=== PATIENT | female | born 1985 | race Caucasian/White ===

== ENCOUNTER 2016-06-23 21:58 | Emergency (ER) | payer MEDICAID ==
[~2016-06-23] VITALS: Ht 160 cm; Wt 61.2 kg
[~2016-06-23 21:58] MED LIST: GABAPENTIN300 MG PO; LEXAPRO 10 MG T10 MG PO; MELOXICAM7.5 MG PO; MIRALAX(PO17 GM/1 PA PO; SUBOXONE 8 MG-21 TAB SL; SUMATRIPTAN SUC25 MG PO; ZOFRAN4 MG PO
[2016-06-23] MEDS ORDERED: GABAPENTIN 400400 MG PO (22:12)
[2016-06-23] MEDS ORDERED: WELLBUTRIN XL300 MG PO (22:12)
--- NOTE | 2016-06-23 23:21 | Emergency Room Report ---
History of Present Illness Time Seen by [id number] Presenting Problem in Triage Pt arrived:Walked Presenting Problem:PATIENT REQUESTS "BLOOD" TEST DUE TO BEING ON SUBOXONE AND NEEDIN TO HAVE IT VERIFIED AND SWITCHED IF SHE IS . 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 N Clinical Suspician of Infection? N Mental Status: 1 - Regular (Normal Baseline) Sepsis Risk:Low Sepsis Risk Have you (or family members/close friends) recently traveled outside the [place]? N If Yes, where/when: Have you had exposure to infectious disease within the past month? N TB? Other? Specify: Source patient, RN notes reviewed, old records Exam Limitations no limitations Comment pt with pos urine preg test Cardiac Chest Pain Chest pain indicative of cardiac No Timing/Duration this evening Severity moderate ALLERGIES Coded Allergies: naproxen (Intermediate, I-ITCHING 06/23/16) Home Medications Reported Medications BUPRENORPHINE HCL/NALOXONE HCL (Suboxone 8 MG-2 MG Tablet Sl) 1 TAB SL BID GABAPENTIN (Gabapentin) 800 MG PO TID BUPROPION HCL (Wellbutrin XL 300MG) (Unknown Dose) PO DAILY History Medical History General CAD? No Angina: No [place]: No Hypertension? Yes Hyperlipidemia? No CHF? No DVT? No PE? No COPD? No Asthma? No Anemia? No GERD? No Gastric ulcers? No GI Bleed? No Hernia? Yes Thyroid Problems? No Hypothyroidism? No CVA? No Seizures? No Diabetes? No Renal Insuffiency? No End Stage Renal Disease? No UTI? No Stones? No BPH? No GB Disease: No Nephritic Syndrome? No Asplenia? No Hepatitis? Yes Sickle Cell Disease? No Arthritis? No Migraines? No Cataracts? No Glaucoma? No MRSA? No HIV? No TB? No Anxiety? No Depression? No Cancer? No More? 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 Respiratory denies cough, denies shortness of breath, denies wheezing Cardiovascular denies chest pain, denies syncope Gastrointestinal denies abdominal pain, denies diarrhea, denies vomiting Genitourinary see HPI. denies: dysuria, frequency, hesitancy, hematuria. Musculoskeletal denies back pain, denies joint pain, denies joint swelling, denies neck pain Skin denies rash Psychiatric/Neurological denies headache, denies seizure Physical Exam Vital Signs Vital Signs Date Time Temp Pulse Resp B/P Pulse O2 O2 Flow FiO2 Ox Delivery Rate 06/23 2219 132/77 06/23 2203 99.1 94 17 132/77 98 - WBC >12,000 or <4,000 or 10% bands? 2 or more SIRS Criteria Met? B/P:132/77 MAP:95 Creatinine >2.0? UA output<0.5ml/kg/hr for 2 hrs? Platelet count >100,000? Lactate >2.0mmol/1? INR >1.2 or PTT > than 60 sec? Evidence of Organ Dysfunction? Provider documented clinical suspician of infection? N Sepsis Criteria Count: 1 Sepsis Risk: Low Sepsis Risk General Appearance no apparent distress Eye Exam - bilateral eye PERRL, bilateral eye EOMI Ear, Nose, Throat normal ENT inspection Neck supple Respiratory Status No: respiratory distress. 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 No Results/Orders Orders Procedure Date/time Status SERUM , QUAL 06/232 Complete Departure Departure Time of Disposition 6 Disposition DC Home or Self Care(routine) Clinical Impression Primary Impression: Qualifiers: Weeks of gestation: less than 8 weeks Qualified Code: Z3A.01 - Less than 8 weeks gestation of Condition STABLE Referrals Michelle MAYS,Kvng Kim (Family) Patient Instructions DI for -- Discomforts and Remedies Additional Instructions please notify your drs in am Discharge Counseling Counseled pt/family regarding diagnosis, test results, medications/RX, follow up needs ED Critical Care Critical Care No at [id number]
--- NOTE | 2016-06-23 23:21 | Emergency Room Report ---
History of Present Illness Time Seen by [id number] Presenting Problem in Triage Pt arrived:Walked Presenting Problem:PATIENT REQUESTS "BLOOD" TEST DUE TO BEING ON SUBOXONE AND NEEDIN TO HAVE IT VERIFIED AND SWITCHED IF SHE IS . 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 N Clinical Suspician of Infection? N Mental Status: 1 - Regular (Normal Baseline) Sepsis Risk:Low Sepsis Risk Have you (or family members/close friends) recently traveled outside the [place]? N If Yes, where/when: Have you had exposure to infectious disease within the past month? N TB? Other? Specify: Source patient, RN notes reviewed, old records Exam Limitations no limitations Comment pt with pos urine preg test Cardiac Chest Pain Chest pain indicative of cardiac No Timing/Duration this evening Severity moderate ALLERGIES Coded Allergies: naproxen (Intermediate, I-ITCHING 06/23/16) Home Medications Reported Medications BUPRENORPHINE HCL/NALOXONE HCL (Suboxone 8 MG-2 MG Tablet Sl) 1 TAB SL BID GABAPENTIN (Gabapentin) 800 MG PO TID BUPROPION HCL (Wellbutrin XL 300MG) (Unknown Dose) PO DAILY History Medical History General CAD? No Angina: No [place]: No Hypertension? Yes Hyperlipidemia? No CHF? No DVT? No PE? No COPD? No Asthma? No Anemia? No GERD? No Gastric ulcers? No GI Bleed? No Hernia? Yes Thyroid Problems? No Hypothyroidism? No CVA? No Seizures? No Diabetes? No Renal Insuffiency? No End Stage Renal Disease? No UTI? No Stones? No BPH? No GB Disease: No Nephritic Syndrome? No Asplenia? No Hepatitis? Yes Sickle Cell Disease? No Arthritis? No Migraines? No Cataracts? No Glaucoma? No MRSA? No HIV? No TB? No Anxiety? No Depression? No Cancer? No More? 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 Respiratory denies cough, denies shortness of breath, denies wheezing Cardiovascular denies chest pain, denies syncope Gastrointestinal denies abdominal pain, denies diarrhea, denies vomiting Genitourinary see HPI. denies: dysuria, frequency, hesitancy, hematuria. Musculoskeletal denies back pain, denies joint pain, denies joint swelling, denies neck pain Skin denies rash Psychiatric/Neurological denies headache, denies seizure Physical Exam Vital Signs Vital Signs Date Time Temp Pulse Resp B/P Pulse O2 O2 Flow FiO2 Ox Delivery Rate 06/23 2219 132/77 06/23 2203 99.1 94 17 132/77 98 - WBC >12,000 or <4,000 or 10% bands? 2 or more SIRS Criteria Met? B/P:132/77 MAP:95 Creatinine >2.0? UA output<0.5ml/kg/hr for 2 hrs? Platelet count >100,000? Lactate >2.0mmol/1? INR >1.2 or PTT > than 60 sec? Evidence of Organ Dysfunction? Provider documented clinical suspician of infection? N Sepsis Criteria Count: 1 Sepsis Risk: Low Sepsis Risk General Appearance no apparent distress Eye Exam - bilateral eye PERRL, bilateral eye EOMI Ear, Nose, Throat normal ENT inspection Neck supple Respiratory Status No: respiratory distress. 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 No Results/Orders Orders Procedure Date/time Status SERUM , QUAL 06/232 Complete Departure Departure Time of Disposition 6 Disposition DC Home or Self Care(routine) Clinical Impression Primary Impression: Qualifiers: Weeks of gestation: less than 8 weeks Qualified Code: Z3A.01 - Less than 8 weeks gestation of Condition STABLE Referrals Michelle MAYS,Kvng Kim (Family) Patient Instructions DI for -- Discomforts and Remedies Additional Instructions please notify your drs in am Discharge Counseling Counseled pt/family regarding diagnosis, test results, medications/RX, follow up needs ED Critical Care Critical Care No at [phone]
[2016-06-23 23:50] VITALS: BP 132/77
== END 2016-06-23 23:52 | disposition home or self-care (01) ==
LOC: ER 21:58
DX: Z3A.01 Less than 8 weeks gestation of pregnancy (principal); Z72.0 Tobacco use; Z79.891 Long term (current) use of opiate analgesic

== ENCOUNTER → 2017-01-22 | Outpatient (CLI) | payer BC, MEDICAID ==
[~2017-01-22] MED LIST changes: +GABAPENTIN 400400 MG PO; +PRENATAL PLUS1 TA1 PO; +WELLBUTRIN XL300 MG PO; +ZOFRAN 8MG TABLE8 MG PO
--- NOTE | 2017-01-22 15:58 | RADIOLOGY REPORT PS360 ---
US PREG FOLLOWUP SINGLE FETUS, US BIOPHYSICAL PROFILE, SD RATIO UMBILICAL ARTERY: Indication: Small for gestational age SGA ORDERING PHYSICIAN: Kiko Tucker MD PATIENT AGE: 31 years FINDINGS: There is a single live fetus present in the cephalic presentation. heart tones are present at 144 BPM's breathing and body motion noted The following parameters are obtained: Average ultrasound age is 33 weeks 4 days. Estimated due date by ultrasound is 03/08/2017. Estimated weight is 2120 g BPD: 33 weeks 5 days OFD: 35 weeks 3 days HC: 34 weeks 2 days AC: 33 weeks 0 days FL: 32 weeks 6 days heart rate: 144 bpm. HC/AC: 1.06 Cephalic index: 76% FL/BPD: 76% FL/AC: 22% Amniotic fluid index: 10.1 Qualitative AFV: 2 breathing movements: 2 Gross body movements: 2 Tone: 2 Biophysical profile score: 8/8 Doppler evaluation of the umbilical artery: SD ratio: 3.6 Resistive index: 0.72 No obvious anomalies evident. Placenta: Right lateral and grade 1-2. No previa No obvious anomalies are apparent. IMPRESSION: Live IUP at 33 weeks 4 days in the cephalic presentation. heart and body motion noted with all parameters correlate. No evidence of IUGR. Placenta is anterior and grade 1-2. Normal biophysical profile. SD ratio of the umbilical artery near the 95th percentile.
== END ==
LOC: RAD 10:30
DX: O36.5131 Maternal care for known or suspected placental insufficiency, third trimester, fetus 1 (principal)

== ENCOUNTER 2017-02-22 02:11 | Inpatient (IN) | payer BC, MEDICAID ==
[~2017-02-22] VITALS: Ht 154.9 cm; Wt 65.3 kg
[~2017-02-22 02:11] MED LIST changes: +BUPRENORPHINE HY8 MG SL; +PRILOSEC OTC20 MG PO; -SUBOXONE 8 MG-21 TAB SL
[2017-02-22 05:58] LABS: HEMOGLOBIN 11.8 g/dL (12.2-16.2); LYMPH # 2.1 K/mm3 (0.7-4.5); LYMPH % 26.7 % (10-50.0)
[2017-02-22 06:15] VITALS: BP 116/64
[2017-02-22 06:16] LABS: AMPHETAMINES/METAMPHETAMINES NEGATIVE ng/mL (<1000)
[2017-02-22 06:21] LABS: BUN 5 mg/dL (7-18)
[2017-02-22 06:22] LABS: GFR (ESTIMATED) 117 ML/MIN (59-)
[2017-02-22 06:44] LABS: ABO BLOOD TYPE A
[2017-02-22 07:10] LABS: RH BLOOD TYPE NEGATIVE
--- NOTE | 2017-02-22 08:23 | Operative Note ---
Procedure/Operative Record Procedure Date of procedure: 02/22/17 Pre-Op Dx: Term , previous section Post-Op Dx: Term , previous section Procedure performed: Repeat lower segment transverse section Surgeon: Dr. Kiko Tucker Housesmith(s): Jacklyn Dominguez Anesthesia: Ham Phelan EBL (ml): 600 Clinical note: She is a 31-year-old 7 para 5 aborta 1 who has had 3 previous sections. As result of this she was offered repeat lower segment transverse section at term. Risk and benefits of surgery discussed the patient prior to surgery. Operative findings: She delivered a live-born male child at 7:50 AM on the morning of February 22, 2017. The baby had Apgars of 9 at 1 minute and 9 at 5 minutes. Ovaries and tubes appeared normal. The pH was 7.52. Operative note: She was taken to the operating room where spinal anesthesia was found be adequate. She was prepped and draped in normal sterile fashion in the supine position with a leftward tilt. A Barrios catheter was in the bladder. A Pfannenstiel skin incision was made with knife then carried through to the underlying layer of fascia with cautery. The fascia was opened in the midline with cautery and extended laterally using Hines scissors. [place] clamps were applied to the superior aspect of the fascial incision which was tented up and the underlying rectus muscles dissected off using cautery. The Claudio clamps were then applied to the inferior aspect of the fascial incision which in a similar fashion was tented up and the underlying rectus muscles dissected off using cautery. The rectus muscles were then in the midline, the peritoneum identified, and entered sharply with Metzenbaum scissors. This incision was then extended superiorly and inferiorly with cautery. We had good visualization of the bladder inferiorly. The bladder peritoneum was then opened in the midline and extended laterally using Metzenbaum scissors. A bladder flap was created digitally. The lower blade of the [place] was inserted so as to push the bladder out of the way. Transverse incision was made through the uterine muscle to the amnion. This incision was then extended laterally using fingers traction. The amnion was entered sharply with knife. The infant's head was then delivered atraumatically. This was followed by the anterior shoulder and the rest of the infant's body atraumatically. The oropharynx and nasopharynx were bulb suctioned. The was then handed off to Dr. Salinas who assigned Apgars of 9 at 1 minute and 9 at 5 minutes. We then obtained cord blood as well as cord pH. The pH was 7.52. Using gentle traction on the cord and countertraction on the fundus I was able to easily deliver the placenta intact. It had a normal three-vessel cord. The uterus was then cleared of clots and debris and exteriorized from the abdominal cavity. A sponge forcep was passed through the cervix to allow drainage. The uterine incision was then closed using running 0 Vicryl suture in a locked fashion. A second layer of the same suture was used to imbricate the first layer. The bladder peritoneum was then closed using running 2-0 Vicryl suture in a locked fashion. The gutters and cul-de-sac were then cleared of clots and debris and the uterus was returned the abdominal cavity. Once again hemostasis was assured. The peritoneum was grasped with Maria Dolores clamps and closed using running 2-0 Vicryl suture. The rectus muscles were then reapproximated using running 0 Vicryl suture. The fascia was closed using running #1 Vicryl suture. The subcutaneous tissues were then irrigated with warm water followed by closure Adams's fascia using running 2-0 Monocryl suture. The skin was closed with devika. The incision was then cleaned with Hibiclens once again. Sterile dressings were applied. She tolerated the procedure well and was taken to the recovery room in excellent condition. All sponges minute and needle counts were correct. Estimate a blood loss was approximately 600 mL. Conplications: None Specimens: Products of conception at 0898
--- NOTE | 2017-02-22 08:28 | Anesthesia Record ---
Anesthesia Record Part I Total IV fluids: 3000 EBL (ml): 600 Urine Output: 200 B/P: 123/60 % SaO2: 99 Pulse: 96 Resps: 16 Temp: 97.6 Patient is: Awake, Stable Stable to PACU at: 0825 at 0827
--- NOTE | 2017-02-22 08:28 | Anesthesia Record ---
Anesthesia Record Part II Discharge time: 854 Destination: OB PACU nurse assessment review? Yes Patient is: Stable Anesthesia complications? No at 0875
--- NOTE | 2017-02-22 08:28 | Anesthesia Record ---
Anesthesia Record Part II Discharge time: 854 Destination: OB PACU nurse assessment review? Yes Patient is: Stable Anesthesia complications? No at [id number]
[2017-02-22 10:00] VITALS: BP 120/85
[2017-02-22 10:24] LABS: ABO BLOOD TYPE A
[2017-02-22 10:38] LABS: RH BLOOD TYPE NEGATIVE
--- NOTE | 2017-02-22 10:49 | PHARMACY CLINIC NOTE ---
Patient Demographics Patient Demographics Admission date: 02/22/17 Date: 02/22/17 Time: 1049 Allergies Coded Allergies: naproxen (Mild, I-ITCHING 02/22/17) HEIGHT- FT: 5 IN: 1.00 K.318 VTE General Information Labs: Laboratory Tests 02/22 0540 Hematology Hgb (12.2 - 16.2 g/dL) 11.8 L Hct (37.0 - 47.0 %) 35.3 L Plt Count (142 - 424 K/mm3) 192 Disclaimer The following section includes nursing documentation that has been pulled in for pharmacy review. VTE prophylaxis NQF [id number] VTE prophylaxis ordered? Yes Type of prophylaxis/treatment: ICD at 4719
[2017-02-22 10:50] LABS: URINE BILIRUBIN - DIPSTICK NEGATIVE (NEG); URINE BLOOD 2+ (NEG)
[2017-02-22 11:08] LABS: FETALSCREEN NEGATIVE (NEGATIVE)
[2017-02-22 20:35] VITALS: BP 105/55
[2017-02-23] VITALS (19 sets, daily range): BP systolic 96–138; BP diastolic 52–76
[2017-02-23 07:09] LABS: HEMOGLOBIN 6.2 g/dL (12.2-16.2)
--- NOTE | 2017-02-23 08:08 | ACUTE CARE PROGRESS NOTE (QUA) ---
Progress Notes Subjective Date 02/23/17 Time 0806 Note She seems to be doing well this morning. Her pain is reasonably well-controlled. She had a large gush of blood yesterday post surgery. Today her hemoglobin is 6.2. As result of that we will go ahead and transfuse her. Patient/family reports: feeling better, no complaints Objective Findings Last VS-Temp:98.5 B/P:105/55 Pulse:100 Resp:18 SaO2:100 ROOM AIR Last weight lbs:144 oz:0 K.318 Method:Stated Laboratory Tests 02/23/17 0641: Hgb 6.2 *L, Hct 19.3 *L 02/22/17 1252: RhIG Dose Recommended RHOGAM RELEASE 02/22/17 1000: RBC Ketty Test NEGATIVE, Antibody Screen NEGATIVE, Miscellaneous Test NEGATIVE Exam General appearance: normal appearance, alert, awake, no acute distress Eyes: normal exam ENT: normal exam, mucous membranes moist Neck: normal inspection Cardiovascular: normal exam Respiratory: normal exam, aerating well ABD: normal exam, non-distended, normal bowel sounds Genitourinary: normal voiding & quantity Reviewed: vital signs, lab results Assessment/Plan Problem List 1. Anemia, 2. Delivered by section Patient condition Improving, Stable Plan: continue current care This inpt stay is expected to cross 2 MNs from start of care Yes Comments: Since her hemoglobin is low this morning we will go ahead and transfuse her 2 units of blood. She will be her another 48 hours. at 0808
[2017-02-23 08:30] LABS: ANTIHUMAN GLOB CROSSMATCH COMPAT
[2017-02-23 14:46] LABS: HEMOGLOBIN 9.2 g/dL (12.2-16.2)
[2017-02-24 07:30] VITALS: BP 117/57
--- NOTE | 2017-02-24 07:33 | ACUTE CARE PROGRESS NOTE (QUA) ---
Progress Notes Subjective Date 02/24/17 Time 0732 Note She is doing well this morning. She is eating and drinking and ambulating. Her pain is well-controlled. Her hemoglobin is now 9.2 after she received 2 units of blood. Patient/family reports: feeling better, no complaints Objective Findings Last VS-Temp:98.2 B/P:122/56 Pulse:93 Resp:18 SaO2:100 ROOM AIR Last weight lbs:144 oz:0 K.318 Method:Stated Laboratory Tests 02/23/17 1425: Hgb 9.2 L, Hct 27.2 L 02/23/17 1115: Misc Test Units 02/23/17 0903: Misc Test Units BLOOD UNIT RELEASE 02/23/17 0641: Hgb 6.2 *L, Hct 19.3 *L 02/22/17 1252: RhIG Dose Recommended RHOGAM RELEASE 02/22/17 1000: RBC Ketty Test NEGATIVE, Antibody Screen NEGATIVE, Miscellaneous Test NEGATIVE 02/22/17 0800: Cord Blood pH 7.52 H 02/22/17 0739: Urine Color STRAW, Urine Appearance CLEAR, Urine pH 7.0, Ur Specific [place] <= 1.005, Urine Protein NEGATIVE, Urine Ketones 1+ H, Urine Blood 2+ H, Urine Nitrate NEGATIVE, Urine Bilirubin NEGATIVE, Urine Urobilinogen 0.2, Ur Leukocyte Esterase NEGATIVE, Urine RBC 5-10, Urine WBC NONE, Ur Squamous Epith Cells 5-10, Urine Bacteria TRACE, Urine Glucose NEGATIVE 02/22/17 0540: MCH 31.1 02/22/17 0540: Sodium 136, Potassium 3.4 L, Chloride 103, Carbon Dioxide 24, BUN 5 L, Creatinine 0.6, Estimated GFR (MDRD) 117, Glucose 102, Calcium 8.4 L, Total Bilirubin 0.5, AST 20, ALT 14, Alkaline Phosphatase 199 H, Total Protein 6.8, Albumin 2.6 L, Globulin 4.2 H, Albumin/Globulin Ratio 0.6 L, WBC 7.8, RBC 3.80 L, Hgb 11.8 L, Hct 35.3 L, MCV 92.9, RDW 14.2, Plt Count 192, MPV 7.7, Gran % 64.1, Gran # 5.0, Lymphocytes % 26.7, Monocytes % 7.5, Eosinophils % 1.4, Basophils % 0.3, Lymphocytes # 2.1, Monocytes # 0.6, Eosinophils # 0.1, Basophils # 0.0, PUBS MCHC 33.5, Antibody Screen NEGATIVE, Miscellaneous Test NEGATIVE 02/22/17 0530: Opiates Screen NEGATIVE, Urine Methadone Screen NEGATIVE, Barbiturates NEGATIVE, Phencyclidine Screen NEGATIVE, Amphetamines Screen NEGATIVE, Benzodiazepines Screen NEGATIVE, Cocaine Screen NEGATIVE, Marijuana (THC) Screen NEGATIVE Exam General appearance: normal appearance, alert, awake, no acute distress Reviewed: vital signs, lab results Assessment/Plan Problem List 1. Anemia, 2. Delivered by section Patient condition Improving, Stable Plan: continue current care This inpt stay is expected to cross 2 MNs from start of care Yes Comments: She is doing very well and we'll plan to send her home tomorrow. at 0723
[2017-02-24 20:17] VITALS: BP 131/82
[2017-02-25 03:36] LABS: Buprenorphine Positive (.); Norbuprenorphine Positive (.)
--- NOTE | 2017-02-25 08:25 | ACUTE CARE PROGRESS NOTE (QUA) ---
Progress Notes Subjective Date 02/25/17 Time 0824 Note She continues to do well. She is eating and drinking and ambulating. She is bottlefeeding. Patient/family reports: feeling better, no complaints Objective Findings Last VS-Temp:98.3 B/P:131/82 Pulse:83 Resp:18 SaO2:100 ROOM AIR Last weight lbs:144 oz:0 K.318 Method:Stated Exam General appearance: normal appearance, alert, awake, no acute distress Reviewed: vital signs, lab results Assessment/Plan Problem List 1. Anemia, 2. Delivered by section Patient condition Improving, Stable Plan: continue current care, initiate discharge plan This inpt stay is expected to cross 2 MNs from start of care Yes Comments: We will plan to send her home today. It's not clear what social media job titles are doing with her baby. She will follow-up with me in 2 weeks' time. at 0848
--- NOTE | 2017-02-25 08:25 | ACUTE CARE PROGRESS NOTE (QUA) ---
Progress Notes Subjective Date 02/25/17 Time 0824 Note She continues to do well. She is eating and drinking and ambulating. She is bottlefeeding. Patient/family reports: feeling better, no complaints Objective Findings Last VS-Temp:98.3 B/P:131/82 Pulse:83 Resp:18 SaO2:100 ROOM AIR Last weight lbs:144 oz:0 K.318 Method:Stated Exam General appearance: normal appearance, alert, awake, no acute distress Reviewed: vital signs, lab results Assessment/Plan Problem List 1. Anemia, 2. Delivered by section Patient condition Improving, Stable Plan: continue current care, initiate discharge plan This inpt stay is expected to cross 2 MNs from start of care Yes Comments: We will plan to send her home today. It's not clear what delinquency prevention social worker are doing with her baby. She will follow-up with me in 2 weeks' time. at 0817
[2017-02-25 08:30] VITALS: BP 114/70
--- NOTE | 2017-02-25 08:30 | Discharge Summary ---
Discharge Summary Admission date: 02/22/17 Discharge date: 02/25/17 Discharge diagnoses: Term , previous section, maternal drug abuse, anemia Clinical note: She is a 31-year-old 7 now para 6 aborta 1. She's had previous sections and as result of that was offered repeat lower segment transverse section at term. She has been taking Subutex throughout her . She has a history of drug abuse. Course in hospital: On February 22, 2017 she underwent a repeat lower segment transverse section. She delivered a live-born male child at 7:50 AM on the morning of February 22. The baby weighed 7 lbs. 3 oz. and was 19 inches long. He had Apgars of 9 at 1 minute and 9 at 5 minutes. She has done well postoperatively and has remained afebrile throughout her hospitalization. She is eating and drinking and ambulating. She is bottlefeeding. Her lochia is normal. When she returned to the labor and delivery department after her delivery she did pass a large clot and soaked through a large truck. She received Methergine and her bleeding settled. Her post operative hemoglobin was 6.2. As result of that we elected to transfuse her 2 units. Posttransfusion her hemoglobin is 9.2. She has A negative blood. She is rubella immune and was group B streptococcus negative. Her baby had Rh positive blood and she has received RhoGam. Laboratory Tests 02/22/17 0530: Opiates Screen NEGATIVE, Urine Methadone Screen NEGATIVE, Barbiturates NEGATIVE, Phencyclidine Screen NEGATIVE, Amphetamines Screen NEGATIVE, Benzodiazepines Screen NEGATIVE, Cocaine Screen NEGATIVE, Marijuana (THC) Screen NEGATIVE 02/22/17 0540: Sodium 136, Potassium 3.4, Chloride 103, Carbon Dioxide 24, BUN 5, Creatinine 0.6, Estimated GFR (MDRD) 117, Glucose 102, Calcium 8.4, Total Bilirubin 0.5, AST 20, ALT 14, Alkaline Phosphatase 199, Total Protein 6.8, Albumin 2.6, Globulin 4.2, Albumin/Globulin Ratio 0.6, WBC 7.8, RBC 3.80, MCV 92.9, RDW 14.2, Plt Count 192, MPV 7.7, Gran % 64.1, Gran # 5.0, Lymphocytes % 26.7, Monocytes % 7.5, Eosinophils % 1.4, Basophils % 0.3, Lymphocytes # 2.1, Monocytes # 0.6, Eosinophils # 0.1, Basophils # 0.0, PUBS MCHC 33.5 02/22/17 0540: MCH 31.1 02/22/17 0739: Urine Color STRAW, Urine Appearance CLEAR, Urine pH 7.0, Ur Specific [place] <= 1.005, Urine Protein NEGATIVE, Urine Ketones 1+, Urine Blood 2+, Urine Nitrate NEGATIVE, Urine Bilirubin NEGATIVE, Urine Urobilinogen 0.2, Ur Leukocyte Esterase NEGATIVE, Urine RBC 5-10, Urine WBC NONE, Ur Squamous Epith Cells 5-10, Urine Bacteria TRACE, Urine Glucose NEGATIVE 02/22/17 0800: Cord Blood pH 7.52 02/22/17 1000: RBC Ketty Test NEGATIVE, Antibody Screen NEGATIVE, Miscellaneous Test NEGATIVE 02/22/17 1252: RhIG Dose Recommended RHOGAM RELEASE 02/23/17 1115: Misc Test Units 02/23/17 1425: Hgb 9.2, Hct 27.2 Plans for ongoing care: She is discharged home to follow-up with me in approximately 2 weeks' time. Discharge medications I've given her a pressure for hydromorphone 2 mg number 30 tablets. She will also take ibuprofen. She will start her Subutex after she stops taking narcotics for pain. She will continue with her vitamins and iron. She received a prescription for nicotine patch. DC/follow-up instructions She was given the usual instructions with respect to limiting her activity, driving and sexual activity. She was given instructions with respect to wound care. Condition at discharge Stable and improved at 0830
[2017-02-25] MEDS ORDERED: IRON TABLETS325 MG PO (08:32)
[2017-02-25] MEDS ORDERED: HYDROMORPHONE2 MG PO (08:32)
[2017-02-25] MEDS ORDERED: MOTRIN 400MG.400 MG PO (08:33)
[2017-02-25] MEDS ORDERED: NICOTINE T21 MG/24 H TD (08:33)
--- OUTSIDE RECORDS SUMMARY | 2017-03-17 02:10 | External Medical Summary Rpt ---
Author Author , PATRICIA Jade PATRICIA Address Unknown Phone [email or web address] Team Providers Care Ethylene Oxide Panelboard Operator Name Role Phone AHMED, ORDAZ A, Unavailable Unavailable AHMED, ORDAZ A [facility]OC[facility] Unavailable [facility] AYOOB AND, AYOOB AND Unavailable Unavailable [facility], Unavailable Unavailable [facility] BEAVEN GERMAN, BEAVEN Unavailable Unavailable GERMAN [facility] Unavailable Unavailable [facility], [facility] Unavailable Unavailable [facility], [facility] HEIDI JAM, HEIDI JAM Unavailable Unavailable [facility] Unavailable Unavailable & INTER, [facility] NICK, NICK Unavailable Unavailable NICK ALL, NICK ALL Unavailable Unavailable BORAL ALFONZO, BORAL ALFONZO Unavailable Unavailable LANCE JOSE, LANCE JOSE Unavailable Unavailable DEEDEE ALL, DEEDEE Unavailable Unavailable ALL CY EPSTEIN, Unavailable Unavailable CY EPSTEIN TIMOTHY W, Unavailable Unavailable TAMMY MORALES CRIAG T, Unavailable Unavailable SILVIA VELEZ NOAM TER, NOAM TER Unavailable Unavailable CELLAROSI - YORBA, Unavailable Unavailable STEVIE M, CELLAROSI - YORBA, STEVIE M [facility], Unavailable Unavailable [facility]available Unavailable [facility], [facility] ANAMARIA MACKEY, Unavailable Unavailable BERT HARRIS Unavailable Unavailable [facility] Unavailable Unavailable [facility], [facility] RIA BRADEN RIA Unavailable Unavailable BRADEN PORTILLO AGA, Unavailable Unavailable LINDSEY AGA DO, DO Unavailable Unavailable DO ANCA, Unavailable Unavailable DO ANCA [id number], Unavailable Unavailable [id number], Unavailable Unavailable [facility] SILVINO CARBAJAL, Unavailable Unavailable SILVINO CARBAJAL GOYAL Unavailable Unavailable LUBNA JAY JAY CALVO GOYAL Unavailable Unavailable LUBNA RAMON ARANA Unavailable Unavailable L, RAMON ARANA AMANDA, AMANDA Unavailable Unavailable AMANDA ERICK, AMANDA Unavailable Unavailable ERICK [facility] VENKATESH DUMAS MD, Unavailable Unavailable VENKATESH ADAMS, CINDY ADAMS Unavailable Unavailable PHILLIPS DORETHA, PHILLIPS Unavailable Unavailable DORETHA HARPEL, HARPEL Unavailable Unavailable HARPEL NATACHA, HARPEL Unavailable Unavailable NATACHA [facility], Unavailable Unavailable [facility], Unavailable Unavailable [facility], [facility] HILTY, RONDON R, Unavailable Unavailable HILTY, RONDON R [facility], Unavailable Unavailable [facility] Unavailable Unavailable [facility] Unavailable Unavailable [facility], [facility] STEVE LANGSTON, Unavailable Unavailable STEVE LANGSTON KATHLEEN, Unavailable Unavailable KYLE ZABALA KATHERINE C, Unavailable Unavailable JOSE WEN, MARITZA GRE Unavailable Unavailable MAGDALENA, MAGDALENE, Unavailable Unavailable MAGDALENA, MAGDALENE [facility] MIGDALIA MACKEY, MIGDALIA Unavailable Unavailable NARENDRA KMSF NURSE Unavailable Unavailable PRACTITIONER GR, KMSF NURSE PRACTITIONER GR LALA BUTCHER Unavailable Unavailable BLAKE DAVISON, Unavailable Unavailable BLAKE ADEN [facility], Unavailable Unavailable [facility] Un[facility] Un[facility] Unavailable Unavailable HOLD[facility], [facility], Unavailable Unavailable [facility], Unavailable Unavailable [facility] HUSSEIN JAM, HUSSEIN JAM Unavailable Unavailable HUSSEIN JAM, HUSSEIN JAM Unavailable Unavailable MELANIA FAYETTE URBAN Unavailable Unavailable COGOVT, MELANIA FAYETTE URBAN COGOVT MELANIA FAYETTE URBAN Unavailable Unavailable COGOVT, MELANIA FAYETTE URBAN COGOVT MIGUEL DIANE, MIGUEL Unavailable Unavailable DIANE MIGUEL, TISH B, Unavailable Unavailable MIGUEL, TISH B ELIJAH PEÑA, Unavailable Unavailable ELIJAH PEÑA MELIO JOSE, MELIO JOSE Unavailable Unavailable LEXA SHANNON, Unavailable Unavailable LEXA SHANNON O'MULUGETA BRADEN, O'MULUGETA Unavailable Unavailable BRADEN CRYSTAL JAM, CRYSTAL Unavailable Unavailable JAM CRYSTAL JAM, CRYSTAL Unavailable Unavailable J[facility], [facility] Unavailable Unavailable [facility], [facility] Unavailable Unavailable LAB, [facility] DANISHA BRYAN Unavailable Unavailable MALLORY, DANISHA BYRAN MALLORY PICKLESIMER JR, Unavailable Unavailable PICKLESIMER JR PICKLESIMER JR GENIE, Unavailable Unavailable PICKLESIMER JR GENIE PICKLESIMER JR GENIE, Unavailable Unavailable PICKLESIMER JR GENIE [facility], Unavailable Unavailable [facility] OMARI MUNOZ, Unavailable Unavailable OMARI MUNOZ JASON T, Unavailable Unavailable SAMINA TRUJILLO CHAPPELL BET, Unavailable Unavailable CHAPPELL BET [id number], Unavailable Unavailable [facility] Unavailable Unavailable [id number] # [id number], [facility] [id number] # 0784 VIANNEY BORJAS Unavailable Unavailable SOLIEN GADIEL, SOLIEN Unavailable Unavailable GADIEL [facility] Unavailable Unavailable GROUP,, [facility], [facility] Unavailable Unavailable GROUP,, [facility], ZAHIRA NARENDRA, ZAHIRA NARENDRA Unavailable Unavailable [facility] Unavailable Un[facility], [facility], [facility]available [facility]available [facility], Unavailable Unavailable [facility] LI ZHANG, Unavailable Unavailable LI ZHANG STEVENS Unavailable Unavailable [facility], Unavailable [facility], [facility] Unavailable Unavailable [facility] ASHBY MOL, ASHBY MOL Unavailable Unavailable TRUE STEFANIA, TRUE STEFANIA Unavailable Unavailable [facility], Unavailable Unavailable [facility] Unavailable [facility] VELWILLA JR REINALDO, Unavailable Unavailable VELYADIELDIS JR REINALDO [facility] # Unavailable Unavailable 4892, [facility] # 4892 [facility] # Unavailable Unavailable 9631, [facility] # 9631 FRANCE NONI, FRNACE NONI Unavailable Unavailable [facility] Unavailable Unavailable [facility], [facility] Unavailable Unavailable [facility], [facility] HOANG JOHANNY, HOANG Unavailable Unavailable JOHANNY EVER DEN, Unavailable Unavailable EVER DEN ARSENIO ERICK, ARSENIO Unavailable Unavailable ERICK ZAGUROVSKAYA MAR, Unavailable Unavailable ZAGUROVSKAYA MAR Purpose Continuity of Care Document - 08-06-2008 through 2016 Problems Code Diagnosis DOS Provider Status [id number] FALSE LABOR 12-04-2016 [facility] BEFORE 37 PHYSICIANS CMPLETE GROUP WEEKS GEST 3RD TRI Z36 ENCOUNTER 10-16-2016 [facility] SCREENING OF MOTHER Z3A20 20 WEEKS 10-16-2016 [facility]ICAL OF IMAGING ASS Z113 ENCOUNTER 10-12-2016 [facility] INFECTIONS SEXL MODE TRANSMISSN Z3480 ENC 10-12-2016 [facility] SUPERVISION [facility] OTH NORMAL PREG UNS TRIMESTER X02500 UTERINE 09-03-2016 [facility] DISCREPANCY INC FIRST TRIMESTER Z3492 ENC 09-03-2016 [facility] NORMAL IMAGING ASS UNS 2 TRIMESTER Z3A14 14 WEEKS 09-03-2016 [facility] OF IMAGING ASS F02413 DRUG USE 08-31-2016 [facility] COMPLICATIN PHYSICIANS G GROUP SECOND TRIMESTER Z3201 ENCOUNTER 08-31-2016 [facility] FOR PHYSICIANS GROUP TEST RESULT POSITIVE N925 OTHER 07-02-2016 [facility] SPECIFIED PHYSICIANS IRREGULAR GROUP MENSTRUATIO N Z3A01 LESS THAN 8 06-23-2016 [facility], GESTATION PLLC OF Z720 TOBACCO USE 06-23-2016 [facility] B56138 MIRROR MAKER 06-23-2016 [facility] CURRENT USE [facility] OF OPIATE INC ANALGESIC R635 ABNORMAL 04-23-2016 [facility], PLLC Z3189 ENCOUNTER 04-23-2016 [facility] OTHER [facility] PROCREATIVE [facility] DEPT MANAGEMENT COLE Z3202 ENCOUNTER 04-23-2016 [facility] DEPT TEST RESULT COLE NEGATIVE I10 ESSENTIAL 02-20-2016 [facility] HYPERTENSIO INC N K5900 CONSTIPATIO 02-20-2016 [facility] N PHYSICIANS, UNSPECIFIED PLLC R1030 LOWER 02-20-2016 [facility] ABDOMINAL [facility]IANS, PAIN PLLC UNSPECIFIED R1084 GENERALIZED 01-25-2016 [facility] ABDOMINAL [facility], PAIN PLLC N809 ENDOMETRIOS 12-17-2015 [facility] IS ANESTH OF UNSPECIFIED THE BLUE N8320 UNSPECIFIED 12-17-2015 [facility] OVARIAN PHYSICIANS CYSTS GROUP N840 POLYP OF 12-17-2015 [facility] CORPUS PHYSICIANS UTERI GROUP R102 PELVIC AND 12-17-2015 [facility] PERINEAL LLC PAIN N736 FEMALE 12-13-2015 [facility] PERITONEAL INC ADHESIONS POSTINFECTI VE N761 SUBACUTE 12-13-2015 [facility] AND CHRONIC PHYSICIANS VAGINITIS GROUP S04830 ENCOUNTER 12-13-2015 [facility] PREPROCEDUR INC AL LABORATORY EXAM R17390 ENCOUNTER 09-30-2015 [facility] HOUSING INSPECTORS EXAM ALESIA MAYS GENERAL RTN W/ABNORMAL FIND Y07035 ENCOUNTER 09-30-2015 [facility] HOUSING INSPECTORS EXAM REFERNCE GENERAL RTN LABORATORIE W/O S ABNORMAL FIND D13900 ENCOUNTER 09-30-2015 [facility] ROUTINE ALESIA MAYS CHECKING IU CONTRACEPT DEVICE Z309 ENCOUNTER 09-30-2015 [facility] FOR ALESIA MAYS CONTRACEPTI VE MANAGEMENT UNS B1920 UNS VIRAL 09-16-2015 [facility] HEPATITIS C PHYSICIANS WITHOUT GROUP HEPATIC COMA M545 LOW BACK 09-16-2015 [facility] PAIN PHYSICIANS GROUP 62620 INCOMPLETE 03-06-2015 [facility] EMPTY[facility] V5869 LONG-TERM 02-20-2015 [facility] USE OF OTHER MEDICATIONS V5883 ENCOUNTER 02-20-2015 [facility] THERAPEUTIC DRUG MONITORING V2511 ENC FOR 01-23-2015 [facility] INTRAUTERIN [facility] E CONTRACEPT DEVICE V2389 SUPERVISION 12-26-2014 [facility] OTHER [facility] HIGH-RISK [facility] 10049 OTHER 12-19-2014 [facility] OB TRAUMA COND/COMPL 5119 UNSPECIFIED 12-13-2014 [facility] EFFUSION [facility] 5180 PULMONARY 12-13-2014 [facility] 7850 UNSPECIFIED 12-13-2014 [facility] TACHYCARDIA [facility] 2859 UNSPECIFIED 12-09-2014 [facility]SE ANEMIA PRACTITIONE R GR 2875 UNSPECIFIED 12-09-2014 [facility]SE PRACTITIONE THROMBOCYTO R GR PENIA 4266 OTHER HEART 12-09-2014 [facility] 514 PULMONARY 12-09-2014 [facility] AND [facility] HYPOSTASIS 5739 UNSPECIFIED 12-09-2014 [facility] [place] [address] SYSTEMIC 12-09-2014 [facility]SE INFLAMMATOR PRACTITIONE Y RESPONSE R GR SYNDROME UNSPEC 2760 HYPEROSMOLA 12-08-2014 [facility] [address] OTHER SPEC 12-08-2014 [facility] BLOOD&BLOOD HOSPI -FORMING ORGANS 5849 ACUTE 12-08-2014 [facility] FAILURE [facility] UNSPECIFIED 5881 NEPHROGENIC 12-08-2014 [facility]ABET[facility] INSIPIDUS [facility] 58735 CHEST PAIN 12-08-2014 [facility] UNSPECIFIED SERV [facility] 2762 ACIDOSIS 12-07-2014 [facility]SE PRACTITIONE R GR 5601 PARALYTIC 12-07-2014 [facility] ILEUS [facility] 18074 ERLY ONSET 12-07-2014 [facility] DELIV DELIV [facility] W/WO HOSPI MENTION ANTPRTM COND 48606 LIVER 12-07-2014 [facility] TRACT D/O [facility]OUND[facility] PREG DEL W/WO ANTPRTM 01638 MATERNAL 12-07-2014 [facility] DEPENDENCE [facility] WITH DELIVERY 96442 TWIN 12-07-2014 [facility] , [facility] DELIVERED [facility] 84415 OTH 12-07-2014 [facility] CONDS HOSPI AFFECT MANAGEMENT MOTH DELIV 21433 C/S DELIV 12-07-2014 [facility] W/O INDICAT [facility] DELIV W/WO HOSPI ANTPRTM COND 95715 POLYURIA 12-07-2014 [facility]URSE PRACTITIONE R GR V272 OUTCOME OF 12-07-2014 [facility] TWINS BOTH [facility] LIVEBORN V5881 FITTING AND 12-07-2014 [facility] OF [facility] VASCULAR CATHETER 99380 THREATENED 12-06-2014 [facility] PREMATURE [facility] LABOR [facility] ANTEPARTUM 69820 UNSPECIFIED 12-06-2014 [facility] ANTE[facility]UM [facility] RENAL [facility] DISEASE 2535 DIABETES 12-05-2014 [facility] 2866 DEFIBRINATI 12-05-2014 [facility] 5718 OTHER 12-05-2014 [facility] NONALCOHOLI C LIVER DISEASE 48920 RHESUS 12-05-2014 [facility] ISOIMMUNIZA [facility] [place] [address] SYS INFLAM 12-05-2014 [facility] SYND-NON-IN F W/O ACUTE ORGN DYSF 68649 TOB USE D/O 11-26-2014 [facility] /PP ANTEPARTM COND/COMP 74579 MATERNAL 11-23-2014 [facility] DEPENDENCE [facility] ANTEPARTUM 82969 TWIN 11-23-2014 [facility] , [facility] ANTEPARTUM [facility] 24125 CERVICAL 11-21-2014 [facility]ORTENING [facility] ANTEPARTUM [facility] CONDITION OR COMP V9102 TWIN GEST 11-21-2014 [facility] MONOCHORION SERV IC/DIAMNIOT FOUNDATION IC V221 SUPERVISION 10-24-2014 [facility] NORMAL V284 10-24-2014 [facility] SCR [facility] GROWTH [facility] RETARDATION USING US V239 UNSPECIFIED 10-17-2014 [facility] HIGH-RISK SERV [facility] 02205 CERVICAL 10-10-2014 [facility] INCOMPETENC SERV E ANTPRTM FOUNDATION COND/COMPLI CATION 83070 TWIN 10-03-2014 [facility] UNSPECIFIED FOUND[facility] TO EPISODE OF CARE 26109 PREVIOUS 09-28-2014 [facility] C-SECT SERV DELIVERY [facility] ANTPRTM COND/COMP V9103 TWIN GEST 09-12-2014 [facility] /DIAMNIOTIC V2881 ENCOUNTER 08-29-2014 [facility] FOR [facility] ANATOMIC [facility] SURVEY 5733 UNSPECIFIED 07-26-2014 [facility] 51207 BN&JNT D/O 07-19-2014 [facility] BACK [facility] PELVIS&LW [facility]OUNDATION LIMBS ANTEPARTUM 7245 UNSPECIFIED 07-19-2014 [facility] BACKACHE [facility] 7935 NONSPECIFIC 07-19-2014 [facility] ABN [facility] FINDING RAD [facility] & OTH EXAM ORGAN V222 07-19-2014 [place] [facility] [place], [facility] INCIDENTAL [facility] 54586 MATERNAL RX 06-26-2014 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 COMPL PG S LLC CB/PP UNS EOC 86595 TRIPLET 06-25-2014 [place] [facility]TEPARTUM [facility] 08353 OTHER 05-24-2014 [facility] SPECIFED N EMERGENCY COMPLICATIO PHYS N ANTEPARTUM 55724 HORDEOLUM 05-11-2014 [facility] EXTERNUM N EMERGENCY PHYS 55294 NAUSEA WITH 02-19-2014 [facility] VOMITING N EMERGENCY PHYS 32621 ABDOMINAL 02-19-2014 [facility] PAIN, N EMERGENCY EPIGASTRIC PHYS 6825 CELLULITIS 02-06-2014 [facility] AND ABSCESS N EMERGENCY OF BUTTOCK PHYS 05755 UNSPECIFIED 01-23-2014 [facility] N EMERGENCY [place]CTIVI [place]YS TIS 38830 NAUSEA 01-19-2014 [facility] ALONE N EMERGENCY PHYSI 30074 ABDOMINAL 01-19-2014 [facility] PAIN, N EMERGENCY GENERALIZED PHYSI 19233 OTHER 12-24-2013 H[facility] LATRICE DISEASES OF SPLEEN 5738 OTHER 12-24-2013 H[facility]SE[facility] JAM SPECIFIED DISORDERS OF LIVER 99776 ABDOMINAL 12-24-2013 MELANIA FAYETTE PAIN, URBAN UNSPECIFIED COGOVT SITE 33126 DIARRHEA 11-03-2013 [facility] SCO 45608 ABDOMINAL 11-03-2013 [facility] PAIN, LEFT SCO UPPER QUADRANT V7231 ROUTINE 11-03-2013 [facility] GYNECOLOGIC [facility] AL EXAMINATION 85430 OTHER CHEST 10-31-2013 GOYAL LUBNA PAIN 6264 IRREGULAR 10-27-2013 [employer] MENSTRUAL PARTNERS CYCLE GROUP, 4619 ACUTE 09-09-2010 [facility] SINUSITIS, HEALTHCARE UNSPECIFIED CENTER 462 ACUTE 09-09-2010 [facility] PHARYNGITIS HEALTHCARE CENTER 14477 ESOPHAGEAL 07-31-2010 [facility] 51460 OTHER 07-31-2010 [facility] FATIGUE 7948 NONSPECIFIC 07-31-2010 [facility] ABNORMAL [facility] RESULTS LIVR FUNCTION STUDY 72237 TOBACCO USE 07-17-2010 CRY[facility]AL JAM D/O COMP PG CHILDBIRTH/ PP DELIVERED 97391 PREV C/S 07-17-2010 [facility] DELIV DELIV W/WO MENTION ANTPRTM COND V237 INSUFFICIEN 07-17-2010 [facility] T CARE V270 OUTCOME OF 07-17-2010 [facility] DELIVERY SINGLE LIVEBORN V072 NEED FOR 06-19-2010 [facility] JAM PROPHYLACTI C IMMUNOTHERA PY V2889 OTHER 06-16-2010 [facility] SPECIFIED [facility] SCREENING 7231 CERVICALGIA 08-04-2009 [facility] 7241 PAIN IN 08-04-2009 [facility] SPINE 7242 LUMBAGO 08-04-2009 [facility] E9270 OVEREXERTIO 08-04-2009 [facility] FROM SERV SUDDEN [facility] STRENUOUS MOVEMENT 77826 ABDOMINAL 04-30-2009 [facility] PAIN, HOSPITAL PERIUMBILIC 02490 ABDOMINAL 04-30-2009 [facility] OTHER [facility]OSPITAL SPECIFIED SITE 460 ACUTE 04-17-2009 [facility] ITIS & INTER 13364 OTHER 04-15-2009 [facility] CHRONIC EMERG[facility]Y PAIN PHYS PSC 8472 LUMBAR 04-06-2009 [facility] SPRAIN [facility] CARE STRAIN PHYSICANS [place] PSC 5781 BLOOD IN 03-22-2009 [facility] STOOL [facility]ICS & INTER 5693 HEMORRHAGE 03-19-2009 [facility] ANUS SERVICES [facility] 06585 OTHER 01-12-2009 [facility], SPECIFIED KIAN, AND DISORDER OF ASSOCIATES KIDNEY AND URETER 68385 OTHER ACUTE 01-01-2009 [facility] EPSTEIN POSTOPERATI VE PAIN 67219 UNSPECIFIED 01-01-2009 [facility] EPSTEIN CONSTIPATIO N V242 ROUTINE 01-01-2009 VER[facility] EPSTEIN FOLLOW-UP 13562 GENLY 12-24-2008 MELANIA MARTHAYEZACH CONTRACTED URBAN [place] [address] PREMATURE 12-24-2008 [facility] RUPTURE [facility] MEMBRANES FOUNDAT[facility] ANTEPARTUM 49235 OTHER 12-23-2008 MELANIA FAYETTE THREATENED URBAN LABOR COGOVT UNSPEC EPISODE CARE 25665 OTHER 12-23-2008 [facility] THREATENED N EMERGENCY LABOR, PHYS INC ANTEPARTUM V726 LABORATORY 12-03-2008 LAB [facility] EXAMINATION [employer] 4550 INTERNAL 09-28-2008 [facility] HEMORRHOIDS CARE WITHOUT PHYSICANS MENTION [place] PSC COMP 4553 EXTERNAL 09-28-2008 [facility] HEMORRHO[facility] WITHOUT PHYSICANS MENTION [place] PSC COMP 4556 UNSPEC 09-28-2008 [facility] HEMORRHOIDS [email or web address] WITHOUT MENTION COMPLICATIO N 4659 ACUTE URIS 09-28-2008 [facility] UNSPECIFIED SITE 7862 COUGH 09-28-2008 [facility] 4660 ACUTE 09-27-2008 [facility] BRONCHITIS N EMERGENCY PHYS INC V745 SCREENING 09-04-2008 PATHOLOGY & EXAMINATION CYTOLOGY FOR LAB VENEREAL DISEASE 90703 OT CURRENT 08-06-2008 [facility]ations Na ND Rx Da Fi Fi Am Da Di Ph RX Ph St me C No te ll ll ou ys ag ar # ys at rm s nt no ma ic us Or Da si cy ia de te s n re d BU 69 07 08 60 30 00 HO Ac ID 09 -2 -2 .0 00 ME ti OP 70 1- 5- 00 06 TO ve IO 87 20 20 09 WN N 80 17 17 11 HC 3 02 PH L AR SR MA CY 15 0 OF MG CY TA NT BL HI ET AN A GA 68 06 07 60 20 00 HO Ac BA 00 -2 -2 .0 00 ME ti PE 10 2- 8- 00 06 TO ve NT 00 20 20 08 WN IN 70 17 17 94 3 59 PH 80 AR 0 MA MG CY TA OF BL ET CY NT HI AN A GA 68 05 06 90 30 00 HO Ac BA 00 -0 -0 .0 00 ME ti PE 10 9- 9- 00 06 TO ve NT 00 20 20 08 WN IN 70 17 17 65 3 54 PH 80 AR 0 MA MG CY TA OF BL ET CY NT HI AN A NI 00 05 06 14 14 00 HO Ac CO 53 -0 -0 .0 00 ME ti TI 65 8- 9- 00 06 TO ve NE 89 20 20 08 WN 68 17 17 65 21 8 86 PH AR MG MA /2 CY 4H R OF PA TC CY H NT HI AN A BU 69 05 06 30 30 00 HO Ac ID 09 -0 -0 .0 00 ME ti OP 70 8- 9- 00 06 TO ve IO 87 20 20 08 WN N 80 17 17 65 HC 3 87 PH L AR SR MA CY 15 0 OF MG CY TA NT BL HI ET AN A PO 62 05 06 52 30 00 HO Ac LY 17 -0 -0 7. 00 ME ti ET 50 8- 9- 00 06 TO ve HY 44 20 20 0 08 WN LE 23 17 17 65 NE 1 88 PH AR GL MA YC CY OL OF 33 50 CY NT PO HI WD AN A GA 68 04 05 90 30 00 HO Ac BA 00 -1 -1 .0 00 ME ti PE 10 1- 2- 00 06 TO ve NT 00 20 20 08 WN IN 70 17 17 31 3 69 PH 80 AR 0 MA MG CY TA OF BL ET CY NT HI AN A GA 68 03 04 90 30 00 HO Ac BA 00 -1 -1 .0 00 ME ti PE 10 4- 4- 00 06 TO ve NT 00 20 20 08 WN IN 70 17 17 31 3 69 PH 80 AR 0 MA MG CY TA OF BL ET CY NT HI AN A TE 00 02 03 45 7 00 HO Ac RC 16 -1 -2 .0 00 ME ti ON 80 6- 4- 00 06 TO ve AZ 34 20 20 08 WN OL 64 17 17 15 E 6 62 PH 0. AR 4% MA CY CR EA OF M CY NT HI AN A CL 00 02 03 30 10 00 HO Ac IN 59 -1 -2 .0 00 ME ti DA 12 6- 4- 00 06 TO ve MY 93 20 20 08 WN CI 20 17 17 15 N 1 63 PH HC AR L MA 30 CY 0 MG OF CA CY PS NT UL HI E AN A GA 68 02 03 90 30 00 HO Ac BA 00 -1 -1 .0 00 ME ti PE 10 4- 7- 00 06 TO ve NT 00 20 20 08 WN IN 70 17 17 14 3 17 PH 80 AR 0 MA MG CY TA OF BL ET CY NT HI AN A GA 02 90 30 00 HO Ac BA 00 -1 -1 .0 00 ME ti PE 10 6- 7- 00 06 TO ve NT 00 20 20 07 WN IN 70 17 17 62 3 96 PH 80 AR 0 MA MG CY TA OF BL ET CY NT HI AN A BU 00 01 02 23 13 00 HO Ac ID 09 -1 -1 .0 00 ME ti EN 35 0- 0- 00 04 TO ve OR 72 20 20 02 WN PH 15 17 17 09 IN 6 66 PH -N AR AL MA OX CY ON OF 8- 2 CY MG NT HI SL AN A BU 01 02 30 30 00 HO Ac ID 00 -0 -0 .0 00 ME ti OP 10 3- 3- 00 06 TO ve IO 19 20 20 07 WN N 90 17 17 87 HC 0 33 PH L AR 75 MA CY MG OF TA BL CY ET NT HI AN A BU 00 12 01 27 15 00 HO Ac ID 09 -2 -2 .0 00 ME ti EN 35 7- 7- 00 04 TO ve OR 72 20 20 02 WN PH 15 16 17 07 IN 6 74 PH -N AR AL MA OX CY ON OF 8- 2 CY MG NT HI SL AN A GA 12 01 90 30 00 HO Ac BA 00 -1 -2 .0 00 ME ti PE 10 9- 0- 00 06 TO ve NT 00 20 20 07 WN IN 70 16 17 62 3 96 PH 80 AR 0 MA MG CY TA OF BL ET CY NT HI AN A BU 00 12 01 38 19 00 HO Ac ID 09 -0 -1 .0 00 ME ti EN 35 8- 3- 00 04 TO ve OR 72 20 20 02 WN PH 15 16 17 05 IN 6 67 PH -N AR AL MA OX CY ON OF 8- 2 CY MG NT HI SL AN A BU 00 12 01 6. 3 00 HO Ac ID 09 -0 -0 00 00 ME ti EN 35 5- 9- 0 04 TO ve OR 72 20 20 02 WN PH 15 16 17 05 IN 6 08 PH -N AR AL MA OX CY ON OF 8- 2 CY MG NT HI SL AN A HAYS 12 04 04 0 90 30 HO 40 SO Ac GEMA 49 -2 -3 .0 ME 05 LI ti XO 61 9- 0- 00 TO 41 EN ve NE 20 20 20 WN 1 8 80 11 11 AR 3 PH YL MG AR S -2 MA K CY MG SL FI LM BU 00 04 04 2 60 30 HO 60 SO Ac ID 59 -2 -2 .0 ME 16 LI ti OP 13 9- 9- 00 TO 71 EN ve IO 54 20 20 WN 6 N 16 11 11 AR HC 0 PH YL L AR S SR MA K CY 15 0 MG TA BL ET ME 13 04 04 2 30 30 HO 60 SO Ac RT 10 -2 -2 .0 ME 16 LI ti AZ 70 9- 9- 00 TO 71 EN ve AP 00 20 20 WN 7 IN 33 11 11 AR E 4 PH YL 30 AR S MA K MG CY TA BL ET SE 00 03 04 2 30 30 HO 60 SO Ac RO 31 -3 -2 .0 ME 15 LI ti QU 00 0- 6- 00 TO 22 EN ve EL 27 20 20 WN 7 51 11 11 AR 25 0 PH YL AR S MG MA K CY TA BL ET ID 37 01 04 3 30 30 HO 60 ON Ac IL 00 -2 -2 .0 ME 11 EI ti OS 00 8- 1- 00 TO 94 LL ve EC 45 20 20 WN 3 50 11 11 JA OT 4 PH ME C AR S 20 MA E .6 CY MG TA BL ET IB 55 02 04 3 30 10 HO 60 ON Ac UP 11 -2 -2 .0 ME 13 EI ti RO 10 2- 1- 00 TO 37 LL ve FE 68 20 20 WN 8 N 40 11 11 JA 80 5 PH ME 0 AR S MG MA E CY TA BL ET HAYS 12 04 04 0 90 30 HO 40 SO Ac GEMA 49 -0 -0 .0 ME 05 LI ti XO 61 5- 6- 00 TO 05 EN ve NE 20 20 20 WN 0 8 80 11 11 AR 3 PH YL MG AR S -2 MA K CY MG SL FI LM AM 00 04 04 0 30 10 HO 60 SO Ac OX 78 -0 -0 .0 ME 15 LI ti IC 12 5- 5- 00 TO 52 EN ve IL 61 20 20 WN 7 LI 30 11 11 AR N 5 PH YL 50 AR S 0 MA K MG CY CA PS UL E SE 00 03 03 2 30 30 HO 60 SO Ac RO 31 -3 -3 .0 ME 15 LI ti QU 00 0- 0- 00 TO 22 EN ve EL 27 20 20 WN 7 51 11 11 AR 25 0 PH YL AR S MG MA K CY TA BL ET ID 37 01 03 3 30 30 HO 60 ON Ac IL 00 -2 -2 .0 ME 11 EI ti OS 00 8- 4- 00 TO 94 LL ve EC 45 20 20 WN 3 50 11 11 JA OT 4 PH ME C AR S 20 MA E .6 CY MG TA BL ET IB 55 02 03 3 30 10 HO 60 ON Ac UP 11 -2 -2 .0 ME 13 EI ti RO 10 2- 4- 00 TO 37 LL ve FE 68 20 20 WN 8 N 40 11 11 JA 80 5 PH ME 0 AR S MG MA E CY TA BL ET RA 64 03 03 5 60 30 RI 90 BA Ac NI 67 -2 -2 .0 TE 31 CO ti TI 90 2- 2- 00 7 N ve DI 69 20 20 AI MA NE 40 11 11 D TT 1 PH HE 15 AR W MA K MG CY /M L 07 SY 84 RU 2 P # 07 84 HAYS 12 03 03 0 90 30 HO 40 No Ac GEMA 49 -0 -1 .0 ME 04 t ti XO 61 9- 0- 00 TO 60 Av ve NE 20 20 20 WN 2 ai 8 80 11 11 la 3 PH bl MG AR e -2 MA CY MG SL FI LM HAYS 12 02 02 0 42 14 HO 40 No Ac GEMA 49 -2 -2 .0 ME 04 t ti XO 61 4- 5- 00 TO 40 Av ve NE 20 20 20 WN 3 ai 8 80 11 11 la 3 PH bl MG AR e -2 MA CY MG SL FI LM ID 37 01 02 3 30 30 HO 60 ON Ac IL 00 -2 -2 .0 ME 11 EI ti OS 00 8- 5- 00 TO 94 LL ve EC 45 20 20 WN 3 50 11 11 JA OT 4 PH ME C AR S 20 MA E .6 CY MG TA BL ET PH 00 02 02 1 24 30 TH 40 SA Ac EN 60 -2 -2 0. E 26 ND ti OB 31 5- 5- 00 PH 87 ER ve AR 50 20 20 0 AR 3 S BI 85 11 11 MA LY TA 8 CY ND L A 20 SH P OP MG /5 ML EL IX IB 55 02 02 3 30 10 HO 60 ON Ac UP 11 -2 -2 .0 ME 13 EI ti RO 10 2- 4- 00 TO 37 LL ve FE 68 20 20 WN 8 N 40 11 11 JA 80 5 PH ME 0 AR S MG MA E CY TA BL ET OX 00 02 02 0 15 2 WA 28 ON Ac YC 59 -2 -2 .0 LG 40 EI ti OD 10 2- 2- 00 RE 51 LL ve ON 93 20 20 EN -A 30 11 11 S JA CE 1 #9 ME TA 63 S ME 1 E NO # PH 96 EN 31 7. 5- 32 5 HAYS 12 02 02 0 24 8 HO 40 No Ac GEMA 49 -1 -1 .0 ME 04 t ti XO 61 6- 7- 00 TO 28 Av ve NE 20 20 20 WN 0 ai 8 80 11 11 la 3 PH bl MG AR e -2 MA CY MG SL FI LM CI 13 02 02 5 15 30 CV 45 ON Ac TA 66 -1 -1 .0 S 75 EI ti LO 80 3- 3- 00 PH 37 LL ve ID 01 20 20 AR AM 10 11 11 MA JA 5 CY ME HB # S R E 40 02 33 MG 2 TA BL ET OX 00 02 02 0 40 7 CV 45 ON Ac YC 59 -1 -1 .0 S 75 EI ti OD 10 3- 3- 00 PH 38 LL ve ON 93 20 20 AR -A 30 11 11 MA JA CE 1 CY ME TA # S ME E NO 02 PH 33 EN 2 7. 5- 32 5 IB 55 02 02 0 60 15 CV 45 ON Ac UP 11 -1 -1 .0 S 75 EI ti RO 10 3- 3- 00 PH 39 LL ve FE 68 20 20 AR N 30 11 11 MA JA 60 5 CY ME 0 # S MG E 02 TA 33 BL 2 ET DO 00 02 02 0 60 30 CV 45 ON Ac CU 53 -1 -1 .0 S 75 EI ti SA 63 3- 3- 00 PH 40 LL ve TE 75 20 20 AR 71 11 11 MA JA SO 0 CY ME DI # S UM E 02 25 33 0 2 MG CA PS UL E ID 68 02 02 5 30 30 CV 45 ON Ac EF 22 -1 -1 .0 S 75 EI ti ER 00 3- 3- 00 PH 41 LL ve A- 08 20 20 AR OB 63 11 11 MA JA 0 CY ME ON # S E E SO 02 FT 33 GE 2 L ZO 00 02 02 0 2. 2 CV 45 ON Ac LP 09 -0 -0 00 S 62 EI ti ID 30 9- 9- 0 PH 08 LL ve EM 07 20 20 AR 40 11 11 MA JA TA 1 CY ME RT # S RA E TE 02 33 10 2 MG TA BL ET ID 37 01 01 3 30 30 HO 60 ON Ac IL 00 -2 -2 .0 ME 11 EI ti OS 00 8- 8 00 TO 94 LL ve EC 45 20 20 WN 3 50 11 11 JA OT 4 PH ME C AR S 20 MA E .6 CY MG TA BL ET AZ 59 01 01 1 4. 1 CV 44 ON Ac IT 76 -1 -1 00 S 69 EI ti HR 23 3- 4- 0 PH 26 LL ve OM 06 20 20 AR YC 00 11 11 MA JA IN 2 CY ME # S 25 E 0 02 MG 33 2 TA BL ET ID 68 01 01 5 30 30 CV 44 ON Ac EF 22 -1 -1 .0 S 54 EI ti ER 00 00 PH 42 LL ve A- 08 20 20 AR OB 63 11 11 MA JA 0 CY ME ON # S E E SO 02 FT 33 GE 2 L FA 00 01 01 0 30 15 CV 44 ON Ac MO 17 -1 -1 .0 S 52 EI ti TI 25 0- 0- 00 PH 02 LL ve DI 72 20 20 AR NE 86 11 11 MA JA 0 CY ME 20 # S E MG 02 33 TA 2 BL ET 00 02 02 0 10 2 WA 28 BR Ac 59 -2 -2 .0 LG 49 AN ti 10 RE 59 TL ve 34 20 20 EN 1 EY 90 10 10 S 5 #4 VIKKI 89 NA 2 TH # AN 48 C 92 TR 65 10 11 00 [address] Ac AM 16 -3 -1 .0 OG 55 AC ti AD 20 ER 11 K ve OL [address] 75 09 09 PH EV HC 0 AR EN L M J 50 L- 72 MG 2 TA BL ET CY 00 10 11 00 [address] Ac CL 59 -3 -1 .0 OG 95 AC ti OB 15 00 ER 65 K ve EN [address] ZA 81 09 09 PH EV ID 0 AR EN IN M J E L- 10 72 2 MG TA BL ET 66 11 11 00 20 10 CV 30 BA Ac 99 -1 -1 0. S 12 LB ti 20 PH 65 AU ve 22 20 20 0 AR GH 00 09 09 MA [address] 23 EW 32 P 52 10 10 00 1. 1 CV 29 KN Ac 26 -1 -2 00 S 03 IG ti 80 6- 2- 0 PH 95 HT ve 52 20 20 AR 10 09 09 MA VIKKI 1 CY EL A 23 32 TR 00 10 10 00 60 20 CV 29 KN Ac AM 09 -1 -2 .0 S 03 IG ti AD 30 6- 2- 00 PH 93 HT ve OL 05 20 20 AR 80 09 09 MA VIKKI HC 5 CY EL L A 50 23 32 MG TA BL ET ID 37 10 10 00 28 28 CV 29 KN Ac IL 00 -1 -2 .0 S 03 IG ti OS 00 6- 2- 00 PH 94 HT ve EC 45 20 20 AR 50 09 09 MA VIKKI OT 2 CY EL C A 20 23 .6 32 MG TA BL ET IB 55 10 10 00 30 10 CV 28 DU Ac UP 11 -0 -2 .0 S 57 NA ti RO 10 4- 2- 00 PH 08 VA ve FE 68 20 20 AR NT N 40 09 09 MA 80 5 CY SC 0 OT MG 23 T 32 L TA BL ET CY 00 10 10 00 20 7 CV 28 DU Ac CL 37 -0 -2 .0 S 57 NA ti OB 80 4- 2- 00 PH 07 VA ve EN 75 20 20 AR NT ZA 11 09 09 MA ID 0 CY SC IN OT E 23 T 10 32 L MG TA BL ET IB 55 08 09 00 40 10 CV 27 BA Ac UP 11 -2 -1 .0 S 06 CH ti RO 10 6- 0- 00 PH 41 A ve FE 68 20 20 AR FA N 40 09 09 MA DI 80 5 CY 0 MG 23 32 TA BL ET AM 67 08 09 00 21 7 CV 27 CA Ac PI 25 -1 -1 .0 S 18 MP ti CI 30 4- 0- 00 PH 74 BE ve LL 18 20 20 AR LL IN 11 09 09 MA 0 CY BE 50 RR 0 23 Y MG 32 A CA PS UL E TR 00 08 08 00 12 3 CV 26 PO Ac AM 09 -0 -2 .0 S 49 IR ti AD 30 8- 7- 00 PH 67 IE ve OL 05 20 20 AR R 80 09 09 MA JE HC 5 CY AN L B 50 23 32 MG TA BL ET ME 00 08 08 00 21 7 CV 26 PO Ac TH 14 -0 -2 .0 S 49 IR ti OC 31 8- 7- 00 PH 68 IE ve AR 29 20 20 AR R BA 20 09 09 MA JE MO 1 CY AN L B 75 23 0 32 MG TA BL ET AM 67 08 08 00 21 7 CV 26 CA Ac PI 25 -1 -2 .0 S 64 MP ti CI 30 4- 7- 00 PH 19 BE ve LL 18 20 20 AR LL IN 11 09 09 MA 0 CY BE 50 RR 0 23 Y MG 32 A CA PS UL E ME 50 08 08 00 1. 1 TH 27 CA Ac RE 41 -1 -2 00 ER 61 MP ti NA 90 3- 7- 0 A 58 BE ve 42 20 20 CO 5 LL SY [address] 1 IN BE EM C RR Y A PO 51 07 08 00 52 30 CV 26 CA Ac LY 99 -2 -1 7. S 13 MP ti ET 10 8- 3- 00 PH 30 BE ve HY 45 20 20 0 AR LL LE 75 09 09 MA NE 7 CY BE RR GL 23 Y YC 32 A OL 33 50 PO WD IB 53 07 08 00 40 10 RI 39 CA Ac UP 74 -2 -1 .0 TE 46 MP ti RO 60 3- 3- 00 25 BE ve FE 46 20 20 AI LL N 60 09 09 D 80 5 PH BE 0 AR RR MG M Y #3 A TA 93 BL 1 ET OX 00 07 08 00 40 3 RI 39 CA Ac YC 40 -2 -1 .0 TE 46 MP ti OD 60 3- 3- 00 27 BE ve ON 52 20 20 AI LL E- 30 09 09 D AC 1 PH BE ET AR RR AM M Y IN #3 A OP 93 HE 1 N 10 -3 25 65 07 08 00 60 30 CV 26 CA Ac 16 -2 -1 .0 S 08 MP ti 20 7- 3- 00 PH 38 BE ve 01 20 20 AR LL 31 09 09 MA 0 CY BE RR 23 Y 32 A AL 59 07 08 00 30 15 RI 39 CA Ac ID 76 -2 -1 .0 TE 46 MP ti AZ 23 5- 3- 00 26 BE ve OL 72 20 20 AI LL AM 00 09 09 D 1 PH BE 0. AR RR 5 M Y MG #3 A 93 TA 1 BL ET DE 00 07 07 00 60 28 CV 25 SH Ac SI 78 -0 -1 .0 S 51 IP ti ID 11 8- 6- 00 PH 77 P ve AM 97 20 20 AR NA IN [address] E 1 CY A 25 23 MG 32 TA BL ET CI 13 06 07 00 15 30 CV 25 FI Ac TA 66 -2 -1 .0 S 33 ND ti LO 80 9- 6- 00 PH 77 LA ve ID 01 20 20 AR Y AM 10 09 09 MA LI 5 CY LL HB IA R 23 N 40 32 MG TA BL ET FE 00 07 07 00 30 30 CV 25 PA Ac RR 53 -1 -1 .0 S 59 RK ti OU 65 0- 6- 00 PH 11 ER ve S 89 20 20 AR HAYS 00 09 09 MA ME LF 1 CY NC AT CHAU E 23 32 32 5 MG TA BL ET ID 65 07 07 00 30 30 CV 25 PA Ac EN 16 -1 -1 .0 S 59 RK ti AT 20 0- 6- 00 PH 12 ER ve AL 66 20 20 AR [address] 0 CY NC US CHAU 23 TA 32 BL ET SE 59 03 07 03 15 30 CV 22 PA Ac RT 76 -3 -1 .0 S 24 RK ti RA 24 0- 6- 00 PH 00 ER ve LI 91 20 20 AR NE 00 09 09 MA ME 5 CY NC HC CHAU L 23 10 32 0 MG TA BL ET SE 59 03 06 02 15 30 CV 22 PA Ac RT 76 -3 -1 .0 S 24 RK ti RA 24 0- 8- 00 PH 00 ER ve LI 91 20 20 AR NE 00 09 09 MA ME 5 CY NC HC CHAU L 23 10 32 0 MG TA BL ET ID 00 05 06 00 30 5 CV 24 No Ac OM 78 -2 -0 .0 S 19 t ti ET 11 7- 4- 00 PH 62 Av ve CHAU 83 20 20 AR ai ZI 00 09 09 MA la NE 1 CY bl e 25 23 32 MG TA BL ET ID 00 03 05 01 20 5 CV 22 PA Ac OM 78 -3 -0 .0 S 24 RK ti ET 11 0- 7- 00 PH 01 ER ve CHAU 83 20 20 AR ZI 00 09 09 MA ME NE 1 CY NC CHAU 25 23 32 MG TA BL ET 00 03 05 01 15 30 CV 22 PA Ac 09 -3 -0 .0 S 24 RK ti 37 0- 7- 00 PH 00 ER ve 17 20 20 AR 75 09 09 MA ME 6 CY NC CHAU 23 32 LO 00 04 05 00 30 30 CV 23 IS Ac RA 78 -2 -0 .0 S 17 AA ti TA 15 7- 7- 00 PH 68 C ve DI 07 20 20 AR KA NE 70 09 09 MA TH 1 CY LE 10 EN 23 MG 32 TA BL ET 50 04 05 00 16 8 CV 23 IS Ac 11 -2 -0 .0 S 17 AA ti 10 7- 7- 00 PH 67 C ve 85 20 20 AR KA 10 09 09 MA TH 1 CY LE EN 23 32 CY 00 03 05 01 20 6 CV 22 PA Ac CL 37 -3 -0 .0 S 24 RK ti OB 80 0- 7- 00 PH 02 ER ve EN 75 20 20 AR ZA 11 09 09 MA ME ID 0 CY NC IN CHAU E 23 10 32 MG TA BL ET 59 04 05 00 8. 29 CV 23 GA Ac 31 -2 -0 50 S 06 SK ti 00 3- 7- 0 PH 15 IN ve 57 20 20 AR S [address] 0 CY EV EN 23 G 32 AZ 59 04 05 00 6. 5 CV 23 GA Ac IT 76 -2 -0 00 S 06 SK ti HR 23 3- 7- 0 PH 14 IN ve OM 06 20 20 AR S YC [address] IN 1 CY EV EN 25 23 G 0 32 MG TA BL ET CY 00 03 04 00 20 6 CV 22 PA Ac CL 37 -3 -0 .0 S 24 RK ti OB 80 0- 9- 00 PH 02 ER ve EN 75 20 20 AR ZA 11 09 09 MA ME ID 0 CY NC IN CHAU E 23 10 32 MG TA BL ET 00 03 04 00 15 30 CV 22 PA Ac 09 -3 -0 .0 S 24 RK ti 37 0- 9- 00 PH 00 ER ve 17 20 20 AR 75 09 09 MA ME 6 CY NC HCAU 23 32 ID 00 03 04 00 20 5 CV 22 PA Ac OM 78 -3 -0 .0 S 24 RK ti ET 11 0- 9- 00 PH 01 ER ve CHAU 83 20 20 AR ZI 00 09 09 MA ME NE 1 CY NC CHAU 25 23 32 MG TA BL ET Results Labs Lab Lab Date Result Refere Interp Status Commen Order Detail nces retati t Range on Blood product special preparation [Type] (02-23-2017 09:03) Blood BLOOD complet product 017 UNIT ed 09:03 RELEASE special prepara tion [Type] cell screen [interpretation] in Blood (02-22-2017 12:52) RHOGAM complet cell 017 RELEASE ed screen 12:52 [interp retatio n] in Blood Blood type & Crossmatch panel in Blood (02-22-2017 10:00) Major COMPAT complet crossma 017 ed tch 10:00 [interp retatio n] Major COMPAT complet crossma 017 ed tch 10:00 [interp retatio n] by Immedia te spin cell screen [interpretation] in Blood (02-22-2017 10:00) Blood NEGATIV NEGATIV complet group 017 E E ed antibod 10:00 y screen [Presen ce] in Serum or Plasma NEGATIV NEGATIV complet cell 017 E E ed screen 10:00 [Presen ce] in Blood by Ketty test Rh NEGATIV complet [Type] 017 E ed in 10:00 Blood ABO A complet group 017 ed [Type] 10:00 in Blood Blood type & Indirect antibody screen panel in Blood (02-22-2017 05:40) Blood NEGATIV NEGATIV complet group 017 E E ed antibod 05:40 y screen [Presen ce] in Serum or Plasma Rh NEGATIV complet [Type] 017 E ed in 05:40 Blood ABO 02-22- A complet group 017 ed [Type] 05:40 in Blood Drugs identified in Urine by Screen method (02-22-2017 05:30) Ampheta 02-22- NEGATIV <1000 complet mine 017 E ed [Presen 05:30 ce] in Urine by Screen method 11-Hydr NEGATIV <50 complet oxy 017 E ed delta-9 05:30 tetrahy drocann abinol [Presen ce] in Unspeci fied specime n Drugs identified in Urine by Screen method (02-12-2017 03:35) Ampheta 02-12- NEGATIV <1000 complet mine 017 E ed [Presen 03:35 ce] in Urine by Screen method 11-Hydr NEGATIV <50 complet oxy 017 E ed delta-9 03:35 tetrahy drocann abinol [Presen ce] in Unspeci fied specime n Rygnd-9-Aauhsbwkdefes.placental [Presence] in Vaginal fluid (02-12-2017 03:35) Alpha-1 NEGATIV complet -Microg 017 E FOR ed lobulin 03:35 RUPTURE .placen debbie [Presen ce] in Vaginal fluid Drugs identified in Urine by Screen method (01-28-2017 14:25) Ampheta NEGATIV <1000 complet mine 017 E ed [Presen 14:25 ce] in Urine by Screen method 11-Hydr NEGATIV <50 complet oxy 017 E ed delta-9 14:25 tetrahy drocann abinol [Presen ce] in Unspeci fied specime n Urinalysis dipstick W Reflex Microscopic panel in Urine (01-28-2017 14:25) Bacteri 4+ O complet a 017 ed [Presen 14:25 ce] in Urine sedimen t by Light microsc opy Mucus 2+ OCC complet [Presen 017 ed ce] in 14:25 Urine sedimen t by Light microsc opy Epithel 20-50 0#/hp complet ial 017 f - ed cells.s 14:25 5#/hp quamous f [Presen ce] in Urine sedimen t by Microsc opy high power field Leukocy 20-50 O complet jose 017 wbc/hpf ed [#/volu 14:25 me] in Urine Urinalysis dipstick W Reflex Microscopic panel in Urine (01-28-2017 14:25) Appeara CLOUDY CLEAR complet nce of 017 ed Urine 14:25 Bilirub 1+ NEG Abnorma complet in 017 l ed [Presen 14:25 ce] in Urine by Test strip Erythro NEGATIV NEG complet cytes 017 E ed [Presen 14:25 ce] in Urine Color DK YELLOW complet of 017 YELLOW ed Urine 14:25 Ketones NEGATIV NEG complet 017 E ed [Presen 14:25 ce] in Urine by Automat ed test strip Mucus 1+ NEG Abnorma complet [Presen 017 l ed ce] in 14:25 Urine sedimen t by Light microsc opy Nitrite NEGATIV NEG complet 017 E ed [Presen 14:25 ce] in Urine by Test strip Urobili 4.0 NEG complet nogen 017 ed [Presen 14:25 ce] in Urine by Test strip Nwaeo-4-Hkbermicntbov.placental [Presence] in Vaginal fluid (01-16-2017 04:25) Alpha-1 NEGATIV complet -Microg 017 E FOR ed lobulin 04:25 RUPTURE .placen dbebie [Presen ce] in Vaginal fluid Drugs identified in Urine by Screen method (01-16-2017 04:00) Ampheta NEGATIV <1000 complet mine 017 E ed [Presen 04:00 ce] in Urine by Screen method 11-Hydr NEGATIV <50 complet oxy 017 E ed delta-9 04:00 tetrahy drocann abinol [Presen ce] in Unspeci fied specime n Urinalysis dipstick W Reflex Microscopic panel in Urine (01-16-2017 04:00) Amorpho TRACE NONE complet us 017 ed sedimen 04:00 t [Presen ce] in Urine sedimen t by Light microsc opy Mucus 4+ OCC complet [Presen 017 ed ce] in 04:00 Urine sedimen t by Light microsc opy Epithel 5-10 0#/hp complet ial 017 f - ed cells.s 04:00 5#/hp quamous f [Presen ce] in Urine sedimen t by Microsc opy high power field Leukocy 3-5 O complet jose 017 wbc/hpf ed [#/volu 04:00 me] in Urine Urinalysis dipstick W Reflex Microscopic panel in Urine (01-16-2017 04:00) Appeara CLEAR CLEAR complet nce of 017 ed Urine 04:00 Bilirub NEGATIV NEG complet in 017 E ed [Presen 04:00 ce] in Urine by Test strip Erythro NEGATIV NEG complet cytes 017 E ed [Presen 04:00 ce] in Urine Color DK YELLOW complet of 017 YELLOW ed Urine 04:00 Ketones TRACE NEG Abnorma complet 017 l ed [Presen 04:00 ce] in Urine by Automat ed test strip Mucus NEGATIV NEG complet [Presen 017 E ed ce] in 04:00 Urine sedimen t by Light microsc opy Nitrite NEGATIV NEG complet 017 E ed [Presen 04:00 ce] in Urine by Test strip Urobili 2.0 NEG complet nogen 017 ed [Presen 04:00 ce] in Urine by Test strip cell screen [interpretation] in Blood (11-27-2016 10:04) RHOGAM complet cell 017 RELEASE ed screen 10:04 [interp retatio n] in Blood cell screen [interpretation] in Blood (11-27-2016 08:48) Blood NEGATIV NEGATIV complet group 017 E E ed antibod 08:48 y screen [Presen ce] in Serum or Plasma RHOGAM RHOGAM complet LOT # 017 INFORMA ed 08:48 TION Rh NEGATIV complet [Type] 017 E ed in 08:48 Blood ABO A complet group 017 ed [Type] 08:48 in Blood Procedures Procedure DOS Code Location Performer Comment [id number] [facility] NONSTRESS 7 PHYSICIAN [place] [address] [place] UTERUS 7 MEDICAL AFTER 1ST IMAGING [place]IME[place] P[place] [address] [facility] R[facility] W/DETAIL INC INC YEFRI 1ST GESTATION CYTP C/V 41418 [facility] AUTO THIN 7 [facility] ER JR LYR PREPJ SCR MNL RESCR PHYS IADNA 09940 [facility] NEISSERIA 7 LLC ER JR GONORRHOE AE AMPLIFIED PROBE TQ IADNA 87343 [facility] CHLAMYDIA 7 [facility] ER [place] [address] [place] 7 MEDICAL UTERUS IMAGING LIMITED ASS 1/> [place]REG 23269 MICHAEL ROD[facility]IGUE[facility] UTERUS 7 [facility] AFTER 1ST INC INC TRIMEST / GESTATION DRUG TEST 50120 [facility] PRSMV 7 PHYSICIAN QUAL DIR S GROUP OPTICAL OBS PER DAY URINE 26147 [facility] 7 PHYSICIAN TEST S GROUP VISUAL COLOR CMPRSN METHS URINE 16951 [facility] 7 PHYSICIAN TEST S GROUP VISUAL COLOR CMPRSN MET[place] IADNA 20500 [facility] NEISSERIA 7 PHYSICIAN S GROUP GONORRHOE AE DIRECT PROBE TQ URINLS 40369 [facility] DIP 7 PHYSICIAN STICK/TAB S GROUP LET REAGNT NON-AUTO MICRSCPY CULTURE 87436 [facility] CHLAMYDIA 7 PHYSICIAN ANY S GROUP SOURCE IADNA 94579 [facility] HERPES 7 PHYSICIAN SIMPLX S GROUP VIRUS DIRECT PROBE TQ IAADIADOO 65114 [facility] 7 PHYSICIAN TRICHOMON S GROUP VAGINALIS GONADOTRO 59498 MICHAEL R[facility]UE[facility] PIN 7 [facility] CHORIONIC INC INC QUALITATI VE URINE 70049 [facility] DEPT HLTH DEPT VISUAL [place] [address] [place] ALL ABDOMEN & 6 MEDICAL PELVIS IMAGING W/O ASS CONTRAST MATERIAL URINE 85802 MICHAEL RODRIGUEZ 6 [facility] TEST INC INC VISUAL COLOR CMPRSN [place] DRUG TST G0477 MICHAEL RODRIGUEZ PRESUMP;C 6 [facility] PBL BEING INC INC READ DC OPT OBV ONLY GONADOTRO 12489 MICHAEL RODRIGUEZ PIN 6 [facility] CHORIONIC INC INC QUANTITAT JI BLOOD 32141 MICHAEL RODRIGUE[facility] COUNT 6 [facility] COMPLETE INC INC AUTO&AUTO DIFRNTL WBC COMPREHEN 25117 MIC[facility]EL R[facility]UE[facility] SIVE 6 [facility] METABOLIC INC INC PANEL SMR PRIM 15213 MICHAEL RODRIGUEZ SRC WET 6 [facility] [place] [address] [facility] SURG 6 [facility] PATHOLOGY GROSS&ERICK ROSCOPIC EXAM HYSTEROSC 92038 [facility] OPY BX 6 PHYSICIAN PHYSICIAN ENDOMETRI S GROUP S GROUP UM&/POLYP C W/WO D&C ANESTHESI 67392 [facility] JOSE A 6 ANESTH INTRAPERI OF THE TONEAL BLUE LOWER ABD W/LAPS NOS LAPS ABD 85560 [facility] PRTM&OMEN 6 PHYSICIAN NATACHA ZAIDA DX S GROUP W/WO SPEC BR/WA SPX GONADOTRO 18198 MICHAEL RODRIGUEZ PIN 6 [facility] CHORIONIC INC INC QUALITATI VE BLOOD 33364 MICHAEL RODRIGUEZ COUNT 6 [facility] COMPLETE INC INC AUTO&AUTO DIFRNTL WBC COLLECTIO 32236 MICHAEL RODRIGUEZ N VENOUS 6 [facility] BLOOD INC INC VENIPUNCT URE URINE 87565 [facility] 6 PHYSICIAN NATACHA TEST S GROUP VISUAL COLOR CMPRSN METHS SMR PRIM 49971 [facility] SRC WET 6 PHYSICIAN NATACHA MOUNT S GROUP NFCT AGT URINE 54769 [facility] 6 PHYSICIAN NATACHA TEST S [place] [address] [place] TRANSVAGI 6 MEDICAL ANCA NAL IMAGING ASS URINLS 07184 [facility] DUMAS DIP 6 [place] MAYS NATACHA STICK/TAB LET REAGNT NON-AUTO MICRSCPY CYTP C/V 47838 BIO BIO AUTO THIN 6 REFERNCE REFERNCE 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 PREPJ SCR IES IES MNL RESCR PHYS CULTURE 20841 V[facility] Wood CHLAMYDIA 6 [place] DUMAS MD ANY SOURCE IADNA 93624 BIO BIO TRICHOMON 6 REFERNCE REFERNCE LABORATOR LABORATOR VAGINALIS IES IES AMPLIFIED PROBE TECH IADNA 79342 V[facility]ATESH CHAPPELL NEISSERIA 6 [place] MAYS BET GONORRHOE AE DIRECT PROBE TQ IADNA 42820 BIO BIO NEISSERIA 6 REFERNCE REFERNCE LABORATOR LABORATOR GONORRHOE IES IES AE AMPLIFIED PROBE TQ IADNA 55056 BIO BIO CHLAMYDIA 6 REFERNCE REFERNCE LABORATOR LABORATOR TRACHOMAT IES IES IS AMPLIFIED PROBE TQ IADNA NOS 54590 BIO BIO 6 REFERNCE REFERNCE AMPLIFIED LABORATOR LABORATOR PROBE TQ IES IES EACH ORGANISM REMOVAL 02529 [facility] DUMAS INTRAUTER 6 [place] MANZANO INE DEVICE IUD URNLS DIP 46243 MICHAEL R[facility]RIGUEZ 5 [facility] STICK/TAB INC INC [place] [address] MICHAEL RODRIGUEZ AMYLASE 5 [facility] INC INC COMPREHEN 50922 MICHAEL RODRIGUEZ SIVE 5 [facility] [address] MICHAEL RODRIGUEZ LIPASE 5 [facility] INC INC BLOOD 56583 MICHAEL RODRIGUEZ COUNT 5 [facility] COMPLETE INC INC AUTO&AUTO DIFRNTL WBC GONADOTRO 36763 MICHAEL RODRIGUEZ PIN 5 [facility] CHORIONIC INC INC QUALITATI VE DRUG SCR G0434 [facility] 5 Y Y [facility]; ANY NUMBER PT ENC INSERTION 03230 [place] Johnathon'MULUGETA 5 MEDICAL BRADEN INTRAUTER SERV INE FOUNDATIO DEVICE N IUD RADIOLOGI 93696 [place] ERNST C EXAM 5 MEDICAL AYA MAR CHEST 2 SERV VIEWS FOUNDATIO FRONTAL&L N ATERAL ECG 41832 [facility] ROUTINE 5 MEDICAL ECG SERV W/LEAST FOUNDATIO 12 LDS N I&R ONLY RADEX ABD 16128 [place] RAMAN COMPL 5 MEDICAL IRVIN AQT ABD SERV MALLORY W/S/E/D FOUNDATIO VIEWS 1 N VIEW CH ECG 45784 [facility] ROUTINE 5 MEDICAL ECG SERV W/LEAST FOUNDATIO 12 LDS N I&R ONLY RADIOLOGI 33425 [place] ARSENIO 5 MEDICAL ERICK EXAMINATI SERV ON CHEST FOUNDATIO SINGLE N VIEW FRONTAL SBSQ 96728 [facility] 5 MEDICAL CARE/DAY SERV 15 FOUNDATIO MINUTES N SBSQ [address]2917 [place] [address] NURSE ALL CARE/DAY PRACTITIO 25 NER GR MINUTES SBSQ 45438 [place] [address] NURSE ALL CARE/DAY PRACTITIO 35 NER GR MINUTES INITIAL 75323 [place] NONI INPATIENT 5 MEDICAL CONSULT SERV NEW/ESTAB FOUNDATIO PT 80 N MIN RADIOLOGI 89909 [place] AYOOB AND C 5 MEDICAL EXAMINATI SERV ON CHEST FOUNDATIO SINGLE N VIEW FRONTAL BLOOD 49708 [facility] MIGDALIA SMEAR 5 Y OF NARENDRA PERIPHERA [place] [facility] PHYS W/WRIT REPORT RADIOLOGI 08771 [place] RAMAN C 5 MEDICAL IRVIN EXAMINATI SERV MALLORY ON CHEST FOUNDATIO [place] 5781 [facility] 5 Y Y [facility] N OF BLADDER ARTERIAL 3891 [facility] CATHETERI 5 Y Y [facility] C[facility]AL 3897 [facility] VENOUS 5 Y Y CATHETER [facility] PLACEMENT WITH GUIDANCE LOW 741 [facility] CERVICAL 5 Y Y [facility] SECTION CRITICAL 45980 [facility] ZAHIRA NARENDRA CARE 5 NURSE ILL/INJUR PRACTITIO ED NER GR PATIENT INIT 30-74 MIN LEVEL V 92748 [facility] ASHBY MOL SURG 5 Y OF PATHOLOGY [place] GROSS&ERICK ROSCOPIC EXAM 99924 [place] CRITCHFIE DELIVERY 5 MEDICAL LD AGA ONLY SERV FOUNDATIO N ANESTHESI 77087 [place] A 5 MEDICAL MEDICAL SERV SERV DELIVERY FOUNDATIO FOUNDATIO ONLY N N 60943 [place] O'MULUGETA NONSTRESS 5 MEDICAL BRADEN TEST SERV FOUNDATIO N SBSQ 87157 [facility] 5 MEDICAL DORETHA CARE/DAY SERV 25 FOUNDATIO MINUTES N BLD BANK 57143 [facility] BORAL ALFONZO PHYS SVCS 5 Y OF DIFFC [facility] [facility] MATCH&/EV AL REP [id number] [facility] NONSTRESS 5 Y Y TEST [facility] [address] [place] NONSTRESS 5 MEDICAL GERMAN TEST SERV FOUNDATIO N [place] PREG [address] [place] [facility] UTERUS 5 MEDICAL LEE REAL TIME SERV F/U FOUNDATIO TRNSABDL N PER FETUS DOPPLER 00742 [place] [facility] VELOCIMET 5 MEDICAL LEE RY [place] N [address] [place] [facility] BIOPHYSIC 5 MEDICAL LEE AL SERV PROFILE FOUNDATIO W/O N NON-STRES S TESTING SBSQ [id number] [facility] 5 MEDICAL BRADEN CARE/DAY SERV 25 FOUNDATIO MINUTES N SBSQ 79130 [facility] 5 MEDICAL BRADEN CARE/DAY SERV 25 FOUNDATIO MINUTES N SBSQ 15075 [facility] 5 MEDICAL BRADEN CARE/DAY SERV 25 FOUNDATIO MINUTES N SBSQ 70454 [place] [address] MEDICAL BRADEN CARE/DAY SERV 25 FOUNDATIO MINUTES N SBSQ [address]9667 [place] [address] MEDICAL DORETHA CARE/DAY SERV 25 FOUNDATIO MINUTES N SBSQ 87278 [place] [address] MEDICAL DORETHA CARE/DAY SERV 25 FOUNDATIO MINUTES N BLD BANK 09716 [facility] PHYS SVCS 5 Y OF DEN DIFFC [facility] HOSPI MATCH&/EV AL REP DRUG SCR [id number] [facility] NOT 5 Y Y CHROMATOG [facility]; ANY NUMBER [place] PREG [address] [facility] UTERUS 5 Y Y AFTER [address] [place] [address] HOSPITAL [place]ST [place]ST[place]REG [address] [place] UTERUS 5 MEDICAL LD AGA REAL TIME SERV F/U FOUNDATIO TRNSABDL N PER FETUS DOPPLER [address]0782 [place] VELOC[facility] 5 MEDICAL LD AGA [place] [address] [place] 5 MEDICAL LD AGA UTERUS SERV LIMITED FOUNDATIO 1/> [place] [address] [place]ULUGET[place] 5 MEDICAL BRADEN UTERUS SERV LIMITED FOUNDATIO 1/> N FETUSES SBSQ 55817 [facility] 5 MEDICAL MEDICAL CARE/DAY SERV SERV 25 FOUNDATIO FOUNDATIO MINUTES N N 21380 [place] NONSTRESS 5 MEDICAL LD AGA TEST SERV FOUNDATIO [place] [address] [place] [facility] UTER[facility] 5 MEDICAL LEE REAL TIME SERV F/U FOUNDATIO TRNSABDL N PER FETUS [place]REG [address] [place] [facility] 5 MEDICAL LEE REAL TIME SERV W/[place] [address] [place] 5 MEDICAL LD AGA UTERUS SERV LIMITED FOUNDATIO 1/> N FETUSES DRUG SCR [id number] [place] [address] Y Y [facility]; ANY NUMBER PT ENC DOPPLER [address] [place] [facility] 5 MEDICAL DORETHA RY SERV UMBILICAL FOUNDATIO [place]ERY [place] P[place] [address] [place] UTERUS 5 MEDICAL DORETHA REAL TIME SERV W/IMAGE FOUNDATIO DCMTN N TRANSVAG [place]REG 39548 [place]ILL[place] UTERUS 5 MEDICAL DORETHA W/DETAIL SERV FOUNDATIO YEFRI 1ST N GESTATION [place] 17118 [place] [facility] 5 MEDICAL DORETHA DETAIL SERV FOUNDATIO YEFRI EXAM N EA GESTAT DRUG SCR G0434 [place] [address] Y Y [facility]; ANY NUMBER PT ENC URINALYSI 59768 YAZMIN VELOUDIS S 5 PRIMARY JR RE[facility]DO [facility] IA SCR CARE XCPT CULTURE/[place] IPSTICK [place] 86548 [place] [facility] UTER[facility] > 5 MEDICAL LEE 1ST SERV TRIMESTER FOUNDATIO ABDL EA N GESTATIO US PREG 37993 [place] [facility] 5 MEDICAL LEE REAL TIME SERV W/IMAGE FOUNDATIO DCMTN N TRANSVAG [place] P[place] 73743 [place] [facility] UTER[place] 5 MEDICAL LEE AFTER 1ST SERV TRIMEST FOUNDATIO 1/ [place] [address] [place] TRUE STEFANIA RETROPERI 5 MEDICAL TONEAL SERV REAL TIME FOUNDATIO W/IMAGE N COMPLETE URINALYSI 07056 YOUY VELOUDIS S 5 PRIMARY JR [facility] IA SCR CARE XCPT CULTURE/D IPSTICK URINALYSI 07863 YOUY VELOUDIS S 5 PRIMARY JR [facility] IA SCR CARE XCPT CULTURE/D IPSTICK URINALYSI 52676 YAZMIN VELOUDIS S 5 PRIMARY [facility] BACTERIUR HEALTH IA SCR CARE XCPT CULTURE/D IPSTICK DRUG SCR G0434 YAZMIN VELOUDIS NOT 5 PRIMARY [facility] CHROMATOG HEALTH RAPHIC; CARE ANY NUMBER PT ENC US PREG 75222 YAZMIN VELOUDIS UTERUS 14 5 PRIMARY [facility] WK HEALTH TRANSABDL CARE EACH GESTATION US PREG 57811 YAZMIN VELOUDIS UTERUS 5 PRIMARY [facility] REAL TIME HEALTH W/[place] [address] YAZMIN VELOUDIS 5 PRIMARY [facility] UTERUS 14 HEALTH WK CARE TRANSABDL GESTAT IADNA 73735 ASSOCIATE NOAM MARROQUIN HEPATITIS 5 D C QUANT PATHOLOGI & REVER[facility] TRANSCRIP TION GROUND A0425 MELANIA MELANIA MILEAGE 4 FAYETTE FAYETTE PER URBAN URBAN STATUTE COGOVT COGOVT MILE AMBULANCE A0429 MELANIA MELANIA SERVICE 4 FAYETTE FAYETTE BLS URBAN [place] [address] HUSSEIN POLLARD ABDOMEN & 4 PELVIS W/[place] [address] EKATERINA TOBAR ABDOMEN & 4 SERGIO PELVIS W/CONTRAS T MATERIAL CYTP C/V 31417 PICKLESIM PICKLESIM AUTO THIN 4 ER JR GENIE ER JR GENIE LYR PREPJ SCR MNL RESCR PHYS ECG 51807 JAY JAY GOYAL ROUTINE 4 LUBNA LUBNA ECG W/LEAST 12 LDS I&[place] [address] [facility] THYROID 4 LAB LAB STIMULATI [facility] NG GROUP, GROUP, HORMONE TSH GONADOTRO 94833 [facility] SOLSTAS PIN 4 LAB LAB CHORIONIC [facility], [place], [place] [address] [facility] SOLSTAS PROLACTIN 4 LAB LAB [facility], GROUP, IAADIADOO 38616 [facility] SOLIEN 1 [facility] G[facility]IEL [facility] [address] [facility] FAITH J TRACT 1 RADIOLOGY UPPER ASSOC W/WO DELAYED IMAGES W/O KUB BLOOD 22174 [facility] COUNT 1 [facility] COMPLETE AUTO&AUTO DIFRNTL WBC COMPREHEN 44862 [facility] SIVE 1 [facility] METABOLIC PANEL ACUTE 73290 [facility] HEPATITIS 1 [facility] PANEL ANESTHESI 76734 YAZIDI MELIO JOSE A 1 ANESTHESI A PSC DELIVERY ONLY 03344 [facility] CRYSTAL DELIVERY 1 JAM JAM ONLY W/POSTPAR ZAIDA CARE 64306 [facility] NONSTRESS 1 JAM JAM TEST INJECTION J2790 [facility] CR[facility] RHO D IG 1 JAM JAM HUMAN FULL DOSE 300 MCG IADNA 60924 [facility] NEISSERIA 1 [facility] GONORRHOE AE AMPLIFIED PROBE TQ IADNA 82891 [facility] CHLAMYDIA 1 [facility] TRACHOMAT IS AMPLIFIED PROBE TQ CUL 03982 [facility] PRSMPTV 1 [facility] PTHGNC ORGANISM SCRN W/COLONY ESTIMJ US PREG 75234 CRYSTAL CRYSTAL UTERUS 1 JAM JAM AFTER 1ST TRIMEST GESTATION CYTP C/V 52414 [facility] AUTO THIN 1 [facility] LYR PREPJ SCR MNL RESCR PHYS US PREG 94295 CNTRL [place] CINDY BAR UTERUS 0 RADIOLOGY REAL TIME W/IMAGE DCMTN TRANSVAG GONADOTRO 34232 [facility] PIN 0 Y Y CHORIONIC [facility] QUALITATI VE BLOOD 86814 [facility] COUNT 9 Y Y COMPLETE [facility] AUTOMATED COMPREHEN 31544 [facility] SIVE 9 Y Y METABOLIC [facility] [place] [address] [facility] LIPASE 9 Y Y [facility] URNLS DIP 75387 [facility] UNIVERS 9 Y Y STICK/TAB [facility] [place] [address] [place] REXROAD, ABDOMEN 9 MEDICAL SAMINA T W/CONTRAS SERV T FOUNDATIO MATERIAL URINE 49248 [facility] 9 Y Y TEST [facility] VISUAL COLOR CMPRSN METHS CT PELVIS 93832 [facility] 9 Y Y W/CONTRAS HOSPITAL HOSPITAL T MATERIAL INJECTION J2405 [facility] 9 Y [facility] PER 1 MG INJECTION J2270 [facility] MORPHINE 9 Y [facility] UP TO 10 MG NONINVASI 72670 [facility] VE 9 Y Y EAR/PULSE [facility] OXIMETRY SINGLE DETER THERAPEUT 08209 [facility] IC 9 Y Y INJECTION [facility] IV PUSH EACH NEW DRUG THER 04999 [facility] PROPH/DX 9 Y Y NJX IV [facility] PUSH SINGLE/1S T SBST/DRUG URNLS DIP 38890 [facility] 9 Y Y STICK/TAB [facility] LET RGNT AUTO W/O MICROSCOP Y COLLECTIO 18644 [facility] N VENOUS 9 Y Y BLOOD [facility] VENIPUNCT URE GONADOTRO 18071 [facility] PIN 9 Y Y CHORIONIC [facility] QUALITATI VE IAADIADOO 30010 [facility] 9 AND INFLUENZA PEDIATRIC S & INTER RADEX 88585 [facility] WEN, SPINE 9 RADIOLOGY JOSE LUMBOSACR ASSOC C AL 2/3 VIEWS URINE 73436 [facility] C[facility] 9 YAZIDI YAZIDI TEST HOSP HOSP VISUAL COLOR CMPRSN METHS URINE 60115 [facility] REEVES 9 BRET TEST PEDIATRIC VISUAL S & [place] [address] LAB KATIE LAB KATIE LIPASE 9 AMERIC AMERIC HOLDING HOLDING URNLS DIP 07380 [facility] 9 BRET STICK/TAB PEDIATRIC LET RGNT S & INTER NON-AUTO W/O MICRSCP COMPREHEN 13259 LAB K[facility] LAB KATIE SIVE 9 AMERIC AMERIC METABOLIC HOLDING HOLDING PANEL COLLECTIO 43522 [facility] N VENOUS 9 BRET BLOOD PEDIATRIC VENIPUNCT S & INTER URE RADEX 68383 HROMYAK, KIAN, ABDOMEN 1 9 STEVE [employer]ANG[employer] R [employer] [place] [address] LUCIAN EPSTEIN, GUIDANCE 9 BENOIT A BENOIT A AMNIOCENT ESIS IMG S&I 29298 LUCIAN EPSTEIN, DELIVERY 9 BENOIT A BENOIT A ONLY W/POSTPAR ZAIDA CARE ANESTHESI 42024 [facility] Leon SHANNON 9 ANESTHESI [place] M A PSC DELIVERY ONLY AMNIOCENT 78539 LUCIAN EPSTEIN, ESIS 9 BENOIT A BENOIT A DIAGNOSIC GROUND A0425 MELANIA MELANIA MILEAGE 9 FAYETTE FAYETTE PER URBAN URBAN STATUTE COGOVT COGOVT MILE AMB A0427 MELANIA MELANIA SERVICE 9 FAYETTE FAYETTE ALS URBAN URBAN EMERGENCY COGOVT COGOVT TRANSPORT LEVEL 1 IADNA 08821 [facility] CHLAMYDIA 9 Y Y [facility] [place] [address] [facility] MONITORIN 9 Y Y G LABOR [facility] PHYS WRITTEN REPORT 63018 [place] MIGUEL, NONSTRESS 9 MEDICAL TISH B TEST SERV FOUNDATIO URNLS DIP 50366 [facility] 9 Y Y STICK/TAB [facility] LET RGNT [place] [address] [facility] 9 Y Y UTERUS [facility] LIMITED 1/> FETUSES IADNA 49994 [facility] STREPTOCO 9 Y Y CCUS [facility] GROUP B AMPLIFIED PROBE TQ IADNA 30277 [facility] NEISSERIA 9 Y Y [facility] GONORRHOE AE AMPLIFIED PROBE TQ THERAPEUT 39042 [facility] IC [address] [place] [address] INJECTION IV PUSH EACH NEW DRUG THER 17806 [facility] PROPH/DX [address] [place] [address] NJX IV PUSH SINGLE/1S T SBST/DRUG AMB A0427 MELANIA MELANIA SERVICE 9 FAYETTE FAYETTE ALS URBAN URBAN EMERGENCY COGOVT COGOVT TRANSPORT LEVEL 1 INJECTION J0595 [facility] 9 [facility] BUTORPHAN OL TARTRATE 1 MG INJECTION J24[address] [facility] ONDANSETR ON HCL PER 1 MG GROUND A0425 MELANIA MELANIA MILEAGE 9 FAYETTE FAYETTE PER URBAN URBAN STATUTE COGOVT [facility] 91754 MAGDALENA NICHOLS, DISCHARGE 9 MAGDALENE MAGDALENE DAY MANAGEMEN T 30 MIN/< OBSERVATI 05299 [facility] ON CARE 9 [email or web address] DISCHARGE MANAGEMEN T CUL 41395 LAB KATIE LAB KATIE PRSMPTV 9 AMERIC AMERIC PTHGNC HOLDING HOLDING ORGANISM SCRN W/COLONY ESTIMJ CULTURE 80027 LAB K[facility]IE LAB KATIE TYPING 9 AMERIC AMERIC NUCLEIC HOLDING HOLDING ACID PROBE DIR EA ORGANSM URNLS DIP 84281 [facility], 9 [facility] KYLE STICK/TAB E CENTER LET RGNT NON-AUTO W/O MICRSCP BILIRUBIN 32735 LAB KATIE LAB KATIE DIRECT 9 [employer] [place] [address] LAB KATIE LAB KATIE PHOSPHATA 9 AMERIC AMERIC SE HOLDING HOLDING ALKALINE BILIRUBIN 78804 [facility] TOTAL 9 AMERIC AMERIC HOLDING HOLDING TRANSFERA 62734 [facility] LAB KAT[facility] SE 9 AMERIC AMERIC ASPARTATE HOLDING HOLDING AMINO AST SGOT TRANSFERA 50013 LAB K[facility] LAB KATIE SE 9 AMERIC AMERIC ALANINE HOLDING HOLDING AMINO ALT SGPT ALBUMIN 67865 LAB K[facility] LAB KAT[facility] SERUM 9 AMERIC AMERIC PLASMA/WH HOLDING HOLDING OLE BLOOD BASIC 53990 [facility] K[facility]IE METABOLIC 9 AMERIC AMERIC PANEL HOLDING HOLDING CALCIUM TOTAL ANTIBODY 46025 [facility] LAB K[facility] SCREEN 9 AMERIC AMERIC RBC EACH HOLDING HOLDING SERUM TECHNIQUE BLOOD 81725 LAB [facility] LAB K[facility]IE TYPING 9 AMERIC AMERIC SEROLOGIC HOLDING HOLDING ABO GLUCOSE 94820 LAB [facility] LAB KAT[facility] POST 9 AMERIC AMERIC GLUCOSE HOLDING HOLDING DOSE BLOOD 63274 LAB KATIE LAB KATIE COUNT 9 AMERIC AMERIC COMPLETE HOLDING HOLDING AUTO&AUTO DIFRNTL WBC URNLS DIP 52411 [facility] SAG[facility], 9 [facility]ALTHCAR KYLE STICK/TAB E CENTER LET RGNT NON-AUTO W/O MICRSCP BLOOD 46850 LAB KATIE LAB KATIE TYPING 9 AMERIC AMERIC SEROLOGIC HOLDING HOLDING RH (D) URNLS DIP 49469 [facility] SAG[facility], 9 [facility]ALTHCAR KYLE STICK/TAB E CENTER LET RGNT NON-AUTO W/O MICRSCP IADNA 49198 PATHOLOGY PATHOLOGY NEISSERIA 9 & & CYTOLOGY CYTOLOGY GONORRHOE LAB LAB AE AMPLIFIED PROBE TQ CYTP C/V 44128 PATHOLOGY PATHOLOGY AUTO THIN 9 & & LYR CYTOLOGY CYTOLOGY PREPJ SCR LAB LAB MNL RESCR PHYS IADNA 38434 PATHOLOGY PATHOLOGY CHLAMYDIA 9 & & CYTOLOGY CYTOLOGY TRACHOMAT LAB LAB IS AMPLIFIED PROBE TQ SMR PRIM 05455 [facility] SAGRAR[facility], SRC WET [address] [facility] KYLE [facility] NFCT AGT URINE 76752 [facility] SAGRARIO, 9 [facility] TEST E CENTER VISUAL COLOR CMPRSN METHS URNLS DIP 52016 [facility] S[facility], 9 [facility]ALTHCAR KYLE STICK/TAB E CENTER LET RGNT NON-AUTO W/O MICRSCP COMPREHEN 57802 [facility] SIVE 9 N N METABOLIC [facility] BLOOD 07967 [facility] COUNT 9 N N COMPLETE [facility] AUTO&AUTO [facility] DIFRNTL WBC GONADOTRO 62371 [facility] PIN 9 N N CHORIONIC [facility] [place] [place] [address] [facility] STREPTOCO 9 N N CCUS [facility] URINE 95246 [facility] 9 N N TEST [facility] COLOR CMPRSN METHS URNLS DIP 53486 [facility] 9 N N STICK/TAB [facility] REAGENT AUTO MICROSCOP Y URINALYSI 43848 [facility] S 9 N N MICROSCOP [facility] IC ONLY [facility] US PELVIC 04158 [facility] 9 N N NONOBSTET [facility] REAL-TIME IMAGE COMPLETE CUL BACT 50802 [facility] XCPT 9 N N URINE [facility] BLOOD/[facility] OL AEROBIC ISOL Encounters Encounter Start End Date Code Location Performer Type Date HOSPITAL MICHAEL - 7 7 [facility] INC T HOSPITAL MICHAEL - 7 7 [facility] OUTPATIEN INC T OFFICE 24145 [facility] OUTPATIEN 7 7 PHYSICIAN T NEW 45 S GROUP MINUTES OFFICE 19113 [facility] PHYSICIAN T VISIT S GROUP 25 MINUTES EMERGENCY 30956 FABIAN PATEL 7 7 PHYSICIAN [facility] MODERATE SEVERITY HOSPITAL MICHAEL - 7 7 [facility] OUTPATIEN INC T EMERGENCY 56347 MICHAEL 7 7 [facility] DEPARTMEN INC T VISIT LOW/MODER SEVERITY EMERGENCY 94003 FABIAN PATEL 6 6 [facility] T VISIT HIGH/URGE NT SEVERITY OFFICE 68542 [facility] 6 [facility] T NEW 10 HLTH DEPT HLTH DEPT MINUTES [facility] MICHAEL - 6 6 [facility] OUTPATIEN INC T EMERGENCY 27716 [facility] 6 [facility]ISIT MODERATE SEVERITY EMERGENCY 93720 FABIAN PATEL 6 6 [facility] T VISIT HIGH/URGE NT SEVERITY HOSPITAL MICHAEL - 6 6 [facility] OUTPATIEN INC T EMERGENCY 18022 [facility] 6 6 [facility] V[facility] LIMITED/M INOR PROB EMERGENCY 43102 FABIAN PATEL 6 6 PHYSICIAN [facility] DEPARTMEN S, PLLC T VISIT HIGH/URGE NT SEVERITY OFFICE 02242 [facility] OUTPATIEN 6 6 PHYSICIAN NATACHA T VISIT S GROUP 25 MINUTES HOSPITAL MICHAEL - 6 6 [facility] OUTPAT[facility] INC T OFFICE 70179 [facility] OUTPATIEN 6 6 PHYSICIAN NATACHA T VISIT S GROUP 25 MINUTES OFFICE 39404 [facility] OUTPATIEN 6 6 PHYSICIAN NATACHA T VISIT S GROUP 15 MINUTES INITIAL 31316 [facility] PREVENTIV 6 6 [place] MAYS NATACHA E MEDICINE NEW PT AGE 18-39YRS OFFICE 74278 [facility] AMANDA OUTPATIEN 6 6 PHYSICIAN ERICK T VISIT S GROUP 15 MINUTES OFFICE 12295 [facility] AMANDA OUTPATIEN 6 6 PHYSICIAN ERICK T NEW 20 S GROUP MINUTES EMERGENCY 19203 MICHAEL 5 5 [facility] DEPARTMEN INC T VISIT LOW/MODER SEVERITY EMERGENCY 92110 FABIAN PATEL 5 5 PHYSICIAN ERICK DEPARTMEN S, PLLC T VISIT HIGH/URGE NT SEVERITY HOSPITAL MICHAEL - 5 5 [facility] OUTPATIEN INC T OFFICE 82910 [place] OUTPATIEN 5 5 MEDICAL T VISIT SERV 25 FOUNDATIO MINUTES N OFFICE 89793 [facility] OUTPATIEN 5 5 Y T VISIT 5 [facility] 69841 [place] [facility] OUTPATIEN 5 5 MEDICAL LD AGA T VISIT SERV 15 FOUNDATIO MINUTES [facility] UN[facility]ERS[facility] - 5 5 Y [facility] T OFF[facility] 17360 [facility] OUTPATIEN 5 5 Y T VISIT 5 [facility] UNIVERSIT - 5 5 Y INPATIENT HOSPITAL OFFICE 80855 [place] [facility] OUTPATIEN 5 5 MEDICAL LD AGA T VISIT SERV 15 FOUNDATIO MINUTES [facility] 5 5 [facility] 96350 [facility] 5 5 Y T VISIT 5 HOSPITAL MINUTES OFFICE 93730 [place] OUTPATIEN 5 5 MEDICAL GERMAN T VISIT SERV 15 FOUNDATIO MINUTES N OFFICE 88712 [place] [facility] OUTPATIEN 5 5 MEDICAL LD AGA T VISIT SERV 15 FOUNDATIO MINUTES N HOSPITAL UN[facility]ERSIT - 5 5 [facility] 33791 [facility] 5 5 Y T VISIT 5 HOSPITAL MINUTES OFFICE 15103 [place] OUTPATIEN 5 5 MEDICAL LD AGA T VISIT SERV 15 FOUNDATIO MINUTES N OFFICE 81815 [place] O'MULUGETA OUTPATIEN 5 5 MEDICAL BRADEN T VISIT SERV 15 FOUNDATIO MINUTES N OFFICE 13717 [place] OUTPATIEN 5 5 MEDICAL LD AGA T VISIT SERV 15 FOUNDATIO MINUTES N OFFICE 58098 [place] [facility]'[place] OUTPATIEN 5 5 MEDICAL BRADEN T VISIT SERV 15 FOUNDATIO MINUTES N OFFICE 05470 [facility] OUTPATIEN 5 5 Y T VISIT 5 HOSPITAL MINUTES [facility] 5 [facility] 19932 [place] OUTPATIEN 5 5 MEDICAL LD AGA T VISIT SERV 15 FOUNDATIO MINUTES N OFFICE 65275 [place] O'[place] OUTPATIEN 5 5 MEDICAL BRADEN T VISIT SERV 15 FOUNDATIO MINUTES N HOSPITAL UN[facility]ERSIT - 5 5 [facility] 85562 [facility] 5 5 Y T VISIT 5 HOSPITAL MINUTES OFFICE 01164 [place] OUTPATIEN 5 5 MEDICAL LD AGA T VISIT SERV 15 FOUNDATIO MINUTES N OFFICE 41830 GINO CRITCHFIE OUTPATIEN 5 5 MEDICAL LD AGA T VISIT SERV 15 FOUNDATIO MINUTES N OFFICE 11685 GINO CRITCHFIE OUTPATIEN 5 5 MEDICAL LD AGA T VISIT SERV 15 FOUNDATIO MINUTES N OFFICE 08405 [facility] 5 5 PRIMARY JR REINALDO T VISIT HEALTH 15 CARE MINUTES HOSPITAL [facility] - [facility] 19139 GINO MIGUEL OUTPATIEN 5 5 MEDICAL DIANE T VISIT SERV 15 FOUNDATIO MINUTES N OFFICE 63035 [facility] V[facility] OUTPATIEN 5 5 PRIMARY JR REINALDO T VISIT HEALTH 15 CARE MINUTES OFFICE 82585 [facility] VELOUDIS OUTPATIEN 5 5 PRIMARY JR REINALDO T VISIT HEALTH 15 CARE MINUTES OFFICE 07380 [facility] VELOUDIS OUTPATIEN 5 5 PRIMARY JR REINALDO T VISIT HEALTH 15 CARE MINUTES OFFICE 66179 [facility] VELOUDIS OUTPATIEN 5 5 PRIMARY JR REINALDO T NEW 60 HEALTH MINUTES CARE EMERGENCY 27440 [facility] SAL[facility] GRE 4 4 GISSELLE DEPARTMEN EMERGENCY T VISIT PHYS MODERATE SEVERITY EMERGENCY 41571 [facility] CHEESEMAN 4 4 GISSELLE NARENDRA DEPARTMEN EMERGENCY T VISIT PHYS MODERATE SEVERITY EMERGENCY 05686 [facility] HEIDI JAM DEPT 4 4 GISSELLE VISIT EMERGENCY HIGH PHYS SEVERITY& THREAT FUNCJ EMERGENCY 54015 [facility] HEIDI JAM 4 4 GISSELLE DEPARTMEN EMERGENCY T VISIT PHYS MODERATE SEVERITY EMERGENCY 02982 [facility] HEIDI JAM 4 4 GISSELLE DEPARTMEN EMERGENCY T VISIT PHYS MODERATE SEVERITY EMERGENCY 78705 [facility] HOANG DEPT 4 4 GISSELLE JOHANNY VISIT EMERGENCY HIGH PHYSI SEVERITY& THREAT FUNCJ EMERGENCY 33672 GINO ROLLINS 4 4 MEDICAL BRADEN DEPARTMEN SERV T VISIT FOUNDATIO HIGH/URGE N NT SEVERITY EMERGENCY 32889 MICHAEL RODRIGUEZ DEPT 4 4 SCO SCO VISIT HIGH SEVERITY& THREAT FUNJ EMERGENCY 97588 JAY JAY GOYAL DEPT 4 4 LUBNA LUBNA VISIT HIGH SEVERITY& THREAT FUN OFFICE 27472 HORIZON SOLIEN OUTPATIEN 1 1 HEALTHCAR GADIEL T VISIT E CENTER 15 MINUTES OFFICE 68056 CRYSTAL CRYSTAL OUTPATIEN 1 1 JAM JAM T VISIT 15 MINUTES OFFICE 77944 CRYSTAL CRYSTAL OUTPATIEN 1 1 JAM JAM T VISIT 15 MINUTES OFFICE 03803 CRYSTAL CRYSTAL OUTPATIEN 1 1 JAM JAM T VISIT 15 MINUTES OFFICE 32310 CRYSTAL CRYSTAL OUTPATIEN 1 1 JAM JAM T VISIT 15 MINUTES OFFICE 52501 CRYSTAL CRYSTAL OUTPATIEN 0 1 JAM JAM T NEW 45 MINUTES HOSPITAL [facility] T EMERGENCY 73441 UNIVERSIT 0 0 Y [facility] T VISIT HIGH/URGE NT SEVERITY EMERGENCY 38971 UNIVERSIT DEPT 9 9 Y VISIT HOSPITAL HIGH SEVERITY& THREAT FUN HOSPITAL UNIVERSIT - 9 9 Y OUTPATI HOSPITAL T EMERGENCY 75761 GINO VELEZ, 9 9 MEDICAL CRIAG T DEPARTMEN SERV T VISIT FOUNDATIO HIGH/URGE NT SEVERITY OFFICE 42316 [facility] 9 AND T VISIT PEDIATRIC 15 S & INTER MINUTES EMERGENCY 46803 [facility] 9 9 [facility] VISIT MODERATE SEVERITY HOSPITAL CENTRAL - 9 9 YAZIDI OUTPATIEN HOSP T [facility] - 9 9 [facility] EMERGENCY 04524 [facility] STACK, 9 9 PRIMARY LI Alcazar [facility] CARE T VISIT PHYSICANS MODERATE MIDWEST SEVERITY PSC EMERGENCY 24956 [facility] 9 9 [facility] T VISIT LOW/MODER SEVERITY OFFICE 49568 [facility] 9 9 BRET T NEW 30 PEDIATRIC MINUTES S & INTER EMERGENCY 11328 ELIJAH CELLAROSI 9 9 EMERGENCY - YORBA, [facility] SERVICES STEVIE T VISIT M HIGH/URGE ASSOCIATE NT S SEVERITY HOSPITAL [facility] - 9 [facility] EMERGENCY [address]14 [place] [address] 9 [facility] T VISIT LOW/MODER SEVERITY EMERGENCY 38615 [facility], 9 9 GISSELLE SILVINO Barajas [facility] EMERGENCY T VISIT PHYS INC MODERATE SEVERITY EMERGENCY 80079 [facility], 9 9 GISSELLE [place] [facility] EMERGENCY T VISIT PHYS INC HIGH/URGE NT SEVERITY OFFICE [id number] [facility] [place] 9 9 CY [place] T VISIT 25 MINUTES [facility] - [address] [facility] - 9 [facility] EMERGENCY 28925 [facility], DEPT 9 9 [place] Silver VISIT EMERGENCY HIGH PHYS INC SEVERITY& THREAT FUNCJ EMERGENCY 04085 [facility] [address] [place] [address] T VISIT MODERATE SEVERITY OFFICE 49832 [facility] 9 9 [facility] [email or web address] T VISIT 5 MINUTES OFFICE 76635 [facility] T [facility] E CENTER 15 MINUTES OFFICE 25949 JHONNY ZABALA [facility] 9 9 [facility] T [facility] CENTER 15 MINUTES OFFICE [id number] [facility], OUTPATIEN 9 9 [facility] 15 MINUTES OFFICE 07964 [facility], OUTPATIEN 9 9 [facility] T VIS[facility] E CENTER 15 MINUTES EMERGENCY 67914 [facility] 9 9 [facility] T VISIT LIMITED/M INOR PROB EMERGENCY 50360 [facility] [address] [facility] MODERATE WILTON [facility]VERITY [facility] - 9 9 [facility] EM[facility]GENCY 63318 [facility], 9 9 [place] ORDAZ [facility] EMERGENCY A T VISIT PHYS INC HIGH/URGE NT SEVERITY [facility] 49521 [facility], 9 9 [place] [facility] EMERGENCY A T VISIT PHYS INC HIGH/URGE NT SEVERITY EMERGENCY 15324 [facility] 9 9 N [facility] T VISIT HOSPITAL MODERATE SEVERITY
--- OUTSIDE RECORDS SUMMARY | 2017-03-17 02:10 | External Medical Summary Rpt ---
Author Author , PATRICIA Jade PATRICIA Address Unknown Phone [email or web address] Care Team Providers Care Roaster Helper Name Role Phone AHMED, ORDAZ A, Unavailable Unavailable AHMED, ORDAZ A [facility]OC[facility]ATED Unavailable [facility] AYOOB AND, AYOOB AND Unavailable Unavailable [facility], Unavailable Unavailable [facility] BEAVEN GERMAN, BEAVEN Unavailable Unavailable [facility] Unavailable Unavailable [facility], [facility] Unavailable Unavailable [facility], [facility] HEIDI JAM, HEIDI JAM Unavailable Unavailable [facility] Unavailable Unavailable & INTER, [facility] INTER NICK, NICK Unavailable [...] M, CELLAROSI - YORBA, STEVIE M [facility], Unavailable Unavailable [facility]available Unavailable [facility], [facility] ANAMARIA MACKEY, Unavailable Unavailable BERT HARRIS Unavailable Unavailable [facility] Unavailable Unavailable [facility], [facility] RIA BRADEN RIA Unavailable Unavailable BRADEN PORTILLO AGA, Unavailable Unavailable LINDSEY AGA DO, DO Unavailable Unavailable DO ANCA, Unavailable Unavailable DO ANCA [id number], Unavailable Unavailable [facility], Unavailable Unavailable [facility] SILVINO CARBAJAL, Unavailable Unavailable SILVINO CARBAJAL GOYAL Unavailable Unavailable LUBNA JAY JAY CALVO GOYAL Unavailable Unavailable LUBNA RAMON ARANA Unavailable Unavailable L, RAMON ARANA AMANDA, AMANDA Unavailable Unavailable AMANDA ERICK, AMANDA Unavailable Unavailable ERICK [facility] Unavailable Unavailable [facility], [facility] VENKATESH DUMAS MD, Unavailable Unavailable VENKATESH ADAMS, CINDY ADAMS Unavailable Unavailable PHILLIPS DORETHA, PHILLIPS Unavailable Unavailable DORETHA HARPEL, HARPEL Unavailable Unavailable HARPEL NATACHA, HARPEL Unavailable Unavailable NATACHA [facility], Unavailable Unavailable [facility], Unavailable Unavailable [facility] Un[facility] Un[facility], [facility] HILTY, RONDON R, Unavailable Unavailable HILTY, RONDON R [facility], Unavailable Unavailable [facility], Unavailable Unavailable [facility] Unavailable Unavailable [place], [employer] [facility] STEVE LANGSTON, Unavailable Unavailable STEVE LANGSTON KATHLEEN, Unavailable Unavailable KYLE ZABALA KATHERINE C, Unavailable Unavailable JOSE WEN, MARITZA GRE Unavailable Unavailable MAGDALENA, MAGDALENE, Unavailable Unavailable MAGDALENA, MAGDALENE [facility] Un[facility] MIGDALIA MACKEY, MIGDALIA Unavailable [...] LAB DANISHA BRYAN Unavailable Unavailable MALLORY, DANISHA BRYAN MALLORY PICKLESIMER JR, Unavailable Unavailable PICKLESIMER JR PICKLESIMER JR GENIE, Unavailable Unavailable PICKLESIMER JR GENIE PICKLESIMER JR GENIE, Unavailable Unavailable PICKLESIMER JR GENIE [facility], Unavailable Unavailable [facility] OMARI MUNOZ, Unavailable Unavailable OMARI MUNOZ JASON T, Unavailable Unavailable SAMINA TRUJILLO CHAPPELL BET, Unavailable Unavailable CHAPPELL BET [id number], Unavailable Unavailable [facility] Unavailable Unavailable [address] # 0784, [facility] [address] # 0784 VIANNEY BORJAS Unavailable Unavailable SOLIEN GADIEL, SOLIEN Unavailable Unavailable GADIEL [facility] Unavailable Unavailable GROUP,, [facility], [facility] Unavailable Unavailable GROUP,, [facility], ZAHIRA NARENDRA, ZAHIRA NARENDRA Unavailable Unavailable [facility], [facility] Unavailable Unavailable [facility] PH[facility], [facility], Unavailable Unavailable [facility], Unavailable Unavailable [facility] LI ZHANG, Unavailable Unavailable LI ZHANG STEVENS Unavailable Unavailable [facility], Un[facility], [facility]ER[facility] Unavailable Unavailable [facility] ASHBY MOL, ASHBY MOL Unavailable Unavailable TRUE STEFANIA, TRUE STEFANIA Unavailable Unavailable [facility], Unavailable Unavailable [facility] VELWILLA JR REINALDO, Unavailable Unavailable VELYADIELDIS JR REINALDO [facility] # Unavailable Unavailable 4892, [facility] # 4892 [facility] # Unavailable Unavailable 9631, [facility] # 9631 FRANCE NONI, FRANCE NONI Unavailable Unavailable [facility] Unavailable Unavailable DEPT COLE, [facility] Unavailable Unavailable DE[facility], [facility] HOANG JOHANNY, HOANG Unavailable Unavailable JOHANNY EVER DEN, Unavailable Unavailable EVER DEN ARSENIO ERICK, ARSENIO Unavailable Unavailable ERICK ZAGUROVSKAYA MAR, Unavailable Unavailable ZAGUROVSKAYA MAR Purpose Continuity of Care Document - 08-06-2008 through 2016 Problems Code Diagnosis DOS Provider Status [id number] FALSE LABOR 12-04-2016 [facility] BEFORE 37 PHYSICIANS CMPLETE GROUP WEEKS GEST 3RD TRI Z36 ENCOUNTER 10-16-2016 [place] [facility] SCREENING OF MOTHER Z3A20 20 WEEKS 10-16-2016 [place] [facility]ICAL OF IMAGING ASS Z113 ENCOUNTER 10-12-2016 [facility] S[facility]EN [facility] INFECTIONS SEXL MODE TRANSMISSN Z3480 ENC 10-12-2016 [facility] SUPERVISION [facility] OTH NORMAL PREG UNS TRIMESTER K54543 UTERINE 09-03-2016 [facility] DISCREPANCY INC FIRST TRIMESTER Z3492 ENC 09-03-2016 [place] [facility] NORMAL IMAGING ASS UNS 2 TRIMESTER Z3A14 14 WEEKS 09-03-2016 [place] [facility]ICAL OF IMAGING ASS M32437 DRUG USE 08-31-2016 [facility] COMPLICATIN PHYSICIANS G GROUP SECOND TRIMESTER Z3201 ENCOUNTER 08-31-2016 [facility] FOR PHYSICIANS GROUP TEST RESULT POSITIVE N925 OTHER 07-02-2016 [facility] SPECIFIED PHYSICIANS IRREGULAR GROUP MENSTRUATIO N Z3A01 LESS THAN 8 06-23-2016 [facility], GESTATION PLLC OF Z720 TOBACCO USE 06-23-2016 [facility] INC S34020 AGRICULTURAL COMMODITIES GRADER 06-23-2016 [facility] CURRENT USE [facility] OF OPIATE INC ANALGESIC R635 ABNORMAL 04-23-2016 [facility]IN [facility]YSICIANS, PLLC Z3189 ENCOUNTER 04-23-2016 [facility] FOR OTHER DISTRICT PROCREATIVE [facility] DEPT MANAGEMENT COLE Z3202 ENCOUNTER 04-23-2016 [facility] FOR DISTRICT [facility] DEPT TEST RESULT COLE NEGATIVE I10 ESSENTIAL 02-20-2016 [facility] HYPERTENSIO INC N K5900 CONSTIPATIO 02-20-2016 [facility] N PHYSICIANS, UNSPECIFIED PLLC R1030 LOWER 02-20-2016 [facility] ABDOMINAL PHYSICIANS, PAIN PLLC UNSPECIFIED R1084 GENERALIZED 01-25-2016 [facility] ABDOMINAL PHYSICIANS, PAIN PLLC N809 ENDOMETRIOS 12-17-2015 COMMUNITY IS ANESTH OF UNSPECIFIED THE BLUE N8320 UNSPECIFIED 12-17-2015 [facility] OVARIAN PHYSICIANS CYSTS GROUP N840 POLYP OF 12-17-2015 [facility] CORPUS PHYSICIANS UTERI GROUP R102 PELVIC AND 12-17-2015 [facility] PERINEAL LLC PAIN N736 FEMALE 12-13-2015 [facility] PERITONEAL INC ADHESIONS POSTINFECTI VE N761 SUBACUTE 12-13-2015 [facility] AND CHRONIC PHYSICIANS VAGINITIS GROUP D08424 ENCOUNTER 12-13-2015 [facility] PREPROCEDUR INC AL LABORATORY EXAM G68679 ENCOUNTER 09-30-2015 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 ALESIA MAYS GENERAL RTN W/ABNORMAL FIND H04071 ENCOUNTER 09-30-2015 BIO AUTO PAINTER EXAM REFERNCE GENERAL RTN LABORATORIE W/O S ABNORMAL FIND P69320 ENCOUNTER 09-30-2015 VENKATESH Wood ROUTINE ALESIA MAYS CHECKING IU CONTRACEPT DEVICE Z309 ENCOUNTER 09-30-2015 VENKATESH Wood FOR ALESIA MAYS CONTRACEPTI VE MANAGEMENT UNS B1920 UNS VIRAL 09-16-2015 [facility] HEPATITIS C PHYSICIANS WITHOUT GROUP HEPATIC COMA M545 LOW BACK 09-16-2015 [facility] PAIN PHYSICIANS GROUP 44358 INCOMPLETE 03-06-2015 [place] [facility] EMPTYING [facility] V5869 LONG-TERM 02-20-2015 [facility] USE OF OTHER MEDICATIONS V5883 ENCOUNTER 02-20-2015 [facility] THERAPEUTIC DRUG MONITORING V2511 ENC FOR 01-23-2015 [place] [facility] INTRAUTERIN [facility] E CONTRACEPT DEVICE V2389 SUPERVISION 12-26-2014 [place] [facility] OF OTHER SERV HIGH-RISK [facility]OUNDATION 54426 OTHER 12-19-2014 [facility] OB TRAUMA COND/COMPL 5119 UNSPECIFIED 12-13-2014 [place] [facility] PLE[place] [facility] EFFUSION [facility] 5180 PULMONARY 12-13-2014 [place] [facility] [place]LLAPSE [facility] 7850 UNSPECIFIED 12-13-2014 [place] [facility] TACHYCARDIA [facility] 2859 UNSPECIFIED 12-09-2014 [facility] NURSE ANEMIA PRACTITIONE R GR 2875 UNSPECIFIED 12-09-2014 [facility] NURSE PRACTITIONE THROMBOCYTO R GR PENIA 4266 OTHER HEART 12-09-2014 [place] [facility] 514 PULMONARY 12-09-2014 [place] [facility] CON[facility] [facility] AND [facility] HYPOSTASIS 5739 UNSPECIFIED 12-09-2014 [facility] [place] [address] SYSTEMIC 12-09-2014 [facility] NURSE INFLAMMATOR PRACTITIONE Y RESPONSE R GR SYNDROME UNSPEC 2760 HYPEROSMOLA 12-08-2014 [place] [facility] [place] [address] OTHER SPEC 12-08-2014 [facility] BLOOD&BLOOD HOSPI -FORMING ORGANS 5849 ACUTE 12-08-2014 [place] [facility] [place] [facility] FAILURE [facility] UNSPECIFIED 5881 NEPHROGENIC 12-08-2014 [place] [facility] DIABETES SERV INSIPIDUS [facility] 52339 CHEST PAIN 12-08-2014 [place] [facility] UNSPECIFIED SERV [facility] 2762 ACIDOSIS 12-07-2014 [facility] NURSE PRACTITIONE R GR 5601 PARALYTIC 12-07-2014 [place] [facility] ILEUS [facility] 61919 ERLY ONSET 12-07-2014 [place] DELIV DELIV [facility] W/WO HOSPI MENTION ANTPRTM COND 40174 LIVER 12-07-2014 [place] [facility] [place] [facility] TRACT D/O FOUNDATION PREG DEL W/WO ANTPRTM 85328 MATERNAL 12-07-2014 [place] [facility] DR[facility] DEPENDENCE [facility] WITH DELIVERY 49554 TWIN 12-07-2014 [place] [facility] , [place] DELIVERED [facility] 83269 OTH 12-07-2014 [facility] CONDS HOSPI AFFECT MANAGEMENT MOTH DELIV 56011 C/S DELIV 12-07-2014 [place] W/O INDICAT [facility] DELIV W/WO HOSPI ANTPRTM COND 85209 POLYURIA 12-07-2014 [facility] NURSE PRACTITIONE R GR V272 OUTCOME OF 12-07-2014 [place] [facility] DEL[place] [facility] TWINS BOTH [facility]OUNDATION LIVEBORN V5881 FITTING AND 12-07-2014 [place] [facility] ADJUSTMENT SERV OF [facility]OUNDATION VASCULAR CATHETER 22846 THREATENED 12-06-2014 [place] [facility] PREMATURE SERV LABOR [facility]OUND[facility] ANTEPARTUM 93550 UNSPECIFIED 12-06-2014 [place] [facility] ANTE[place]UM SERV RENAL [facility] DISEASE 2535 DIABETES 12-05-2014 [place] [facility] 2866 DEFIBRINATI 12-05-2014 [place] [facility] 5718 OTHER 12-05-[address] [facility] [place] NONALCOHOLI C LIVER DISEASE 16412 RHESUS 12-05-2014 [place] ISOIMMUNIZA [facility] [place] [address] SYS INFLAM 12-05-2014 [facility] SYND-NON-IN F W/O ACUTE ORGN DYSF 39813 TOB USE D/O 11-26-2014 [facility] /PP ANTEPARTM COND/COMP 92434 MATERNAL 11-23-2014 [place] [facility] DEPENDENCE [facility] ANTEPARTUM 86294 TWIN 11-23-2014 [place] [facility] , [place] ANTEPARTUM [facility]OUNDATION 94890 CERVICAL 11-21-2014 [place] [facility] SHORTENING SERV ANTEPARTUM [facility]OUNDATION CONDITION OR COMP V9102 TWIN GEST 11-21-2014 [place] [facility] MONOCHORION SERV IC/DIAMNIOT FOUNDATION IC V221 SUPERVISION 10-24-2014 [facility] NORMAL V284 10-24-2014 [place] [facility] SCR SERV GROWTH [facility] RETARDATION USING US V239 UNSPECIFIED 10-17-2014 [place] [facility] HIGH-RISK SERV [facility]OUND[facility] 95105 CERVICAL 10-10-2014 [place] [facility] INCOMPETENC SERV E ANTPRTM FOUNDATION COND/COMPLI CATION 91876 TWIN 10-03-2014 [place] [facility] SERV UNSPECIFIED FOUNDATION TO EPISODE OF CARE 38609 PREVIOUS 09-28-2014 [place] [facility] C-SECT SERV DELIVERY [facility]OUNDATION ANTPRTM COND/COMP V9103 TWIN GEST 09-12-2014 [facility] /DIAMNIOTIC V2881 ENCOUNTER 08-29-2014 [place] [facility] FOR [facility] ANATOMIC [facility]OUND[facility] SURVEY 5733 UNSPECIFIED 07-26-2014 [place] [facility] 12731 BN&JNT D/O 07-19-2014 [place] [facility] MAT BACK SERV PELVIS&LW FOUNDATION LIMBS ANTEPARTUM 7245 UNSPECIFIED 07-19-2014 [place] [facility] BACKACHE SERV [facility]OUND[facility] 7935 NONSPECIFIC 07-19-2014 [place] [facility] ABN SERV FINDING RAD [facility]OUND[facility] & OTH EXAM ORGAN V222 07-19-2014 [place] [facility] [place], SERV INCIDENTAL FOUNDATION 66453 MATERNAL RX 06-26-2014 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 COMPL PG S LLC CB/PP UNS EOC 75822 TRIPLET 06-25-2014 [place] , [facility]TEPARTUM [facility] CARE 94523 OTHER 05-24-2014 [facility] SPECIFED N EMERGENCY COMPLICATIO PHYS N ANTEPARTUM 15465 HORDEOLUM 05-11-2014 [facility] EXTERNUM N EMERGENCY PHYS 73243 NAUSEA WITH 02-19-2014 [facility] VOMITING N EMERGENCY PHYS 75327 ABDOMINAL 02-19-2014 [facility] PAIN, N EMERGENCY EPIGASTRIC PHYS 6825 CELLULITIS 02-06-2014 [facility] AND ABSCESS N EMERGENCY OF BUTTOCK PHYS 74117 UNSPECIFIED 01-23-2014 [facility] N EMERGENCY CONJUNCTIVI PHYS TIS 02290 NAUSEA 01-19-2014 [facility] ALONE N EMERGENCY PHYSI 56946 ABDOMINAL 01-19-2014 [facility] PAIN, N EMERGENCY GENERALIZED PHYSI 02849 OTHER 12-24-2013 [facility] LATRICE DISEASES OF SPLEEN 5738 OTHER 12-24-2013 [facility] JAM SPECIFIED DISORDERS OF LIVER 73384 ABDOMINAL 12-24-2013 MELANIA FAYETTE PAIN, URBAN UNSPECIFIED COGOVT SITE 06937 DIARRHEA 11-03-2013 [facility] SCO 21313 ABDOMINAL 11-03-2013 [facility] PAIN, LEFT SCO UPPER QUADRANT V7231 ROUTINE 11-03-2013 [facility] GYNECOLOGIC GENERAL [facility] AL EXAMINATION 75032 OTHER CHEST 10-31-2013 GOY[facility] LUBNA PAIN 6264 IRREGULAR 10-27-2013 [facility] CYCLE GROUP, 4619 ACUTE 09-09-2010 [facility] SINUSITIS, HEALTHCARE UNSPECIFIED CENTER 462 ACUTE 09-09-2010 [facility] PHARYNGITIS HEALTHCARE CENTER 65000 ESOPHAGEAL 07-31-2010 [facility] 68505 OTHER 07-31-2010 [facility] [place] [facility] FATIGUE 7948 NONSPECIFIC 07-31-2010 [facility] ABNORMAL [place] [facility] RESULTS LIVR FUNCTION STUDY 10970 TOBACCO USE 07-17-2010 [facility] JAM D/O COMP PG CHILDBIRTH/ PP DELIVERED 15917 PREV C/S 07-17-2010 [facility] DELIV DELIV W/WO MENTION ANTPRTM COND V237 INSUFFICIEN 07-17-2010 [facility] T CARE V270 OUTCOME OF 07-17-2010 [facility] DELIVERY SINGLE LIVEBORN V072 NEED FOR 06-19-2010 [facility] PROPHYLACTI C IMMUNOTHERA PY V2889 OTHER 06-16-2010 [facility] SPECIFIED [place] INC SCREENING 7231 CERVICALGIA 08-04-2009 [facility] 7241 PAIN IN 08-04-2009 [facility] SPINE 7242 LUMBAGO 08-04-2009 [place] [facility] E9270 OVEREXERTIO 08-04-2009 [place] [facility] N FROM SERV SUDDEN [facility]AT[facility] STRENUOUS MOVEMENT 30059 ABDOMINAL 04-30-2009 [place] PAIN, HOSPITAL PERIUMBILIC 62883 ABDOMINAL 04-30-2009 [facility] OTHER [facility]OSPITAL SPECIFIED SITE 460 ACUTE 04-17-2009 [facility] ITIS & INTER 82492 OTHER 04-15-2009 [facility] PAIN PHYS PSC 8472 LUMBAR 04-06-2009 [facility] SPRAIN AND CARE STRAIN PHYSICANS KNAPP PSC 5781 BLOOD IN 03-22-2009 [facility] STOOL [facility] & INTER 5693 HEMORRHAGE 03-19-2009 [facility] EMERGENCY AND ANUS SERVICES ASSOCIATES 07985 OTHER 01-12-2009 [facility], SPECIFIED KIAN, AND DISORDER OF ASSOCIATES KIDNEY AND URETER 29379 OTHER ACUTE 01-01-2009 [facility]IN POSTOPERATI VE PAIN 12413 UNSPECIFIED 01-01-2009 [facility] EP[facility] CONSTIPATIO N V242 ROUTINE 01-01-2009 [facility] EPSTE[facility] FOLLOW-UP 52746 GENLY 12-24-2008 [facility] MARTHAYEZACH CONTRACTED URBAN [place] [address] PREMATURE 12-24-2008 [place] [facility] RUPTURE SERV MEMBRANES FOUNDATIO ANTEPARTUM 10087 OTHER 12-23-2008 MEL[facility]IA FAYETTE THREATENED URBAN LABOR COGOVT UNSPEC EPISODE CARE 29846 OTHER 12-23-2008 [facility] THREATENED N EMERGENCY LABOR, PHYS INC ANTEPARTUM V726 LABORATORY 12-03-2008 LAB KATIE EXAMINATION [employer] 4550 INTERNAL 09-28-2008 [facility] HEMORRHOIDS CARE WITHOUT PHYSICANS MENTION KNAPP PSC COMP 4553 EXTERNAL 09-28-2008 [facility] HEMORRHO[facility] WITHOUT PHYSICANS MENTION KNAPP PSC COMP 4556 UNSPEC 09-28-2008 [facility] WITHOUT MENTION COMPLICATIO N 4659 ACUTE URIS 09-28-2008 [facility] UNSPECIFIED SITE 7862 COUGH 09-28-2008 [facility] 4660 ACUTE 09-27-2008 [facility] BRONCHITIS N EMERGENCY PHYS INC V745 SCREENING 09-04-2008 PATHOLOGY & EXAMINATION CYTOLOGY FOR LAB VENEREAL DISEASE 13992 OT CURRENT 08-06-2008 [facility]ations Na ND Rx Da Fi Fi Am Da Di Ph RX Ph St me C No te ll ll ou ys ag ar # ys at rm s nt no ma ic us Or Da si cy ia de te s n re d BU 69 07 08 60 30 00 HO Ac IL 09 -2 -2 .0 00 ME ti [...] 05 06 30 30 00 HO Ac IL 09 -0 -0 .0 00 ME ti [...] 01 02 23 13 00 HO Ac IL 09 -1 -1 .0 00 ME ti EN 35 0- 0- 00 04 TO ve OR 72 20 20 02 WN PH 15 17 17 09 IN 6 66 PH -N AR AL MA OX CY ON OF 8- 2 CY MG NT HI SL AN A BU 01 02 30 30 00 HO Ac IL 00 -0 -0 .0 00 ME ti OP 10 3- 3- 00 06 TO ve IO 19 20 20 07 WN N 90 17 17 87 HC 0 33 PH L AR 75 MA CY MG OF TA BL CY ET NT HI AN A BU 00 12 01 27 15 00 HO Ac IL 09 -2 -2 .0 00 ME ti [...] 12 01 38 19 00 HO Ac IL 09 -0 -1 .0 00 ME ti EN 35 8- 3- 00 04 TO ve OR 72 20 20 02 WN PH 15 16 17 05 IN 6 67 PH -N AR AL MA OX CY ON OF 8- 2 CY MG NT HI SL AN A BU 00 12 01 6. 3 00 HO Ac IL 09 -0 -0 00 00 ME ti [...] 2 60 30 HO 60 SO Ac IL 59 -2 -2 .0 ME 16 LI ti OP 13 9- 9- 00 TO 71 EN ve IO 54 20 20 WN 6 N 16 11 11 AR HC 0 PH YL L AR S SR MA K CY 15 0 MG TA BL ET [place] 13 04 04 2 30 30 HO [...] MG MA K CY TA BL ET IL 37 01 04 3 30 30 HO [...] MG MA K CY TA BL ET IL 37 01 03 3 30 30 HO [...] -2 MA CY MG SL FI LM IL 37 01 02 3 30 30 HO [...] CE 1 #9 ME TA 63 S AK 1 E NO # PH 96 EN [...] 3- 3- 00 PH 37 LL ve IL 01 20 20 AR AM 10 11 [...] CE 1 CY ME TA # S AK E NO 02 PH 33 EN 2 [...] 0 2 MG CA PS UL E IL 68 02 02 5 30 30 CV [...] 33 10 2 MG TA BL ET IL 37 01 01 3 30 30 HO [...] 02 MG 33 2 TA BL ET IL 68 01 01 5 30 30 CV [...] ST ZA 81 09 09 PH EV IL 0 AR EN IN M J E [...] 50 23 32 MG TA BL ET IL 37 10 10 00 28 28 CV [...] AR NT ZA 11 09 09 MA IL 0 CY SC IN OT E 23 [...] MG 32 A CA PS UL E AK 50 08 08 00 1. 1 TH [...] 00 30 15 RI 39 CA Ac IL 76 -2 -1 .0 TE 46 MP [...] -0 -1 .0 S 51 IP ti IL 11 8- 6- 00 PH 77 P ve AM 97 20 20 AR NA IN [address] E 1 CY A 25 23 MG 32 TA BL ET CI 13 06 07 00 15 30 CV 25 FI Ac TA 66 -2 -1 .0 S 33 ND ti LO 80 9- 6- 00 PH 77 LA ve IL 01 20 20 AR Y AM 10 [...] 20 AR HAYS 00 09 09 MA AK LF 1 CY NC AT CHAU E 23 32 32 5 MG TA BL ET IL 65 07 07 00 30 30 CV 25 PA Ac EN 16 -1 -1 .0 S 59 RK ti AT 20 0- 6- 00 PH 12 ER ve AL 66 20 20 AR [address] 0 CY NC US CHAU 23 TA 32 BL ET SE 59 03 07 03 15 30 CV 22 PA Ac RT 76 -3 -1 .0 S 24 RK ti RA 24 0- 6- 00 PH 00 ER ve LI 91 20 20 AR NE 00 09 09 MA AK 5 CY NC HC CHAU L 23 10 32 0 MG TA BL ET SE 59 03 06 02 15 30 CV 22 PA Ac RT 76 -3 -1 .0 S 24 RK ti RA 24 0- 8- 00 PH 00 ER ve LI 91 20 20 AR NE 00 09 09 MA AK 5 CY NC HC CHAU L 23 10 32 0 MG TA BL ET IL 00 05 06 00 30 5 CV 24 No Ac OM 78 -2 -0 .0 S 19 t ti ET 11 7- 4- 00 PH 62 Av ve CHAU 83 20 20 AR ai ZI 00 09 09 MA la NE 1 CY bl e 25 23 32 MG TA BL ET IL 00 03 05 01 20 5 CV 22 PA Ac OM 78 -3 -0 .0 S 24 RK ti ET 11 0- 7- 00 PH 01 ER ve CHAU 83 20 20 AR ZI 00 09 09 MA AK NE 1 CY NC CHAU 25 23 32 MG TA BL ET 00 03 05 01 15 30 CV 22 PA Ac 09 -3 -0 .0 S 24 RK ti 37 0- 7- 00 PH 00 ER ve 17 20 20 AR 75 09 09 MA AK 6 CY NC CHAU 23 32 LO [...] 20 AR ZA 11 09 09 MA AK IL 0 CY NC IN CHAU E 23 [...] 20 AR ZA 11 09 09 MA [place] 0 CY NC IN CHAU E 23 10 32 MG TA BL ET 00 03 04 00 15 30 CV 22 PA Ac 09 -3 -0 .0 S 24 RK ti 37 0- 9- 00 PH 00 ER ve 17 20 20 AR 75 09 09 MA AK 6 CY NC CHAU 23 32 IL 00 03 04 00 20 5 CV 22 PA Ac OM 78 -3 -0 .0 S 24 RK ti ET 11 0- 9- 00 PH 01 ER ve CHAU 83 20 20 AR ZI 00 09 09 MA [place] NE 1 CY NC CHAU 25 23 [...] [Presen ce] in Unspeci fied specime n Apuay-5-Wlvedppnmmthg.placental [Presence] in Vaginal fluid (02-12-2017 03:35) Alpha-1 [...] 14:25 ce] in Urine by Test strip Niefj-2-Plamoevkotsqp.placental [Presence] in Vaginal fluid (01-16-2017 04:25) Alpha-1 NEGATIV complet -Microg 017 E FOR ed lobulin 04:25 RUPTURE .placen debbie [Presen ce] in Vaginal [...] Procedures Procedure DOS Code Location Performer Comment 72517 [facility] HARPEL NONSTRESS 7 PHYSICIAN TEST [place]REG 22310 [place] DO UTERUS 7 MEDICAL AFTER 1ST [place] P[place] [address] [facility] RODRIGUEZ UTERUS 7 MEM HOS[facility]OS[facility] W/DETAIL INC INC YEFRI 1ST GESTATION CYTP C/V 33773 [facility] AUTO THIN 7 LLC ER JR LYR PREPJ SCR MNL RESCR PHYS IADNA 25240 [facility] NEISSERIA 7 LLC ER JR GONORRHOE AE AMPLIFIED PROBE TQ IADNA 68456 [facility], [facility] CHLAMYDIA 7 LLC ER [place] [address] [place] NICK 7 MEDICAL UTERUS IMAGING LIMITED ASS 1/> [place] PREG 91327 [facility] RODRIGUEZ UTERUS 7 MEM HOSP MEM HOS[facility] AFTER 1ST INC INC TRIMEST / GESTATION DRUG TEST 20255 [facility] NOEL PRSMV 7 PHYSICIAN QUAL DIR S GROUP OPTICAL OBS PER DAY URINE 09452 [facility] NOEL 7 PHYSICIAN TEST S GROUP VISUAL COLOR CMPRSN [place] URINE 80811 [facility] HARPEL 7 PHYSICIAN TEST S GROUP VISUAL COLOR CMPRSN [place] IADNA 44018 [facility] NEISSERIA 7 PHYSICIAN S GROUP GONORRHOE AE DIRECT PROBE TQ URINLS 52597 [facility] DIP 7 PHYSICIAN STICK/TAB S GROUP LET REAGNT NON-AUTO MICRSCPY CULTURE 67436 [facility] CHLAMYDIA 7 PHYSICIAN ANY S GROUP SOURCE IADNA 00028 [facility] HERPES 7 PHYSICIAN SIMPLX S GROUP VIRUS DIRECT PROBE TQ IAADIADOO 94932 [facility] HARPEL 7 PHYSICIAN TRICHOMON S GROUP VAGINALIS GONADOTRO 47777 [facility] R[facility] PIN 7 [facility] CHORIONIC INC INC QUALITATI VE URINE 25558 [facility] DEPT HLTH DEPT VISUAL [place] [address] [place] [facility] ALL ABDOMEN & 6 MEDICAL PELVIS IMAGING W/O ASS CONTRAST MATERIAL URINE 25607 [facility] 6 [facility] TEST INC INC VISUAL COLOR CMPRSN [place] DRUG TST G0477 [facility] PRESUMP;C 6 [facility] PBL BEING INC INC READ DC OPT OBV ONLY GONADOTRO 39162 [facility] R[facility] PIN 6 [facility] CHORIONIC INC INC QUANTITAT JI BLOOD 45950 [facility] COUNT 6 [facility] COMPLETE INC INC AUTO&AUTO DIFRNTL WBC COMPREHEN 21271 [facility] R[facility] SIVE 6 [facility] METABOLIC INC INC PANEL SMR PRIM 42769 [facility] SRC WET 6 [facility] [place] [address] [facility] ELIJAH SURG 6 [facility] PATHOLOGY GROSS&ERICK ROSCOPIC EXAM HYSTEROSC 22947 [facility] OPY BX 6 PHYSICIAN PHYSICIAN ENDOMETRI S GROUP S GROUP UM&/POLYP C W/WO D&C ANESTHESI [address] COMMUNITY LANCE JOSE A 6 ANESTH INTRAPERI OF THE TONEAL BLUE LOWER ABD W/LAPS NOS LAPS ABD 66590 [facility] HARPEL PRTM&OMEN 6 PHYSICIAN NATACHA ZAIDA DX S GROUP W/WO SPEC BR/WA SPX GONADOTRO 42547 MICHAEL RODRIGUEZ PIN 6 [facility] CHORIONIC INC INC QUALITATI VE BLOOD 34124 MICHAEL RODRIGUEZ COUNT 6 [facility] COMPLETE INC INC AUTO&AUTO DIFRNTL WBC COLLECTIO 20937 MICHAEL RODRIGUEZ N VENOUS 6 [facility] BLOOD INC INC VENIPUNCT URE URINE 07851 [facility] HARPEL 6 PHYSICIAN NATACHA TEST S GROUP VISUAL COLOR CMPRSN METHS SMR PRIM 90709 [facility] HARPEL SRC WET 6 PHYSICIAN NATACHA MOUNT S GROUP NFCT AGT URINE 78747 [facility] HARPEL 6 PHYSICIAN NATACHA TEST [place] [address] [place] DO TRANSVAGI 6 MEDICAL ANCA NAL IMAGING ASS URINLS 21227 VENKATESH DUMAS DIP 6 ALESIA MAYS NATACHA STICK/TAB LET REAGNT NON-AUTO MICRSCPY CYTP C/V 47186 BIO BIO AUTO THIN 6 REFERNCE REFERNCE 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 PREPJ SCR IES IES MNL RESCR PHYS CULTURE 39223 VENKATESH Wood CHLAMYDIA 6 ALESIA DUMAS MD ANY SOURCE IADNA 58169 BIO BIO TRICHOMON 6 REFERNCE REFERNCE LABORATOR LABORATOR VAGINALIS IES IES AMPLIFIED PROBE TECH IADNA 20510 VENKATESH CHAPPELL NEISSERIA 6 ALESIA MAYS BET GONORRHOE AE DIRECT PROBE TQ IADNA 83462 BIO BIO NEISSERIA 6 REFERNCE REFERNCE LABORATOR LABORATOR GONORRHOE IES IES AE AMPLIFIED PROBE TQ IADNA 97927 BIO BIO CHLAMYDIA 6 REFERNCE REFERNCE LABORATOR LABORATOR TRACHOMAT IES IES IS AMPLIFIED PROBE TQ IADNA NOS 08020 BIO BIO 6 REFERNCE REFERNCE AMPLIFIED LABORATOR LABORATOR PROBE TQ IES IES EACH ORGANISM REMOVAL 70686 VENKATESH DUMAS INTRAUTER 6 ALESIA MANZANO INE DEVICE IUD URNLS DIP 75928 MICHAEL RODRIGUEZ 5 [facility] STICK/TAB INC INC [place] [address] MICHAEL RODRIGUEZ AMYLASE 5 [facility] INC INC COMPREHEN 97422 MICHAEL RODRIGUEZ SIVE 5 [facility] [address] MICHAEL RODRIGUEZ LIPASE 5 [facility] INC INC BLOOD 80584 MICHAEL RODRIGUEZ COUNT 5 [facility] COMPLETE INC INC AUTO&AUTO DIFRNTL WBC GONADOTRO 04452 MICHAEL RODRIGUEZ PIN 5 [facility] CHORIONIC INC INC QUALITATI VE DRUG SCR G0434 [facility] 5 Y Y [facility]; ANY NUMBER PT ENC INSERTION 76633 [place] Johnathon'MULUGETA 5 MEDICAL BRADEN INTRAUTER SERV INE FOUNDATIO DEVICE N IUD RADIOLOGI 24654 [place] ERNST C EXAM 5 MEDICAL AYA MAR CHEST 2 SERV VIEWS FOUNDATIO FRONTAL&L N ATERAL ECG 01986 [facility] ROUTINE 5 MEDICAL ECG SERV W/LEAST FOUNDATIO 12 LDS N I&R ONLY RADEX ABD 02876 [place] RAMAN COMPL 5 MEDICAL IRVIN AQT ABD SERV MALLORY W/S/E/D FOUNDATIO VIEWS 1 N VIEW CH ECG 16553 [facility] ROUTINE 5 MEDICAL ECG SERV W/LEAST FOUNDATIO 12 LDS N I&R ONLY RADIOLOGI 88131 [place] ARSENIO 5 MEDICAL ERICK EXAMINATI SERV ON CHEST FOUNDATIO SINGLE N VIEW FRONTAL SBSQ 68751 [facility] 5 MEDICAL CARE/DAY SERV 15 FOUNDATIO MINUTES N SBSQ 30453 [place] [address] NURSE ALL CARE/DAY PRACTITIO 25 NER GR MINUTES SBSQ 99950 [place] [address] NURSE ALL CARE/DAY PRACTITIO 35 NER GR MINUTES INITIAL 81300 [place] FRANCE NONI INPATIENT 5 MEDICAL CONSULT SERV NEW/ESTAB FOUNDATIO PT 80 N MIN RADIOLOGI 36570 [place] AYOOB AND C 5 MEDICAL EXAMINATI SERV ON CHEST FOUNDATIO SINGLE N VIEW FRONTAL BLOOD 01595 [facility] MIGDALIA SMEAR 5 Y OF NARENDRA PERIPHERA [place] L INTERP HOSPI PHYS W/WRIT REPORT RADIOLOGI 98472 [place] RAMAN C 5 MEDICAL IRVIN EXAMINATI SERV MALLORY ON CHEST FOUNDATIO [place] [address] [facility] 5 Y Y [facility] N OF BLADDER ARTERIAL 3891 [facility] CATHETERI 5 Y [facility] 3897 [facility] VENOUS [address] [facility] PLACEMENT WITH GUIDANCE LOW 741 [facility] CERVICAL [address] [facility] SECTION CRITICAL 49304 [facility] Z[facility] NARENDRA CARE 5 NURSE ILL/INJUR PRACTITIO ED NER GR PATIENT INIT 30-74 MIN LEVEL V 37377 [facility] ASHBY MOL SURG 5 Y OF PATHOLOGY [place] [facility] GROSS&ERICK ROSCOPIC EXAM 99592 [place] CRITCHFIE DELIVERY 5 MEDICAL LD AGA ONLY SERV FOUNDATIO N ANESTHESI 73519 [place] A 5 MEDICAL MEDICAL SERV SERV DELIVERY FOUNDATIO FOUNDATIO ONLY N N 76361 [place] O'MULUGETA NONSTRESS 5 MEDICAL BRADEN TEST SERV FOUNDATIO N SBSQ 06721 [facility] 5 MEDICAL DORETHA CARE/DAY SERV 25 FOUNDATIO MINUTES N BLD BANK 74329 [facility] BORAL ALFONZO PHYS SVCS 5 Y OF DIFFC [place] [facility]PI MATCH&/EV AL REP 65007 [facility] NONSTRESS 5 Y Y TEST HOSPITAL HOSPITAL 03287 [place] NONSTRESS 5 MEDICAL GERMAN TEST SERV FOUNDATIO [place] PREG 12393 [place] [facility] UTERUS 5 MEDICAL LEE REAL TIME SERV F/U FOUNDATIO TRNSABDL N PER FETUS DOPPLER 99064 [place] [facility]ORT VELOCIMET 5 MEDICAL LEE RY SERV UMBILICAL FOUNDATIO ARTERY N 40576 [place] [facility] BIOPHYSIC 5 MEDICAL LEE AL SERV PROFILE FOUNDATIO W/O N NON-STRES S TESTING SBSQ 49764 [facility] 5 MEDICAL BRADEN CARE/DAY SERV 25 FOUNDATIO MINUTES N SBSQ 69032 [facility] 5 MEDICAL BRADEN CARE/DAY SERV 25 FOUNDATIO MINUTES N SBSQ 31517 [facility] 5 MEDICAL BRADEN CARE/DAY SERV 25 FOUNDATIO MINUTES N SBSQ 45212 [place] [address] MEDICAL BRADEN CARE/DAY SERV 25 FOUNDATIO MINUTES N SBSQ 35106 [place] [address] MEDICAL DORETHA CARE/DAY SERV 25 FOUNDATIO MINUTES N SBSQ 76552 [place] [address] MEDICAL DORETHA CARE/DAY SERV 25 FOUNDATIO MINUTES N BLD BANK 59930 [facility] PHYS SVCS 5 Y OF DEN DIFFC [facility] HOSPI MATCH&/EV AL REP DRUG SCR G0434 [facility] NOT 5 Y Y [facility]ROM[facility]OG [facility]; ANY NUMBER PT ENC US PREG 94546 [facility] UTERUS 5 Y Y AFTER [address] [place] [address] HOSPITAL [place] [address] [place] UTERUS 5 MEDICAL LD AGA REAL TIME SERV F/U FOUNDATIO TRNSABDL N PER FETUS DOPPLER 57653 [place] VELOCIMET 5 MEDICAL LD AGA [place] [address] [place] 5 MEDICAL LD AGA UTERUS SERV LIMITED FOUNDATIO 1/> [place] [address] [place] O'MULUGETA 5 MEDICAL BRADEN UTERUS SERV LIMITED FOUNDATIO 1/> N FETUSES SBSQ 06562 [facility] 5 MEDICAL MEDICAL CARE/DAY SERV SERV 25 FOUNDATIO FOUNDATIO MINUTES N N 24775 [place] NONSTRESS 5 MEDICAL LD AGA TEST SERV FOUNDATIO N US PREG 79315 [place] [facility] UTERUS 5 MEDICAL LEE REAL TIME SERV F/U FOUNDATIO TRNSABDL N PER FETUS US PREG 00855 [place] [facility] UTERUS 5 MEDICAL LEE REAL TIME SERV W/[place] [address] [place] 5 MEDICAL LD AGA UTERUS SERV LIMITED FOUNDATIO 1/> N FETUSES DRUG SCR G0434 [place] [address] Y Y [facility]; ANY NUMBER PT ENC DOPPLER 15682 [place] VELOCIMET 5 MEDICAL DORETHA RY SERV UMBILICAL FOUNDATIO ARTERY N US PREG 83145 [place] UTERUS 5 MEDICAL DORETHA REAL TIME SERV W/IMAGE FOUNDATIO DCMTN N TRANSVAG [place] PREG 34860 [place] UTERUS 5 MEDICAL DORETHA W/DETAIL SERV FOUNDATIO YEFRI 1ST N [place] 05528 [place] UTERUS 5 MEDICAL DORETHA DETAIL SERV FOUNDATIO YEFRI EXAM N EA GESTAT DRUG SCR G0434 [place] [address] Y Y [facility]; ANY NUMBER PT ENC URINALYSI 25586 YAZMIN VELOUDIS S 5 PRIMARY JR RE[facility]DO [facility] IA SCR CARE XCPT CULTURE/D IPSTICK [place] PREG 01871 [place] [facility] > 5 MEDICAL LEE 1ST SERV TRIMESTER FOUNDATIO ABDL EA [place]STATIO [place] PREG 43728 [place] [facility] 5 MEDICAL LEE REAL TIME SERV W/IMAGE FOUNDATIO DCMTN N TRANSVAG [place] PREG 62367 [place] [facility] UTER[facility] 5 MEDICAL LEE AFTER 1ST SERV TRIMEST FOUNDATIO 1/ [place] [address] [place] TRUE STEFANIA RETROPERI 5 MEDICAL TONEAL SERV REAL TIME FOUNDATIO W/IMAGE N COMPLETE URINALYSI 07419 YOUY VELOUDIS S 5 PRIMARY JR RE[facility]DO [facility] IA SCR CARE XCPT CULTURE/D IPSTICK URINALYSI 94147 YOUY VELOUDIS S 5 PRIMARY JR REINALDO [facility] IA SCR CARE XCPT CULTURE/D IPSTICK URINALYSI 31198 YAZMIN VELOUDIS S 5 PRIMARY [facility] BACTERIUR HEALTH IA SCR CARE XCPT CULTURE/D IPSTICK DRUG SCR G0434 YAZMIN VELOUDIS NOT 5 PRIMARY [facility] CHROMATOG HEALTH RAPHIC; CARE ANY NUMBER [place] P[place] 25597 YAZMIN VELOUDIS UTERUS 14 5 PRIMARY [facility] WK HEALTH TRANSABDL CARE EACH GESTATION US PREG 11195 YAZMIN VELOUDIS UTERUS 5 PRIMARY [facility] REAL TIME HEALTH W/[place] [address] YAZMIN VELOUDIS 5 PRIMARY [facility] UTERUS 14 HEALTH WK CARE TRANSABDL GESTAT IADNA 07325 ASSOCIATE NOAM MARROQUIN HEPATITIS 5 D C QUANT PATHOLOGI & REVER[facility] TRANSCRIP TION GROUND A0425 MELANIA MELANIA MILEAGE 4 FAYETTE FAYETTE PER URBAN URBAN STATUTE COGOVT COGOVT MILE AMBULANCE A0429 MELANIA MELANIA SERVICE 4 FAYETTE FAYETTE BLS URBAN URB[place] [address] HUSSEIN POLLARD ABDOMEN & 4 PELVIS W/[place] [address] EKATERINA TOBAR ABDOMEN & 4 SERGIO PELVIS W/CONTRAS T MATERIAL CYTP C/V 03895 PICKLESIM PICKLESIM AUTO THIN 4 ER JR GENIE ER JR GENIE LYR PREPJ SCR MNL RESCR PHYS ECG 50992 JAY JAY GOYAL ROUTINE 4 LUBNA LUBNA ECG W/LEAST 12 LDS I&[place] [address] [facility] THYROID 4 LAB LAB STIMULATI [facility]ERS PARTNERS NG GROUP, GROUP, HORMONE TSH GONADOTRO 03570 [facility]ST[facility] PIN 4 LAB LAB CHORIONIC [facility]ERS PARTNERS GROUP, [place], [place] [address] [facility]AS PROLACTIN 4 LAB LAB [facility]ERS PART[facility]ERS GROUP, GROUP, IAADIADOO 51022 [facility] SOLIEN 1 [facility] [place] [address] [facility] FAITH J TRACT 1 RADIOLOGY UPPER ASSOC W/WO DELAYED IMAGES W/O KUB BLOOD 78829 [facility] COUNT 1 [facility] COMPLETE AUTO&AUTO DIFRNTL WBC COMPREHEN 77436 [facility] SIVE 1 [facility] METABOLIC PANEL ACUTE 67712 [facility] HEPATITIS 1 [facility] PANEL ANESTHESI 88242 TEMPLE MELIO JOSE A 1 ANESTHESI A PSC DELIVERY ONLY 40534 [facility] CR[facility]STAL DELIVERY 1 JAM JAM ONLY W/POSTPAR ZAIDA CARE 28127 [facility] CRYSTAL NONSTRESS 1 JAM JAM TEST INJECTION J2790 [facility] CRYSTAL RHO D IG 1 JAM JAM HUMAN FULL DOSE 300 MCG IADNA 54242 [facility] NEISSERIA 1 [facility] GONORRHOE AE AMPLIFIED PROBE TQ IADNA 41586 [facility] CHLAMYDIA 1 [facility] TRACHOMAT IS AMPLIFIED PROBE TQ CUL 65224 [facility] PRSMPTV 1 [facility] PTHGNC ORGANISM SCRN W/COLONY ESTIMJ US PREG 20421 CRYSTAL CRYSTAL UTERUS 1 JAM JAM AFTER 1ST TRIMEST GESTATION CYTP C/V 01299 [facility] AUTO THIN 1 [facility] LYR PREPJ SCR MNL [place]CR [place]YS [place] PREG 82393 [facility] [place] CINDY BAR UTERUS 0 RADIOLOGY REAL TIME W/IMAGE DCMTN TRANSVAG GONADOTRO 31600 [facility] PIN [address] [facility] QUALITATI VE BLOOD 71298 [facility] COUNT [address] [facility] AUTOMATED COMPREHEN 57575 [facility] SIVE [address] [facility] [place] [address] [facility] LIPASE [address] [facility] URNLS DIP 55446 [facility] UNIVERS 9 Y Y STICK/TAB [facility] [place] [address] [place] REX[place], ABDOMEN 9 MEDICAL SAMINA T W/CONTRAS SERV T FOUNDATIO MATERIAL URINE 06249 [facility] 9 Y Y TEST [facility] VISUAL COLOR CMPRSN METHS CT PELVIS 51337 [facility] 9 Y Y W/CONTRAS HOSPITAL HOSPITAL T MATERIAL INJECTION J2405 [facility] 9 [facility] PER 1 MG INJECTION J2270 [facility] MORPHINE 9 Y Y SULFATE [facility] UP TO 10 MG NONINVASI 53825 [facility] VE 9 Y Y EAR/PULSE [facility] OXIMETRY SINGLE DETER THERAPEUT 78238 [facility] IC [address] [facility] IV PUSH EACH NEW DRUG THER 09842 [facility] PROPH/DX 9 Y Y NJX IV [facility] PUSH SINGLE/1S T SBST/DRUG URNLS DIP 32108 [facility] 9 Y Y STICK/TAB [facility] LET RGNT AUTO W/O MICROSCOP Y COLLECTIO 00101 [facility] N VENOUS [address] [facility] VENIPUNCT URE GONADOTRO 77188 [facility] PIN [address] [facility] QUALITATI VE IAADIADOO 18527 [facility] 9 AND INFLUENZA PEDIATRIC S & INTER RADEX 06742 [facility] W[facility], SPINE 9 RADIOLOGY JOSE LUMBOSACR ASSOC C AL 2/3 VIEWS URINE 74191 [facility] CENTRAL 9 TEMPLE [facility] TEST HOSP HOSP VISUAL COLOR CMPRSN METHS URINE 24301 [facility] REEV[facility] 9 BRET TEST PEDIATRIC VISUAL S & [place] [address] LAB KATIE LAB KATIE LIPASE 9 AMERIC [employer] HOLDING HOLDING URNLS DIP 26855 [facility] 9 BRET STICK/TAB PEDIATRIC LET RGNT S & INTER NON-AUTO W/O MICRSCP COMPREHEN 64219 LAB [facility] LAB KATIE SIVE 9 AMERIC AMERIC METABOLIC HOLDING HOLDING PANEL COLLECTIO 97579 [facility] N VENOUS 9 BRET BLOOD PEDIATRIC VENIPUNCT S & INTER URE RADEX 52864 HROMYAK, KIAN, ABDOMEN 1 9 STEVE [employer] R [employer] [place] [address] LUCIAN EPSTEIN, GUIDANCE 9 BENOIT A BENOIT A AMNIOCENT ESIS IMG S&I 99915 LUCIAN EPSTEIN, DELIVERY 9 BENOIT A BENOIT A ONLY W/POSTPAR [facility] CARE ANESTHESI 16569 [facility] Leon SHANNON 9 ANESTHESI [place] M A PSC DELIVERY ONLY AMNIOCENT 47631 LUCIAN EPSTEIN, ESIS 9 BENOIT A BENOIT A DIAGNOSIC GROUND A0425 MELANIA MELANIA MILEAGE 9 FAYETTE FAYETTE PER URBAN URBAN STATUTE COGOVT COGOVT MILE AMB A0427 MELANIA MELANIA SERVICE 9 FAYETTE FAYETTE ALS URBAN URBAN EMERGENCY COGOVT COGOVT TRANSPORT LEVEL 1 IADNA 19103 [facility] CHLAMYDIA [address] [facility] [place] [address] [facility] MONITORIN 9 Y Y G LABOR [facility] PHYS WRITTEN REPORT 39685 [place] MIGUEL, NONSTRESS 9 MEDICAL TISH B TEST SERV FOUNDATIO URNLS DIP 69352 [facility] 9 Y Y STICK/TAB [facility] LET RGNT AUTO [place] [address] [facility] [address] [facility] LIMITED 1/> FETUSES IADNA 53791 [facility] STREPTOCO [address] [facility] GROUP B AMPLIFIED PROBE TQ IADNA 82325 [facility] NEISSERIA [address] [facility] GONORRHOE AE AMPLIFIED PROBE TQ THERAPEUT 54312 [facility] IC [address] [place] [address] INJECTION IV PUSH EACH NEW DRUG THER 50271 [facility] PROPH/DX [address] [place] [address] NJX IV PUSH SINGLE/1S T SBST/DRUG AMB A0427 MELANIA MELANIA SERVICE 9 FAYETTE FAYETTE ALS URBAN URBAN EMERGENCY COGOVT COGOVT TRANSPORT LEVEL 1 INJECTION J0595 [facility] 9 [facility] BUTORPHAN OL TARTRATE 1 MG INJECTION J24[address] [facility] ONDANSETR ON HCL PER 1 MG GROUND A0425 MELANIA MELANIA MILEAGE 9 FAYETTE FAYETTE PER URBAN URBAN STATUTE COGOVT [facility] 84952 MAGDALENA NICHOLS, DISCHARGE 9 MAGDALENE MAGDALENE DAY MANAGEMEN T 30 MIN/< OBSERVATI 72360 [facility] ON CARE 9 [facility] DISCHARGE MANAGEMEN T CUL 73136 LAB KATIE LAB KATIE PRSMPTV 9 AMERIC AMERIC PTHGNC HOLDING HOLDING ORGANISM SCRN W/COLONY ESTIMJ CULTURE 84560 LAB K[facility]IE LAB KATIE TYPING 9 AMERIC AMERIC NUCLEIC HOLDING HOLDING ACID PROBE DIR EA ORGANSM URNLS DIP 50219 [facility] SAGRARIO, 9 HEALTHCAR KYLE STICK/TAB E CENTER LET RGNT NON-AUTO W/O MICRSCP BILIRUBIN 80973 LAB K[facility]IE LAB KATIE DIRECT 9 [employer] [place] [address] LAB KATIE LAB KATIE PHOSPHATA 9 AMERIC AMERIC SE HOLDING HOLDING ALKALINE BILIRUBIN 56307 [facility] TOTAL 9 AMERIC AMERIC HOLDING HOLDING TRANSFERA 87150 [facility] LAB KATIE SE 9 AMERIC AMERIC ASPARTATE HOLDING HOLDING AMINO AST SGOT TRANSFERA 89692 [facility] LAB KATIE SE 9 AMERIC AMERIC ALANINE HOLDING HOLDING AMINO ALT SGPT ALBUMIN 21519 [facility] LAB KATIE SERUM 9 AMERIC AMERIC PLASMA/WH HOLDING HOLDING OLE BLOOD BASIC 03602 LAB [facility] LAB KATIE METABOLIC 9 AMERIC AMERIC PANEL HOLDING HOLDING CALCIUM TOTAL ANTIBODY 68558 LAB K[facility]IE LAB KATIE SCREEN 9 AMERIC AMERIC RBC EACH HOLDING HOLDING SERUM TECHNIQUE BLOOD 49454 [facility] LAB KATIE TYPING 9 AMERIC AMERIC SEROLOGIC HOLDING HOLDING ABO GLUCOSE 39666 LAB [facility] LAB KATIE POST 9 AMERIC AMERIC GLUCOSE HOLDING HOLDING DOSE BLOOD 84106 LAB KATIE LAB KATIE COUNT 9 AMERIC AMERIC COMPLETE HOLDING HOLDING AUTO&AUTO DIFRNTL WBC URNLS DIP 58685 [facility] SAGRARIO, 9 HEALTHCAR KYLE STICK/TAB E CENTER LET RGNT NON-AUTO W/O MICRSCP BLOOD 87180 LAB KATIE LAB KATIE TYPING 9 AMERIC AMERIC SEROLOGIC HOLDING HOLDING RH (D) URNLS DIP 03121 [facility] SAG[facility]IO, 9 HEALTHCAR KYLE STICK/TAB E CENTER LET RGNT NON-AUTO W/O MICRSCP IADNA 20660 PATHOLOGY PATHOLOGY NEISSERIA 9 & & CYTOLOGY CYTOLOGY GONORRHOE LAB LAB AE AMPLIFIED PROBE TQ CYTP C/V 86311 PATHOLOGY PATHOLOGY AUTO THIN 9 & & LYR CYTOLOGY CYTOLOGY PREPJ SCR LAB LAB MNL RESCR PHYS IADNA 07406 PATHOLOGY PATHOLOGY CHLAMYDIA 9 & & CYTOLOGY CYTOLOGY TRACHOMAT LAB LAB IS AMPLIFIED PROBE TQ SMR PRIM 78857 [facility] SAG[facility]AR[facility], SRC WET 9 [facility] KYLE [facility] NFCT A[place] URINE 34981 [facility] SAG[facility], 9 [facility] TEST E CENTER VISUAL COLOR CMPRSN METHS URNLS DIP 85926 [facility] S[facility], 9 HEALTHCAR KYLE STICK/TAB E CENTER LET RGNT NON-AUTO W/O MICRSCP COMPREHEN 29116 [facility] SIVE 9 N N METABOLIC [facility] BLOOD 12785 [facility] COUNT 9 N N COMPLETE [facility] AUTO&AUTO [facility] DIFRNTL WBC GONADOTRO 04280 [facility] PIN 9 N N CHORIONIC [facility] [place] [address] [facility] STREPTOCO 9 N N CCUS [facility] GROUP A [facility] URINE 45136 [facility] 9 N N TEST [facility] COLOR CMPRSN METHS URNLS DIP 20649 [facility] 9 N N STICK/TAB [facility] REAGENT AUTO MICROSCOP Y URINALYSI 40525 [facility] S 9 N N MICROSCOP [facility] IC ONLY [facility] US PELVIC 37103 [facility] 9 N N NONOBSTET [facility] REAL-TIME IMAGE COMPLETE CUL BACT 36671 [facility] XCPT 9 N N URINE [facility] BLOOD/[facility] OL AEROBIC ISOL Encounters Encounter Start End Date Code Location Performer Type Date [facility]OSPITAL [facility] - 7 7 [facility] T [facility]EL - 7 7 [facility] T OFFICE 73128 [facility] NOEL OUTPATIEN 7 7 PHYSICIAN T NEW 45 S GROUP MINUTES OFFICE 24308 [facility] T VISIT S GROUP 25 MINUTES EMERGENCY 53476 FABIAN PATEL 7 7 PHYSICIAN [facility] MODERATE SEVERITY HOSP[facility] MICHAEL - 7 7 [facility] OUTPATIEN INC T EMERGENCY 19772 MICHAEL 7 7 [facility] DEPARTMEN INC T VISIT LOW/MODER SEVERITY EMERGENCY 49599 F[facility]IAN PATEL 6 6 [facility] VISIT HIGH/URGE NT SEVERITY OFFICE 57128 [facility] 6 [facility] T NEW 10 HLTH DEPT HLTH DEPT MINUTES [facility] MICHAEL - 6 6 [facility] INC T EMERGENCY 66341 [facility] V[facility] MODERATE SEVERITY EMERGENCY 10589 FABIAN PATEL 6 6 [facility] T VISIT HIGH/URGE NT SEVERITY HOSPITAL MICHAEL - 6 6 [facility] T EMERGENCY 09102 [facility] 6 6 [facility] V[facility]/M INOR PROB EMERGENCY 26723 FABIAN PATEL 6 6 PHYSICIAN [facility] DEPART[facility], PLLC T VISIT HIGH/URGE NT SEVERITY OFFICE 59454 [facility] OUTPATIEN 6 6 PHYSICIAN NATACHA T VISIT S GROUP 25 MINUTES HOSPITAL MICHAEL - 6 6 [facility] T OFFICE 39099 [facility] OUTPATIEN 6 6 PHYSICIAN NATACHA T VISIT S GROUP 25 MINUTES OFFICE 98580 [facility] OUTPATIEN 6 6 PHYSICIAN NATACHA T VISIT S GROUP 15 MINUTES INITIAL 57158 [facility] PREVENTIV 6 6 [place] [facility] NATACHA E MEDICINE NEW PT AGE 18-39YRS OFFICE 06441 [facility] AMANDA OUTPATIEN 6 6 PHYSICIAN ERICK T VISIT S GROUP 15 MINUTES OFFICE 56782 [facility] AMANDA OUTPATIEN 6 6 PHYSICIAN ERICK T NEW 20 S GROUP MINUTES EMERGENCY 83039 MICHAEL 5 5 [facility] DEPARTMEN INC T VISIT LOW/MODER SEVERITY EMERGENCY 24317 FABIAN PATEL 5 5 PHYSICIAN ERICK DEPARTMEN S, PLLC T VISIT HIGH/URGE NT SEVERITY HOSPITAL MICHAEL - 5 5 [facility] OUT[facility] T [place]ICE 85602 [place] OUTPATI[place] 5 5 MEDICAL T VISIT SERV 25 FOUNDATIO MINUTES N OFFICE 43781 [facility]ERS[facility] OUTPATIEN 5 5 Y T VISIT 5 [facility] [place] OUTPATI[place] 5 5 MEDICAL LD AGA T VISIT SERV 15 FOUNDATIO MINUTES [facility] UNIVERSIT - 5 5 Y [facility] T OFFICE 88840 UNIVERSIT OUTPATIEN 5 5 Y T VISIT 5 [facility] UNIVERSIT - 5 5 Y [facility]PATIENT [facility]OSPITAL OFFICE 66308 [place] OUTPATI[place] 5 5 MEDICAL LD AGA T VISIT SERV 15 FOUNDATIO MINUTES [facility] UNIVERSIT - 5 5 Y [facility] T OFFICE 65137 [facility] 5 5 Y T VISIT 5 HOSPITAL MINUTES OFFICE 79625 [place] OUTPATIEN 5 5 MEDICAL GERMAN T VISIT SERV 15 FOUNDATIO MINUTES [place] OFFICE 41110 [place] OUTPATI[place] 5 5 MEDICAL LD AGA T VISIT SERV 15 FOUNDATIO MINUTES N [facility]OSPITAL [facility]ERSIT - [facility] 09946 [facility] 5 5 Y T VISIT 5 HOSPITAL MINUTES [place]ICE 70913 [place] OUTPATI[place] 5 5 MEDICAL LD AGA T VISIT SERV 15 FOUNDATIO MINUTES N OFFICE 99514 [place] OUTPATIEN 5 5 MEDICAL BRADEN T VISIT SERV 15 FOUNDATIO MINUTES N OFFICE 90207 [place] OUTPATIEN 5 5 MEDICAL LD AGA T VISIT SERV 15 FOUNDATIO MINUTES N OFFICE 43856 [place] OUTPATIEN 5 5 MEDICAL BRADEN T VISIT SERV 15 FOUNDATIO MINUTES N OFFICE 52511 UNIVERSIT OUTPATIEN 5 5 Y T VISIT 5 HOSPITAL MINUTES [facility] 04957 [place] OUTPATI[place] 5 5 MEDICAL LD AGA T VISIT SERV 15 FOUNDATIO MINUTES N OFFICE 97171 [place] OUTPATIEN 5 5 MEDICAL BRADEN T VISIT SERV 15 FOUNDATIO MINUTES N HOSPITAL UNIVERSIT - 5 5 Y [facility] T OFFICE 54713 [facility] 5 5 Y T VISIT 5 HOSPITAL MINUTES OFFICE 57687 [place] OUTPATI[place] 5 5 MEDICAL LD AGA T VISIT SERV 15 FOUNDATIO MINUTES N OFFICE 35441 [facility] OUTPATIEN 5 5 MEDICAL LD AGA T VISIT SERV 15 FOUNDATIO MINUTES N OFFICE 37622 [facility] OUTPATIEN 5 5 MEDICAL LD AGA T VISIT SERV 15 FOUNDATIO MINUTES N OFFICE 12087 [facility] 5 5 PRIMARY JR REINALDO T VISIT HEALTH 15 CARE MINUTES HOSPITAL UNIVERSIT [facility] 5 5 Y [facility] T OFFICE 19133 GINO MIGUEL OUTPATIEN 5 5 MEDICAL DIANE T VISIT SERV 15 FOUNDATIO MINUTES N OFFICE 48885 [facility] 5 5 PRIMARY JR REINALDO T VISIT HEALTH 15 CARE MINUTES OFFICE 36963 [facility] 5 5 PRIMARY JR REINALDO T VISIT HEALTH 15 CARE MINUTES OFFICE 34295 [facility] 5 5 PRIMARY JR REINALDO T VISIT HEALTH 15 CARE MINUTES OFFICE 11385 [facility] OUT[facility] 5 5 PRIMARY JR REINALDO T NEW 60 HEALTH MINUTES CARE EMERGENCY 62490 [facility] SALAS GRE 4 4 [place] DEPARTMEN EMERGENCY T VISIT PHYS MODERATE SEVERITY EMERGENCY 45038 [facility] CHEESEMAN 4 4 [place] NARENDRA DEPARTMEN EMERGENCY T VISIT PHYS MODERATE SEVERITY EMERGENCY 13106 [facility] HEIDI JAM DEPT 4 4 [place] VISIT EMERGENCY HIGH PHYS SEVERITY& THREAT FUNCJ EMERGENCY 82461 [facility] HEIDI JAM 4 4 [place] DEPARTMEN EMERGENCY T VISIT PHYS MODERATE SEVERITY EMERGENCY 29966 [facility] HEIDI JAM 4 4 [place] DEPARTMEN EMERGENCY T VISIT PHYS MODERATE SEVERITY EMERGENCY 82334 [facility] HOANG DEPT 4 4 [place] JOHANNY VISIT EMERGENCY HIGH PHYSI SEVERITY& THREAT FUNCJ EMERGENCY 49865 GINO ROLLINS 4 4 MEDICAL BRADEN DEPARTMEN SERV T VISIT FOUNDATIO HIGH/URGE N NT SEVERITY EMERGENCY 79536 MICHAEL RODRIGUEZ DEPT 4 4 SCO SCO VISIT HIGH SEVERITY& THREAT FUNJ EMERGENCY 77943 JAY JAY GOYAL DEPT 4 4 LUBNA LUBNA VISIT HIGH SEVERITY& THREAT FUN OFFICE 61730 [facility]IZ[facility] SOLIEN OUTPATIEN 1 1 [facility]ALTH[facility] GADIEL T VISIT E CENTER 15 MINUTES OFFICE 97087 CRYSTAL CRYSTAL OUTPATIEN 1 1 JAM JAM T VISIT 15 MINUTES OFFICE 09407 [facility]AL CRYSTAL OUTPATIEN 1 1 JAM JAM T VISIT 15 MINUTES OFFICE 61114 [facility]YSTAL CRYSTAL OUTPATIEN 1 1 JAM JAM T VISIT 15 MINUTES OFFICE 70708 [facility] CRYSTAL OUTPATIEN 1 1 JAM JAM T VISIT 15 MINUTES OFFICE 27734 [facility] CRYSTAL OUTPATIEN 0 1 JAM JAM T NEW 45 MINUTES HOSPITAL UNIVERSIT - 0 0 Y OUTJANE [facility] T EMERGENCY 01497 UNIVERSIT 0 0 Y [facility] H[facility] T VISIT HIGH/URGE NT SEVERITY EMERGENCY 48083 UNIVERSIT DEPT 9 9 Y VISIT HOSPITAL HIGH SEVERITY& THREAT FUN HOSPITAL UNIVERSIT - 9 9 Y OUTPATI HOSPITAL T EMERGENCY 65718 GINO VELEZ, 9 9 MEDICAL CRIAG T DEPARTMEN SERV T VISIT FOUNDATIO HIGH/URGE NT SEVERITY OFFICE 13961 [facility] VISIT PEDIATRIC 15 S & INTER MINUTES EMERGENCY 45343 [facility] 9 9 [facility] VISIT MODERATE SEVERITY HOSPITAL [facility] - 9 9 [facility] OUTPATIEN [facility] T [facility] - 9 9 [facility] EMERGENCY 55080 [facility] STACK, 9 9 PRIMARY LI Alcazar [facility] CARE T VISIT PHYSICANS MODERATE MIDWEST SEVERITY PSC EMERGENCY 92896 [facility] 9 9 [facility] CLUB T VISIT LOW/MODER SEVERITY OFFICE 15322 [facility] 9 9 BRET T NEW 30 PEDIATRIC MINUTES S & INTER EMERGENCY 37628 ELIJAH CELLAROSI 9 9 EMERGENCY - YORBA, [facility] SERVICES STEVIE T VISIT M HIGH/URGE ASSOCIATE NT S SEVERITY HOSPITAL [facility] - 9 [facility] EMERGENCY [address]168 [place] [address] 9 [facility] T VISIT LOW/MODER SEVERITY EMERGENCY 62450 [facility], 9 9 [place] SILVINO Barajas [facility] EMERGENCY T VISIT PHYS INC MODERATE SEVERITY EMERGENCY 11172 [facility] ALEXANDER, 9 9 [place] [facility] EMERGENCY T VISIT PHYS INC HIGH/URGE NT SEVERITY OFFICE 74279 [facility] 9 9 CY [place] T VISIT 25 MINUTES HOSPITAL UNIVERSIT - 9 9 Y [facility] - 9 [facility] EMERGENCY 96300 [facility] CARMEN, DEPT 9 9 [place] Silver VISIT EMERGENCY HIGH PHYS INC SEVERITY& THREAT FUNCJ EMERGENCY 24831 [facility] [address] [place] [address] T VISIT MODERATE SEVERITY OFFICE 45935 JANE TODD [facility] 9 9 [facility] T VISIT 5 MINUTES OFFICE 58857 [facility] 9 9 [facility]ALTH[facility]YLE T VISIT E CENTER 15 MINUTES OFFICE 85329 JHONNY ZABALA [facility] 9 9 [facility] T VISIT E CENTER 15 MINUTES OFFICE 42139 [facility], OUTPATIEN 9 9 [facility] T VISIT E CENTER 15 MINUTES OFFICE 18359 [facility], OUTPATIEN 9 9 [facility] T VISIT E CENTER 15 MINUTES EMERGENCY 97283 [facility] 9 9 [facility] CLUB T VISIT LIMITED/M INOR PROB EMERGENCY 29784 [facility] FLUSKEY-N 9 9 PRIMARY [facility] CARE RAMON L T V[facility]IT [facility] MODERATE KNAPP [facility]VERITY [facility] H[facility] - 9 9 [facility] EMERGENCY 57659 [facility], 9 9 [place] ORDAZ [facility] EMERGENCY A T VISIT PHYS INC HIGH/URGE NT SEVERITY HOSPITAL [facility] - 9 9 N [facility] HOSPITAL EMERGENCY 74880 [facility], 9 9 [place] GRACEMAD [facility] EMERGENCY A T VISIT PHYS INC HIGH/URGE NT SEVERITY EMERGENCY 94303 [facility] 9 9 N [facility] T VISIT HOSPITAL MODERATE SEVERITY
--- OUTSIDE RECORDS SUMMARY | 2017-03-17 02:19 | External Medical Summary Rpt ---
Author Author , PATRICIA GOMEZ Address Unknown Phone [email or web address] Care Team Providers Care [employer] Name Role Phone AHMED, ORDAZ A, Unavailable Unavailable AHMED, ORDAZ A ASSOCIATED Unavailable [facility] AYOOB AND, AYOOB AND Unavailable Unavailable [facility], Unavailable Unavailable [facility] BEAVEN GERMAN, BEAVEN Unavailable Unavailable [facility] Unavailable Unavailable [facility], [facility] Unavailable Unavailable [facility], [facility] HEIDI JAM, HEIDI JAM Unavailable Unavailable [facility] Unavailable Unavailable & INTER, [facility] NICK, NICK Unavailable Unavailable NICK ALL, NICK ALL Unavailable Unavailable BORAL ALFONZO, BORAL ALFONZO Unavailable Unavailable LANCE JOSE, LANCE JOSE Unavailable Unavailable DEEDEE ALL, DEEDEE Unavailable Unavailable ALL CY EPSTEIN, Unavailable Unavailable CY EPSTEIN MORALES, TAMMY W, Unavailable Unavailable MORALES, TAMMY W SILVIA VELEZ T, Unavailable Unavailable SILVIA VELEZ NOAM TER, NOAM TER Unavailable Unavailable CELLAROSI - YORBA, Unavailable Unavailable STEVIE M, CELLAROSI - YORBA, STEVIE M [facility], Unavailable Unavailable [facility] Unavailable Unavailable [facility], [facility] CHEESEMARY MACKEY, Unavailable Unavailable BERT HARRIS Unavailable Unavailable [facility] Unavailable Unavailable [facility], [facility] RIA COY Unavailable Unavailable BRADEN LINDSEY AGA, Unavailable Unavailable LINDSEY AGA DO, DO Unavailable Unavailable DO ANCA, Unavailable Unavailable DO ANCA [id number], Unavailable Unavailable [id number], Unavailable Unavailable [facility] SILVINO CARBAJAL, Unavailable Unavailable SILVINO CARBAJAL, GOYAL Unavailable Unavailable LUBNA JAY JAY GAYU, GOYAL Unavailable Unavailable LUBNA YASMEEN RAMON Unavailable Unavailable L, YASMEEN, RAMON L AMANDA, AMANDA Unavailable Unavailable AMANDA ERICK, AMANDA Unavailable Unavailable ERICK [facility] Unavailable Unavailable [facility] VENKATESH DUMAS MD, Unavailable Unavailable VENKATESH ADAMS, CINDY ADAMS Unavailable Unavailable PHILLIPS DORETHA, PIHLLIPS Unavailable Unavailable DORETHA HARPEL, HARPEL Unavailable Unavailable HARPEL NATACHA, HARPEL Unavailable Unavailable NATACHA [facility], Unavailable Unavailable [facility], Unavailable Unavailable [facility] Un[facility] Un[facility], [facility] HILTY, RONDON R, Unavailable Unavailable HILTY, RONDON R [facility], Unavailable Unavailable [facility] Unavailable [facility]available [facility] Unavailable Unavailable [facility], [facility] LANGSTON, Unavailable Unavailable STEVE LANGSTON KATHLEEN, Unavailable Unavailable KYLE ZABALA KATHERINE C, Unavailable Unavailable JOSE WEN GRE, SALAS GRE Unavailable Unavailable MAGDALENA, MAGDALENE, Unavailable Unavailable MAGDALENA, MAGDALENE [facility] Unavailable Unavailable [facility], [facility] Unavailable Unavailable [facility] MIGDALIA NARENDRA, MIGDALIA Unavailable Unavailable NARENDRA [facility] NURSE Unavailable [...] Unavailable Unavailable LEXA SHANNON, Unavailable Unavailable LEXA SHANNON'Johnathon WARNER'MULUGETA Unavailable Unavailable BRADEN CRYSTAL JAM, CRYSTAL Unavailable [...] GENIE [facility], Unavailable Unavailable [facility] ALEXANDERDARIAN EMANUELAN B, Unavailable Unavailable ALEXANDER, OMARI B REXROAD, SAMINA T, Unavailable Unavailable REXROAD, SAMINA T CHAPPELL BET, Unavailable Unavailable CHAPPELL BET [id number], Unavailable Unavailable [id number] Unavailable Unavailable [id number] # [id number], [facility] [id number] # 0784 VIANNEY Alcazar, VIANNEY Alcazar Unavailable Unavailable SOLIEN GADIEL, SOLIEN Unavailable Unavailable GADIEL [facility] Unavailable Unavailable GROUP,, [facility], [facility] Unavailable Unavailable GROUP,, [facility], ZAHIRA NARENDRA, ZAHIRA NARENDRA Unavailable Unavailable [facility] Un[facility], [facility] Unavailable Unavailable EMERGENCY PH[facility]SI, [facility], Unavailable Unavailable [facility], Unavailable Unavailable [facility] LI ZHANG, Unavailable Unavailable LI ZHANG ST[facility]ENS Unavailable Unavailable [facility], Un[facility], [facility] Unavailable Unavailable [facility] ASHBY MOL, ASHBY MOL Unavailable Unavailable TRUE STEFANIA, TRUE STEFANIA Unavailable Unavailable [facility], Unavailable Unavailable [facility] Un[facility] VELOUDIS JR REINALDO, Unavailable Unavailable VELOUDIS JR REINALDO [facility] # Unavailable Unavailable 4892, [facility] # 4892 [facility] # Unavailable Unavailable 9631, [facility] # 9631 FRANCE NONI, FRANCE NONI Unavailable Unavailable [facility] Unavailable Unavailable [facility], [facility] Unavailable Unavailable [facility], [facility] HOANG JOHANNY, HOANG Unavailable Unavailable JOHANNY EVER DEN, Unavailable Unavailable EVER DEN ARSENIO ERICK, ARSENIO Unavailable Unavailable ERICK ZAGUROVSKAYA MAR, Unavailable Unavailable ZAGUROVSKAYA MAR Purpose Continuity of Care Document - 08-06-2008 through 2016 Problems Code Diagnosis DOS Provider Status [id number] FALSE LABOR 12-04-2016 [facility] BEFORE 37 PHYSICIANS CMPLETE GROUP WEEKS GEST 3RD TRI Z36 ENCOUNTER 10-16-2016 [facility] SCREENING OF MOTHER Z3A20 20 WEEKS 10-16-2016 [facility]ING ASS Z113 ENCOUNTER 10-12-2016 [facility] INFECTIONS SEXL MODE TRANSMISSN Z3480 ENC 10-12-2016 [facility]ION [facility] OTH NORMAL PREG UNS TRIMESTER O61761 UTERINE 09-03-2016 [facility] DISCREPANCY INC FIRST TRIMESTER Z3492 ENC 09-03-2016 [facility] UNS 2 TRIMESTER Z3A14 14 WEEKS 09-03-2016 [facility]ING ASS K01677 DRUG USE 08-31-2016 [facility] COMPLICATIN PHYSICIANS G GROUP SECOND TRIMESTER Z3201 ENCOUNTER 08-31-2016 [facility] FOR PHYSICIANS GROUP TEST RESULT POSITIVE N925 OTHER 07-02-2016 [facility] SPECIFIED PHYSICIANS IRREGULAR GROUP MENSTRUATIO N Z3A01 LESS THAN 8 06-23-2016 [facility], GESTATION PLLC OF Z720 TOBACCO USE 06-23-2016 [facility] R15676 ASSISTED 06-23-2016 [facility] CURRENT USE [facility] OF OPIATE INC ANALGESIC R635 ABNORMAL 04-23-2016 [facility]IN PHYSICIANS, PLLC Z3189 ENCOUNTER 04-23-2016 [facility] PROCREATIVE HLTH DEPT MANAGEMENT COLE Z3202 ENCOUNTER 04-23-2016 [facility] DE[facility] TEST RESULT COLE NEGATIVE I10 ESSENTIAL 02-20-2016 [facility] HYPERTENSIO INC N K5900 CONSTIPATIO 02-20-2016 [facility] N PHYSICIANS, UNSPECIFIED PLLC R1030 LOWER 02-20-2016 [facility] ABDOMINAL PHYSICIANS, PAIN PLLC UNSPECIFIED R1084 GENERALIZED 01-25-2016 [facility] ABDOMINAL [facility], PAIN PLLC N809 ENDOMETRIOS 12-17-2015 [facility]UN[facility] IS ANESTH OF UNSPECIFIED THE BLUE N8320 UNSPECIFIED 12-17-2015 [facility] OVARIAN PHYSICIANS CYSTS GROUP N840 POLYP OF 12-17-2015 [facility] CORPUS PHYSICIANS UTERI GROUP R102 PELVIC AND 12-17-2015 [facility] PERINEAL LLC PAIN N736 FEMALE 12-13-2015 [facility] PERITONEAL INC ADHESIONS POSTINFECTI VE N761 SUBACUTE 12-13-2015 [facility] AND CHRONIC PHYSICIANS VAGINITIS GROUP H92173 ENCOUNTER 12-13-2015 [facility] PREPROCEDUR INC AL LABORATORY EXAM M92460 ENCOUNTER 09-30-2015 VENKATESH Wood LUMP MAKER EXAM ALESIA MAYS GENERAL RTN W/ABNORMAL FIND T73905 ENCOUNTER 09-30-2015 BIO LUMP MAKER EXAM REFERNCE GENERAL RTN LABORATORIE W/O S ABNORMAL FIND D82097 ENCOUNTER 09-30-2015 VENKATESH Wood ROUTINE ALESIA MAYS CHECKING IU CONTRACEPT DEVICE Z309 ENCOUNTER 09-30-2015 VENKATESH Wood FOR ALESIA MAYS CONTRACEPTI VE MANAGEMENT UNS B1920 UNS VIRAL 09-16-2015 [facility] HEPATITIS C PHYSICIANS WITHOUT GROUP HEPATIC COMA M545 LOW BACK 09-16-2015 [facility] PAIN PHYSICIANS GROUP 03889 INCOMPLETE 03-06-2015 [facility] EMPTYING [facility] V5869 LONG-TERM 02-20-2015 [facility] USE OF OTHER MEDICATIONS V5883 ENCOUNTER 02-20-2015 [facility] THERAPEUTIC DRUG MONITORING V2511 ENC FOR 01-23-2015 [facility] INTRAUTERIN [facility] E CONTRACEPT DEVICE V2389 SUPERVISION 12-26-2014 [facility] OF OTHER SERV HIGH-RISK [facility]OUNDATION 33995 OTHER 12-19-[address] [facility] H[facility]PITAL OB TRAUMA COND/COMPL 5119 UNSPECIFIED 12-13-2014 [facility]LE[facility] EFFUSION [facility] 5180 PULMONARY 12-13-2014 [facility]LLAPSE [facility] 7850 UNSPECIFIED 12-13-2014 [facility] TACHYCARDIA [facility] 2859 UNSPECIFIED 12-09-2014 S NURSE ANEMIA PRACTITIONE R GR 2875 UNSPECIFIED 12-09-2014 [facility] NURSE PRACTITIONE THROMBOCYTO R GR PENIA 4266 OTHER HEART 12-09-2014 [facility] 514 PULMONARY 12-09-2014 [facility] CON[facility] AND [facility] HYPOSTASIS 5739 UNSPECIFIED 12-09-2014 [facility] [place] [address] SYSTEMIC 12-09-2014 [facility] NURSE INFLAMMATOR PRACTITIONE Y RESPONSE R GR SYNDROME UNSPEC 2760 HYPEROSMOLA 12-08-2014 [facility] [place] [address] OTHER SPEC 12-08-2014 [facility] BLOOD&BLOOD HOSPI -FORMING ORGANS 5849 ACUTE 12-08-2014 [facility] FAILURE [facility] UNSPECIFIED 5881 NEPHROGENIC 12-08-2014 [facility] DIABET[facility] INSIPIDUS [facility] 68041 CHEST PAIN 12-08-2014 [facility] UNSPECIFIED SERV [facility] 2762 ACIDOSIS 12-07-2014 S NURSE PRACTITIONE R GR 5601 PARALYTIC 12-07-2014 [facility] ILEUS [facility] 74248 ERLY ONSET 12-07-2014 [facility] MENTION ANTPRTM COND 29800 LIVER 12-07-2014 [facility] TRACT D/O [facility] PREG DEL W/WO ANTPRTM 19242 MATERNAL 12-07-2014 [facility] DEPENDENCE [facility] WITH DELIVERY 92654 TWIN 12-07-2014 [facility] , [facility] DELIVERED [facility] 53486 OTH 12-07-2014 [facility] CONDS HOSPI AFFECT MANAGEMENT MOTH DELIV 94868 C/S DELIV 12-07-2014 [facility] W/O INDICAT [facility] DELIV W/WO HOSPI ANTPRTM COND 17795 POLYURIA 12-07-2014 [facility] NURSE PRACTITIONE R GR V272 OUTCOME OF 12-07-2014 [facility] DELIVERY [facility] TWINS BOTH [facility] LIVEBORN V5881 FITTING AND 12-07-2014 [facility] ADJUST[facility] OF [facility] VASCULAR CATHETER 68785 THREATENED 12-06-2014 [facility] PREMATURE [facility] LABOR [facility] ANTEPARTUM 45887 UNSPECIFIED 12-06-2014 [facility] ANTEPARTUM SERV RENAL [facility] DISEASE 2535 DIABETES 12-05-2014 [facility] 2866 DEFIBRINATI 12-05-2014 [facility]PITAL 5718 OTHER 12-05-2014 [facility] NONALCOHOLI C LIVER DISEASE 46466 RHESUS 12-05-2014 [facility] ISOIMMUNIZA [facility] [place] [address] SYS INFLAM 12-05-2014 [facility] SYND-NON-IN F W/O ACUTE ORGN DYSF 55287 TOB USE D/O 11-26-2014 [facility] COMP [facility]OSP[facility] /PP ANTEPARTM COND/COMP 61438 MATERNAL 11-23-2014 [facility] DEPENDENCE [facility] ANTEPARTUM 76229 TWIN 11-23-2014 [facility] , [facility] ANTEPARTUM [facility] 49783 CERVICAL 11-21-2014 [facility]ORTENING SERV ANTEPARTUM [facility] CONDITION OR COMP V9102 TWIN GEST 11-21-2014 [facility] MONOCHORION SERV IC/DIAMNIOT [facility]OUNDATION IC V221 SUPERVISION 10-24-2014 [facility] NORMAL V284 10-24-2014 [facility] SCR [facility] GROWTH [facility] RETARDATION USING US V239 UNSPECIFIED 10-17-2014 [facility] HIGH-RISK SERV [facility] 70367 CERVICAL 10-10-2014 [facility] INCOMPETENC SERV E ANTPRTM FOUNDATION COND/COMPLI CATION 39307 TWIN 10-03-2014 [facility] UNSPECIFIED FOUNDATION TO EPISODE OF CARE 07113 PREVIOUS 09-28-2014 [facility] C-SECT SERV DELIVERY [facility] ANTPRTM COND/COMP V9103 TWIN GEST 09-12-2014 [facility] /DIAMNIOTIC V2881 ENCOUNTER 08-29-2014 [facility] FOR [facility] ANATOMIC [facility] SURVEY 5733 UNSPECIFIED 07-26-2014 [facility] 37617 BN&JNT D/O 07-19-2014 [facility] MAT BACK SERV PELVIS&LW [facility]OUNDATION LIMBS ANTEPARTUM 7245 UNSPECIFIED 07-19-2014 [facility] BACKACHE SERV [facility] 7935 NONSPECIFIC 07-19-2014 [facility] ABN [facility] FINDING RAD [facility] & OTH EXAM ORGAN V222 07-19-2014 [facility] [place], SERV INCIDENTAL [facility]OUNDATION 84676 MATERNAL RX 06-26-2014 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 COMPL PG S LLC CB/PP UNS EOC 93218 TRIPLET 06-25-2014 [place] [facility] 59031 OTHER 05-24-2014 [facility] SPECIFED N EMERGENCY COMPLICATIO PHYS N ANTEPARTUM 46889 HORDEOLUM 05-11-2014 [facility] EXTERNUM N EMERGENCY PHYS 17380 NAUSEA WITH 02-19-2014 [facility] VOMITING N EMERGENCY PHYS 54992 ABDOMINAL 02-19-2014 [facility] PAIN, N EMERGENCY EPIGASTRIC PHYS 6825 CELLULITIS 02-06-2014 [facility] AND ABSCESS N EMERGENCY OF BUTTOCK PHYS 86029 UNSPECIFIED 01-23-2014 [facility] N EMERGENCY CONJUNCTIVI PHYS TIS 16781 NAUSEA 01-19-2014 [facility] ALONE N EMERGENCY PHYSI 85768 ABDOMINAL 01-19-2014 [facility] PAIN, N EMERGENCY GENERALIZED PHYSI 81383 OTHER 12-24-2013 [facility] DISEASES OF SPLEEN 5738 OTHER 12-24-2013 [facility] SPECIFIED DISORDERS OF LIVER 41658 ABDOMINAL 12-24-2013 MELANIA FAYETTE PAIN, URBAN UNSPECIFIED COGOVT SITE 64813 DIARRHEA 11-03-2013 [facility] 17018 ABDOMINAL 11-03-2013 [facility] PAIN, LEFT SCO UPPER QUADRANT V7231 ROUTINE 11-03-2013 [facility] AL EXAMINATION 72020 OTHER CHEST 10-31-2013 [facility] L[facility] PAIN 6264 IRREGULAR 10-27-2013 [facility] MEN[facility]ERS CYCLE GROUP, 4619 ACUTE 09-09-2010 [facility] SINUSITIS, HEALTHCARE UNSPECIFIED CENTER 462 ACUTE 09-09-2010 [facility] PHARYNGITIS [facility] 16558 ESOPHAGEAL 07-31-2010 [facility] 82350 OTHER 07-31-2010 [facility] [place] [facility] FATIGUE 7948 NONSPECIFIC 07-31-2010 [facility] ABNORMAL [place] RESULTS LIVR FUNCTION STUDY 01942 TOBACCO USE 07-17-2010 CRYSTAL JAM D/O COMP PG CHILDBIRTH/ PP DELIVERED 42794 PREV C/S 07-17-2010 CRY[facility] JAM DELIV DELIV W/WO MENTION ANTPRTM COND V237 INSUFFICIEN 07-17-2010 CR[facility] JAM T CARE V270 OUTCOME OF 07-17-2010 CR[facility] JAM DELIVERY SINGLE LIVEBORN V072 NEED FOR 06-19-2010 CRYSTAL JAM PROPHYLACTI C IMMUNOTHERA PY V2889 OTHER 06-16-2010 [facility] SPECIFIED [place] [facility] SCREENING 7231 CERVICALGIA 08-04-2009 [facility] 7241 PAIN IN 08-04-2009 [facility] SPINE 7242 LUMBAGO 08-04-2009 [facility] E9270 OVEREXERTIO 08-04-2009 [facility] FROM SERV SUDDEN [facility]AT[facility] STRENUOUS MOVEMENT 89718 ABDOMINAL 04-30-2009 [facility] PAIN, HOSPITAL PERIUMBILIC 51898 ABDOMINAL 04-30-2009 [facility] SPECIFIED SITE 460 ACUTE 04-17-2009 [facility] ITIS & INTER 92939 OTHER 04-15-2009 [facility] PAIN PHYS PSC 8472 LUMBAR 04-06-2009 [facility] SPR[facility] STRAIN PHYSICANS [place] PSC 5781 BLOOD IN 03-22-2009 [facility] STOOL [facility] & INTER 5693 HEMORRHAGE 03-19-2009 [facility] 06184 OTHER 01-12-2009 HR[facility], SPECIFIED KIAN, AND DISORDER OF ASSOCIATES KIDNEY AND URETER 42720 OTHER ACUTE 01-01-2009 [facility] EPSTEIN Leon POSTOPERATI VE PAIN 08349 UNSPECIFIED 01-01-2009 [facility] EPSTEIN CONSTIPATIO N V242 ROUTINE 01-01-2009 VER[facility] EPSTEIN FOLLOW-UP 95374 GENLY 12-24-2008 [facility] CARBALLO CONTRACTED URBAN [place] [address] PREMATURE 12-24-2008 [place] [facility] RUPTURE SERV MEMBRANES F[facility]AT[facility] ANTEPARTUM 30374 OTHER 12-23-2008 M[facility]IA FAYETTE THREATENED URBAN LABOR [place] UNSPEC EPISODE CARE 31882 OTHER 12-23-2008 [facility] THREATENED N EMERGENCY LABOR, PHYS INC ANTEPARTUM V726 LABORATORY 12-03-2008 LAB K[facility] EXAMINATION [employer] 4550 INTERNAL 09-28-2008 [facility] HEMORRHO[facility] WITHOUT PHYSICANS MENTION [place] PSC COMP 4553 EXTERNAL 09-28-2008 [facility] HEM[facility] WITHOUT PHYSICANS MENTION [place] PSC COMP 4556 UNSPEC 09-28-2008 [facility] HEMORRHOIDS [facility] WITHOUT MENTION COMPLICATIO N 4659 ACUTE URIS 09-28-2008 [facility] UNSPECIFIED SITE 7862 COUGH 09-28-2008 [facility] 4660 ACUTE 09-27-2008 [facility] BRONCHITIS N EMERGENCY PHYS INC V745 SCREENING 09-04-2008 PATHOLOGY & EXAMINATION CYTOLOGY FOR LAB VENEREAL DISEASE 98335 OT CURRENT 08-06-2008 [facility] ANTPR Medications Na ND Rx Da Fi Fi Am Da Di Ph RX Ph St me C No te ll ll ou ys ag ar # ys at rm s nt no ma ic us Or Da si cy ia de te s n re d BU 69 07 08 60 30 00 HO Ac LA 09 -2 -2 .0 00 ME ti [...] 05 06 30 30 00 HO Ac LA 09 -0 -0 .0 00 ME ti [...] ET CY NT HI AN A GA 01 02 90 30 00 HO Ac BA 00 -1 -1 .0 00 ME ti PE 10 6- 7- 00 06 TO ve NT 00 20 20 07 WN IN 70 17 17 62 3 96 PH 80 AR 0 MA MG CY TA OF BL ET CY NT HI AN A BU 00 01 02 23 13 00 HO Ac LA 09 -1 -1 .0 00 ME ti EN 35 0- 0- 00 04 TO ve OR 72 20 20 02 WN PH 15 17 17 09 IN 6 66 PH -N AR AL MA OX CY ON OF 8- 2 CY MG NT HI SL AN A BU 01 02 30 30 00 HO Ac LA 00 -0 -0 .0 00 ME ti OP 10 3- 3- 00 06 TO ve IO 19 20 20 07 WN N 90 17 17 87 HC 0 33 PH L AR 75 MA CY MG OF TA BL CY ET NT HI AN A BU 00 12 01 27 15 00 HO Ac LA 09 -2 -2 .0 00 ME ti EN 35 7- 7- 00 04 TO ve OR 72 20 20 02 WN PH 15 16 17 07 IN 6 74 PH -N AR AL MA OX CY ON OF 8- 2 CY MG NT HI SL AN A GA 68 12 01 90 30 00 HO Ac BA 00 -1 -2 .0 00 ME ti PE 10 9- 0- 00 06 TO ve NT 00 20 20 07 WN IN 70 16 17 62 3 96 PH 80 AR 0 MA MG CY TA OF BL ET CY NT HI AN A BU 00 12 01 38 19 00 HO Ac LA 09 -0 -1 .0 00 ME ti EN 35 8- 3- 00 04 TO ve OR 72 20 20 02 WN PH 15 16 17 05 IN 6 67 PH -N AR AL MA OX CY ON OF 8- 2 CY MG NT HI SL AN A BU 00 12 01 6. 3 00 HO Ac LA 09 -0 -0 00 00 ME ti [...] 2 60 30 HO 60 SO Ac LA 59 -2 -2 .0 ME 16 LI ti OP 13 TO 71 EN ve IO 54 20 20 WN 6 N 16 11 11 AR HC 0 PH YL L AR S SR MA K CY 15 0 MG TA BL ET NJ 13 04 04 2 30 30 HO 60 SO Ac RT 10 -2 -2 .0 ME 16 LI ti AZ 70 9 TO 71 EN ve AP 00 20 [...] MG MA K CY TA BL ET LA 37 01 04 3 30 30 HO [...] MG MA K CY TA BL ET LA 37 01 03 3 30 30 HO [...] -2 MA CY MG SL FI LM LA 37 01 02 3 30 30 HO [...] P OP MG /5 ML EL IX HAYS 12 02 02 0 42 14 HO 40 No Ac GEMA 49 -2 -2 .0 ME 04 t ti XO 61 4- 5- 00 TO 40 Av ve NE 20 20 20 WN 3 ai 8 80 11 11 la 3 PH bl MG AR e -2 MA CY MG SL FI LM IB 55 02 02 3 30 10 [...] CE 1 #9 ME TA 63 S NJ 1 E NO # PH 96 EN [...] -2 MA CY MG SL FI LM OX 00 02 02 0 40 7 CV 45 ON Ac YC 59 -1 -1 .0 S 75 EI ti OD 10 3- 3- 00 PH 38 LL ve ON 93 20 20 AR -A 30 11 11 MA JA CE 1 CY ME TA # S NJ E NO 02 PH 33 EN 2 [...] 0 2 MG CA PS UL E LA 68 02 02 5 30 30 CV 45 ON Ac EF 22 -1 -1 .0 S 75 EI ti ER 00 3- 3- 00 PH 41 LL ve A- 08 20 20 AR OB 63 11 11 MA JA 0 CY ME ON # S E E SO 02 FT 33 GE 2 L CI 13 02 02 5 15 30 CV 45 ON Ac TA 66 -1 -1 .0 S 75 EI ti LO 80 3- 3- 00 PH 37 LL ve LA 01 20 20 AR AM 10 11 11 MA JA 5 CY ME HB # S R E 40 02 33 MG 2 TA BL ET ZO 00 02 02 0 2. 2 CV 45 ON Ac LP 09 -0 -0 00 S 62 EI ti ID 30 9- 9- 0 PH 08 LL ve EM 07 20 20 AR 40 11 11 MA JA TA 1 CY ME RT # S RA E TE 02 33 10 2 MG TA BL ET LA 37 01 01 3 30 30 HO 60 ON Ac IL 00 -2 -2 .0 ME 11 EI ti OS 00 8 TO 94 LL ve EC 45 20 [...] 02 MG 33 2 TA BL ET LA 68 01 01 5 30 30 CV 44 ON Ac EF 22 -1 -1 .0 S 54 EI ti ER 00 PH 42 LL ve A- 08 [...] 2 TH # AN 48 C 92 CY 00 10 11 [address] Ac CL 59 -3 -1 .0 OG 95 AC ti OB 15 ER 65 K ve EN [address] ZA 81 09 09 PH EV LA 0 AR EN IN M J E L- 10 72 2 MG TA BL ET TR 65 10 11 00 [address] Ac AM 16 -3 -1 .0 OG 55 AC ti AD 20 00 ER 11 K ve OL [address] 75 09 09 PH EV HC 0 AR EN L M J 50 L- 72 MG 2 TA BL ET 66 11 11 00 20 10 CV 30 BA Ac 99 -1 -1 0. S 12 LB ti 20 00 PH 65 AU ve 22 20 20 0 AR GH 00 09 09 MA [address] 23 EW 32 P TR 00 10 10 00 60 20 CV 29 KN Ac AM 09 -1 -2 .0 S 03 IG ti AD 30 6- 2- 00 PH 93 HT ve OL 05 20 20 AR 80 09 09 MA VIKKI HC 5 CY EL L A 50 23 32 MG TA BL ET 52 10 10 00 1. 1 CV 29 KN Ac 26 -1 -2 00 S 03 IG ti 80 6- 2- 0 PH 95 HT ve 52 20 20 AR 10 09 09 MA VIKKI 1 CY EL A 23 32 LA 37 10 10 00 28 28 CV [...] AR NT ZA 11 09 09 MA LA 0 CY SC IN OT E 23 T 10 32 L MG TA BL ET AM 67 08 09 00 21 7 CV 27 CA Ac PI 25 -1 -1 .0 S 18 MP ti CI 30 4- 0- 00 PH 74 BE ve LL 18 20 20 AR LL IN 11 09 09 MA 0 CY BE 50 RR 0 23 Y MG 32 A CA PS UL E IB 55 08 09 00 40 10 CV 27 BA Ac UP 11 -2 -1 .0 S 06 CH ti RO 10 6- 0- 00 PH 41 A ve FE 68 20 20 AR FA N 40 09 09 MA DI 80 5 CY 0 MG 23 32 TA BL ET AM 67 08 08 00 21 7 CV 26 CA Ac PI 25 -1 -2 .0 S 64 MP ti CI 30 4- 7- 00 PH 19 BE ve LL 18 20 20 AR LL IN 11 09 09 MA 0 CY BE 50 RR 0 23 Y MG 32 A CA PS UL E NJ 50 08 08 00 1. 1 TH 27 CA Ac RE 41 -1 -2 00 ER 61 MP ti NA 90 3- 7- 0 A 58 BE ve 42 20 20 CO 5 LL SY [address] 1 IN BE EM C RR Y A TR 00 08 08 00 12 3 [...] 23 0 32 MG TA BL ET PO 51 07 08 00 52 30 [...] #3 A TA 93 BL 1 ET 65 07 08 00 60 30 CV 26 CA Ac 16 -2 -1 .0 S 08 MP ti 20 7- 3- 00 PH 38 BE ve 01 20 20 AR LL 31 09 09 MA 0 CY BE RR 23 Y 32 A OX 00 07 08 00 40 3 RI 39 CA Ac YC 40 -2 -1 .0 TE 46 MP ti OD 60 3- 3- 00 27 BE ve ON 52 20 20 AI LL E- 30 09 09 D AC 1 PH BE ET AR RR AM M Y IN #3 A OP 93 HE 1 N 10 -3 25 AL 59 07 08 00 30 15 RI 39 CA Ac LA 76 -2 -1 .0 TE 46 MP ti AZ 23 5- 3- 00 26 BE ve OL 72 20 20 AI LL AM 00 09 09 D 1 PH BE 0. AR RR 5 M Y MG #3 A 93 TA 1 BL ET CI 13 06 07 00 15 30 CV 25 FI Ac TA 66 -2 -1 .0 S 33 ND ti LO 80 9- 6- 00 PH 77 LA ve LA 01 20 20 AR Y AM 10 09 09 MA LI 5 CY LL HB IA R 23 N 40 32 MG TA BL ET DE 00 07 07 00 60 28 CV 25 SH Ac SI 78 -0 -1 .0 S 51 IP ti LA 11 8- 6- 00 PH 77 P ve AM 97 20 20 AR NA IN [address] E 1 CY A 25 23 MG 32 TA BL ET FE 00 07 07 00 30 30 CV 25 PA Ac RR 53 -1 -1 .0 S 59 RK ti OU 65 0- 6- 00 PH 11 ER ve S 89 20 20 AR HAYS 00 09 09 MA NJ LF 1 CY NC AT CHAU E 23 32 32 5 MG TA BL ET LA 65 07 07 00 30 30 CV 25 PA Ac EN 16 -1 -1 .0 S 59 RK ti AT 20 0- 6- 00 PH 12 ER ve AL 66 20 20 AR 81 [address] 0 CY NC US CHAU 23 TA 32 BL ET SE 59 03 07 03 15 30 CV 22 PA Ac RT 76 -3 -1 .0 S 24 RK ti RA 24 0- 6- 00 PH 00 ER ve LI 91 20 20 AR NE 00 09 09 MA NJ 5 CY NC HC CHAU L 23 10 32 0 MG TA BL ET SE 59 03 06 02 15 30 CV 22 PA Ac RT 76 -3 -1 .0 S 24 RK ti RA 24 0- 8- 00 PH 00 ER ve LI 91 20 20 AR NE 00 09 09 MA NJ 5 CY NC HC CHAU L 23 10 32 0 MG TA BL ET LA 00 05 06 00 30 5 CV 24 No Ac OM 78 -2 -0 .0 S 19 t ti ET 11 7- 4- 00 PH 62 Av ve CHAU 83 20 20 AR ai ZI 00 09 09 MA la NE 1 CY bl e 25 23 32 MG TA BL ET LA 00 03 05 01 20 5 CV 22 PA Ac OM 78 -3 -0 .0 S 24 RK ti ET 11 0- 7- 00 PH 01 ER ve CHAU 83 20 20 AR ZI 00 09 09 MA NJ NE 1 CY NC CHAU 25 23 32 MG TA BL ET 00 03 05 01 15 30 CV 22 PA Ac 09 -3 -0 .0 S 24 RK ti 37 0- 7- 00 PH 00 ER ve 17 20 20 AR 75 09 09 MA NJ 6 CY NC CHAU 23 32 LO [...] TH 1 CY LE EN 23 32 59 04 05 00 8. 29 CV [...] MG TA BL ET CY 00 03 05 01 20 6 CV 22 PA Ac CL 37 -3 -0 .0 S 24 RK ti OB 80 0- 7- 00 PH 02 ER ve EN 75 20 20 AR ZA 11 09 09 MA [place] LA 0 CY NC IN CHAU E 23 10 32 MG TA BL ET 00 03 04 00 15 30 CV 22 PA Ac 09 -3 -0 .0 S 24 RK ti 37 0- 9- 00 PH 00 ER ve 17 20 20 AR 75 09 09 MA [place] 6 CY NC CHAU 23 32 CY 00 03 04 00 20 6 CV 22 PA Ac CL 37 -3 -0 .0 S 24 RK ti OB 80 0- 9- 00 PH 02 ER ve EN 75 20 20 AR ZA 11 09 09 MA [place] LA 0 CY NC IN CHAU E 23 10 32 MG TA BL ET LA 00 03 04 00 20 5 CV 22 PA Ac OM 78 -3 -0 .0 S 24 RK ti ET 11 0- 9- 00 PH 01 ER ve CHAU 83 20 20 AR ZI 00 09 09 MA [place] NE 1 CY NC CHAU 25 23 32 MG TA BL ET Procedures Procedure DOS Code Location Performer Comment 62271 [facility] HARPEL NONSTRESS 7 PHYSICIAN TEST S GROUP US PREG 14944 YAZMIN LEI UTERUS 7 MEDICAL AFTER 1ST IMAGING TRIMEST [place] P[place] 43152 MICHAEL RODRIGUEZ UTERUS 7 [facility] W/DETAIL INC INC YEFRI 1ST GESTATION CYTP C/V 08785 [facility] AUTO THIN 7 LLC ER JR LYR PREPJ SCR MNL RESCR PHYS IADNA 00892 [facility] NEISSERIA 7 LLC ER JR GONORRHOE AE AMPLIFIED PROBE TQ IADNA 48703 [facility] CHLAMYDIA 7 LLC ER [place] [address] YAZMIN NICK 7 MEDICAL UTERUS IMAGING LIMITED ASS 1/> FETUSES US PREG 78544 MICHAEL RODRIGUEZ UTERUS 7 [facility] AFTER 1ST INC INC TRIMEST GESTATION DRUG TEST 03503 [facility] NOEL PRSMV 7 PHYSICIAN QUAL DIR S GROUP OPTICAL OBS PER DAY URINE 77984 [facility] NOEL 7 PHYSICIAN TEST S GROUP VISUAL COLOR CMPRSN METHS URINE 59876 [facility] HARPEL 7 PHYSICIAN TEST S GROUP VISUAL COLOR CMPRSN METHS URINLS 67736 [facility] HAR[facility] DIP 7 PHYSICIAN STICK/TAB S GROUP LET REAGNT NON-AUTO MICRSCPY CULTURE 58163 [facility] HARPEL CHLAMYDIA 7 PHYSICIAN ANY S GROUP SOURCE IADNA 42858 [facility] HERPES 7 PHYSICIAN SIMPLX S GROUP VIRUS DIRECT PROBE TQ IADNA 51851 [facility] HARPEL NEISSERIA 7 PHYSICIAN S GROUP GONORRHOE AE DIRECT PROBE TQ IAADIADOO 76810 [facility] HARPEL 7 PHYSICIAN TRICHOMON S GROUP VAGINALIS GONADOTRO 56054 MICHAEL RODRIGUEZ PIN 7 [facility] CHORIONIC INC INC QUALITATI VE URINE 90654 [facility] TEST HLTH DEPT HLTH DEPT VISUAL [place] [address] [facility] ABDOMEN & 6 MEDICAL PELVIS IMAGING W/O ASS CONTRAST MATERIAL GONADOTRO 22012 MICHAEL RODRIGUEZ PIN 6 [facility] CHORIONIC INC INC QUANTITAT JI DRUG TST G0477 MICHAEL RODRIGUEZ PRESUMP;C 6 [facility] PBL BEING INC INC READ DC OPT OBV ONLY SMR PRIM 62603 MICHAEL RODRIGUEZ SRC WET 6 [facility] MOUNT INC INC NFCT AGT URINE 30448 MICHAEL RODRIGUEZ 6 [facility] TEST INC INC VISUAL COLOR CMPRSN METHS COMPREHEN 14682 MICHAEL MICHAEL SIVE 6 [facility] METABOLIC INC INC PANEL BLOOD 37946 MICHAEL RODRIGUEZ COUNT 6 [facility] COMPLETE INC INC AUTO&AUTO DIFRNTL WBC HYSTEROSC 78784 [facility] OPY BX 6 PHYSICIAN PHYSICIAN ENDOMETRI S GROUP S GROUP UM&/POLYP C W/[place] [address] [facility], ELIJAH SURG 6 LLC MARIANA PATHOLOGY GROSS&ERICK ROSCOPIC EXAM ANESTHESI 30859 [facility] JOSE A 6 ANESTH INTRAPERI OF THE TONEAL BLUE LOWER ABD W/LAPS NOS LAPS ABD 23017 [facility] PRTM&OMEN 6 PHYSICIAN NATACHA ZAIDA DX S GROUP W/WO SPEC BR/WA SPX COLLECTIO 36691 MICHAEL RODRIGUEZ N VENOUS 6 [facility] BLOOD INC INC VENIPUNCT URE GONADOTRO 24873 MICHAEL RODRIGUEZ PIN 6 [facility] CHORIONIC INC INC QUALITATI VE SMR PRIM 80027 [facility] SRC WET 6 PHYSICIAN NATACHA MOUNT S GROUP NFCT AGT BLOOD 31450 MICHAEL RODRIGUEZ COUNT 6 [facility] COMPLETE INC INC AUTO&AUTO DIFRNTL WBC URINE 10347 [facility] HARPEL 6 PHYSICIAN NATACHA TEST S GROUP VISUAL COLOR CMPRSN METHS URINE 62160 [facility] HARPEL 6 PHYSICIAN NATACHA TEST [place] V[place] [address] [place] DO TRANSVAGI 6 MEDICAL ANCA NAL IMAGING ASS IADNA 57993 BIO BIO CHLAMYDIA 6 REFERNCE REFERNCE LABORATOR LABORATOR TRACHOMAT IES IES IS AMPLIFIED PROBE TQ IADNA 13809 BIO BIO NEISSERIA 6 REFERNCE REFERNCE LABORATOR LABORATOR GONORRHOE IES IES AE AMPLIFIED PROBE TQ IADNA 11799 [facility] CHAPPELL NEISSERIA 6 SIERRAPEKarl MAYS BET GONORRHOE AE DIRECT PROBE TQ IADNA NOS 37014 BIO BIO 6 REFERNCE REFERNCE AMPLIFIED LABORATOR LABORATOR PROBE TQ IES IES EACH ORGANISM REMOVAL 89600 V[facility]ATES[facility] DUMAS INTRAUTER 6 ALESIA MAYS NATACHA INE DEVICE IUD IADNA 28625 BIO BIO TRICHOMON 6 REFERNCE REFERNCE LABORATOR LABORATOR VAGINALIS IES IES AMPLIFIED PROBE TECH URINLS 97139 [facility] DUMAS DIP 6 ALESIA MAYS NATACHA STICK/TAB LET REAGNT NON-AUTO MICRSCPY CULTURE 71722 VEN[facility]ATES[facility] RIDDLE R CHLAMYDIA 6 ALESIA DUMAS MD ANY SOURCE CYTP C/V 69397 BIO BIO AUTO THIN 6 REFERNCE REFERNCE 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 PREPJ SCR [place] [address] MICHAEL RODRIGUEZ LIPASE 5 [place] [address] MICHAEL RODRIGUEZ AMYLASE 5 [facility] INC INC GONADOTRO 65619 MICHAEL RODRIGUEZ PIN 5 [facility] CHORIONIC INC INC QUALITATI VE BLOOD 65750 MICHAEL RODRIGUEZ COUNT 5 [facility] COMPLETE INC INC AUTO&AUTO DIFRNTL WBC COMPREHEN 98328 MICHAEL RODRIGUEZ SIVE 5 [facility] METABOLIC INC INC PANEL URNLS DIP 64553 MICHAEL RODRIGUEZ 5 [facility] STICK/TAB INC INC LET REAGENT AUTO MICROSCOP Y DRUG SCR G0434 [facility] NOT 5 Y Y [facility] [employer]; ANY NUMBER PT ENC INSERTION 94985 [place] O'MULUGETA 5 MEDICAL BRADEN INTRAUTER SERV INE FOUNDATIO DEVICE N IUD RADIOLOGI 39920 [place] ERNST C EXAM 5 MEDICAL AYA MAR CHEST 2 SERV VIEWS FOUNDATIO FRONTAL&L N ATERAL ECG 10671 [place] CARMEN CHI ROUTINE 5 MEDICAL ECG SERV W/LEAST FOUNDATIO 12 LDS N I&R ONLY RADEX ABD 50170 [place] RAMAN COMPL 5 MEDICAL IRVIN AQT ABD SERV MALLORY W/S/E/D FOUNDATIO VIEWS 1 N VIEW CH RADIOLOGI 31989 [place] ARSENIO C 5 MEDICAL ERICK EXAMINATI SERV ON CHEST FOUNDATIO SINGLE N VIEW FRONTAL SBSQ 64786 [facility] 5 NURSE ALL CARE/DAY PRACTITIO 25 NER GR MINUTES SBSQ 40591 [facility] 5 MEDICAL CARE/DAY SERV 15 FOUNDATIO MINUTES N ECG 99626 [place] CARMEN CHI ROUTINE 5 MEDICAL ECG SERV W/LEAST FOUNDATIO 12 LDS N I&R ONLY SBSQ 35935 [facility] 5 NURSE ALL CARE/DAY PRACTITIO 35 NER GR MINUTES INITIAL 50400 [place] [facility] INPATIENT 5 MEDICAL CONSULT SERV NEW/ESTAB FOUNDATIO PT 80 N MIN BLOOD 90778 [facility] MIGDALIA SMEAR 5 Y OF NARENDRA PERIPHERA [place] [facility] INTERP HOSPI PHYS W/WRIT REPORT RADIOLOGI 03627 [place] AYOOB AND C 5 MEDICAL EXAMINATI SERV ON CHEST FOUNDATIO SINGLE N VIEW FRONTAL RADIOLOGI 08577 [place] RAMAN C 5 MEDICAL IRVIN EXAMINATI SERV MALLORY ON CHEST FOUNDATIO SINGLE N VIEW FRONTAL ANESTHESI 08504 [place] A 5 MEDICAL MEDICAL SERV SERV DELIVERY FOUNDATIO FOUNDATIO ONLY N N 07781 [place] CRITCH[place] DELIVERY 5 MEDICAL LD AGA ONLY SERV FOUNDATIO N CRITICAL 18046 [facility] ZAHIRA NARENDRA CARE 5 NURSE ILL/INJUR PRACTITIO ED NER GR PATIENT INIT 30-74 MIN LEVEL V 22871 [facility] ASHBY MOL SURG 5 Y OF PATHOLOGY [place] GROSS&ERICK ROSCOPIC EXAM SUTURE OF 5781 [facility] 5 Y Y LACERATIO [facility] N OF BLADDER CENTRAL 3897 [facility] VENOUS 5 Y Y CATHETER [facility] HOSPITAL PLACEMENT WITH GUIDANCE LOW 741 [facility] CERVICAL 5 Y Y [facility] SECTION ARTERIAL 3891 [facility] CATHETER 5 Y Y ZATION [facility] 92083 [place] O'MULUGET[facility] NONSTRESS 5 MEDICAL BRADEN TEST SERV FOUNDATIO N SBSQ 67205 [facility] 5 MEDICAL DORETHA CARE/DAY SERV 25 FOUNDATIO MINUTES N BLD BANK 98394 [facility] 5 [facility]&/EV [place] REP 38966 [facility] NONSTRESS 5 Y Y TEST HOSPITAL HOSP[facility] 19810 [place] NONSTRESS 5 MEDICAL GERMAN TEST SERV FOUNDATIO N 61920 [place] [facility] 5 MEDICAL LEE AL SERV PROFILE FOUNDATIO W/O N NON-STRES S TESTING DOPPLER 74930 [place] [facility] VELOCIMET 5 MEDICAL LEE RY SERV UMBILICAL FOUNDATIO ARTERY N US PREG 97920 [place] [facility] UTERUS 5 MEDICAL LEE REAL TIME SERV F/U FOUNDATIO TRNSABDL N PER FETUS SBSQ 93199 [facility] 5 MEDICAL BRADEN CARE/DAY SERV 25 FOUNDATIO MINUTES N SBSQ 00272 [facility] 5 MEDICAL BRADEN CARE/DAY SERV 25 FOUNDATIO MINUTES N SBSQ 16190 [facility] 5 MEDICAL BRADEN CARE/DAY SERV 25 FOUNDATIO MINUTES N SBSQ 77609 [facility] 5 MEDICAL BRADEN CARE/DAY SERV 25 FOUNDATIO MINUTES N SBSQ 43187 [facility] 5 MEDICAL DORETHA CARE/DAY SERV 25 FOUNDATIO MINUTES N SBSQ 72975 [facility] 5 MEDICAL DORETHA CARE/DAY SERV 25 FOUNDATIO MINUTES N D BANK 95121 [facility] 5 Y OF [facility] MATCH&/EV AL REP DRUG SCR G0434 [facility] NOT 5 Y Y CHROMATOG [facility]; [place] 36558 [place] UTERUS 5 MEDICAL LD AGA REAL TIME SERV F/U FOUNDATIO TRNSABDL N PER FETUS US PREG 69834 [facility] 5 Y Y AFTER 1ST HOSPITAL HOSPITAL TRIMEST GESTATION DOPPLER 97718 [place] [facility] VELOCIMET 5 MEDICAL LD AGA [place] [address] [place] [facility] 5 MEDICAL LD AGA UTERUS SERV LIMITED FOUNDATIO 1/> [place] [address] [place] O'MULUGETA 5 MEDICAL BRADEN UTERUS SERV LIMITED FOUNDATIO 1/> N FETUSES 50865 [place] [facility] NONSTRESS 5 MEDICAL LD AGA TEST SERV FOUNDATIO N SBSQ 21667 [place] [facility] 5 MEDICAL MEDICAL CARE/DAY SERV SERV 25 FOUNDATIO FOUNDATIO MINUTES N N US PREG 86158 [place] [facility] UTERUS 5 MEDICAL LEE REAL TIME SERV W/IMAGE FOUNDATIO DCMTN N TRANSVAG [place] PREG 96187 [place] [facility] UTERUS 5 MEDICAL LEE REAL TIME SERV F/U FOUNDATIO TRNSABDL N PER FETUS DRUG SCR G0434 [facility] 5 Y Y CHROMATOG [facility]; [place] [address] [place] 5 MEDICAL LD AGA UTERUS SERV LIMITED FOUNDATIO 1/> N FETUSES US PREG 91116 [place] UTERUS 5 MEDICAL DORETHA DETAIL SERV FOUNDATIO YEFRI EXAM N EA GESTAT US PREG 41861 [place] UTERUS 5 MEDICAL DORETHA W/DETAIL SERV FOUNDATIO YEFRI 1ST N GESTATION DOPPLER 16797 [place] VELOCIMET 5 MEDICAL DORETHA RY SERV UMBILICAL FOUNDATIO ARTERY N US PREG 83847 [place] UTERUS 5 MEDICAL DORETHA REAL TIME SERV W/IMAGE FOUNDATIO DCMTN N TRANSVAG DRUG SCR G0434 [facility] NOT 5 Y Y CHROMATOG [facility]; ANY NUMBER PT ENC URINALYSI 98271 YAZMIN VELOUDIS S 5 PRIMARY JR [facility] SCR CARE XCPT CULTURE/D IPSTICK US PREG 69713 [facility] UNIVERS UTERUS 5 Y Y REAL TIME HOSPITAL HOSPITAL W/IMAGE DCMTN TRANSVAG US PREG 53311 [facility] UNIVERS UTERUS 5 Y Y AFTER 1ST HOSPITAL HOSPITAL TRIMEST GESTATION US PREG 36177 [facility] UTERUS > 5 Y Y 1ST HOSPITAL [place] [address] GINO BALDERASI 5 MEDICAL TONEAL SERV REAL TIME FOUNDATIO W/IMAGE N COMPLETE URINALYSI 45917 YAZMIN VELOUDIS S 5 PRIMARY JR [facility] SCR CARE XCPT CULTURE/D IPSTICK URINALYSI 04119 YAZMIN VELOUDIS S 5 PRIMARY JR [facility] SCR CARE XCPT CULTURE/D IPSTICK URINALYSI 02566 [facility] S 5 PRIMARY JR [facility] IA SCR CARE XCPT [place]ULTURE/[place] [address] [facility] VELOUDIS 5 PRIMARY JR REINALDO UTERUS 14 HEALTH WK CARE TRANSABDL GESTAT DRUG SCR G0434 YAZMIN VELOUDIS NOT 5 PRIMARY REINALDO CHROMATOG HEALTH RAPHIC; CARE ANY NUMBER [place] PREG 17848 YAZMIN VELOUDIS UTERUS 5 PRIMARY JR REINALDO REAL TIME HEALTH W/IMAGE CARE DCMTN TRANSVAG US PREG 07979 [facility]DIS UTERUS 14 5 PRIMARY REINALDO WK HEALTH TRANSABDL CARE EACH GESTATION IADNA 00546 ASSOCIATE NOAM MARROQUIN HEPATITIS 5 D C QUANT PATHOLOGI & [place] [address] HUSSEIN POLLARD ABDOMEN & 4 PELVIS W/CONTRAS T MATERIAL GROUND A0425 MELANIA MELANIA MILEAGE 4 FAYETTE FAYETTE PER URBAN URBAN STATUTE COGOVT COGOVT MILE AMBULANCE A0429 MELANIA MELANIA SERVICE 4 FAYETTE FAYETTE BLS URBAN URBAN [place] [address] EKATERINA TOBAR ABDOMEN & 4 SERGIO PELVIS W/CONTRAS T MATERIAL CYTP C/V 21229 PICKLESIM PICKLESIM AUTO THIN 4 ER JR GENIE ER JR GENIE LYR PREPJ SCR MNL RESCR PHYS ECG 96959 JAY JAY GOYAL ROUTINE 4 LUBNA LUBNA ECG W/LEAST 12 LDS I&R ONLY GONADOTRO 60964 YAMIL LOBO PIN 4 LAB LAB CHORIONIC [employer], [place], [place] [address] YAMIL LOBO THYROID 4 LAB LAB STIMULATI [employer] NG GROUP, [place] [address] YAMIL LOBO PROLACTIN 4 LAB LAB [facility] [employer], GROUP, IAADIADOO 81951 [facility] SOLIEN 1 [facility] CCUS GROUP A BLOOD 13159 LAB[facility] OF LABONE OF COUNT 1 [facility] COMPLETE AUTO&[place] [address] [facility] FAITH J TRACT 1 RADIOLOGY UPPER ASSOC W/WO DELAYED IMAGES W/O KUB ACUTE 29648 [facility] HEPATITIS 1 [facility] [employer] PANEL COMPREHEN 15038 [facility] SIVE 1 [facility] METABOLIC PANEL ANESTHESI 96249 UATSDIN MELIO JOSE A 1 ANESTHESI A PSC DELIVERY ONLY 30729 CRY[facility]AL CRYSTAL DELIVERY 1 JAM JAM ONLY W/POSTPAR ZAIDA CARE 63564 CR[facility]AL CRYSTAL NONSTRESS 1 JAM JAM TEST INJECTION J2790 CR[facility] CRYSTAL RHO D IG 1 JAM JAM HUMAN FULL DOSE 300 MCG CYTP C/V 17873 [facility] AUTO THIN 1 [facility] LYR PREPJ SCR MNL RESCR PHYS US PREG 12817 CRYSTAL CRYSTAL UTERUS 1 JAM JAM AFTER 1ST TRIMEST 1/ GESTATION IADNA 60764 [facility] NEISSERIA 1 [employer] [facility] GONORRHOE AE AMPLIFIED PROBE TQ CUL 35949 [facility] PRSMPTV 1 [facility] PTHGNC ORGANISM SCRN W/COLONY ESTIMJ IADNA 14580 [facility] CHLAMYDIA 1 [employer] [facility] TRACHOMAT [place] T[place] [address]183 [facility] [place] CINDY BAR UTERUS 0 RADIOLOGY REAL TIME W/IMAGE DCMTN TRANSVAG GONADOTRO 74107 [facility] PIN 0 Y Y CHORIONIC [facility] QU[place]ITATI [place] PELVIS 44818 [place] [facility], 9 MEDICAL SAMINA [place] [address] [facility] ABDOMEN 9 Y Y W/CONTRAS [facility] [place] [address] [facility] LIPASE 9 Y Y HOSPITAL [facility] BLOOD 12381 [facility] COUNT 9 Y Y COMPLETE [facility] AUTOMATED COMPREHEN 65374 [facility] SIVE 9 Y Y METABOLIC [facility] PANEL INJECTION J2405 [facility] 9 [facility] PER 1 MG URINE 23476 [facility] 9 Y Y TEST [facility] VISUAL COLOR CMPRSN METHS URNLS DIP 31956 [facility] 9 Y Y STICK/TAB [facility] LET REAGENT AUTO MICROSCOP Y INJECTION J2270 [facility] MORPHINE 9 Y Y SULFATE [facility] UP TO 10 MG NONINVASI 64928 [facility] VE 9 Y Y EAR/PULSE [facility] HOSPITAL OXIMETRY SINGLE DETER THERAPEUT 68655 [facility] IC 9 Y Y INJECTION [facility] IV PUSH EACH NEW DRUG URNLS DIP 47943 [facility] UNIVERS 9 Y Y STICK/TAB [facility] LET RGNT AUTO W/O MICROSCOP Y THER 68218 [facility] PROPH/DX 9 Y Y NJX IV HOSPITAL HOSPITAL PUSH SINGLE/1S T SBST/DRUG COLLECTIO 15411 [facility] N VENOUS 9 Y Y BLOOD [facility] VENIPUNCT URE GONADOTRO 10734 [facility] PIN 9 Y Y CHORIONIC [facility] QUALITATI VE IAADIADOO 63539 [facility] 9 AND INFLUENZA PEDIATRIC S & INTER RADEX 40418 [facility] WEN, SPINE 9 RADIOLOGY JOSE LUMBOSACR ASSOC C AL 2/3 VIEWS URINE 73316 [facility] CENTRAL 9 UATSDIN UATSDIN TEST HOSP HOSP VISUAL COLOR CMPRSN METHS URINE 10-16-200 56001 [facility] REEVES 9 BRET TEST PEDIATRIC VISUAL S & INTER COLOR CMPRSN METHS URNLS DIP 46451 [facility] REE[facility] 9 BRET STICK/TAB PEDIATRIC LET RGNT S & INTER NON-AUTO W/O MICRSCP COMPREHEN 31652 LAB K[facility]IE LAB KATIE SIVE 9 AMERIC AMERIC METABOLIC HOLDING HOLDING PANEL COLLECTIO 84717 [facility] REEVES N VENOUS 9 BRET BLOOD PEDIATRIC [place] & [place] [address] LAB [facility] LAB KATIE LIPASE 9 AMERIC AMERIC HOLDING HOLDING RADEX 33506 HRBRIDGETTE, KIAN, ABDOMEN 1 9 STEVE [employer]ANG[employer] AND ANTEROPOS ASSOCIATE TERIOR S VIEW 41654 LUCIAN EPSTEIN, DELIVERY 9 BENOIT A BENOIT A ONLY W/POSTPAR ZAIDA CARE ANESTHESI 94871 [facility] Leon SHANNON 9 ANESTHESI [place] M A PSC DELIVERY ONLY AMNIOCENT 53454 LUCIAN EPSTEIN, RAMIROS 9 [place] [address] LUCIAN EPSTIEN, GUIDANCE 9 BENOIT A BENOIT A AMNIOCENT ESIS IMG S&I GROUND A0425 MELANIA MELANIA MILEAGE 9 FAYETTE FAYETTE PER URBAN URBAN STATUTE COGOVT COGOVT MILE URNLS DIP 16119 [facility] 9 Y Y STICK/TAB [facility] HOSPITAL LET RGNT AUTO W/O MICROSCOP Y IADNA 41473 [facility] CHLAMYDIA 9 Y Y HOSPITAL [facility] TRACHOMAT IS AMPLIFIED PROBE TQ IADNA 36879 [facility] NEISSERIA 9 Y Y HOSPITAL [facility] [place] [address] [facility] MONITORIN 9 Y Y G LABOR [facility] PHYS WRITTEN REPORT AMB A0427 MELANIA MELANIA SERVICE 9 FAYETTE FAYETTE ALS [facility] U[facility] EMERGENCY COGOVT COGOVT TRANSPORT LEVEL 1 IADNA 56130 [facility] STREPTOCO 9 Y Y CCUS [facility] [place] [address] [place] MIGUEL, NONSTRESS 9 [place] [address] [place] MIGUEL, 9 MEDICAL TISH B UTERUS SERV LIMITED FOUNDATIO 1/> [facility] [address]03 MAGDALENA NICHOLS, DISCHARGE 9 MAGLEN MAGDALENE MANAGEMEN T 30 MIN/< OBSERVATI 11466 [facility] ON CARE 9 [facility] DISCHARGE MANAGEMEN T AMB A0427 MELANIA MELANIA SERVICE 9 FAYETTE FAYETTE ALS [facility] COGOVT TRANSPORT LEVEL [address] ONDANSETR ON HCL PER 1 MG THER 78901 [facility] PROPH/DX [address] [place] [address] NJX IV PUSH SINGLE/1S T SBST/DRUG INJECTION J[address] BUTORPHAN OL TARTRATE 1 MG GROUND A0425 MELANIA MELANIA MILEAGE 9 FAYETTE FAYETTE PER URBAN URBAN STATUTE COGOVT COGOVT MILE THERAPEUT 98139 [facility] IC [address] [place] [address] INJECTION IV PUSH EACH NEW DRUG URNLS DIP 84191 [facility] SAGRAR[facility], 9 [facility] KYLE STICK/TAB E CENTER LET RGNT NON-AUTO W/O MICRSCP CUL 68690 LAB K[facility] LAB KATIE PRSMPTV 9 AMERIC AMERIC PTHGNC HOLDING HOLDING ORGANISM SCRN W/COLONY ESTIMJ CULTURE 51245 [facility] K[facility] TYPING 9 AMERIC AMERIC NUCLEIC HOLDING HOLDING [place] [address] [facility] LAB K[facility]IE PHOSPHATA 9 AMERIC AMERIC SE HOLDING HOLDING ALKALINE BILIRUBIN 16295 [facility] DIRECT 9 AMERIC AMERIC HOLDING HOLDING BASIC 84214 [facility] METABOLIC 9 AMERIC AMERIC PANEL HOLDING HOLDING CALCIUM TOTAL TRANSFERA 16391 [facility] KAT[facility] SE 9 AMERIC AMERIC ASPARTATE HOLDING HOLDING AMINO AST SGOT TRANSFERA 23862 [facility] KATIE SE 9 AMERIC AMERIC ALANINE HOLDING HOLDING AMINO ALT SGPT BILIRUBIN 55664 [facility] TOTAL 9 AMERIC AMERIC HOLDING HOLDING ALBUMIN 65016 [facility] SERUM 9 AMERIC AMERIC PLASMA/WH HOLDING HOLDING OLE BLOOD BLOOD 34690 [facility] KATIE COUNT 9 AMERIC AMERIC COMPLETE HOLDING HOLDING AUTO&AUTO DIFRNTL WBC GLUCOSE 12626 [facility] K[facility] POST 9 AMERIC AMERIC GLUCOSE HOLDING HOLDING DOSE BLOOD 63955 [facility] KATIE TYPING 9 AMERIC AMERIC SEROLOGIC HOLDING HOLDING RH (D) ANTIBODY 60460 [facility] SCREEN 9 AMERIC AMERIC RBC EACH HOLDING HOLDING SERUM TECHNIQUE BLOOD 08672 LAB [facility] LAB KATIE TYPING 9 AMERIC AMERIC SEROLOGIC HOLDING HOLDING ABO URNLS DIP 72344 HORIZON SAGRARIO, 9 [facility] KYLE STICK/TAB E CENTER LET RGNT NON-AUTO W/O MICRSCP URNLS DIP 01837 HORIZON SAGRARIO, 9 [facility] KYLE STICK/TAB E CENTER LET RGNT NON-AUTO W/O MICRSCP IADNA 57800 PATHOLOGY PATHOLOGY NEISSERIA 9 & & CYTOLOGY CYTOLOGY GONORRHOE LAB LAB AE AMPLIFIED PROBE TQ IADNA 35995 PATHOLOGY PATHOLOGY CHLAMYDIA 9 & & CYTOLOGY CYTOLOGY TRACHOMAT LAB LAB IS AMPLIFIED PROBE TQ CYTP C/V 64242 PATHOLOGY PATHOLOGY AUTO THIN 9 & & LYR CYTOLOGY CYTOLOGY PREPJ SCR LAB LAB MNL RESCR PHYS SMR PRIM 51160 HORIZON SAGRARIO, SRC WET 9 [facility] NFCT AGT URNLS DIP 07663 HORIZON SAGRARIO, 9 [facility] KYLE STICK/TAB E CENTER LET RGNT NON-AUTO W/O MICRSCP URINE 19845 HORIZON SAGRARIO, 9 [facility] TEST E CENTER VISUAL COLOR CMPRSN METHS URINE 64166 [facility] 9 N N TEST [facility] COLOR CMPRSN METHS US PELVIC 41444 [facility] 9 N N NONOBSTET [facility] REAL-TIME IMAGE COMPLETE URNLS DIP 99697 [facility] 9 N N STICK/TAB [facility] REAGENT AUTO MICROSCOP Y COMPREHEN 22658 [facility] SIVE 9 N N METABOLIC [facility] URINALYSI 66994 [facility] S 9 N N MICROSCOP [facility] IC ONLY HOSPITAL HOSPITAL CUL BACT 91519 [facility] XCPT 9 N N URINE [facility] BLOOD/[facility] [place] [address] [facility] STREPTOCO 9 N N CCUS [facility] GROUP A [facility] BLOOD 45602 [facility] COUNT 9 N N COMPLETE [facility] AUTO&AUTO [facility] DIFRNTL WBC GONADOTRO 00348 [facility] PIN 9 N N [facility] QUANTITAT JI Encounters Encounter Start End Date Code Location Performer Type Date [facility]OSPITAL [facility] - 7 7 [facility] OUTPATIEN INC [facility] MICHAEL [facility] 7 7 [facility] OUTPATIEN [facility] T OFFICE 16331 [facility] 7 7 PHYSICIAN T NEW 45 S GROUP MINUTES OFFICE 79905 [facility] 7 7 PHYSICIAN T VISIT S GROUP 25 MINUTES HOSPITAL MICHAEL - 7 7 [facility] OUTPATIEN [facility] T EMERGENCY 94803 MICHAEL 7 7 [facility] DEPARTMEN INC T VISIT LOW/MODER SEVERITY EMERGENCY 63567 FABIAN PATEL 7 7 PHYSICIAN DEPARTMEN [facility] PLL[facility] T VISIT MODERATE SEVERITY OFFICE 89572 [facility] OUTPATIEN 6 6 [facility] DISTRICT T NEW 10 HLTH DEPT HLTH DEPT MINUTES [place] EMERGENCY 73153 FABIAN PATEL 6 6 PHYSICIAN ERICK DEPARTMEN S, PLLC T VISIT HIGH/URGE NT SEVERITY [facility]OSPITAL [facility]EL - 6 6 [facility] OUTPATIEN INC T EMERGENCY 61073 FABIAN PATEL 6 6 PHYSICIAN [facility] T VISIT HIGH/URGE NT SEVERITY EMERGENCY 63948 MICHAEL 6 6 [facility] DEPARTMEN INC T VISIT MODERATE SEVERITY EMERGENCY 80853 FABIAN AGUILAREY 6 6 PHYSICIAN [facility] S, [facility] T VISIT HIGH/URGE NT SEVERITY EMERGENCY 25926 MICHAEL 6 6 [facility] DEPARTMEN INC T VISIT LIMITED/M INOR PROB [facility] MICHAEL - 6 6 [facility] OUTPATIEN [facility] MICHAEL - 6 6 [facility]PATIEN INC T OFFICE 18407 [facility] OUTPATIEN 6 6 PHYSICIAN NATACHA T VISIT S GROUP 25 MINUTES OFFICE 31445 [facility] OUTPATIEN 6 6 PHYSICIAN NATACHA T VISIT S GROUP 25 MINUTES OFFICE 26392 [facility] OUTPATIEN 6 6 PHYSICIAN NATACHA T VISIT S GROUP 15 MINUTES INITIAL 86907 VENKATESH DUMAS PREVENTIV 6 6 [place] MAYS NATACHA E MEDICINE NEW PT AGE 18-39YRS OFFICE 51060 [facility] AMANDA OUTPATIEN 6 6 PHYSICIAN ERICK T VISIT S GROUP 15 MINUTES OFFICE 82790 [facility] AMANDA OUTPATIEN 6 6 PHYSICIAN ERICK T NEW 20 S GROUP MINUTES HOSPITAL MICHAEL - 5 5 [facility] T EMERGENCY 33411 FABIAN PATEL 5 5 PHYSICIAN [facility] T VISIT HIGH/URGE NT SEVERITY EMERGENCY 97742 MICHAEL 5 5 [facility] LOW/MODER SEVERITY OFFICE 89358 [place] OUTPATIEN 5 5 MEDICAL T VISIT SERV 25 FOUNDATIO MINUTES N HOSPITAL UNIVERSIT - 5 5 Y OUTPATIEN HOSPITAL T OFFICE 06044 UNIVERSIT OUTPATIEN 5 5 Y T VISIT 5 HOSPITAL MINUTES OFFICE 93775 [place] OUTPATIEN 5 5 MEDICAL LD AGA T VISIT SERV 15 FOUNDATIO MINUTES N OFFICE 59495 UNIVERSIT OUTPATIEN 5 5 Y T VISIT 5 [facility] - 5 5 Y INPATIENT [facility] OFFICE 61639 [place] OUTPATI[place] 5 5 MEDICAL LD AGA T VISIT SERV 15 FOUNDATIO MINUTES N OFFICE 05168 [facility] 5 5 Y T [facility]ISIT 5 [facility] 30220 [place]AV[place] OUTPATIEN 5 5 MEDICAL GERMAN T VISIT SERV 15 FOUNDATIO MINUTES N OFFICE 81139 [place]PATI[place] 5 5 MEDICAL LD AGA T VISIT SERV 15 FOUNDATIO MINUTES N OFFICE 64594 [facility] 5 5 Y T VISIT 5 [facility] [place] 96750 [place] OUTPATIEN 5 5 MEDICAL LD AGA T VISIT SERV 15 FOUNDATIO MINUTES N OFFICE 47637 [place] O'[place]ULUGET[place] OUTPATIEN 5 5 MEDICAL BRADEN T VISIT SERV 15 FOUNDATIO MINUTES N OFFICE 15573 [place] OUTPATIEN 5 5 MEDICAL LD AGA T VISIT SERV 15 FOUNDATIO MINUTES N OFFICE 58266 [place] OUTPATIEN 5 5 MEDICAL BRADEN T VISIT SERV 15 FOUNDATIO MINUTES HOSPITAL UN[facility]ERSIT - 5 5 [facility] T OFF[facility] 38075 [facility] 5 5 Y T VISIT 5 HOSPITAL MINUTES OFFICE 20505 [place] OUTPATIEN 5 5 MEDICAL LD AGA T VISIT SERV 15 FOUNDATIO MINUTES N OFFICE 45118 [place] OUTPATIEN 5 5 MEDICAL BRADEN T VISIT SERV 15 FOUNDATIO MINUTES N OFFICE 41167 UNIVERSIT OUTPATIEN 5 5 Y T VISIT 5 [facility] [place] 78917 [place] OUTPATIEN 5 5 MEDICAL LD AGA T VISIT SERV 15 FOUNDATIO MINUTES N OFFICE 64078 [place] OUTPATIEN 5 5 MEDICAL LD AGA T VISIT SERV 15 FOUNDATIO MINUTES N OFFICE 27519 [place] OUTPATIEN 5 5 MEDICAL LD AGA T VISIT SERV 15 FOUNDATIO MINUTES N OFFICE 35563 [place] OUTPATIEN 5 5 PRIMARY JR REINALDO T VISIT HEALTH 15 [facility] 05327 GINO MIGUEL OUTPATIEN 5 5 MEDICAL DIANE T VISIT SERV 15 FOUNDATIO MINUTES N OFFICE 97141 [place] OUTPATIEN 5 5 PRIMARY JR REINALDO T VISIT HEALTH 15 CARE MINUTES OFFICE 81345 [place] OUTPATIEN 5 5 PRIMARY JR REINALDO T VISIT HEALTH 15 CARE MINUTES OFFICE 41662 [place] OUTPATIEN 5 5 PRIMARY JR REINALDO T VISIT HEALTH 15 CARE MINUTES OFFICE 92723 [place] OUTPATIEN 5 5 PRIMARY JR REINALDO T NEW 60 HEALTH MINUTES CARE EMERGENCY 68068 [facility] MARITZA RICHTER 4 4 [place] DEPARTMEN EMERGENCY T VISIT PHYS MODERATE SEVERITY EMERGENCY 92396 [facility] ANAMARIA 4 4 [place] NARENDRA DEPARTMEN EMERGENCY T VISIT PHYS MODERATE SEVERITY EMERGENCY 64165 [facility] HEIDI JAM DEPT 4 4 [place] VISIT EMERGENCY HIGH PHYS SEVERITY& THREAT FUNJ EMERGENCY 74610 [facility] HEIDI JAM 4 4 [place] DEPARTMEN EMERGENCY T VISIT PHYS MODERATE SEVERITY EMERGENCY 97841 [facility] HEIDI JAM 4 4 [place] DEPARTMEN EMERGENCY T VISIT PHYS MODERATE SEVERITY EMERGENCY 90875 [facility] HOANG DEPT 4 4 [place] JOHANNY VISIT EMERGENCY HIGH PHYSI SEVERITY& THREAT FUNJ EMERGENCY 02330 GINO ROLLINS 4 4 MEDICAL [facility] SERV T VISIT FOUNDATIO HIGH/URGE N NT SEVERITY EMERGENCY 61210 MICHAEL RODRIGUEZ DEPT 4 4 SCO SCO VISIT HIGH SEVERITY& THREAT FUN EMERGENCY 08116 JAY JAY GYOAL DEPT 4 4 LUBNA LUBNA VISIT HIGH SEVERITY& THREAT FUNJ OFFICE 12166 [facility] SOLIEN OUTPATIEN 1 1 [facility] GADIEL T VISIT E CENTER 15 MINUTES OFFICE 20643 CRYSTAL CRYSTAL OUTPATIEN 1 1 JAM JAM T VISIT 15 MINUTES OFFICE 77388 [facility] CRYSTAL OUTPATIEN 1 1 JAM JAM T VISIT 15 MINUTES OFFICE 20704 [facility]YSTAL CRYSTAL OUTPATIEN 1 1 JAM JAM T VISIT 15 MINUTES OFFICE 16830 CRYSTAL CRYSTAL OUTPATIEN 1 1 JAM JAM T VISIT 15 MINUTES OFFICE 99701 CRYSTAL CRYSTAL OUTPATIEN 0 1 JAM JAM T NEW 45 MINUTES HOSPITAL [facility] 0 [facility] T EMERGENCY 98054 UNIVERSIT 0 0 Y DEPARTMEN HOSPITAL T VISIT HIGH/URGE NT SEVERITY EMERGENCY 42481 UNIVERSIT DEPT 9 9 Y VISIT HOSPITAL HIGH SEVERITY& THREAT FUN HOSPITAL UNIVERSIT - 9 9 Y OUTPATI HOSPITAL T EMERGENCY 56083 GINO MASTER, 9 9 MEDICAL [facility]RIAG T DEPARTMEN SERV T VISIT FOUNDATIO HIGH/URGE NT SEVERITY OFFICE 09221 DONA GAITAN OUTPATIEN 9 9 AND T VISIT PEDIATRIC 15 S & INTER MINUTES EMERGENCY 05840 [facility], 9 9 EMERGENCY RONDON R DEPARTMEN PHYS PSC T VISIT MODERATE SEVERITY [facility] - 9 9 [facility] T EMERGENCY 79157 [facility], 9 9 [facility] T VISIT PHYSICANS MODERATE [place] SEVERITY [facility] H[facility]PITAL [facility] - 9 9 [facility] EMERGENCY 43429 [facility] 9 9 [facility] DEPARTMEN T VISIT LOW/MODER SEVERITY OFFICE 76317 [facility] 9 BRET T NEW 30 PEDIATRIC MINUTES S & INTER EMERGENCY 99560 ELIJAH SAUER 9 9 EMERGENCY - YORBA, DEPARTMEN SERVICES STEVIE T VISIT M HIGH/URGE ASSOCIATE NT S SEVERITY EMERGENCY 98033 [facility] 9 9 HOSPITAL DEPARTMEN T VISIT LOW/MODER SEVERITY EMERGENCY 75943 [facility], 9 9 [place] Barajas DEPARTMEN EMERGENCY T VISIT PHYS INC MODERATE SEVERITY HOSPITAL [facility] - 9 9 H[facility]PITAL [facility] T EMERGENCY 75774 [facility] ALEXANDER, 9 9 [place] DEPARTMEN EMERGENCY T VISIT PHYS INC HIGH/URGE NT SEVERITY OFFICE 22612 LUCIAN EPSTEIN [facility] 9 9 [facility] A BENOIT A T VISIT 25 MINUTES [facility]OSPITAL [facility] - 9 9 [facility] 69002 [facility] CARMEN, DEPT 9 9 [place] Silver VISIT EMERGENCY HIGH PHYS INC SEVERITY& THREAT FUNCJ EMERGENCY 67407 [facility] 9 9 [facility] T VISIT MODERATE SEVERITY HOSPITAL [facility] - 9 9 [facility] OFFICE 68929 [facility] OUTPATIEN 9 9 EAST T VISIT 5 MINUTES OFFICE 05306 [facility], OUTPATIEN 9 9 [facility] 15 MINUTES OFFICE 23617 [facility], OUTPATIEN 9 9 [facility] 15 MINUTES OFFICE 52963 [facility], OUTPATIEN 9 9 [facility] 15 MINUTES OFFICE 73841 [facility], OUTPATIEN 9 9 [facility] T [facility] CENTER 15 MINUTES EMERGENCY 52712 [facility] 9 9 [facility] CARE RAMON L T VISIT PHYSICANS MODERATE [place] SEVERITY [facility] HOSPITAL [facility] - 9 9 [facility] EMERGENCY 52967 [facility] 9 9 [facility] T VISIT LIMITED/M INOR PROB EMERGENCY 35600 [facility], 9 9 [facility] [facility] EMERGENCY A T VISIT PHYS INC HIGH/URGE NT SEVERITY HOSPITAL [facility] - [address] [facility] EMERGENCY 26734 [facility] 9 9 N [facility] T VISIT HOSPITAL MODERATE SEVERITY EMERGENCY 39852 [facility], 9 9 [place] [facility] EMERGENCY A T VISIT PHYS INC HIGH/URGE NT SEVERITY
--- OUTSIDE RECORDS SUMMARY | 2017-03-17 02:19 | External Medical Summary Rpt ---
Author Author , PATRICIA GOMEZ Address Unknown Phone [email or web address] Care Team Providers Care Mortising Machine Operator Name Role Phone AHMED, ORDAZ A, Unavailable Unavailable AHMED, ORDAZ A [facility]OC[facility]ATED Unavailable [facility], [facility] AYOOB AND, AYOOB AND Unavailable Unavailable [facility], Unavailable Unavailable [facility] BEAVEN GERMAN, BEAVEN Unavailable Unavailable [facility] Unavailable Unavailable [facility], [facility] Unavailable Unavailable [facility], [facility] HEIDI JAM, HEIDI JAM Unavailable Unavailable [facility] Unavailable Unavailable & INTER, [facility] NICK, NICK Unavailable Unavailable [...] M, CELLAROSI - YORBA, STEVIE M [facility], Unavailable Unavailable [facility] Unavailable Unavailable [facility], [facility] CHEESEMARY MACKEY, Unavailable Unavailable BERT HARRIS Unavailable Unavailable [facility] Unavailable Unavailable [facility], [facility] RIA COY Unavailable Unavailable BRADEN LINDSEY AGA, Unavailable Unavailable LINDSEY AGA DO, DO Unavailable Unavailable DO ANCA, Unavailable Unavailable DO ANCA [id number], Unavailable Unavailable [id number], Unavailable Unavailable [facility] SILVINO CARBAJAL, Unavailable Unavailable SILVINO CARBAJAL, GOYAL Unavailable Unavailable LUBNA JAY JAY GAYU, GOYAL Unavailable Unavailable LUBNA YASMEEN RAMON Unavailable Unavailable L, YASMEEN, RAMON L AMANDA, AMANDA Unavailable Unavailable AMANDA ERICK, AMANDA Unavailable Unavailable ERICK [facility] Unavailable Unavailable [facility], [facility] VENKATESH DUMAS MD, Unavailable Unavailable VENKATESH ADAMS, CINDY ADAMS Unavailable Unavailable PHILLIPS DORETHA, PHILLIPS Unavailable Unavailable DORETHA HARPEL, HARPEL Unavailable Unavailable HARPEL NATACHA, HARPEL Unavailable Unavailable NATACHA [facility], Unavailable Unavailable [facility], Unavailable Unavailable [facility] Un[facility], [facility] HILTY, RONDON R, Unavailable Unavailable HILTY, RONDON R [facility], Unavailable Unavailable [facility] Unavailable Unavailable [facility] Unavailable Unavailable CENTER, [facility] STEVE LANGSTON, Unavailable Unavailable STEVE LANGSTON KATHLEEN, Unavailable Unavailable KYLE ZABALA KATHERINE C, Unavailable Unavailable JOSE WEN GRE, SALAS GRE Unavailable Unavailable MAGDALENA, MAGDALENE, Unavailable Unavailable MAGDALENA, MAGDALENE [facility] Unavailable Unavailable [facility], [facility] Unavailable Unavailable [facility], [facility] MIGDALIA NARENDRA, MIGDALIA Unavailable [...] [facility][id number] [facility] Unavailable Unavailable [id number] # [id number], [facility] [address] # 0784 VIANNEY Alcazar, VIANNEY Alcazar Unavailable Unavailable SOLIEN GADIEL, SOLIEN Unavailable Unavailable GADIEL [facility] Unavailable Unavailable GROUP,, [facility], [facility] Unavailable Unavailable GROUP,, [facility], ZAHIRA NARENDRA, ZAHIRA NARENDRA Unavailable Unavailable [facility], [facility] Unavailable Unavailable EMERGENCY PHYSI, [facility], Unavailable Unavailable [facility], Unavailable Unavailable [facility] LI ZHANG, Unavailable Unavailable LI ZAHNG STEVENS Unavailable Unavailable [facility], Unavailable [facility]available [facility], [facility] Unavailable Unavailable [facility] ASHBY MOL, ASHBY MOL Unavailable Unavailable TRUE STEFANIA, TRUE STEFANIA Unavailable Unavailable [facility], Unavailable Unavailable [facility] Unavailable [facility] VELOUDIS JR REINALDO, Unavailable Unavailable VELOUDIS JR REINALDO [facility] # Unavailable Unavailable 4892, [facility] # 4892 [facility] # Unavailable Unavailable 9631, [facility] # 9631 FRANCE NONI, FRANCE NONI Unavailable Unavailable [facility] Unavailable Unavailable DEPT COLE, [facility] Unavailable Unavailable [facility], [facility] HOANG JOHANNY, HOANG Unavailable Unavailable JOHANNY EVER DEN, Unavailable Unavailable EVER DEN ARSENIO ERICK, ARSENIO Unavailable Unavailable ERICK ZAGUROVSKAYA MAR, Unavailable Unavailable ZAGUROVSKAYA MAR Purpose Continuity of Care Document - 08-06-2008 through 2016 Problems Code Diagnosis DOS Provider Status [id number] FALSE LABOR 12-04-2016 [facility] BEFORE 37 PHYSICIANS CMPLETE GROUP WEEKS GEST 3RD TRI Z36 ENCOUNTER 10-16-2016 [facility] SCREENING OF MOTHER Z3A20 20 WEEKS 10-16-2016 [facility] OF IMAGING ASS Z113 ENCOUNTER 10-12-2016 [facility] SCREEN [facility] INFECTIONS SEXL MODE TRANSMISSN Z3480 ENC 10-12-2016 [facility] SUPERVISION [facility] OTH NORMAL PREG UNS TRIMESTER [id number] UTERINE 09-03-2016 [facility]DATE [facility] DISCREPANCY INC FIRST TRIMESTER Z3492 ENC 09-03-2016 [facility] NORMAL [facility] UNS 2 TRIMESTER Z3A14 14 WEEKS 09-03-2016 [facility] OF IMAGING ASS T36350 DRUG USE 08-31-2016 [facility] COMPLICATIN PHYSICIANS G GROUP SECOND TRIMESTER Z3201 ENCOUNTER 08-31-2016 [facility] FOR PHYSICIANS GROUP TEST RESULT POSITIVE N925 OTHER 07-02-2016 [facility] SPECIFIED PHYSICIANS IRREGULAR GROUP MENSTRUATIO N Z3A01 LESS THAN 8 06-23-2016 FABIAN WEEKS PHYSICIANS, GE[facility] PLLC OF Z720 TOBACCO USE 06-23-2016 [facility] INC [id number] FPC 06-23-2016 [facility] CURRENT USE [facility] OF [...] OF UNSPECIFIED THE BLUE N8320 UNSPECIFIED 12-17-2015 [facility] OVARIAN PHYSICIANS CYSTS GROUP N840 POLYP OF 12-17-2015 [facility] CORPUS PHYSICIANS UTERI GROUP R102 PELVIC AND 12-17-2015 [facility], PERINEAL LLC PAIN N736 FEMALE 12-13-2015 [facility] PERITONEAL INC ADHESIONS POSTINFECTI VE N761 SUBACUTE 12-13-2015 [facility] AND CHRONIC PHYSICIANS VAGINITIS GROUP L26169 ENCOUNTER 12-13-2015 [facility] FOR [facility] PREPROCEDUR INC AL LABORATORY EXAM P47488 ENCOUNTER 09-30-2015 VENKATESH Wood LIABILITY CLAIMS MANAGER EXAM ALESIA MAYS GENERAL RTN W/ABNORMAL FIND T05167 ENCOUNTER 09-30-2015 BIO LIABILITY CLAIMS MANAGER EXAM REFERNCE GENERAL RTN LABORATORIE W/O S ABNORMAL FIND A35318 ENCOUNTER 09-30-2015 VENKATESH Wood ROUTINE ALESIA MAYS CHECKING IU CONTRACEPT DEVICE Z309 ENCOUNTER 09-30-2015 VENKATESH Wood FOR ALESIA MAYS CONTRACEPTI VE MANAGEMENT UNS B1920 UNS VIRAL 09-16-2015 [facility] HEPATITIS C PHYSICIANS WITHOUT GROUP HEPATIC COMA M545 LOW BACK 09-16-2015 [facility] PAIN PHYSICIANS GROUP 35829 INCOMPLETE 03-06-2015 [facility] BLADDER SERV EMPTYING FOUNDATION V5869 LONG-TERM 02-20-2015 [place] [facility] USE OF OTHER MEDICATIONS V5883 ENCOUNTER 02-20-2015 [facility] THERAPEUTIC DRUG MONITORING V2511 ENC FOR 01-23-2015 [facility] INSERTION SERV INTRAUTERIN FOUNDATION E CONTRACEPT DEVICE V2389 SUPERVISION 12-26-2014 [facility]ICAL OF OTHER SERV HIGH-RISK FOUNDATION 60014 OTHER 12-19-2014 [facility] OB TRAUMA COND/COMPL 5119 UNSPECIFIED 12-13-2014 [facility] PLEURAL SERV EFFUSION FOUNDATION 5180 PULMONARY 12-13-2014 [facility] COLLAPSE SERV FOUNDATION 7850 UNSPECIFIED 12-13-2014 [facility] SERV TACHYCARDIA FOUNDATION 2859 UNSPECIFIED 12-09-2014 S NURSE ANEMIA PRACTITIONE R GR 2875 UNSPECIFIED 12-09-2014 [facility] NURSE PRACTITIONE THROMBOCYTO R GR PENIA 4266 OTHER HEART 12-09-2014 [facility] BLOCK SERV FOUNDATION 514 PULMONARY 12-09-2014 [facility] CONGESTION SERV AND FOUNDATION HYPOSTASIS 5739 UNSPECIFIED 12-09-2014 [facility] [place]SE [place] [address] SYSTEMIC 12-09-2014 [facility] NURSE INFLAMMATOR PRACTITIONE Y RESPONSE R GR SYNDROME UNSPEC 2760 HYPEROSMOLA 12-08-2014 [facility] LITY AND/[place] [address] OTHER SPEC 12-08-2014 [facility] BLOOD&BLOOD HOSPI -FORMING ORGANS 5849 ACUTE 12-08-2014 [facility] KIDNEY SERV FAILURE FOUNDATION UNSPECIFIED 5881 NEPHROGENIC 12-08-2014 [facility] DIABETES SERV INSIPIDUS FOUNDATION 01435 CHEST PAIN 12-08-2014 [facility] UNSPECIFIED SERV FOUNDATION 2762 ACIDOSIS 12-07-2014 S NURSE PRACTITIONE R GR 5601 PARALYTIC 12-07-2014 [facility] ILEUS SERV FOUNDATION 12324 ERLY ONSET 12-07-2014 [facility]OS[facility] MENTION ANTPRTM COND 83066 LIVER 12-07-2014 [facility] BILIARY SERV TRACT D/O FOUNDATION PREG DEL W/WO ANTPRTM 74285 MATERNAL 12-07-2014 [facility] DRUG SERV DEPENDENCE FOUNDATION WITH DELIVERY 91457 TWIN 12-07-2014 [facility] , SERV DELIVERED FOUNDATION 37736 OTH 12-07-2014 [facility] CONDS HOSPI AFFECT MANAGEMENT MOTH DELIV 73737 C/S DELIV 12-07-2014 [place] W/O INDICAT [facility] DELIV W/WO HOSPI ANTPRTM COND 53116 POLYURIA 12-07-2014 [facility] NURSE PRACTITIONE R GR V272 OUTCOME OF 12-07-2014 [facility] DELIVERY SERV TWINS BOTH FOUNDATION LIVEBORN V5881 FITTING AND 12-07-2014 [facility] ADJUSTMENT SERV OF FOUNDATION VASCULAR CATHETER 30149 THREATENED 12-06-2014 [facility] PREMATURE SERV LABOR FOUNDATION ANTEPARTUM 95106 UNSPECIFIED 12-06-2014 [facility] ANTEPARTUM SERV RENAL FOUNDATION DISEASE 2535 DIABETES 12-05-2014 [facility] 2866 DEFIBRINATI 12-05-2014 [place] [facility] 5718 OTHER 12-05-2014 [facility] NONALCOHOLI C LIVER DISEASE 06242 RHESUS 12-05-2014 [place] ISOIMMUNIZA [facility] [place] [address] SYS INFLAM 12-05-2014 [facility] SYND-NON-IN F W/O ACUTE ORGN DYSF 16807 TOB USE D/O 11-26-2014 [place] COMP [facility]OSPITAL /PP ANTEPARTM COND/COMP 74329 MATERNAL 11-23-2014 [facility] DRUG SERV DEPENDENCE FOUNDATION ANTEPARTUM 62468 TWIN 11-23-2014 [facility] , SERV ANTEPARTUM FOUNDATION 88311 CERVICAL 11-21-2014 [facility] SHORTENING SERV ANTEPARTUM FOUNDATION CONDITION OR COMP V9102 TWIN GEST 11-21-2014 [facility] MONOCHORION SERV IC/DIAMNIOT FOUNDATION IC V221 SUPERVISION 10-24-2014 [facility] NORMAL V284 10-24-2014 [facility] SCR SERV GROWTH FOUNDATION RETARDATION USING US V239 UNSPECIFIED 10-17-2014 [facility] HIGH-RISK SERV FOUNDATION 92067 CERVICAL 10-10-2014 [facility] INCOMPETENC SERV E ANTPRTM FOUNDATION COND/COMPLI CATION 10240 TWIN 10-03-2014 [facility] SERV UNSPECIFIED FOUNDATION TO EPISODE OF CARE 00663 PREVIOUS 09-28-2014 [facility] C-SECT SERV DELIVERY FOUNDATION ANTPRTM COND/COMP V9103 TWIN GEST 09-12-[address] [facility] /DIAMNIOTIC V2881 ENCOUNTER 08-29-2014 [facility] FOR SERV ANATOMIC FOUNDATION SURVEY 5733 UNSPECIFIED 07-26-2014 [facility] 37885 BN&JNT D/O 07-19-2014 [facility] MAT BACK SERV PELVIS&LW FOUNDATION LIMBS ANTEPARTUM 7245 UNSPECIFIED 07-19-2014 [facility] BACKACHE SERV FOUNDATION 7935 NONSPECIFIC 07-19-2014 [facility] ABN SERV FINDING RAD FOUNDATION & OTH EXAM ORGAN V222 07-19-2014 [facility] STATE, SERV INCIDENTAL FOUNDATION 00916 MATERNAL RX 06-26-2014 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 COMPL PG S LLC CB/PP UNS EOC 20564 TRIPLET 06-25-2014 [facility] [facility]TEPARTUM [facility] CARE 86868 OTHER 05-24-2014 [facility] SPECIFED N EMERGENCY COMPLICATIO PHYS N ANTEPARTUM 21097 HORDEOLUM 05-11-2014 [facility] EXTERNUM N EMERGENCY PHYS 61372 NAUSEA WITH 02-19-2014 [facility] VOMITING N EMERGENCY PHYS 54246 ABDOMINAL 02-19-2014 [facility] PAIN, N EMERGENCY EPIGASTRIC PHYS 6825 CELLULITIS 02-06-2014 [facility] AND ABSCESS N EMERGENCY OF BUTTOCK PHYS 40782 UNSPECIFIED 01-23-2014 [facility] N EMERGENCY CONJUNCTIVI PHYS TIS 08838 NAUSEA 01-19-2014 [facility] ALONE N EMERGENCY PHYSI 03487 ABDOMINAL 01-19-2014 [facility] PAIN, N EMERGENCY GENERALIZED PHYSI 33201 OTHER 12-24-2013 [facility] DISEASES OF SPLEEN 5738 OTHER 12-24-2013 [facility] SPECIFIED DISORDERS OF LIVER 19033 ABDOMINAL 12-24-2013 MELANIA FAYETTE PAIN, URBAN UNSPECIFIED COGOVT SITE 13363 DIARRHEA 11-03-2013 [facility] SCO 11321 ABDOMINAL 11-03-2013 [facility] PAIN, LEFT SCO UPPER QUADRANT V7231 ROUTINE 11-03-2013 [facility] AL EXAMINATION 70809 OTHER CHEST 10-31-2013 GOYAL LUBNA PAIN 6264 IRREGULAR 10-27-2013 [facility] MENSTRUAL PARTNERS CYCLE GROUP, 4619 ACUTE 09-09-2010 [facility] SINUSITIS, HEALTHCARE UNSPECIFIED CENTER 462 ACUTE 09-09-2010 [facility] PHARYNGITIS [facility] CENTER 89928 ESOPHAGEAL 07-31-2010 [facility] 44571 OTHER 07-31-2010 [facility] [place] INC FATIGUE 7948 NONSPECIFIC 07-31-2010 [facility] ABNORMAL [place] INC RESULTS LIVR FUNCTION STUDY 42633 TOBACCO USE 07-17-2010 CRYSTAL JAM D/O COMP PG CHILDBIRTH/ PP DELIVERED 44308 PREV C/S 07-17-2010 [facility] DELIV DELIV W/WO MENTION ANTPRTM COND V237 INSUFFICIEN 07-17-2010 [facility] T CARE V270 OUTCOME OF 07-17-2010 [facility] DELIVERY SINGLE LIVEBORN V072 NEED FOR 06-19-2010 [facility] PROPHYLACTI C IMMUNOTHERA PY V2889 OTHER 06-16-2010 [facility] SPECIFIED [place] INC SCREENING 7231 CERVICALGIA 08-04-2009 [facility] 7241 PAIN IN 08-04-2009 [facility] SPINE 7242 LUMBAGO 08-04-2009 [facility] E9270 OVEREXERTIO 08-04-2009 [facility] N FROM SERV SUDDEN FOUNDATIO STRENUOUS MOVEMENT 12368 ABDOMINAL 04-30-2009 [place] PAIN, HOSPITAL PERIUMBILIC 14381 ABDOMINAL 04-30-2009 [facility] SPECIFIED SITE 460 ACUTE 04-17-2009 [facility] ITIS & INTER 21077 OTHER 04-15-2009 [facility] PAIN PHYS PSC 8472 LUMBAR 04-06-2009 [facility] SPRAIN AND CARE STRAIN PHYSICANS [place] PSC 5781 BLOOD IN 03-22-2009 [facility] STOOL [facility]ICS & INTER 5693 HEMORRHAGE 03-19-2009 [facility] 91759 OTHER 01-12-2009 HROMY[facility], SPECIFIED KIAN, AND DISORDER OF ASSOCIATES KIDNEY AND URETER 10263 OTHER ACUTE 01-01-2009 [facility] EPSTEIN Leon POSTOPERATI VE PAIN 72114 UNSPECIFIED 01-01-2009 CY EPSTEIN CONSTIPATIO N V242 ROUTINE 01-01-2009 VERA EPSTEIN FOLLOW-UP 97596 GENLY 12-24-2008 MELANIA CARBALLO CONTRACTED URBAN [place] [address] PREMATURE 12-24-2008 [facility] RUPTURE SERV MEMBRANES FOUNDATIO ANTEPARTUM 05085 OTHER 12-23-2008 MELANIA FAYETTE THREATENED URBAN LABOR [place] UNSPEC EPISODE CARE 47164 OTHER 12-23-2008 [facility] THREATENED N EMERGENCY LABOR, PHYS INC ANTEPARTUM V726 LABORATORY 12-03-2008 LAB KATIE EXAMINATION [employer] 4550 INTERNAL 09-28-2008 [facility] HEMORRHOIDS CARE WITHOUT PHYSICANS MENTION [place] PSC COMP 4553 EXTERNAL 09-28-2008 [facility] HEMORRHOIDS CARE WITHOUT PHYSICANS MENTION [place] PSC COMP 4556 UNSPEC 09-28-2008 [facility] HEMORRHOIDS [facility] WITHOUT MENTION COMPLICATIO N 4659 ACUTE URIS 09-28-2008 [facility] UNSPECIFIED SITE 7862 COUGH 09-28-2008 [facility] 4660 ACUTE 09-27-2008 [facility] BRONCHITIS N EMERGENCY PHYS INC V745 SCREENING 09-04-2008 PATHOLOGY & EXAMINATION CYTOLOGY FOR LAB VENEREAL DISEASE 56879 OT CURRENT 08-06-2008 [facility] ANTPR Medications Na ND Rx Da Fi Fi Am Da Di Ph RX Ph St me C No te ll ll ou ys ag ar # ys at rm s nt no ma ic us Or Da si cy ia de te s n re d BU 69 07 08 60 30 00 HO Ac TX 09 -2 -2 .0 00 ME ti [...] 05 06 30 30 00 HO Ac TX 09 -0 -0 .0 00 ME ti [...] 01 02 23 13 00 HO Ac TX 09 -1 -1 .0 00 ME ti EN 35 0- 0- 00 04 TO ve OR 72 20 20 02 WN PH 15 17 17 09 IN 6 66 PH -N AR AL MA OX CY ON OF 8- 2 CY MG NT HI SL AN A BU 01 02 30 30 00 HO Ac TX 00 -0 -0 .0 00 ME ti OP 10 3- 3- 00 06 TO ve IO 19 20 20 07 WN N 90 17 17 87 HC 0 33 PH L AR 75 MA CY MG OF TA BL CY ET NT HI AN A BU 00 12 01 27 15 00 HO Ac TX 09 -2 -2 .0 00 ME ti [...] 12 01 38 19 00 HO Ac TX 09 -0 -1 .0 00 ME ti EN 35 8- 3- 00 04 TO ve OR 72 20 20 02 WN PH 15 16 17 05 IN 6 67 PH -N AR AL MA OX CY ON OF 8- 2 CY MG NT HI SL AN A BU 00 12 01 6. 3 00 HO Ac TX 09 -0 -0 00 00 ME ti [...] 2 60 30 HO 60 SO Ac TX 59 -2 -2 .0 ME 16 LI ti OP 13 TO 71 EN ve IO 54 20 20 WN 6 N 16 11 11 AR HC 0 PH YL L AR S SR MA K CY 15 0 MG TA BL ET PR 13 04 04 2 30 30 HO [...] MG MA K CY TA BL ET TX 37 01 04 3 30 30 HO [...] MG MA K CY TA BL ET TX 37 01 03 3 30 30 HO [...] -2 MA CY MG SL FI LM TX 37 01 02 3 30 30 HO [...] CE 1 #9 ME TA 63 S PR 1 E NO # PH 96 EN [...] CE 1 CY ME TA # S PR E NO 02 PH 33 EN 2 [...] 0 2 MG CA PS UL E TX 68 02 02 5 30 30 CV [...] 3- 3- 00 PH 37 LL ve TX 01 20 20 AR AM 10 11 [...] 33 10 2 MG TA BL ET TX 37 01 01 3 30 30 HO [...] 02 MG 33 2 TA BL ET TX 68 01 01 5 30 30 CV [...] ST ZA 81 09 09 PH EV TX 0 AR EN IN M J E [...] VIKKI 1 CY EL A 23 32 TX 37 10 10 00 28 28 CV [...] AR NT ZA 11 09 09 MA TX 0 CY SC IN OT E 23 [...] MG 32 A CA PS UL E PR 50 08 08 00 1. 1 TH [...] 00 30 15 RI 39 CA Ac TX 76 -2 -1 .0 TE 46 MP [...] 9- 6- 00 PH 77 LA ve TX 01 20 20 AR Y AM 10 09 09 MA LI 5 CY LL HB IA R 23 N 40 32 MG TA BL ET DE 00 07 07 00 60 28 CV 25 SH Ac SI 78 -0 -1 .0 S 51 IP ti TX 11 8- 6- 00 PH 77 P [...] 20 AR HAYS 00 09 09 MA PR LF 1 CY NC AT CHAU E 23 32 32 5 MG TA BL ET TX 65 07 07 00 30 30 CV 25 PA Ac EN 16 -1 -1 .0 S 59 RK ti AT 20 0- 6- 00 PH 12 ER ve AL 66 20 20 AR [address] 0 CY NC US CHAU 23 TA 32 BL ET SE 59 03 07 03 15 30 CV 22 PA Ac RT 76 -3 -1 .0 S 24 RK ti RA 24 0- 6- 00 PH 00 ER ve LI 91 20 20 AR NE 00 09 09 MA PR 5 CY NC HC CHAU L 23 10 32 0 MG TA BL ET SE 59 03 06 02 15 30 CV 22 PA Ac RT 76 -3 -1 .0 S 24 RK ti RA 24 0- 8- 00 PH 00 ER ve LI 91 20 20 AR NE 00 09 09 MA PR 5 CY NC HC CHAU L 23 10 32 0 MG TA BL ET TX 00 05 06 00 30 5 CV 24 No Ac OM 78 -2 -0 .0 S 19 t ti ET 11 7- 4- 00 PH 62 Av ve CHAU 83 20 20 AR ai ZI 00 09 09 MA la NE 1 CY bl e 25 23 32 MG TA BL ET TX 00 03 05 01 20 5 CV 22 PA Ac OM 78 -3 -0 .0 S 24 RK ti ET 11 0- 7- 00 PH 01 ER ve CHAU 83 20 20 AR ZI 00 09 09 MA PR NE 1 CY NC CHAU 25 23 32 MG TA BL ET 00 03 05 01 15 30 CV 22 PA Ac 09 -3 -0 .0 S 24 RK ti 37 0- 7- 00 PH 00 ER ve 17 20 20 AR 75 09 09 MA PR 6 CY NC CHAU 23 32 LO [...] 20 AR ZA 11 09 09 MA PR TX 0 CY NC IN CHAU E 23 10 32 MG TA BL ET 00 03 04 00 15 30 CV 22 PA Ac 09 -3 -0 .0 S 24 RK ti 37 0- 9- 00 PH 00 ER ve 17 20 20 AR 75 09 09 MA PR 6 CY NC CHAU 23 32 CY 00 03 04 00 20 6 CV 22 PA Ac CL 37 -3 -0 .0 S 24 RK ti OB 80 0- 9- 00 PH 02 ER ve EN 75 20 20 AR ZA 11 09 09 MA PR TX 0 CY NC IN CHAU E 23 10 32 MG TA BL ET TX 00 03 04 00 20 5 CV 22 PA Ac OM 78 -3 -0 .0 S 24 RK ti ET 11 0- 9- 00 PH 01 ER ve CHAU 83 20 20 AR ZI 00 09 09 MA PR NE 1 CY NC CHAU 25 23 32 MG TA BL ET Procedures Procedure DOS Code Location Performer Comment 02064 [facility] HARPEL NONSTRESS 7 PHYSICIAN TEST S GROUP US PREG 33392 YAZMIN LEI UTERUS 7 MEDICAL AFTER 1ST [place] P[place] [address] [facility] RODRIGUE[facility] UTERUS 7 [facility] W/DETAIL INC INC YEFRI 1ST GESTATION CYTP C/V 00135 [facility] AUTO THIN 7 LLC ER JR LYR PREPJ SCR MNL RESCR PHYS IADNA 33596 [facility] NEISSERIA 7 LLC ER JR GONORRHOE AE AMPLIFIED PROBE TQ IADNA 41465 [facility], [facility] CHLAMYDIA 7 LLC ER [place] [address] YAZMIN NICK 7 MEDICAL UTERUS IMAGING LIMITED ASS 1/> [place]ETUSES US PREG 27285 [facility]EL RODRIGUEZ UTERUS 7 [facility] AFTER 1ST INC INC TRIMEST GESTATION DRUG TEST 12201 [facility] NOEL PRSMV 7 PHYSICIAN QUAL DIR S GROUP OPTICAL OBS PER DAY URINE 02422 [facility] NOEL 7 PHYSICIAN TEST S GROUP VISUAL COLOR CMPRSN METHS URINE 92741 [facility] HARPEL 7 PHYSICIAN TEST S GROUP VISUAL COLOR CMPRSN METHS URINLS 09115 [facility] HARPEL DIP 7 PHYSICIAN STICK/TAB S GROUP LET REAGNT NON-AUTO MICRSCPY CULTURE 32182 [facility] HARPEL CHLAMYDIA 7 PHYSICIAN ANY S GROUP SOURCE IADNA 07733 [facility] HAR[facility]L HERPES 7 PHYSICIAN SIMPLX S GROUP VIRUS DIRECT PROBE TQ IADNA 11538 [facility] HARPEL NEISSERIA 7 PHYSICIAN S GROUP GONORRHOE AE DIRECT PROBE TQ IAADIADOO 11977 [facility] HARPEL 7 PHYSICIAN TRICHOMON S GROUP VAGINALIS GONADOTRO 51567 [facility] RODRIGUEZ PIN 7 MEM HOS[facility] MEM HOSP CHORIONIC INC INC QUALITATI VE URINE 00718 [facility] DEPT HLTH DEPT VISUAL [place] [address] [facility]BDOMEN & 6 MEDICAL PELVIS IMAGING W/O ASS CONTRAST MATERIAL GONADOTRO 49873 MICHAEL RODRIGUEZ PIN 6 [facility] CHORIONIC INC INC QUANTITAT JI DRUG TST G0477 [facility] R[facility] PRESUMP;C 6 [facility] PBL BEING INC INC READ DC OPT OBV ONLY SMR PRIM 78558 [facility] RODRIGUEZ SRC WET 6 [facility] MOUNT INC INC NFCT AGT URINE 61194 [facility] RODRIGUEZ 6 [facility] TEST INC INC VISUAL COLOR CMPRSN METHS COMPREHEN 27931 MICHAEL MICHAEL SIVE 6 MEM HOSP MEM HOS[facility] METABOLIC INC INC PANEL BLOOD 52643 [facility]EL RODRIGUEZ COUNT 6 [facility] COMPLETE INC INC AUTO&AUTO DIFRNTL WBC HYSTEROSC 22030 [facility] OPY BX 6 PHYSICIAN PHYSICIAN ENDOMETRI S GROUP S GROUP UM&/POLYP C W/[place] D&[place] [address] P&C LAB[facility], [facility]&ERICK ROSCOPIC EXAM ANESTHESI 12978 [facility] JOSE A 6 ANESTH INTRAPERI OF THE TONEAL BLUE LOWER ABD W/LAPS NOS LAPS ABD 05197 [facility] PRTM&OMEN 6 PHYSICIAN NATACHA ZAIDA DX S GROUP W/WO SPEC BR/WA SPX COLLECTIO 37515 MICHAEL RODRIGUEZ N VENOUS 6 [facility] BLOOD INC INC VENIPUNCT URE GONADOTRO 06718 MICHAEL RODRIGUEZ PIN 6 [facility] CHORIONIC INC INC QUALITATI VE SMR PRIM 43120 [facility] SRC WET 6 PHYSICIAN NATACHA [facility] GROUP NFCT AGT BLOOD 35120 MICHAEL RODRIGUEZ COUNT 6 [facility] COMPLETE INC INC AUTO&AUTO DIFRNTL WBC URINE 89889 [facility] 6 PHYSICIAN NATACHA TEST S GROUP VISUAL COLOR CMPRSN METHS URINE 95219 [facility] 6 PHYSICIAN NATACHA TEST S [place] [address] [place] DO TRANSVAGI 6 MEDICAL ANCA NAL IMAGING ASS IADNA 06524 BIO BIO CHLAMYDIA 6 REFERNCE REFERNCE LABORATOR LABORATOR TRACHOMAT IES IES IS AMPLIFIED PROBE TQ IADNA 37119 BIO BIO NEISSERIA 6 REFERNCE REFERNCE LABORATOR LABORATOR GONORRHOE IES IES AE AMPLIFIED PROBE TQ IADNA 79131 [facility] CHAPPELL NEISSERIA 6 SIERRAPEKarl MAYS BET GONORRHOE AE DIRECT PROBE TQ IADNA NOS 26741 BIO BIO 6 REFERNCE REFERNCE AMPLIFIED LABORATOR LABORATOR PROBE TQ IES IES EACH ORGANISM REMOVAL 46157 VENKATES[facility] DUMAS INTRAUTER 6 ALESIA MAYS NATACHA INE DEVICE IUD IADNA 86194 BIO BIO TRICHOMON 6 REFERNCE REFERNCE LABORATOR LABORATOR VAGINALIS IES IES AMPLIFIED PROBE TECH URINLS 11838 [facility] DUMAS DIP 6 ALESIA MAYS NATACHA STICK/TAB LET REAGNT NON-AUTO MICRSCPY CULTURE 63200 VEN[facility] RIDDLE R CHLAMYDIA 6 ALESIA DUMAS MD ANY SOURCE CYTP C/V 27280 BIO BIO AUTO THIN 6 REFERNCE REFERNCE 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 PREPJ [place]CR [place] [address] MICHAEL RODRIGUEZ LIPASE 5 [place] [address] MICHAEL RODRIGUEZ AMYLASE 5 MEM [facility] INC GONADOTRO 45830 MICHAEL RODRIGUEZ PIN 5 [facility] CHORIONIC INC INC QUALITATI VE BLOOD 57630 MICHAEL RODRIGUEZ COUNT 5 [facility] COMPLETE INC INC AUTO&AUTO DIFRNTL WBC COMPREHEN 50371 MICHAEL RODRIGUEZ SIVE 5 [facility] METABOLIC INC INC PANEL URNLS DIP 25927 MICHAEL RODRIGUEZ 5 [facility] STICK/TAB INC INC LET REAGENT AUTO MICROSCOP Y DRUG SCR G0434 [facility] NOT 5 Y [facility]; ANY NUMBER PT ENC INSERTION 16185 [place] O'MULUGETA 5 MEDICAL BRADEN INTRAUTER SERV INE FOUNDATIO DEVICE N IUD RADIOLOGI 19906 [place] ERNST C EXAM 5 MEDICAL AYA MAR CHEST 2 SERV VIEWS FOUNDATIO FRONTAL&L N ATERAL ECG 39442 [place] CARMEN CHI ROUTINE 5 MEDICAL ECG SERV W/LEAST FOUNDATIO 12 LDS N I&R ONLY RADEX ABD 97049 [place] RAMAN COMPL 5 MEDICAL IRVIN AQT ABD SERV MALLORY W/S/E/D FOUNDATIO VIEWS 1 N VIEW CH RADIOLOGI 94990 [place] ARSENIO C 5 MEDICAL ERICK EXAMINATI SERV ON CHEST FOUNDATIO SINGLE N VIEW FRONTAL SBSQ 31624 [facility] 5 NURSE ALL CARE/DAY PRACTITIO 25 NER GR MINUTES SBSQ 45016 [facility] 5 MEDICAL CARE/DAY SERV 15 FOUNDATIO MINUTES N ECG 45171 [place] CARMEN CHI ROUTINE 5 MEDICAL ECG SERV W/LEAST FOUNDATIO 12 LDS N I&R ONLY SBSQ 07521 [facility] 5 NURSE ALL CARE/DAY PRACTITIO 35 NER GR MINUTES INITIAL 76043 [place] [facility] INPATIENT 5 MEDICAL CONSULT SERV NEW/ESTAB FOUNDATIO PT 80 N MIN BLOOD 91532 [facility] MIGDALIA SMEAR 5 Y OF NARENDRA PERIPHERA [place] [facility] PHYS W/WRIT REPORT RADIOLOGI 30232 [place] AYOOB AND C 5 MEDICAL EXAMINATI SERV ON CHEST FOUNDATIO SINGLE N VIEW FRONTAL RADIOLOGI 76952 [place] RAMAN C 5 MEDICAL IRVIN EXAMINATI SERV MALLORY ON CHEST FOUNDATIO SINGLE N VIEW FRONTAL ANESTHESI 15426 [place] A 5 MEDICAL MEDICAL SERV SERV DELIVERY FOUNDATIO FOUNDATIO ONLY N N 57992 [place] [facility] DELIVERY 5 MEDICAL LD AGA ONLY SERV FOUNDATIO N CRITICAL 35264 [facility] ZAHIRA NARENDRA CARE 5 NURSE ILL/INJUR PRACTITIO ED NER GR PATIENT INIT 30-74 MIN LEVEL V 74887 [facility] ASHBY MOL SURG 5 Y OF PATHOLOGY [place] GROSS&ERICK ROSCOPIC EXAM SUTURE OF 5781 [facility] 5 Y Y LACERATIO [facility] N OF BLADDER CENTRAL 3897 [facility] VENOUS [address] [facility] HOSPITAL PLACEMENT WITH GUIDANCE LOW 741 [facility] CERVICAL 5 Y Y [facility] SECTION ARTERIAL 3891 [facility] CATHETER 5 Y Y ZATION [facility] 82346 MD O'MULUGETA NONSTRESS 5 MEDICAL BRADEN TEST SERV FOUNDATIO N SBSQ 08538 [facility] 5 MEDICAL DORETHA CARE/DAY SERV 25 FOUNDATIO MINUTES N BLD BANK 37287 [facility] 5 [facility] H[facility] MATCH&/EV AL REP 53217 [facility] NONSTRESS 5 Y Y TEST HOSPITAL HOSPITAL 53446 [place] NONSTRESS 5 MEDICAL GERMAN TEST SERV FOUNDATIO N 08111 [place] [facility] 5 MEDICAL ELE AL SERV PROFILE FOUNDATIO W/O N NON-STRES S TESTING DOPPLER 66696 [place] [facility] VELOCIMET 5 MEDICAL LEE RY SERV UMBILICAL FOUNDATIO ARTERY N [place] PREG 37327 [place] [facility] UTERUS 5 MEDICAL LEE REAL TIME SERV F/U FOUNDATIO TRNSABDL N PER FETUS SBSQ 36883 [facility] 5 MEDICAL BRADEN CARE/DAY SERV 25 FOUNDATIO MINUTES N SBSQ 19285 [facility] 5 MEDICAL BRADEN CARE/DAY SERV 25 FOUNDATIO MINUTES N SBSQ 02133 [facility] 5 MEDICAL BRADEN CARE/DAY SERV 25 FOUNDATIO MINUTES N SBSQ 97554 [facility] 5 MEDICAL BRADEN CARE/DAY SERV 25 FOUNDATIO MINUTES N SBSQ 61631 [facility] 5 MEDICAL DORETHA CARE/DAY SERV 25 FOUNDATIO MINUTES N SBSQ 42627 [facility] 5 MEDICAL DORETHA CARE/DAY SERV 25 FOUNDATIO MINUTES N D BANK 31015 [facility] 5 Y OF DEN [facility] HOSPI MATCH&/EV AL REP DRUG SCR G0434 [facility] NOT 5 Y Y [facility]; ANY NUMBER [place] P[place] 86704 [place] [facility] UTERUS 5 MEDICAL LD AGA REAL TIME SERV F/U FOUNDATIO TRNSABDL N PER FETUS US PREG 77953 [facility] 5 Y Y AFTER 1ST HOSPITAL HOSPITAL TRIMEST GESTATION DOPPLER 58393 [place] [facility] VELOCIMET 5 MEDICAL LD [place] [address] [place] [facility] 5 MEDICAL LD AGA UTERUS SERV LIMITED FOUNDATIO 1/> [place] [address] [place] O'[facility]ULUGET[facility] 5 MEDICAL BRADEN UTERUS SERV LIMITED FOUNDATIO 1/> N FETUSES 46003 [place] [facility] NONSTRESS 5 MEDICAL LD AGA TEST SERV FOUNDATIO N SBSQ 28731 [place] [facility] 5 MEDICAL MEDICAL CARE/DAY SERV SERV 25 FOUNDATIO FOUNDATIO MINUTES N N US PREG 36295 [place] [facility] 5 MEDICAL LEE REAL TIME SERV W/IMAGE FOUNDATIO DCMTN N TRANSVAG [place] PREG 99453 [place] [facility] 5 MEDICAL LEE REAL TIME SERV F/U FOUNDATIO TRNSABDL N PER FETUS DRUG SCR G0434 [facility] 5 Y Y [facility]; [place] [address] [place] [facility] 5 MEDICAL LD AGA UTERUS SERV LIMITED FOUNDATIO 1/> N FETUSES US PREG 66511 [place] PH[place] UTERUS 5 MEDICAL DORETHA DETAIL SERV FOUNDATIO YEFRI EXAM N EA GESTAT US PREG 69316 [place] [facility] UTERUS 5 MEDICAL DORETHA W/DETAIL SERV FOUNDATIO YEFRI 1ST N GESTATION DOPPLER 92569 [place] VELOCIMET 5 MEDICAL DORETHA RY SERV UMBILICAL FOUNDATIO [place]ERY [place] PREG 86399 [place] [facility] UTERUS 5 MEDICAL DORETHA REAL TIME SERV W/IMAGE FOUNDATIO DCMTN N TRANSVAG DRUG SCR G0434 [facility] NOT 5 Y Y [facility]OG [facility]; ANY NUMBER PT ENC URINALYSI 68962 YAZMIN VELOUDIS S 5 PRIMARY JR [facility] SCR CARE XCPT CULTURE/[place] IPSTICK US PREG 25338 [facility] UNIVERS UTERUS 5 Y Y REAL TIME HOSPITAL HOSPITAL W/IMAGE DCMTN TRANSVAG US PREG 13822 [facility] UNIVERS UTERUS 5 Y Y AFTER 1ST HOSPITAL HOSPITAL [place]IMEST [place] PREG 56533 [facility] UTERUS > 5 Y Y 1ST HOSPITAL [place] [address] GINO BALDERASI 5 MEDICAL TONEAL SERV REAL TIME FOUNDATIO W/IMAGE N COMPLETE URINALYSI 82559 YAZMIN VELOUDIS S 5 PRIMARY JR [facility] SCR CARE XCPT CULTURE/D IPSTICK URINALYSI 83497 YAZMIN VELOUDIS S 5 PRIMARY JR [facility] SCR CARE XCPT CULTURE/D IPSTICK URINALYSI 06753 [facility] VEL[facility] S 5 PRIMARY JR [facility] IA SCR CARE XCPT CULTURE/[place] [address] [facility] VELOUDIS 5 PRIMARY JR REINALDO UTERUS 14 HEALTH WK CARE TRANSABDL GESTAT DRUG SCR G0434 YAZMIN VELOUDIS NOT 5 PRIMARY REINALDO CHROMATOG HEALTH RAPHIC; CARE ANY NUMBER [place] PREG 69487 YAZMIN VELOUDIS UTERUS 5 PRIMARY JR REINALDO REAL TIME HEALTH W/IMAGE CARE DCMTN TRANSVAG US PREG 52730 [facility] UTERUS 14 5 PRIMARY REINALDO WK HEALTH TRANSABDL CARE EACH GESTATION IADNA 07163 ASSOCIATE NOAM MARROQUIN HEPATITIS 5 D C QUANT PATHOLOGI & [place] [address] HUSSEIN POLLARD ABDOMEN & 4 PELVIS W/CONTRAS T MATERIAL GROUND A0425 MELANIA MELANIA MILEAGE 4 FAYETTE FAYETTE PER URBAN URBAN STATUTE COGOVT COGOVT MILE AMBULANCE A0429 MELANIA MELANIA SERVICE 4 FAYETTE FAYETTE BLS [facility]RB[facility] URBAN [place] [address] EKATERINA TOBAR ABDOMEN & 4 SERGIO PELVIS W/CONTRAS T MATERIAL CYTP C/V 94678 PICKLESIM PICKLESIM AUTO THIN 4 ER JR GENIE ER JR GENIE LYR PREPJ SCR MNL RESCR PHYS ECG 39869 JAY JAY GOYAL ROUTINE 4 LUBNA LUBNA ECG W/LEAST 12 LDS I&R ONLY GONADOTRO 76474 YAMIL LOBO PIN 4 LAB LAB CHORIONIC [employer] [employer] [facility], GROUP, [place] [address] YAMIL LOBO THYROID 4 LAB LAB STIMULATI [employer] NG GROUP, GROUP, [place] [address] YAMIL LOBO PROLACTIN 4 LAB LAB [facility] [employer], GROUP, IAADIADOO 11975 [facility] SOLIEN 1 [facility] CCUS GROUP A BLOOD 18136 LABONE OF LABONE OF COUNT 1 App in the Air [facility] COMPLETE AUTO&[place] [address] [facility] FAITH J TRACT 1 RADIOLOGY UPPER ASSOC W/WO DELAYED IMAGES W/O KUB ACUTE 01403 [facility] HEPATITIS [address] [facility] [employer] PANEL COMPREHEN 21738 [facility] SIVE 1 [facility] METABOLIC PANEL ANESTHESI 41265 EPISCOPALIAN MELIO JOSE A 1 ANESTHESI A PSC DELIVERY ONLY 49163 CRYSTAL CRYSTAL DELIVERY 1 JAM JAM ONLY W/POSTPAR ZAIDA CARE 69690 CRYSTAL CRYSTAL NONSTRESS 1 JAM JAM TEST INJECTION J2790 CRYSTAL CRYSTAL RHO D IG 1 JAM JAM HUMAN FULL DOSE 300 MCG CYTP C/V 36333 [facility] AUTO THIN 1 App in the Air [facility] LYR PREPJ SCR MNL RESCR PHYS US PREG 99249 CRYSTAL CRYSTAL UTERUS 1 JAM JAM AFTER 1ST TRIMEST 1/ GESTATION IADNA 21975 [facility] NEISSERIA 1 App in the Air [facility] GONORRHOE AE AMPLIFIED PROBE TQ CUL 76060 LAB[facility] OF LABONE OF PRSMPTV 1 [facility] PTHGNC ORGANISM SCRN W/COLONY ESTIMJ IADNA 27788 [facility] LAB[facility] CHLAMYDIA 1 [employer] [facility] TRACHOMAT IS AM[place] T[place] PREG 76372 CNTRL [place] CINDY BAR UTERUS 0 RADIOLOGY REAL TIME W/IMAGE DCMTN TRANSVAG GONADOTRO 03111 [facility] PIN 0 Y Y CHORIONIC [facility] QUALITATI VE CT PELVIS 58100 [place] REX[place], 9 MEDICAL SAMINA [place] [address] [facility] ABDOMEN 9 Y Y W/CONTRAS [facility] [address] [facility] LIPASE [address] BLOOD 47537 [facility] COUNT 9 Y Y COMPLETE [facility] AUTOMATED COMPREHEN 47147 [facility] SIVE 9 Y Y METABOLIC [facility] PANEL INJECTION J2405 [facility] 9 [facility] PER 1 MG URINE 99103 [facility] 9 Y Y TEST [facility] VISUAL COLOR CMPRSN METHS URNLS DIP 24975 [facility] 9 Y Y STICK/TAB [facility] LET REAGENT AUTO MICROSCOP Y INJECTION J2270 [facility] MORPHINE 9 Y Y SULFATE [facility] UP TO 10 MG NONINVASI 07665 [facility] VE 9 Y Y EAR/PULSE [facility] HOSPITAL OXIMETRY SINGLE DETER THERAPEUT 61713 [facility] IC 9 Y Y INJECTION [facility] IV PUSH EACH NEW DRUG URNLS DIP 88961 [facility] UNIVERS 9 Y Y STICK/TAB [facility] LET RGNT AUTO W/O MICROSCOP Y THER 83419 [facility] PROPH/DX 9 Y Y NJX IV HOSPITAL HOSPITAL PUSH SINGLE/1S T SBST/DRUG COLLECTIO 48050 [facility] N VENOUS 9 Y Y BLOOD [facility] VENIPUNCT URE GONADOTRO 30189 [facility] PIN 9 Y Y CHORIONIC [facility] QUALITATI VE IAADIADOO 61550 [facility] 9 AND INFLUENZA PEDIATRIC S & INTER RADEX 56641 [facility] WEN, SPINE 9 RADIOLOGY JOSE LUMBOSACR ASSOC C AL 2/3 VIEWS URINE 57103 [facility] CENTRAL 9 EPISCOPALIAN EPISCOPALIAN TEST HOSP HOSP VISUAL COLOR CMPRSN METHS URINE 10-16-200 06628 [facility] R[facility] 9 BRET TEST PEDIATRIC VISUAL S & INTER COLOR CMPRSN METHS URNLS DIP 03803 [facility] 9 BRET STICK/TAB PEDIATRIC LET RGNT S & INTER NON-AUTO W/O MICRSCP COMPREHEN 74914 LAB KATIE LAB KATIE SIVE 9 AMERIC AMERIC METABOLIC HOLDING HOLDING PANEL COLLECTIO 37693 [facility] N VENOUS 9 BRET BLOOD PEDIATRIC [place] & [place] [address] LAB KATIE LAB KATIE LIPASE 9 AMERIC AMERIC HOLDING HOLDING RADEX 51585 HRBRIDGETTE, KIAN, ABDOMEN 1 9 STEVE [employer] AND ANTEROPOS ASSOCIATE TERIOR S VIEW 58637 LUCIAN EPSTEIN, DELIVERY 9 BENOIT A BENOIT A ONLY W/POSTPAR ZAIDA CARE ANESTHESI 59112 [facility] Leon SHANNON 9 ANESTHESI [place] M A PSC DELIVERY ONLY AMNIOCENT 36067 LUCIAN EPSTEIN, RAMIROS 9 [place] [address] LUCIAN EPSTEIN, GUIDANCE 9 BENOIT A BENOIT A AMNIOCENT ESIS IMG S&I GROUND A0425 MELANIA MELANIA MILEAGE 9 FAYETTE FAYETTE PER URBAN URBAN STATUTE COGOVT COGOVT MILE URNLS DIP 75570 [facility] 9 Y Y STICK/TAB [facility] HOSPITAL LET RGNT AUTO W/O MICROSCOP Y IADNA 04563 [facility] CHLAMYDIA [address] [facility] TRACHOMAT IS AMPLIFIED PROBE TQ IADNA 19478 [facility] NEISSERIA [address] [facility] [place] [address] [facility] MONITORIN 9 Y Y G LABOR [facility] PHYS WRITTEN REPORT AMB A0427 MELANIA MELANIA SERVICE 9 FAYETTE FAYETTE ALS [facility]RB[facility] URBAN EMERGENCY COGOVT COGOVT TRANSPORT LEVEL 1 IADNA 38389 [facility] STREPTOCO 9 Y Y CCUS [facility] [place] [address] [place] MIGUEL[place] NONSTRESS 9 [place] [address] [place] MIGUEL, 9 MEDICAL TISH B UTERUS SERV LIMITED FOUNDATIO 1/> [facility] 64602 MAGDALENA NICHOLS, DISCHARGE 9 MAGLEN MAGDALENE MANAGEMEN T 30 MIN/< OBSERVATI 97403 [facility] ON CARE 9 [facility] DISCHARGE MANAGEMEN T AMB A0427 MELANIA MELANIA SERVICE 9 FAYETTE FAYETTE ALS [facility] EMERG[facility] COGOVT COGOVT TRANSPORT LEVEL [address] ONDANSETR ON HCL PER 1 MG THER 19046 [facility] PROPH/DX [address] [place] [address] NJX IV PUSH SINGLE/1S T SBST/DRUG INJECTION J[address] BUTORPHAN OL TARTRATE 1 MG GROUND A0425 MELANIA MELANIA MILEAGE 9 FAYETTE FAYETTE PER URBAN URBAN STATUTE COGOVT COGOVT MILE THERAPEUT 94088 [facility] IC [address] [place] [address] INJECTION IV PUSH EACH NEW DRUG URNLS DIP 62629 HORIZON SAGRARIO, 9 [facility] KYLE STICK/TAB E CENTER LET RGNT NON-AUTO W/O MICRSCP CUL 45874 LAB KATIE LAB KATIE PRSMPTV 9 AMERIC AMERIC PTHGNC HOLDING HOLDING ORGANISM SCRN W/COLONY ESTIMJ CULTURE 98199 LAB [facility] LAB KATIE TYPING 9 AMERIC AMERIC NUCLEIC HOLDING HOLDING [place] [address] LAB K[facility] LAB KATIE PHOSPHATA 9 AMERIC AMERIC SE HOLDING HOLDING ALKALINE BILIRUBIN 24225 LAB [facility] LAB [facility] DIRECT 9 AMERIC AMERIC HOLDING HOLDING BASIC 22872 LAB [facility] METABOLIC 9 AMERIC AMERIC PANEL HOLDING HOLDING CALCIUM TOTAL TRANSFERA 72252 LAB [facility] LAB KATIE SE 9 AMERIC AMERIC ASPARTATE HOLDING HOLDING AMINO AST SGOT TRANSFERA 59934 LAB [facility] LAB KATIE SE 9 AMERIC AMERIC ALANINE HOLDING HOLDING AMINO ALT SGPT BILIRUBIN 26121 LAB [facility] K[facility] TOTAL 9 AMERIC AMERIC HOLDING HOLDING ALBUMIN 74902 LAB [facility] K[facility]IE SERUM 9 AMERIC AMERIC PLASMA/WH HOLDING HOLDING OLE BLOOD BLOOD 04369 LAB K[facility]IE LAB KATIE COUNT 9 AMERIC AMERIC COMPLETE HOLDING HOLDING AUTO&AUTO DIFRNTL WBC GLUCOSE 05643 LAB [facility] LAB KATIE POST 9 AMERIC AMERIC GLUCOSE HOLDING HOLDING DOSE BLOOD 49433 LAB [facility] LAB KATIE TYPING 9 AMERIC AMERIC SEROLOGIC HOLDING HOLDING RH (D) ANTIBODY 32818 LAB [facility] LAB KATIE SCREEN 9 AMERIC AMERIC RBC EACH HOLDING HOLDING SERUM TECHNIQUE BLOOD 80177 LAB KATIE LAB KATIE TYPING 9 AMERIC AMERIC SEROLOGIC HOLDING HOLDING ABO URNLS DIP 69203 [facility] SAGRARIO, 9 [facility] KYLE STICK/TAB E CENTER LET RGNT NON-AUTO W/O MICRSCP URNLS DIP 28153 [facility] SAGRARIO, 9 [facility] KYLE STICK/TAB E CENTER LET RGNT NON-AUTO W/O MICRSCP IADNA 09116 PATHOLOGY PATHOLOGY NEISSERIA 9 & & CYTOLOGY CYTOLOGY GONORRHOE LAB LAB AE AMPLIFIED PROBE TQ IADNA 23952 PATHOLOGY PATHOLOGY CHLAMYDIA 9 & & CYTOLOGY CYTOLOGY TRACHOMAT LAB LAB IS AMPLIFIED PROBE TQ CYTP C/V 53435 PATHOLOGY PATHOLOGY AUTO THIN 9 & & LYR CYTOLOGY CYTOLOGY PREPJ SCR LAB LAB MNL RESCR PHYS SMR PRIM 66247 [facility] SAGRARIO, SRC WET 9 [facility] NFCT AGT URNLS DIP 78127 [facility]IZ[facility] SAGRARIO, 9 [facility] KYLE STICK/TAB E CENTER LET RGNT NON-AUTO W/O MICRSCP URINE 20036 [facility] SAGRARIO, 9 [facility] TEST E CENTER VISUAL COLOR CMPRSN METHS URINE 54283 [facility] 9 N N TEST [facility] COLOR CMPRSN METHS US PELVIC 23536 [facility] 9 N N NONOBSTET [facility] REAL-TIME IMAGE COMPLETE URNLS DIP 64700 [facility] 9 N N STICK/TAB [facility] REAGENT AUTO MICROSCOP Y COMPREHEN 01337 [facility] SIVE 9 N N [facility] URINALYSI 93970 [facility] S 9 N N MICROSCOP [facility] IC ONLY HOSPITAL HOSPITAL CUL BACT 61904 [facility] XCPT 9 N N URINE [facility] BLOOD/[facility] [place] [address] [facility] STREPTOCO 9 N N CCUS [facility] GROUP A [facility] HOSPITAL BLOOD 36710 [facility] COUNT 9 N N COMPLETE [facility] AUTO&AUTO [facility] DIFRNTL WBC GONADOTRO 17101 [facility] PIN 9 N N [facility] QUANTITAT JI Encounters Encounter Start End Date Code Location Performer Type Date HOSPITAL MICHAEL - 7 7 [facility] OUTPATIEN INC HOSPITAL MICHAEL - 7 7 [facility] OUTPATI[facility] T OFFICE 17488 [facility] PHYSICIAN T NEW 45 S GROUP MINUTES OFFICE 38870 [facility] 7 7 PHYSICIAN T VISIT S GROUP 25 MINUTES HOSPITAL MICHAEL - 7 7 [facility]P OUTPATIEN [facility] T EMERGENCY 11003 MICHAEL 7 7 [facility] HOSP DEPARTMEN INC T VISIT LOW/MODER SEVERITY EMERGENCY 21126 FABIAN PATEL 7 7 PHYSICIAN DEPARTMEN S, PLLC T VISIT MODERATE SEVERITY OFFICE 18899 [facility] OUTPATIEN 6 6 DISTRICT DISTRICT T NEW 10 HLTH DEPT HLTH DEPT MINUTES [facility] [facility] EMERGENCY 80315 FABIAN PATEL 6 6 PHYSICIAN ERICK DEPARTMEN S, PLLC T VISIT HIGH/URGE NT SEVERITY HOSPITAL MICHAEL - 6 6 [facility] OUTPATIEN INC T EMERGENCY 09929 FABIAN PATEL 6 6 PHYSICIAN ERICK DEPARTMEN S, PLLC T VISIT HIGH/URGE NT SEVERITY EMERGENCY 46139 MICHAEL 6 6 [facility] HOSP DEPARTMEN INC T VISIT MODERATE SEVERITY EMERGENCY 25908 FABIAN AGUILAREY 6 6 PHYSICIAN [facility], [facility] T VISIT HIGH/URGE NT SEVERITY EMERGENCY 12359 MICHAEL 6 6 MEM HOSP DEPARTMEN INC T VISIT LIMITED/M INOR PROB [facility] MICHAEL - 6 6 [facility]OSP OUTPATIEN [facility] MICHAEL - 6 6 [facility] OUTPATIEN INC T OFFICE 17211 [facility] OUT[facility] 6 6 PHYSICIAN NATACHA T VISIT S GROUP 25 MINUTES OFFICE 63862 [facility] OUT[facility] 6 6 PHYSICIAN NATACHA T VISIT S GROUP 25 MINUTES OFFICE 59518 [facility] OUTPATIEN 6 6 PHYSICIAN NATACHA T VISIT S GROUP 15 MINUTES INITIAL 39064 [facility] PREVENTIV 6 6 [place] MAYS NATACHA E MEDICINE NEW PT AGE 18-39YRS OFFICE 01176 [facility] AMANDA OUTPATIEN 6 6 PHYSICIAN ERICK T VISIT S GROUP 15 MINUTES OFFICE 06860 [facility] OUTPATIEN 6 6 PHYSICIAN ERCIK T NEW 20 S GROUP MINUTES HOSPITAL MICHAEL - 5 5 [facility] T EMERGENCY 97805 FABIAN PATEL 5 5 PHYSICIAN [facility] T VISIT HIGH/URGE NT SEVERITY EMERGENCY 54491 MICHAEL 5 5 [facility] T VISIT LOW/MODER SEVERITY OFFICE 00940 [place] OUTPATIEN 5 5 MEDICAL T VISIT SERV 25 FOUNDATIO MINUTES N HOSPITAL [facility] - 5 5 Y OUTPATIEN HOSPITAL T OFFICE 78568 [facility] OUTPATIEN 5 5 Y T VISIT 5 HOSPITAL MINUTES OFFICE 72483 [place] [facility] OUTPATIEN 5 5 MEDICAL LD AGA T VISIT SERV 15 FOUNDATIO MINUTES N OFFICE 03994 UNIVERSIT OUTPATIEN 5 5 Y T VISIT 5 [facility] 5 [facility] OFF[place] 57195 [place] [facility] 5 5 MEDICAL LD AGA T VISIT SERV 15 FOUNDATIO MINUTES N OFFICE 427[facility] 89813 [place] OUTPATIEN 5 5 MEDICAL GERMAN T VISIT SERV 15 FOUNDATIO MINUTES N OFFICE 19861 [place] 5 5 MEDICAL LD AGA T VISIT SERV 15 FOUNDATIO MINUT[facility] N OFFICE 15344 [facility] 5 [facility] 13357 [place] OUTPATI[place] 5 5 MEDICAL LD AGA T VISIT SERV 15 FOUNDATIO MINUTES N OFFICE 07485 [place] OUTPATIEN 5 5 MEDICAL BRADEN T VISIT SERV 15 FOUNDATIO MINUTES N OFFICE 26888 [place] OUTPATI[place] 5 5 MEDICAL LD AGA T VISIT SERV 15 FOUNDATIO MINUTES N OFFICE 19430 [place] [facility] [facility] 5 5 MEDICAL BRADEN T VISIT SERV 15 [facility]ATIO MINUTES [facility] T V[facility] 5 [facility] MINUTES [place]ICE 60137 [place] OUTPATI[place] 5 5 MEDICAL LD AGA T VISIT SERV 15 FOUNDATIO MINUTES N OFFICE 02741 [place] OUTPATIEN 5 5 MEDICAL RBADEN T VISIT SERV 15 FOUNDATIO MINUTES N OFFICE 31570 UNIVERSIT OUTPATIEN 5 5 Y T VISIT 5 [facility] 98758 [place] 5 5 MEDICAL LD AGA T VISIT SERV 15 FOUNDATIO MINUTES N OFFICE 28620 [place] OUTPAT[place] 5 5 MEDICAL LD AGA T VISIT SERV 15 FOUNDATIO MINUTES N OFFICE 12112 [place]PAT[place] 5 5 MEDICAL LD AGA T VISIT SERV 15 FOUNDATIO MINUTES N OFFICE 36966 [place] OUTPATIEN 5 5 PRIMARY JR REINALDO T VISIT HEALTH 15 CARE [facility] 88451 [facility] MIGUEL OUTPATIEN 5 5 MEDICAL DIANE T VISIT SERV 15 FOUNDATIO MINUTES N OFFICE 53043 [place] OUTPATIEN 5 5 PRIMARY JR REINALDO T VISIT HEALTH 15 CARE MINUTES OFFICE 97783 [place] OUTPATIEN 5 5 PRIMARY JR REINALDO T VISIT HEALTH 15 CARE MINUTES OFFICE 87949 [place] OUTPATIEN 5 5 PRIMARY JR REINALDO T VISIT HEALTH 15 CARE MINUTES OFFICE 20043 [place] OUTPATIEN 5 5 PRIMARY JR REINALDO T NEW 60 HEALTH MINUTES CARE EMERGENCY 77783 [facility] MARITZA RICHTER 4 4 GISSELLE DEPARTMEN EMERGENCY T VISIT PHYS MODERATE SEVERITY EMERGENCY 67467 [facility] ANAMARIA 4 4 GISSELLE NARENDRA DEPARTMEN EMERGENCY T VISIT PHYS MODERATE SEVERITY EMERGENCY 72990 [facility] HEIDI JAM DEPT 4 4 GISSELLE VISIT EMERGENCY HIGH PHYS SEVERITY& THREAT FUNJ EMERGENCY 33145 [facility] HEIDI JAM 4 4 GISSELLE DEPARTMEN EMERGENCY T VISIT PHYS MODERATE SEVERITY EMERGENCY 63250 [facility] HEID[facility] JAM 4 4 GISSELLE DEPARTMEN EMERGENCY T VISIT PHYS MODERATE SEVERITY EMERGENCY 28618 [facility] HOANG DEPT 4 4 GISSELLE JOHANNY VISIT EMERGENCY HIGH PHYSI SEVERITY& THREAT FUNJ EMERGENCY 50000 GINO ROLLINS 4 4 MEDICAL [facility] SERV T VISIT FOUNDATIO HIGH/URGE N NT SEVERITY EMERGENCY 04701 MICHAEL RODRIGUEZ DEPT 4 4 SCO SCO VISIT HIGH SEVERITY& THREAT FUN EMERGENCY 34498 JAY JAY GOYAL DEPT 4 4 LUBNA LUBNA VISIT HIGH SEVERITY& THREAT FUNJ OFFICE 79788 [facility] SOLIEN OUTPATIEN 1 1 [facility] T VISIT E CENTER 15 MINUTES OFFICE 63799 CRYSTAL CRYSTAL OUTPATIEN 1 1 JAM JAM T VISIT 15 MINUTES OFFICE 16182 [facility] CRYSTAL OUTPATIEN 1 1 JAM JAM T VISIT 15 MINUTES OFFICE 13961 [facility] OUTPATIEN 1 1 JAM JAM T VISIT 15 MINUTES OFFICE 65889 [facility] OUTPATIEN 1 1 JAM JAM T VISIT 15 MINUTES OFFICE 87318 [facility] CR[facility] OUTPATIEN 0 1 JAM JAM T NEW 45 MINUTES [facility] UNIVERSIT 0 0 Y DEPARTMEN HOSPITAL T VISIT HIGH/URGE NT SEVERITY EMERGENCY 98802 UNIVERSIT DEPT 9 9 Y VISIT HOSPITAL HIGH SEVERITY& THREAT FUN HOSPITAL UNIVERSIT - 9 9 Y OUTPATI HOSPITAL T EMERGENCY 55520 GINO MASTER, 9 9 MEDICAL CRIAG T DEPARTMEN SERV T VISIT FOUNDATIO HIGH/URGE NT SEVERITY OFFICE 49956 DONA GAITAN OUTPATIEN 9 9 AND T VISIT PEDIATRIC 15 S & INTER MINUTES EMERGENCY 17049 [facility], 9 9 EMERGENCY [place] R DEPARTMEN PHYS PSC T VISIT MODERATE SEVERITY [facility]OSPITAL [facility] - 9 9 EPISCOPALIAN OUTPATIEN HOSP T EMERGENCY 91241 [facility], 9 9 [facility] PH[facility]ICANS MODERATE [place] SEVERITY [facility] - 9 9 [facility] EMERGENCY 75205 [facility] 9 9 [facility] DEPARTMEN T VISIT LOW/MODER SEVERITY OFFICE 93417 [facility] BRET T NEW 30 PEDIATRIC MINUTES S & INTER EMERGENCY 53947 ELIJAH SAUER 9 9 EMERGENCY - YORBA, DEPARTMEN SERVICES STEVIE T VISIT M HIGH/URGE ASSOCIATE NT S SEVERITY EMERGENCY 84809 [facility] 9 9 HOSPITAL DEPARTMEN T VISIT LOW/MODER SEVERITY EMERGENCY 36580 [facility], 9 9 GISSELLE Barajas DEPARTMEN EMERGENCY T VISIT PHYS INC MODERATE SEVERITY HOSPITAL [facility] 45235 [facility], 9 9 [place]ISSEL[place] DEPARTMEN EMERGENCY T VISIT PHYS INC HIGH/URGE NT SEVERITY OFFICE 38758 [facility] T VISIT 25 MINUTES HOSPITAL [facility] - 9 [facility] 72864 [facility], DEPT 9 9 GISSELLE [place] VISIT EMERGENCY HIGH PHYS INC SEVERITY& THREAT FUNCJ EMERGENCY 59067 [facility] 9 9 [facility] T VISIT MODERATE SEVERITY HOSPITAL [facility] - 9 9 [facility] OFFICE 29327 [facility] OUTPATIEN 9 9 EAST T VISIT 5 MINUTES OFFICE 94761 [facility], OUTPATIEN 9 9 [facility] 15 MINUTES OFFICE 48247 [facility], OUTPATIEN 9 9 [facility] 15 MINUTES OFFICE 44056 [facility], OUTPATIEN 9 9 [facility] 15 MINUTES OFFICE 48715 [facility], OUTPATIEN 9 9 [facility] CENTER 15 MINUTES EMERGENCY 76009 [facility] 9 9 [facility] L T VISIT PHYSICANS MODERATE [place] SEVERITY [facility]PITAL [facility] - 9 9 [facility] EMERGENCY 73171 [facility] 9 9 [facility] T VISIT LIMITED/M INOR PROB EMERGENCY 26346 [facility], 9 9 [facility] EM[facility]ENC[facility] A T VISIT PHYS INC HIGH/URGE NT SEVERITY HOSPITAL [facility] - 9 9 N [facility] EMERGENCY 79872 [facility] 9 9 N [facility] T VISIT HOSPITAL MODERATE SEVERITY EMERGENCY 24690 [facility], 9 9 [facility] [facility] A T VISIT PHYS INC HIGH/URGE NT SEVERITY
--- OUTSIDE RECORDS SUMMARY | 2017-03-17 02:21 | External Medical Summary Rpt ---
Demographics Preferred Language Estonian Marital Status Unknown [employer] Affiliation Unknown Race Unknown Ethnic Group Unknown Author Author PATRICIA Address Unknown Phone Immunization No patient found.
--- OUTSIDE RECORDS SUMMARY | 2017-03-17 02:21 | External Medical Summary Rpt ---
Demographics Preferred Language Azeri Marital Status Unknown [employer] Affiliation Unknown Race Unknown Ethnic Group Unknown Author Author PATRICIA Address Unknown Phone Immunization No patient found.
== END 2017-02-25 12:15 | disposition home or self-care (01) | DRG 765 ==
LOC: OB 02:11 → EDSTATUS 07:30 → SDC 07:30 → OB 02-25 12:15
PROVIDERS: Nurse Practitioner Obstetrics & Gynecology
PROC: 10D00Z1 Extraction of Products of Conception, Low, Open Approach (ICD-10-PCS; principal; 2017-02-22 07:30)
DX: O34.211 Maternal care for low transverse scar from previous cesarean delivery (principal); F19.20 Other psychoactive substance dependence, uncomplicated; N85.8 Other specified noninflammatory disorders of uterus; Z3A.39 39 weeks gestation of pregnancy; Z37.0 Single live birth; Z79.899 Other long term (current) drug therapy; O99.320 Drug use complicating pregnancy, unspecified trimester
CPT/HCPCS: J2405; J2790; P9016

== ENCOUNTER 2017-05-12 10:24 | Emergency (ER) | payer BC, MEDICAID ==
[~2017-05-12] VITALS: Ht 154.9 cm; Wt 59.0 kg
[~2017-05-12 10:24] MED LIST changes: +HYDROMORPHONE2 MG PO; +IRON TABLETS325 MG PO; +MOTRIN 400MG.400 MG PO; +NICOTINE T21 MG/24 H TD
[2017-05-12] MEDS ORDERED: SUBOXONE 8 MG-21 FIL PO (10:37)
[2017-05-12] MEDS ORDERED: TAMIFLU 75MG CA75 MG PO (10:51)
--- OUTSIDE RECORDS SUMMARY | 2017-05-12 10:52 | External Medical Summary Rpt | CCD ---
Author Author , PATRICIA Organization PATRICIA Address Unknown Phone [email or web address] Care Team Providers Care System Dispatcher Name Role Phone ORLIN PRICE A, Unavailable Unavailable LESLY PRICEMAD A [facility] Unavailable [facility] Unavailable Unavailable LABORATORIES, [facility] Unavailable Unavailable & INTER, [facility] CY EPSTEIN, Unavailable Unavailable CY EPSTEIN TIMOTHY W, Unavailable Unavailable TAMMY MORALES, Unavailable Unavailable CRISTIANE EDMONDS PATRICK M [facility] Unavailable Unavailable [facility]OC, [facility] Unavailable Unavailable [facility] # [id number], [facility]available Unavailable [facility] # [id number] [facility] 2332, Unavailable Unavailable [facility] 2332 JAY JAY VALENZUELA Unavailable Unavailable RAMON KUMAR Unavailable Unavailable LYASMEEN LYNDA L [facility] Unavailable Unavailable [facility] VENKATESH DUMAS MD, Unavailable Unavailable VENKATESH DUMAS MD [facility], Unavailable Unavailable [facility] Un[facility], [facility] ALCON MORRISON, Unavailable Unavailable ALCON MORRISON [facility], Unavailable Unavailable [facility], Unavailable Unavailable [facility] Unavailable Unavailable CENTER, [facility] STEVE LANGSTON, Unavailable Unavailable STEVE LANGSTON [facility] Unavailable Unavailable [facility] [place] [place], [facility] Unavailable Unavailable [facility]ALTH CARE, [facility] NURSE Unavailable Unavailable PRACTITIONER JUNO, [facility] NURSE PRACTITIONER BLAKE GRAYSON, Unavailable Unavailable BLAKE ADEN [facility], Unavailable Unavailable [facility], [facility] Unavailable Unavailable HOLD[facility], [facility], Unavailable Unavailable [facility] HUSSEIN JAM, HUSSEIN JAM Unavailable Unavailable MELANIA FAYETTE [facility]AN Unavailable Unavailable COGOVT, MELANIA FAYETTE [facility] M[facility]IA F[facility] Unavailable Unavailable COGOVT, [facility] F[facility] MIGUEL, TISH B, Unavailable Unavailable MIGUEL, TISH B CRYSTAL JAM, CRYSTAL Unavailable Unavailable J[facility], [facility] Unavailable [facility]available [facility], Unavailable Unavailable PLL[facility], [facility] Unavailable Unavailable LAB, [facility] PICKLESIMER JR GENIE, Unavailable Unavailable PICKLESIMER JR GENIE [id number], Unavailable Unavailable [facility] Unavailable Unavailable [id number] # 0784, [facility] 69[address] # 0784 [employer] [facility] Unavailable Unavailable GROUP,, [facility], [facility] Unavailable Unavailable EMERGENCY PH[facility], [facility] Unavailable Unavailable EM[facility]ENCY [facility], [facility], Unavailable Unavailable [facility] LI ZHANG, Unavailable Unavailable LI ZHANG [facility], Unavailable Unavailable [facility], [facility] Unavailable Unavailable [facility], [facility]available Unavailable [facility] Unavailable Unavailable [facility] # Unavailable Unavailable 4892, [facility] # 4892 [facility] # Unavailable Unavailable 9631, [facility] # 9631 [facility] Unavailable Unavailable DEPT COLE, [facility] Purpose Continuity of Care Document - 08-06-2008 through 2016 Problems Code Diagnosis DOS Provider Status [id number] 02-12-2017 [facility] CONDITIONS [facility] UNS 3RD TRIMESTER O620 PRIMARY 02-12-2017 [facility]ATE [facility] CONTRACTION INC S Z3A37 37 WEEKS 02-12-2017 [facility] OF INC O4703 FALSE LABOR 01-28-2017 [facility] BEFORE 37 PHYSICIANS CMPLETE GROUP WEEKS GEST 3RD TRI O6003 01-28-2017 [facility] LABOR [facility] WITHOUT INC DELIVERY THIRD TRIMESTER Z3A35 35 WEEKS 01-28-2017 [facility] INC [id number] MAT CARE 01-22-2017 [facility] KNOWN/SUSP [facility] PLACNTL INC INSUFF 3RD TRI FET 1 [id number] MAT CARE 01-22-2017 [facility]WN/SUSP IMAGING ASS POOR FTL GRTH 3RD TRI UNS [id number] DECREASED 01-16-2017 [facility] MOVEMENTS INC THIRD TRIMESTER NA/UNS Z3A33 33 WEEKS 01-16-2017 [facility] OF INC [id number] DRUG USE 12-09-2016 [facility] COMPLICATIN PHYSICIANS G GROUP UNS TRIMESTER Z3480 ENC 12-09-2016 [facility] SUPERVISION PHYSICIANS OT NORMAL GROUP PREG UNS TRIMESTER Z36 ENCOUNTER 10-16-2016 [facility] ASS SCREENING OF MOTHER Z3A20 20 WEEKS 10-16-2016 [facility] GESTATION MEDICAL OF IMAGING ASS Z113 ENCOUNTER 10-12-2016 [facility] S[facility] INFECTIONS SEXL MODE TRANSMISSN S35008 UTERINE 09-03-2016 [facility] SIZE-DATE [facility] DISCREPANCY INC FIRST TRIMESTER Z3492 ENC 09-03-2016 [facility] SUPER[facility]ION MEDICAL NORMAL IMAGING ASS UNS 2 TRIMESTER Z3A14 14 WEEKS 09-03-2016 [facility] MEDICAL OF IMAGING ASS Z85720 DRUG USE 08-31-2016 [facility] COMPLICATIN PHYSICIANS G GROUP SECOND TRIMESTER Z3201 ENCOUNTER 08-31-2016 [facility] FOR PHYSICIANS GROUP TEST RESULT POSITIVE N925 OTHER 07-02-2016 [facility] SPECIFIED PHYSICIANS IRREGULAR GROUP MENSTRUATIO N Z3A01 LESS THAN 8 06-23-2016 [facility]ANS, GESTATION PLLC OF Z720 TOBACCO USE 06-23-2016 [facility] INC 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 [facility] CURRENT USE [facility]OS[facility] OF OPIATE INC ANALGESIC I10 ESSENTIAL 04-23-2016 [facility] HYPERTENSIO INC N R635 ABNORMAL 04-23-2016 [facility] WE[facility]IN [facility]YS[facility]IANS, PLLC Z3189 ENCOUNTER 04-23-2016 [facility] OTHER DISTRICT PROCREATIVE HLTH DEPT MANAGEMENT COLE Z3202 ENCOUNTER 04-23-2016 [facility] DEPT TEST RESULT COLE NEGATIVE K5900 CONSTIPATIO 02-20-2016 [facility] N PHYSICIANS, UNSPECIFIED PLLC R1030 LOWER 02-20-2016 [facility] ABDOMINAL PHYSICIANS, PAIN PLLC UNSPECIFIED R1084 GENERALIZED 01-25-2016 [facility] ABDOMINAL [facility], PAIN PLLC N809 ENDOMETRIOS 12-17-2015 [facility] IS ANESTH OF UNSPECIFIED THE BLUE N8320 UNSPECIFIED 12-17-2015 [facility] OVARIAN PHYSICIANS CYSTS GROUP N840 POLYP OF 12-17-2015 [facility] CORPUS PHYSICIANS UTERI GROUP R102 PELVIC AND 12-17-2015 [facility] PERINEAL [facility] PAIN N736 FEMALE 12-13-2015 [facility] PERITONEAL INC ADHESIONS POSTINFECTI VE N761 SUBACUTE 12-13-2015 [facility] AND CHRONIC PHYSICIANS VAGINITIS GROUP O62250 ENCOUNTER 12-13-2015 [facility] FOR [facility] PREPROCEDUR INC AL LABORATORY EXAM B71625 ENCOUNTER 09-30-2015 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 EXAM ALESIA MAYS GENERAL RTN W/ABNORMAL FIND W78410 ENCOUNTER 09-30-2015 BIO WOOD FLOORING SPECIALIST EXAM REFERNCE GENERAL RTN LABORATORIE W/O S ABNORMAL FIND D79709 ENCOUNTER 09-30-2015 VENKATESH Wood ROUTINE ALESIA MAYS CHECKING IU CONTRACEPT DEVICE Z309 ENCOUNTER 09-30-2015 VENKATESH Wood FOR ALESIA MAYS CONTRACEPTI VE MANAGEMENT UNS B1920 UNS VIRAL 09-16-2015 [facility] HEPATITIS C PHYSICIANS WITHOUT GROUP HEPATIC COMA M545 LOW BACK 09-16-2015 [facility] PAIN PHYSICIANS GROUP 06965 INCOMPLETE 03-06-2015 [facility] BL[facility] EMPTYING FOUNDATION V5869 LONG-TERM 02-20-2015 [facility] USE OF OTHER MEDICATIONS V5883 ENCOUNTER 02-20-2015 [facility] THERAPEUTIC DRUG MONITORING V2511 ENC FOR 01-23-2015 [facility] INSERTION SERV INTRAUTERIN FOUNDATION E CONTRACEPT DEVICE V2389 SUPERVISION 12-26-2014 [facility] OF OTHER SERV HIGH-RISK FOUNDATION 31977 OTHER 12-19-2014 [facility] OB TRAUMA COND/COMPL 5119 UNSPECIFIED 12-13-2014 [facility] PLEURAL [facility] EFFUSION [facility] 5180 PULMONARY 12-13-2014 [place] [facility]LLAPSE [facility] 7850 UNSPECIFIED 12-13-2014 [facility] TACHYCARDIA FOUNDATION 2859 UNSPECIFIED 12-09-2014 [facility] NURSE ANEMIA PRACTITIONE R GR 2875 UNSPECIFIED 12-09-2014 [facility] NURSE PRACTITIONE THROMBOCYTO R GR PENIA 4266 OTHER HEART 12-09-2014 [facility] BLOCK SERV [facility] 514 PULMONARY 12-09-2014 [facility] CONGESTION SERV AND [facility]OUNDATION HYPOSTASIS 5739 UNSPECIFIED 12-09-2014 [facility] [place] [address] SYSTEMIC 12-09-2014 [facility] NURSE INFLAMMATOR PRACTITIONE Y RESPONSE R GR SYNDROME UNSPEC 2760 HYPEROSMOLA 12-08-2014 [facility] [place]ITY [place] [address] OTHER SPEC 12-08-2014 [facility] BLOOD&BLOOD HOSPI -FORMING ORGANS 5849 ACUTE 12-08-2014 [facility] KIDNEY SERV FAILURE [facility]OUND[facility] UNSPECIFIED 5881 NEPHROGENIC 12-08-2014 [facility] DIABETES SERV INSIPIDUS FOUNDATION 24321 CHEST PAIN 12-08-2014 [facility] UNSPECIFIED SERV FOUNDATION 2762 ACIDOSIS 12-07-2014 [facility] NURSE PRACTITIONE R GR 5601 PARALYTIC 12-07-2014 [facility] ILEUS SERV [facility] 17956 ERLY ONSET 12-07-2014 [facility] DELIV DELIV [facility] W/WO HOSPI MENTION ANTPRTM COND 59969 LIVER 12-07-2014 [facility] BILIARY SERV TRACT D/O FOUNDATION PREG DEL W/WO ANTPRTM 57232 MATERNAL 12-07-2014 [facility] DRUG SERV DEPENDENCE FOUNDATION WITH DELIVERY 80153 TWIN 12-07-2014 [facility] , SERV DELIVERED FOUNDATION 58825 OTH 12-07-2014 [facility] CONDS HOSPI AFFECT MANAGEMENT MOTH DELIV 15007 C/S DELIV 12-07-2014 [facility] W/O INDICAT [facility] DELIV W/WO HOSPI ANTPRTM COND 19463 POLYURIA 12-07-2014 [facility] NURSE PRACTITIONE R GR V272 OUTCOME OF 12-07-2014 [facility] DELIVERY SERV TWINS BOTH FOUNDATION LIVEBORN V5881 FITTING AND 12-07-2014 [facility] ADJUSTMENT SERV OF FOUNDATION VASCULAR CATHETER 01845 THREATENED 12-06-2014 [facility] PREMATURE SERV LABOR FOUNDATION ANTEPARTUM 94257 UNSPECIFIED 12-06-2014 [facility] ANTEPARTUM SERV RENAL FOUNDATION DISEASE 2535 DIABETES 12-05-2014 [facility] 2866 DEFIBRINATI 12-05-2014 [facility] 5718 OTHER 12-05-2014 [facility] NONALCOHOLI C LIVER DISEASE 83812 RHESUS 12-05-2014 [facility] ISOIMMUNIZA [facility] [place] [address] SYS INFLAM 12-05-2014 [facility] SYND-NON-IN F W/O ACUTE ORGN DYSF 28101 TOB USE D/O 11-26-2014 [facility] COMP PG [facility] /PP ANTEPARTM COND/COMP 16185 MATERNAL 11-23-2014 [facility] DRUG SERV DEPENDENCE FOUNDATION ANTEPARTUM 54019 TWIN 11-23-2014 [facility] , SERV ANTEPARTUM FOUNDATION 41806 CERVICAL 11-21-2014 [facility] SHORTENING SERV ANTEPARTUM FOUNDATION CONDITION OR COMP V9102 TWIN GEST 11-21-2014 [facility] MONOCHORION SERV IC/DIAMNIOT FOUNDATION IC V221 SUPERVISION 10-24-2014 [facility] NORMAL V284 10-24-2014 [facility] SCR SERV GROWTH FOUNDATION RETARDATION USING US V239 UNSPECIFIED 10-17-2014 [facility] HIGH-RISK SERV FOUNDATION 58752 CERVICAL 10-10-2014 [facility] INCOMPETENC SERV E ANTPRTM FOUNDATION COND/COMPLI CATION 11309 TWIN 10-03-2014 [facility] SERV UNSPECIFIED FOUNDATION TO EPISODE OF CARE 31870 PREVIOUS 09-28-2014 [facility] C-SECT SERV DELIVERY FOUNDATION ANTPRTM COND/COMP V9103 [facility] GEST 09-12-2014 [facility] /DIAMNIOTIC V2881 ENCOUNTER 08-29-2014 [facility] FOR SERV ANATOMIC FOUNDATION SURVEY 5733 UNSPECIFIED 07-26-2014 [facility] 57727 BN&JNT D/O 07-19-2014 [facility] MAT BACK SERV PELVIS&LW FOUNDATION LIMBS ANTEPARTUM 7245 UNSPECIFIED 07-19-2014 [facility] BACKACHE SERV FOUNDATION 7935 NONSPECIFIC 07-19-2014 [facility] ABN SERV FINDING RAD FOUNDATION & OTH EXAM ORGAN V222 07-19-2014 [facility] STATE, SERV INCIDENTAL FOUNDATION 59734 MATERNAL RX 06-26-2014 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 COMPL PG S LLC CB/PP UNS EOC 48925 TRIPLET 06-25-2014 [facility] , [facility]IMARY ANTEPARTUM [facility] CARE 49972 OTHER 05-24-2014 [facility] SPECIFED N EMERGENCY COMPLICATIO PHYS N ANTEPARTUM 35394 HORDEOLUM 05-11-2014 [facility] EXTERNUM N EMERGENCY PHYS 51788 NAUSEA WITH 02-19-2014 [facility] VOMITING N EMERGENCY PHYS 30712 ABDOMINAL 02-19-2014 [facility] PAIN, N EMERGENCY EPIGASTRIC PHYS 6825 CELLULITIS 02-06-2014 [facility] AND ABSCESS N EMERGENCY OF BUTTOCK PHYS 07805 UNSPECIFIED 01-23-2014 [facility] N EMERGENCY CONJUNCTIVI PHYS TIS 23019 NAUSEA 01-19-2014 [facility] ALONE N EMERGENCY PHYSI 26260 ABDOMINAL 01-19-2014 [facility] PAIN, N EMERGENCY GENERALIZED PHYSI 41352 OTHER 12-24-2013 HUSSEIN LATRICE DISEASES OF SPLEEN 5738 OTHER 12-24-2013 HUSSEIN JAM SPECIFIED DISORDERS OF LIVER 47899 ABDOMINAL 12-24-2013 MELANIA FAYETTE PAIN, URBAN UNSPECIFIED COGOVT SITE 42959 DIARRHEA 11-03-2013 [facility] 81389 ABDOMINAL 11-03-2013 [facility] PAIN, LEFT SCO UPPER QUADRANT V7231 ROUTINE 11-03-2013 [facility] GYNECOLOGIC [facility] AL EXAMINATION 32610 OTHER CHEST 10-31-2013 GOY[facility] LUBNA PAIN 6264 IRREGULAR 10-27-2013 [employer] [facility] MENSTRUAL PARTNERS CYCLE GROUP, 4619 ACUTE 09-09-2010 [facility] SINUSITIS, HEALTHCARE UNSPECIFIED CENTER 462 ACUTE 09-09-2010 [facility] PHARYNGITIS HEALTHCARE CENTER 32502 ESOPHAGEAL 07-31-2010 [facility] 77997 OTHER 07-31-2010 [facility] [place] INC FATIGUE 7948 NONSPECIFIC 07-31-2010 [facility] ABNORMAL [place] INC RESULTS LIVR FUNCTION STUDY 96374 TOBACCO USE 07-17-2010 CRYSTAL JAM D/O COMP PG CHILDBIRTH/ PP DELIVERED 17160 PREV C/S 07-17-2010 CRYSTAL JAM DELIV DELIV W/WO MENTION ANTPRTM COND V237 INSUFFICIEN 07-17-2010 CRYSTAL JAM T CARE V270 OUTCOME OF 07-17-2010 CRYSTAL JAM DELIVERY SINGLE LIVEBORN V072 NEED FOR 06-19-2010 CRYSTAL JAM PROPHYLACTI C IMMUNOTHERA PY V2889 OTHER 06-16-2010 [facility] SPECIFIED [place] INC SCREENING 7231 CERVICALGIA 08-04-2009 [facility] 7241 PAIN IN 08-04-2009 [facility] SPINE 7242 LUMBAGO 08-04-2009 [facility] E9270 OVEREXERTIO 08-04-2009 [place] [facility] FROM SERV SUDDEN FOUNDATIO STRENUOUS MOVEMENT 92360 ABDOMINAL 04-30-2009 [facility] PAIN, HOSPITAL PERIUMBILIC 04506 ABDOMINAL 04-30-2009 [facility] PAIN OTHER HOSPITAL SPECIFIED SITE 460 ACUTE 04-17-2009 [facility] ITIS & INTER 92034 OTHER 04-15-2009 [facility] CHRONIC EMERGENCY PAIN PHYS PSC 8472 LUMBAR 04-06-2009 [facility] SPRAIN AND CARE STRAIN PHYSICANS BUCKNER PSC 5781 BLOOD IN 03-22-2009 [facility] STOOL [facility] & INTER 5693 HEMORRHAGE 03-19-2009 [facility] EMERGENCY AND ANUS SERVICES ASSOCIATES 27064 OTHER 01-12-2009 [place], SPECIFIED KIAN, AND DISORDER OF ASSOCIATES KIDNEY AND URETER 25373 OTHER ACUTE 01-01-2009 CY EPSTEIN POSTOPERATI VE PAIN 02542 UNSPECIFIED 01-01-2009 CY EPSTEIN CONSTIPATIO N V242 ROUTINE 01-01-2009 LUCIAN VERA CY Quintero FOLLOW-UP 94458 GENLY 12-24-2008 MELANIA HARIS CONTRACTED URBAN [place] [address] PREMATURE 12-24-2008 [place] [facility] RUPTURE SERV MEMBRANES FOUNDATIO ANTEPARTUM 43002 OTHER 12-23-2008 MELANIA FAYETTE THREATENED URBAN LABOR COG[place]T UNSPEC EPISODE CARE 88805 OTHER 12-23-2008 [facility] THREATENED N EMERGENCY LABOR, PHYS INC ANTEPARTUM V726 LABORATORY 12-03-2008 LAB K[facility] EXAMINATION [employer] 4550 INTERNAL 09-28-2008 [facility] HEMORRHOIDS CARE WITHOUT PHYSICANS MENTION BUCKNER PSC COMP 4553 EXTERNAL 09-28-2008 [facility] HEMORRHOIDS CARE WITHOUT PHYSICANS MENTION BUCKNER PSC COMP 4556 UNSPEC 09-28-2008 [facility] HEMORRHOIDS [facility] WITHOUT MENTION COMPLICATIO N 4659 ACUTE URIS 09-28-2008 [facility] UNSPECIFIED SITE 7862 COUGH 09-28-2008 [facility] 4660 ACUTE 09-27-2008 [facility] BRONCHITIS N EMERGENCY PHYS INC V745 SCREENING 09-04-2008 PATHOLOGY & EXAMINATION CYTOLOGY FOR LAB VENEREAL DISEASE 56942 OT CURRENT 08-06-2008 [facility] E ELSW ANTPRTM K59.00 CONSTIPATIO N, UNSPECIFIED R10.9 UNSPECIFIED ABDOMINAL PAIN R63.5 ABNORMAL WEIGHT GAIN S93.409A SPRAIN OF UNSP LIGAMENT OF UNSPECIFIED ANKLE, INIT ENCNTR Z33.1 STATE, INCIDENTAL Medications Na ND Rx Da Fi Fi Am Da Di Ph RX Ph St me C No te ll ll ou ys ag ar # ys at rm s nt no ma ic us Or Da si cy ia de te s n re d BU 00 10 12 60 30 00 HO Ac TN 59 -2 -0 .0 00 ME ti OP 13 6- 1- 00 06 TO ve IO 54 20 20 09 WN N 10 17 17 11 HC 5 02 PH L AR SR MA CY 15 0 OF MG CY TA NT BL HI ET AN A HAYS 62 10 12 9. 9 00 HO Ac MA 75 -3 -0 00 00 ME ti TR 60 0- 1- 0 06 TO ve IP 52 20 20 07 WN TA 06 17 17 63 N 9 08 PH HAYS AR CC MA CY 25 OF MG CY TA NT BL HI ET AN A FE 00 10 11 30 30 00 CL Ac RR 90 -2 -2 .0 00 IN ti OU 47 5- 4- 00 00 IC ve S 59 20 20 44 HAYS 08 17 17 33 PH LF 0 20 AR AT MA E CY 32 5 MG TA BL ET ME 59 10 11 1. [address] 76 -0 -0 00 00 IN ti OX 24 3- 3- 0 00 IC ve YP 53 20 20 44 RO 80 17 17 44 PH GE [address] MA ER CY ON E 15 0 MG /M L FE 00 09 10 30 30 00 CL Ac RR 90 -2 -2 .0 00 IN ti OU 47 1- 7- 00 00 IC ve S 59 20 20 44 HAYS 08 17 17 33 PH LF 0 20 AR AT MA E CY 32 5 MG TA BL ET IB 55 09 10 40 10 00 CL Ac UP 11 -2 -2 .0 00 IN ti RO 10 1- 7- 00 00 IC ve FE 68 20 20 44 N 20 17 17 33 PH 40 1 21 AR 0 MA MG CY TA BL ET NI 00 09 10 14 14 00 CL Ac CO 53 -2 -2 .0 00 IN ti TI 65 1- 7- 00 00 IC ve NE 89 20 20 44 68 17 17 33 PH 21 8 22 AR MA MG CY /2 4H R PA TC H BU 00 09 10 60 30 00 HO Ac TN 59 -2 -2 .0 00 ME ti OP 13 7- 7- 00 06 TO ve IO 54 20 20 09 WN N 10 17 17 11 HC 5 02 PH L AR SR MA CY 15 0 OF MG CY TA NT BL HI ET AN A ES 68 09 10 30 30 00 HO Ac CI 00 -2 -2 .0 00 ME ti TA 10 2- 7- 00 06 TO ve LO 19 20 20 07 WN TN 60 17 17 25 AM 3 74 PH AR 10 MA CY MG OF TA BL CY ET NT HI AN A BU 69 07 08 60 30 00 HO Ac TN 09 -2 -2 .0 00 ME ti [...] 05 06 30 30 00 HO Ac TN 09 -0 -0 .0 00 ME ti [...] PO HI WD AN A GA 68 05 06 90 30 00 HO Ac BA 00 -0 -0 .0 00 ME ti PE 10 9- 9- 00 06 TO ve NT 00 20 20 08 WN IN 70 17 17 65 3 54 PH 80 AR 0 MA MG CY TA OF BL ET CY NT HI AN A GA 68 04 05 90 [...] CY NT HI AN A GA 68 01 02 90 30 00 HO Ac BA 00 -1 -1 .0 00 ME ti PE 10 6- 7- 00 06 TO ve NT 00 20 20 07 WN IN 70 17 17 62 3 96 PH 80 AR 0 MA MG CY TA OF BL ET CY NT HI AN A BU 00 01 02 23 13 00 HO Ac TN 09 -1 -1 .0 00 ME ti EN 35 0- 0- 00 04 TO ve OR 72 20 20 02 WN PH 15 17 17 09 IN 6 66 PH -N AR AL MA OX CY ON OF 8- 2 CY MG NT HI SL AN A BU 68 01 02 30 30 00 HO Ac TN 00 -0 -0 .0 00 ME ti OP 10 3- 3- 00 06 TO ve IO 19 20 20 07 WN N 90 17 17 87 HC 0 33 PH L AR 75 MA CY MG OF TA BL CY ET NT HI AN A BU 00 12 01 27 15 00 HO Ac TN 09 -2 -2 .0 00 ME ti [...] 12 01 38 19 00 HO Ac TN 09 -0 -1 .0 00 ME ti EN 35 8- 3- 00 04 TO ve OR 72 20 20 02 WN PH 15 16 17 05 IN 6 67 PH -N AR AL MA OX CY ON OF 8- 2 CY MG NT HI SL AN A BU 00 12 01 6. 3 00 HO Ac TN 09 -0 -0 00 00 ME ti [...] 2 60 30 HO 60 SO Ac TN 59 -2 -2 .0 ME 16 LI ti OP 13 9- 9- 00 TO 71 EN ve IO 54 20 20 WN 6 N 16 11 11 AR HC 0 PH YL L AR S SR MA K CY 15 0 MG TA BL ET HI 13 04 04 2 30 30 HO [...] MG MA K CY TA BL ET TN 37 01 04 3 30 30 HO [...] MG MA K CY TA BL ET TN 37 01 03 3 30 30 HO [...] -2 MA CY MG SL FI LM TN 37 01 02 3 30 30 HO [...] CE 1 #9 ME TA 63 S HI 1 E NO # PH 96 EN [...] CE 1 CY ME TA # S HI E NO 02 PH 33 EN 2 [...] 0 2 MG CA PS UL E TN 68 02 02 5 30 30 CV [...] 3- 3- 00 PH 37 LL ve TN 01 20 20 AR AM 10 11 [...] 33 10 2 MG TA BL ET TN 37 01 01 3 30 30 HO 60 ON Ac IL 00 -2 -2 .0 ME 11 EI ti OS 00 8- 8- 00 TO 94 LL ve EC 45 [...] 02 MG 33 2 TA BL ET TN 68 01 01 5 30 30 CV 44 ON Ac EF 22 -1 -1 .0 S 54 EI ti ER 00 1- 1- 00 PH 42 LL ve A- 08 [...] -2 .0 LG 49 AN ti 10 8 00 RE 59 TL ve 34 20 20 [...] ST ZA 81 09 09 PH EV TN 0 AR EN IN M J E [...] -1 0. S 12 LB ti 20 1- 9- 00 PH 65 AU ve 22 20 [...] 50 23 32 MG TA BL ET TN 37 10 10 00 28 28 CV 29 KN Ac IL 00 -1 -2 .0 S 03 IG ti OS 00 6- 2- 00 PH 94 HT ve EC 45 20 20 AR 50 09 09 MA VIKKI OT 2 CY EL C A 20 23 .6 32 MG TA BL ET 52 10 10 00 1. 1 CV 29 KN Ac 26 -1 -2 00 S 03 IG ti 80 6- 2- 0 PH 95 HT ve 52 20 20 AR 10 09 09 MA VIKKI 1 CY EL A 23 32 IB 55 10 10 00 30 10 [...] AR NT ZA 11 09 09 MA TN 0 CY SC IN OT E 23 [...] 0 MG 23 32 TA BL ET HI 50 08 08 00 1. 1 TH [...] MG 32 A CA PS UL E PO 51 07 08 00 52 30 [...] 00 30 15 RI 39 CA Ac TN 76 -2 -1 .0 TE 46 MP ti AZ 23 5- 3- 00 26 BE ve OL 72 20 20 AI LL AM 00 09 09 D 1 PH BE 0. AR RR 5 M Y MG #3 A 93 TA 1 BL ET TN 65 07 07 00 30 30 CV 25 PA Ac EN 16 -1 -1 .0 S 59 RK ti AT 20 0- 6- 00 PH 12 ER ve AL 66 20 20 AR [address] 0 CY NC US CHAU 23 TA 32 BL ET FE 00 07 07 00 30 30 CV 25 PA Ac RR 53 -1 -1 .0 S 59 RK ti OU 65 0- 6- 00 PH 11 ER ve S 89 20 20 AR HAYS 00 09 09 MA HI LF 1 CY NC AT CHAU E 23 32 32 5 MG TA BL ET SE 59 03 07 03 15 30 CV 22 PA Ac RT 76 -3 -1 .0 S 24 RK ti RA 24 0- 6- 00 PH 00 ER ve LI 91 20 20 AR NE 00 09 09 MA HI 5 CY NC HC CHAU L 23 10 32 0 MG TA BL ET DE 00 07 07 00 60 28 CV 25 SH Ac SI 78 -0 -1 .0 S 51 IP ti TN 11 8- 6- 00 PH 77 P ve AM 97 20 20 AR NA IN [address] E 1 CY A 25 23 MG 32 TA BL ET CI 13 06 07 00 15 30 CV 25 FI Ac TA 66 -2 -1 .0 S 33 ND ti LO 80 9- 6- 00 PH 77 LA ve TN 01 20 20 AR Y AM 10 09 09 MA LI 5 CY LL HB IA R 23 N 40 32 MG TA BL ET SE 59 03 06 02 15 30 CV 22 PA Ac RT 76 -3 -1 .0 S 24 RK ti RA 24 0- 8- 00 PH 00 ER ve LI 91 20 20 AR NE 00 09 09 MA HI 5 CY NC HC CHAU L 23 10 32 0 MG TA BL ET TN 00 05 06 00 30 5 CV [...] 20 20 AR 75 09 09 MA HI 6 CY NC CHAU 23 32 TN 00 03 05 01 20 5 CV 22 PA Ac OM 78 -3 -0 .0 S 24 RK ti ET 11 0- 7- 00 PH 01 ER ve CHAU 83 20 20 AR ZI 00 09 09 MA HI NE 1 CY NC CHAU 25 23 32 MG TA BL ET LO 00 04 05 00 30 30 [...] 20 AR ZA 11 09 09 MA HI TN 0 CY NC IN CHAU E 23 10 32 MG TA BL ET CY 00 03 04 00 20 6 CV 22 PA Ac CL 37 -3 -0 .0 S 24 RK ti OB 80 0- 9- 00 PH 02 ER ve EN 75 20 20 AR ZA 11 09 09 MA HI TN 0 CY NC IN CHAU E 23 10 32 MG TA BL ET TN 00 03 04 00 20 5 CV 22 PA Ac OM 78 -3 -0 .0 S 24 RK ti ET 11 0- 9- 00 PH 01 ER ve CHAU 83 20 20 AR ZI 00 09 09 MA HI NE 1 CY NC CHAU 25 23 32 MG TA BL ET 00 03 04 00 15 30 CV 22 PA Ac 09 -3 -0 .0 S 24 RK ti 37 0- 9- 00 PH 00 ER ve 17 20 20 AR 75 09 09 MA HI 6 CY NC CHAU 23 32 Results Labs Lab Lab Date Result Refere [...] ce] in Blood by Ketty test Rh 02-22- NEGATIV complet [Type] 017 E ed in 10:00 Blood ABO --2 A complet group 017 ed [Type] 10:00 in Blood Blood type & Indirect antibody screen panel in Blood (02-22-2017 05:40) Blood NEGATIV NEGATIV complet group 017 E E ed antibod 05:40 y screen [Presen ce] in Serum or Plasma Rh --2 NEGATIV complet [Type] 017 E ed in 05:40 Blood ABO 02-22-2 A complet group 017 ed [Type] 05:40 in Blood Drugs identified in Urine by Screen method (02-22-2017 05:30) Ampheta 02-22-2 NEGATIV <1000 complet mine 017 E ed [Presen 05:30 ce] in Urine by Screen method 11-Hydr NEGATIV <50 complet oxy 017 E ed delta-9 05:30 tetrahy drocann abinol [Presen ce] in Unspeci fied specime n Drugs identified in Urine by Screen method (02-12-2017 03:35) Ampheta -08-2 NEGATIV <1000 complet mine 017 E ed [Presen 03:35 ce] in Urine by Screen method 11-Hydr NEGATIV <50 complet oxy 017 E ed delta-9 03:35 tetrahy drocann abinol [Presen ce] in Unspeci fied specime n [id number].placental [Presence] in Vaginal fluid (02-12-2017 03:35) Alpha-1 [...] 14:25 ce] in Urine by Test strip [id number] [Presence] in Vaginal fluid (01-16-2017 04:25) Alpha-1 [...] Procedures Procedure DOS Code Location Performer Comment ARTERIAL 3891 [facility] CATHETERI 5 Y Y ZATION [facility] S[place]URE [place] 5781 [facility] 5 Y Y LACERATIO [facility] N OF BLADDER CENTRAL 3897 [facility] VENOUS 5 Y Y CATHETER [facility] PLACEMENT WITH [facility]UIDANCE LOW 741 [facility] CERVICAL 5 Y Y [facility] SECTION Encounters [facility]counter Start End Date Code Location Performer Type Date [facility] MICHAEL - 7 7 [facility] 7 [facility] MICHAEL [facility] 7 7 [facility] - 7 7 [facility] MIC[facility]EL - 7 7 [facility] - 7 7 [facility] - 7 7 [facility] - 7 7 [facility] - 6 6 [facility] - 6 6 [facility] - 6 6 [facility] - 6 6 [facility]EL - 5 5 [facility] - 5 5 Y [facility] - 5 5 [facility] UN[facility] - 5 5 Y [facility] UN[facility] - 5 5 Y [facility] UN[facility] 5 5 Y [facility] - 5 5 Y [facility] - 5 5 Y [facility] 5 5 Y [facility] - 0 0 Y [facility] UN[facility] - 9 9 Y [facility] PIER[facility] - 9 9 [facility] [place] [address] [facility] [address] [place] [address] [address] [facility] [place] [address] [facility] [place] [address] 9 [facility] [place] [id number] 9 [facility]
--- OUTSIDE RECORDS SUMMARY | 2017-05-12 10:52 | External Medical Summary Rpt | CCD ---
Author Author , PATRICIA Organization PATRICIA Address Unknown Phone Care Team Providers Care Team Leader/Research Psychologist Name Role Phone ORLIN PRICE A, Unavailable Unavailable LESLY PRIC[facility] Unavailable [facility] Unavailable Unavailable LABORATORIES, [facility] Unavailable Unavailable & INTER, [facility] INTER CY EPSTEIN, Unavailable Unavailable CY EPSTEIN TIMOTHY W, Unavailable Unavailable TAMMY MORALES, Unavailable Unavailable CRISTIANE EDMONDS PATRICK M [facility] Unavailable Unavailable ASSOC, [facility] Unavailable Unavailable [facility] # [id number][facility]available Unavailable [facility] # 13095 [facility] 2332, Unavailable Unavailable [facility] 2332 JAY JAY VALENZUELA Unavailable Unavailable RAMON KUMAR Unavailable Unavailable LYASMEEN LYNDA L [facility] Unavailable Unavailable [facility] VENKATESH DUMAS MD, Unavailable Unavailable VENKATESH DUMAS MD [facility], Unavailable Unavailable [facility] Un[facility] Un[facility], [facility] ALCON MORRISON, Unavailable Unavailable ALCON MORRISON [facility], Unavailable Unavailable [facility]available Unavailable [facility] Unavailable Unavailable CENTER, [facility] STEVE LANGSTON, Unavailable Unavailable STEVE LANGSTON [facility] Unavailable Unavailable IMAGING [facility], [facility] Unavailable [facility]available HEALTH CARE, [facility] NURSE Unavailable Unavailable PRACTITIONER JUNO, [facility] NURSE PRACTITIONER BLAKE GRAYSON, Unavailable Unavailable BLAKE ADEN [facility], Unavailable Unavailable [facility], [facility] Unavailable Unavailable [facility], [facility], Unavailable Unavailable [facility] HUSSEIN JAM, HUSSEIN JAM Unavailable Unavailable [...] PHARM #[id number] [facility] Unavailable Unavailable [id number] # [id number], [facility] [address]28[address] # 0784 [facility] [employer] [facility] Unavailable Unavailable GROUP,, [email or web address] [facility], [facility] Unavailable Unavailable EMERGENCY PHYS, [facility] Unavailable Unavailable EMERGENCY PHYSI, [facility], Unavailable Unavailable [facility] LI ZHANG, Unavailable Unavailable LI ZHANG [facility], Unavailable Unavailable [facility], [facility] Unavailable Unavailable [facility], Unavailable [facility]available [facility] Unavailable [facility]available [facility] # Unavailable Unavailable 4892, [facility] # 4892 [facility] # Unavailable Unavailable 9631, [facility] # 9631 [facility] Unavailable Unavailable DEPT COLE, [facility] Purpose Continuity of Care Document - 08-06-2008 through 2016 Problems Code Diagnosis DOS Provider Status [id number] 02-12-2017 [facility] CONDITIONS [facility] UNS 3RD TRIMESTER O620 PRIMARY 02-12-2017 [facility]QU[facility] CONTRACTION INC S Z3A37 37 WEEKS 02-12-2017 [facility]ATION [facility] OF INC O4703 FALSE LABOR 01-28-2017 [facility] BEFORE 37 PHYSICIANS CMPLETE GROUP WEEKS GEST 3RD TRI O6003 01-28-2017 [facility] LABOR [facility] WITHOUT INC DELIVERY THIRD TRIMESTER Z3A35 35 WEEKS 01-28-2017 [facility] OF INC [id number] MAT CARE 01-22-2017 [facility] KNOWN/SUSP [facility] PLACNTL INC INSUFF 3RD TRI FET 1 [id number] MAT CARE 01-22-2017 [place] [facility] POOR FTL GRTH 3RD TRI UNS [id number] DECREASED 01-16-2017 [facility] MOVEMENTS INC THIRD TRIMESTER NA/UNS Z3A33 33 WEEKS 01-16-2017 [facility] OF INC K95224 DRUG USE 12-09-2016 [facility] COMPLICATIN PHYSICIANS G GROUP UNS TRIMESTER Z3480 ENC 12-09-2016 [facility] SUPERVISION PHYSICIANS OT NORMAL GROUP PREG UNS TRIMESTER Z36 ENCOUNTER 10-16-2016 [place] [facility] ASS SCREENING OF MOTHER Z3A20 20 WEEKS 10-16-2016 [place] GESTATION MEDICAL OF IMAGING ASS Z113 ENCOUNTER 10-12-2016 [facility] S[facility] INFECTIONS SEXL MODE TRANSMISSN K27423 UTERINE 09-03-2016 [facility] SIZE-DATE [facility] DISCREPANCY INC FIRST TRIMESTER Z3492 ENC 09-03-2016 [place] SUPERVISION MEDICAL NORMAL IMAGING ASS UNS 2 TRIMESTER Z3A14 14 WEEKS 09-03-2016 [facility] OF IMAGING ASS I93929 DRUG USE 08-31-2016 [facility] COMPLICATIN PHYSICIANS G GROUP SECOND TRIMESTER Z3201 ENCOUNTER 08-31-2016 [facility] FOR PHYSICIANS GROUP TEST RESULT POSITIVE N925 OTHER 07-02-2016 [facility] SPECIFIED PHYSICIANS IRREGULAR GROUP MENSTRUATIO N Z3A01 LESS THAN 8 06-23-2016 [facility] PHYSICIANS, GE[facility] PLLC OF Z720 TOBACCO USE 06-23-2016 [facility] G70011 INFORMATICS CONSULTANT 06-23-2016 [facility] CURRENT USE [facility]OSP OF OPIATE INC ANALGESIC I10 ESSENTIAL 04-23-2016 [facility] HYPERTENSIO INC N R635 [...] OF UNSPECIFIED THE BLUE N8320 UNSPECIFIED 12-17-2015 [facility] OVARIAN PHYSICIANS CYSTS GROUP N840 POLYP OF 12-17-2015 [facility] CORPUS PHYSICIANS UTERI GROUP R102 PELVIC AND 12-17-2015 [facility] PERINEAL LLC PAIN N736 FEMALE 12-13-2015 [facility] P[facility]VIC [facility] PERITONEAL INC ADHESIONS POSTINFECTI VE N761 SUBACUTE 12-13-2015 [facility] AND CHRONIC PHYSICIANS VAGINITIS GROUP O26644 ENCOUNTER 12-13-2015 [facility] FOR [facility] PREPROCEDUR INC AL LABORATORY EXAM S45177 ENCOUNTER 09-30-2015 VENKATESH Wood MATERIALS COORDINATOR EXAM ALESIA MAYS GENERAL RTN W/ABNORMAL FIND I98923 ENCOUNTER 09-30-2015 BIO MATERIALS COORDINATOR EXAM REFERNCE GENERAL RTN LABORATORIE W/O S ABNORMAL FIND O95468 ENCOUNTER 09-30-2015 VENKATESH Wood ROUTINE ALESIA MAYS CHECKING IU CONTRACEPT DEVICE Z309 ENCOUNTER 09-30-2015 VENKATESH Wood FOR ALESIA MAYS CONTRACEPTI VE MANAGEMENT UNS B1920 UNS VIRAL 09-16-2015 [facility] HEPATITIS C PHYSICIANS WITHOUT GROUP HEPATIC COMA M545 LOW BACK 09-16-2015 [facility] PAIN PHYSICIANS GROUP 44187 INCOMPLETE 03-06-2015 [facility] EMPTYING [facility] V5869 LONG-TERM 02-20-2015 [facility] USE OF OTHER MEDICATIONS V5883 ENCOUNTER 02-20-2015 [facility] THERAPEUTIC DRUG MONITORING V2511 ENC FOR 01-23-2015 [facility] INSERT[facility] INTRAUTERIN [facility] E CONTRACEPT DEVICE V2389 SUPERVISION 12-26-2014 [facility] OF OTHER SERV HIGH-RISK FOUNDATION 75019 OTHER 12-19-2014 [facility] OB TRAUMA COND/COMPL 5119 UNSPECIFIED 12-13-2014 [facility] PLE[facility] EFFUSION [facility] 5180 PULMONARY 12-13-2014 [place] [facility] COLLAPSE [facility] 7850 UNSPECIFIED 12-13-2014 [facility] TACHYCARDIA [facility] 2859 UNSPECIFIED 12-09-2014 [facility] NURSE ANEMIA PRACTITIONE R GR 2875 UNSPECIFIED 12-09-2014 [facility] NURSE PRACTITIONE THROMBOCYTO R GR PENIA 4266 OTHER HEART 12-09-2014 [facility] 514 PULMONARY 12-09-2014 [facility] AND [facility] HYPOSTASIS 5739 UNSPECIFIED 12-09-2014 [facility] [place] [address] SYSTEMIC 12-09-2014 [facility] NURSE INFLAMMATOR PRACTITIONE Y RESPONSE R GR SYNDROME UNSPEC 2760 HYPEROSMOLA 12-08-2014 [facility] [place] [address] OTHER SPEC 12-08-2014 [facility] BLOOD&BLOOD HOSPI -FORMING ORGANS 5849 ACUTE 12-08-2014 [facility] FAILURE [facility] UNSPECIFIED 5881 NEPHROGENIC 12-08-2014 [facility] DIABETES [facility] INSIPIDUS [facility] 18483 CHEST PAIN 12-08-2014 [facility] UNSPECIFIED SERV [facility] 2762 ACIDOSIS 12-07-2014 [facility] NURSE PRACTITIONE R GR 5601 PARALYTIC 12-07-2014 [facility] ILEUS [facility] 48317 ERLY ONSET 12-07-2014 [place] DELIV DELIV [facility] W/WO HOSPI MENTION ANTPRTM COND 40687 LIVER 12-07-2014 [facility]ILI[facility] TRACT D/O FOUNDATION PREG DEL W/WO ANTPRTM 28522 MATERNAL 12-07-2014 [facility] DR[facility] DEPENDENCE [facility] WITH DELIVERY 92392 TWIN 12-07-2014 [facility] , [facility] DELIVERED [facility] 89231 OTH 12-07-2014 [facility] CONDS HOSPI AFFECT MANAGEMENT MOTH DELIV 41377 C/S DELIV 12-07-2014 [place] W/O INDICAT [facility] DELIV W/WO HOSPI ANTPRTM COND 54805 POLYURIA 12-07-2014 [facility] NURSE PRACTITIONE R GR V272 OUTCOME OF 12-07-2014 [facility]ERY [facility] TWINS BOTH [facility]OUND[facility] LIVEBORN V5881 FITTING AND 12-07-2014 [facility] AD[facility] OF [facility] VASCULAR CATHETER 38681 THREATENED 12-06-2014 [facility] PREMATURE [facility] LABOR [facility] ANTEPARTUM 27667 UNSPECIFIED 12-06-2014 [facility] ANTEPARTUM SERV RENAL [facility] DISEASE 2535 DIABETES 12-05-2014 [place] [facility] 2866 DEFIBRINATI 12-05-[address] [place] [address] [facility] 5718 OTHER 12-05-2014 [facility] NONALCOHOLI C LIVER DISEASE 72884 RHESUS 12-05-2014 [place] ISOIMMUNIZA [facility] [place] [address] SYS INFLAM 12-05-2014 [facility] SYND-NON-IN F W/O ACUTE ORGN DYSF 02300 TOB USE D/O 11-26-2014 [facility] COMP PG [facility]ITAL /PP ANTEPARTM COND/COMP 57242 MATERNAL 11-23-2014 [facility] DEPENDENCE [facility] ANTEPARTUM 35990 TWIN 11-23-2014 [facility] , [facility] ANTEPARTUM [facility] 90397 CERVICAL 11-21-2014 [facility] SHORTENING SERV ANTEPARTUM [facility]ATION CONDITION OR COMP V9102 [place] GEST 11-21-2014 [facility] MONOCHORION SERV IC/DIAMNIOT FOUNDATION IC V221 SUPERVISION 10-24-2014 [facility] NORMAL V284 10-24-2014 [facility] SCR [facility] GROWTH [facility] RETARDATION USING US V239 UNSPECIFIED 10-17-2014 [facility] HIGH-RISK SERV [facility] 55157 CERVICAL 10-10-2014 [facility] INCOMPETENC SERV E ANTPRTM FOUNDATION COND/COMPLI CATION 62850 TWIN 10-03-2014 [facility] UNSPECIFIED FOUNDATION TO EPISODE OF CARE 60529 PREVIOUS 09-28-2014 [facility] C-SECT SERV DELIVERY [facility]OUND[facility] ANTPRTM COND/COMP V9103 [place] GEST 09-12-2014 [facility] /DIAMNIOTIC V2881 ENCOUNTER 08-29-2014 [facility] FOR [facility] ANATOMIC [facility] SURVEY 5733 UNSPECIFIED 07-26-2014 [place] [facility] 59084 BN&JNT D/O 07-19-2014 [facility] MAT BACK SERV PELVIS&LW FOUNDATION LIMBS ANTEPARTUM 7245 UNSPECIFIED 07-19-2014 [facility] BACKACHE SERV [facility] 7935 NONSPECIFIC 07-19-2014 [facility] ABN [facility] FINDING RAD [facility] & OTH EXAM ORGAN V222 07-19-2014 [facility] [place], [facility] INCIDENTAL [facility] 94122 MATERNAL RX 06-26-2014 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 COMPL PG S LLC CB/PP UNS EOC 13150 TRIPLET 06-25-2014 [place] , PRIMARY ANTEPARTUM [facility] CARE 06309 OTHER 05-24-2014 [facility] SPECIFED N EMERGENCY COMPLICATIO PHYS N ANTEPARTUM 68018 HORDEOLUM 05-11-2014 [facility] EXTERNUM N EMERGENCY PHYS 51585 NAUSEA WITH 02-19-2014 [facility] VOMITING N EMERGENCY PHYS 00789 ABDOMINAL 02-19-2014 [facility] PAIN, N EMERGENCY EPIGASTRIC PHYS 6825 CELLULITIS 02-06-2014 [facility] AND ABSCESS N EMERGENCY OF BUTTOCK PHYS 39178 UNSPECIFIED 01-23-2014 [facility] N EMERGENCY CONJUNCTIVI PHYS TIS 30592 NAUSEA 01-19-2014 [facility] ALONE N EMERGENCY PHYSI 50348 ABDOMINAL 01-19-2014 [facility] PAIN, N EMERGENCY GENERALIZED PHYSI 09387 OTHER 12-24-2013 HUSSEIN LATRICE DISEASES OF SPLEEN 5738 OTHER 12-24-2013 HUSSEIN JAM SPECIFIED DISORDERS OF LIVER 08838 ABDOMINAL 12-24-2013 MELANIA FAYETTE PAIN, URBAN UNSPECIFIED COGOVT SITE 70527 DIARRHEA 11-03-2013 [facility] 93102 ABDOMINAL 11-03-2013 [facility] PAIN, LEFT SCO UPPER QUADRANT V7231 ROUTINE 11-03-2013 [facility] AL EXAMINATION 23209 OTHER CHEST 10-31-2013 GOYAL LUBNA PAIN 6264 IRREGULAR 10-27-2013 [facility] MENSTRUAL PARTNERS CYCLE GROUP, 4619 ACUTE 09-09-2010 [facility] SINUSITIS, HEALTHCARE UNSPECIFIED CENTER 462 ACUTE 09-09-2010 [facility] PHARYNGITIS HEALTHCARE CENTER 21747 ESOPHAGEAL 07-31-2010 [facility] 96883 OTHER 07-31-2010 [facility] [place] INC FATIGUE 7948 NONSPECIFIC 07-31-2010 [facility] ABNORMAL [place] INC RESULTS LIVR FUNCTION STUDY 08308 TOBACCO USE 07-17-2010 CRYSTAL JAM D/O COMP PG CHILDBIRTH/ PP DELIVERED 56044 PREV C/S 07-17-2010 [facility] DELIV DELIV W/WO MENTION ANTPRTM COND V237 INSUFFICIEN 07-17-2010 [facility] T CARE V270 OUTCOME OF 07-17-2010 [facility] DELIVERY SINGLE LIVEBORN V072 NEED FOR 06-19-2010 [facility] JAM PROPHYLACTI C IMMUNOTHERA PY V2889 OTHER 06-16-2010 [facility] SPECIFIED [place] INC SCREENING 7231 CERVICALGIA 08-04-2009 [facility] 7241 PAIN IN 08-04-2009 [facility] SPINE 7242 LUMBAGO 08-04-2009 [facility] E9270 OVEREXERTIO 08-04-2009 [place] [facility] FROM SERV SUDDEN [facility]ATIO STRENUOUS MOVEMENT 10311 ABDOMINAL 04-30-2009 [place] PAIN, HOSPITAL PERIUMBILIC 97251 ABDOMINAL 04-30-2009 [facility] PAIN OTHER HOSPITAL SPECIFIED SITE 460 ACUTE 04-17-2009 [facility] ITIS & INTER 39508 OTHER 04-15-2009 [facility] CHRONIC EMERGENCY PAIN PHYS PSC 8472 LUMBAR 04-06-2009 [facility] SPRAIN AND CARE STRAIN PHYSICANS HUDGINS PSC 5781 BLOOD IN 03-22-2009 [facility] STOOL [facility] & INTER 5693 HEMORRHAGE 03-19-2009 [facility] EMERGENCY AND ANUS SERVICES ASSOCIATES 59185 OTHER 01-12-2009 [place], SPECIFIED KIAN, AND DISORDER OF ASSOCIATES KIDNEY AND URETER 24293 OTHER ACUTE 01-01-2009 CY EPSTEIN POSTOPERATI VE PAIN 23936 UNSPECIFIED 01-01-2009 CY EPSTEIN CONSTIPATIO N V242 ROUTINE 01-01-2009 LUCIAN VERA CY Quintero FOLLOW-UP 80953 GENLY 12-24-2008 MELANIA HARIS CONTRACTED URBAN [place] [address] PREMATURE 12-24-2008 [place] [facility] RUPTURE SERV MEMBRANES FOUNDATIO ANTEPARTUM 11819 OTHER 12-23-2008 MELANIA FAYETTE THREATENED URBAN LABOR COGOVT UNSPEC EPISODE CARE 36740 OTHER 12-23-2008 [facility] THREATENED N EMERGENCY LABOR, PHYS INC ANTEPARTUM V726 LABORATORY 12-03-2008 LAB K[facility]IE EXAMINATION [employer] 4550 INTERNAL 09-28-2008 [facility] HEMORRHOIDS CARE WITHOUT PHYSICANS MENTION HUDGINS PSC COMP 4553 EXTERNAL 09-28-2008 [facility] HEMORRHOIDS CARE WITHOUT PHYSICANS MENTION HUDGINS PSC COMP 4556 UNSPEC 09-28-2008 [facility] WITHOUT MENTION COMPLICATIO N 4659 ACUTE URIS 09-28-2008 [facility] UNSPECIFIED SITE 7862 COUGH 09-28-2008 [facility] 4660 ACUTE 09-27-2008 [facility] BRONCHITIS N EMERGENCY PHYS INC V745 SCREENING 09-04-2008 PATHOLOGY & EXAMINATION CYTOLOGY FOR LAB VENEREAL DISEASE 52697 OT CURRENT 08-06-2008 [facility] ELSW ANTPRTM K59.00 CONSTIPATIO N, UNSPECIFIED [...] 10 12 60 30 00 HO Ac DC 59 -2 -0 .0 00 ME ti [...] 09 10 60 30 00 HO Ac DC 59 -2 -2 .0 00 ME ti [...] ve LO 19 20 20 07 WN DC 60 17 17 25 AM 3 74 PH AR 10 MA CY MG OF TA BL CY ET NT HI AN A BU 69 07 08 60 30 00 HO Ac DC 09 -2 -2 .0 00 ME ti [...] 05 06 30 30 00 HO Ac DC 09 -0 -0 .0 00 ME ti [...] 01 02 23 13 00 HO Ac DC 09 -1 -1 .0 00 ME ti EN 35 0- 0- 00 04 TO ve OR 72 20 20 02 WN PH 15 17 17 09 IN 6 66 PH -N AR AL MA OX CY ON OF 8- 2 CY MG NT HI SL AN A BU 68 01 02 30 30 00 HO Ac DC 00 -0 -0 .0 00 ME ti OP 10 3- 3- 00 06 TO ve IO 19 20 20 07 WN N 90 17 17 87 HC 0 33 PH L AR 75 MA CY MG OF TA BL CY ET NT HI AN A BU 00 12 01 27 15 00 HO Ac DC 09 -2 -2 .0 00 ME ti [...] 12 01 38 19 00 HO Ac DC 09 -0 -1 .0 00 ME ti EN 35 8- 3- 00 04 TO ve OR 72 20 20 02 WN PH 15 16 17 05 IN 6 67 PH -N AR AL MA OX CY ON OF 8- 2 CY MG NT HI SL AN A BU 00 12 01 6. 3 00 HO Ac DC 09 -0 -0 00 00 ME ti [...] 2 60 30 HO 60 SO Ac DC 59 -2 -2 .0 ME 16 LI ti OP 13 9- 9- 00 TO 71 EN ve IO 54 20 20 WN 6 N 16 11 11 AR HC 0 PH YL L AR S SR MA K CY 15 0 MG TA BL ET MT 13 04 04 2 30 30 HO [...] MG MA K CY TA BL ET DC 37 01 04 3 30 30 HO [...] MG MA K CY TA BL ET DC 37 01 03 3 30 30 HO [...] -2 MA CY MG SL FI LM DC 37 01 02 3 30 30 HO [...] CE 1 #9 ME TA 63 S MT 1 E NO # PH 96 EN [...] CE 1 CY ME TA # S MT E NO 02 PH 33 EN 2 [...] 0 2 MG CA PS UL E DC 68 02 02 5 30 30 CV [...] 3- 3- 00 PH 37 LL ve DC 01 20 20 AR AM 10 11 [...] 33 10 2 MG TA BL ET DC 37 01 01 3 30 30 HO [...] 02 MG 33 2 TA BL ET DC 68 01 01 5 30 30 CV [...] ST ZA 81 09 09 PH EV DC 0 AR EN IN M J E [...] 50 23 32 MG TA BL ET DC 37 10 10 00 28 28 CV [...] AR NT ZA 11 09 09 MA DC 0 CY SC IN OT E 23 [...] 0 MG 23 32 TA BL ET MT 50 08 08 00 1. 1 TH [...] 00 30 15 RI 39 CA Ac DC 76 -2 -1 .0 TE 46 MP ti AZ 23 5- 3- 00 26 BE ve OL 72 20 20 AI LL AM 00 09 09 D 1 PH BE 0. AR RR 5 M Y MG #3 A 93 TA 1 BL ET DC 65 07 07 00 30 30 CV 25 PA Ac EN 16 -1 -1 .0 S 59 RK ti AT 20 0- 6- 00 PH 12 ER ve AL 66 20 20 AR [address] 0 CY NC US CHAU 23 TA 32 BL ET FE 00 07 07 00 30 30 CV 25 PA Ac RR 53 -1 -1 .0 S 59 RK ti OU 65 0- 6- 00 PH 11 ER ve S 89 20 20 AR HAYS 00 09 09 MA MT LF 1 CY NC AT CHAU E 23 32 32 5 MG TA BL ET SE 59 03 07 03 15 30 CV 22 PA Ac RT 76 -3 -1 .0 S 24 RK ti RA 24 0- 6- 00 PH 00 ER ve LI 91 20 20 AR NE 00 09 09 MA MT 5 CY NC HC CHAU L 23 10 32 0 MG TA BL ET DE 00 07 07 00 60 28 CV 25 SH Ac SI 78 -0 -1 .0 S 51 IP ti DC 11 8- 6- 00 PH 77 P ve AM 97 20 20 AR NA IN [address] E 1 CY A 25 23 MG 32 TA BL ET CI 13 06 07 00 15 30 CV 25 FI Ac TA 66 -2 -1 .0 S 33 ND ti LO 80 9- 6- 00 PH 77 LA ve DC 01 20 20 AR Y AM 10 [...] 20 AR NE 00 09 09 MA MT 5 CY NC HC CHAU L 23 10 32 0 MG TA BL ET DC 00 05 06 00 30 5 CV [...] 20 20 AR 75 09 09 MA MT 6 CY NC CHAU 23 32 DC 00 03 05 01 20 5 CV 22 PA Ac OM 78 -3 -0 .0 S 24 RK ti ET 11 0- 7- 00 PH 01 ER ve CHAU 83 20 20 AR ZI 00 09 09 MA MT NE 1 CY NC CHAU 25 23 [...] 20 AR ZA 11 09 09 MA MT DC 0 CY NC IN CHAU E 23 10 32 MG TA BL ET CY 00 03 04 00 20 6 CV 22 PA Ac CL 37 -3 -0 .0 S 24 RK ti OB 80 0- 9- 00 PH 02 ER ve EN 75 20 20 AR ZA 11 09 09 MA MT DC 0 CY NC IN CHAU E 23 10 32 MG TA BL ET DC 00 03 04 00 20 5 CV 22 PA Ac OM 78 -3 -0 .0 S 24 RK ti ET 11 0- 9- 00 PH 01 ER ve CHAU 83 20 20 AR ZI 00 09 09 MA MT NE 1 CY NC CHAU 25 23 32 MG TA BL ET 00 03 04 00 15 30 CV 22 PA Ac 09 -3 -0 .0 S 24 RK ti 37 0- 9- 00 PH 00 ER ve 17 20 20 AR 75 09 09 MA MT 6 CY NC CHAU 23 32 Results [...] [Presen ce] in Unspeci fied specime n [id number].placental [Presence] in Vaginal fluid (02-12-2017 03:35) Alpha-1 [...] 14:25 ce] in Urine by Test strip [id number].placental [Presence] in Vaginal fluid (01-16-2017 04:25) Alpha-1 [...] DOS Code Location Performer Comment ARTERIAL 3891 [facility] CATHETERI 5 Y Y ZATION [facility] SUTURE OF 5781 [facility] 5 Y Y LACERATIO [facility] N OF BLADDER CENTRAL 3897 [facility] VENOUS 5 Y Y CATHETER [facility] PLACEMENT WITH GUIDANCE LOW 741 [facility] CERVICAL 5 Y Y [facility] SECTION Encounters Encounter Start End Date Code Location Performer Type Date [facility]EL - 7 7 [facility] MIC[facility]EL - 7 7 [facility] - 7 7 [facility] - 7 7 [facility] - 7 7 [facility] - 7 7 [facility] - 7 7 [facility] - 6 6 [facility] - 6 6 [facility] - 6 6 [facility] - 6 6 [facility] - 5 5 [facility] UNIVERS[facility] - 5 5 Y [facility] UNIVERSIT - 5 5 Y [facility]IVERS[facility] - 5 5 Y [facility] UNIVERSIT - 5 5 Y [facility] UNIVERSIT - 5 5 Y [facility] UNIVERSIT - 5 5 Y [facility] UNIVERS[facility] - 5 5 Y [facility] UNIVERS[facility] - 5 5 Y [facility] UNIVERS[facility] - 0 0 Y [facility] UNIVERS[facility] - 9 9 Y [facility] [place] - 9 9 [facility] [place] [id number] [facility] [address] [place] [address] [facility] [place] [address] [facility] [place] [address] [facility] [place] [address] [facility]
--- NOTE | 2017-05-12 10:54 | [facility] Report ---
History of Present Issue Date/Time Seen by Provider 05/12/17 1043 Visit Reason Pt arrived:Walked Presenting Problem:FLU LIKE SYMPTOMS SINCE LAST NIGHT. ACHY, COUGH, NAUSEATED Location if Accident: Onset of symptoms date/time:/ or onset unknown for:MEDICAL HX UNKNOWN Have you (or family members/close friends) recently traveled outside the [place]? N If Yes, where/when: Have you had exposure to infectious disease within the past month? TB? Other? Specify: Here w/ and 3 month old infant, both who have tested positive for flu. pt w/ cough, bodyache, chills starting lastnight. No known fever. Hasn't taken or tried anything. Source patient Exam Limitations no limitations ALLERGIES Coded Allergies: naproxen (Mild, I-ITCHING 02/22/17) Home Medications Active Scripts Nicotine (Nicotine Patch) 21 MG TD DAILY #14 PATCH Ref 1 Prov: 02/25/17 Reported Medications Buprenorphine Hydrochloride (Buprenorphine HCl) 14 MG SL DAILY BUPRENORPHINE HCL/NALOXONE HCL (Suboxone 8 MG-2 MG Sl Film) 1 PO DAILY History Medical History General CAD? No Angina: No [place]: No Hypertension? Yes Hyperlipidemia? No CHF? No DVT? No PE? No COPD? No Asthma? No Anemia? No GERD? No Gastric ulcers? No GI Bleed? No Hernia? Yes Thyroid Problems? No Hypothyroidism? No CVA? No Seizures? No Diabetes? No Renal Insuffiency? No UTI? No Stones? No BPH? No GB Disease: No Nephritic Syndrome? No Asplenia? No Hepatitis? Yes Sickle Cell Disease? No Arthritis? No Migraines? No Cataracts? No Glaucoma? No MRSA? No HIV? No TB? No Anxiety? No Depression? No Cancer? No More? Yes Additional hx: ENDOMETRIOSIS--OPIATE USE OCD, ANXIETY Immunization HX DT/Tetanus 1-4 Years Ago Flu 2013/2014 Pneumonia Refuses Surgical Hx Previous Surgery?Y X 4 ECTOPIC EXPLORATORY LAP DX LAP OVARIAN CYST REMOVED Family History Family HX Diabetes Yes CAD No Hypertension No Hyperlipidemia No Cancer Yes TB No Social History Smoking Hx Smoker: Current Some Day Smoker Tobacco: Yes Type Cigarettes Packs/day < 1 Pack Alcohol Alcohol: No Review of Systems All Other Systems Reviewed and Negative Constitutional see HPI, malaise (this morning, fatigue) Eyes denies drainage ENT see HPI, nose discharge, nose congestion. denies: ear pain, throat pain. Respiratory see HPI, denies shortness of breath, denies wheezing Cardiovascular denies chest pain Gastrointestinal denies no symptoms reported Musculoskeletal see HPI Skin denies rash Psychiatric/Neurological denies headache Physical Exam Vital Signs Vital Signs Date Time Temp Pulse Resp B/P Pulse O2 O2 Flow FiO2 Ox Delivery Rate 05/12 1035 97.9 116 18 137/56 95 General Appearance normal appearance, no apparent distress Eye Exam - bilateral eye normal exam Ear, Nose, Throat normal ENT inspection Neck non-tender, supple Respiratory Status Yes: non productive cough. No: respiratory distress, use of accessory muscles, productive cough. Lung Sounds anterior: lungs clear. posterior: lungs clear. bilateral: lungs clear. Cardiovascular regular rate/rhythm, no peripheral edema, no murmur Neurologic alert, oriented x 3 Mental status normal mood/affect Skin normal color, warm/dry Lymphatic no adenopathy Medical Decision Making LABS/Meds/Orders Pt receiving controlled substance in ED? No Results/Orders Laboratory Tests 05/12/17 1035: Influenza Type A Ag NOT DETECTED, Influenza Type B Ag NOT DETECTED Orders Procedure Date/time Status [facility] FLU A,B 05/12 1035 Complete Departure Departure Time of Disposition 1048 Disposition DC Home or Self Care(routine) Clinical Impression Primary Impression: Flu-like symptoms Secondary Impressions: Exposure to the flu Condition STABLE Referrals Michelle MAYS,Kvng Kim (Family) IMMEDIATELY for new or worsening symptoms OR no noticeable improvement over the next 48-72 hours. 911 for difficulty breathing Patient Instructions DI for Influenza -- Adult Additional Instructions * Your flu test may have been negative today but with your symptoms and knowing your son and were both positive, I think you may also have the flu. * Start Tamiflu today if you are going to take it. Discussed risks and possible benefits. * Lots of rest * Increase fluids, water, gatorade, powerade, pedialyte if infant/toddler/child * Monitor Temp. Tylenol every 4 hours as needed no more then 5 times a day or 4000mg in 24 hours and/or ibuprofen every 6 hours as needed no more then 3200mg in 24 hours (as long as your primary care doctor has told you that it is ok to take both) for fever/aches/pain. ER if fever no less than 101 despite tylenol and Ibuprofen * You (or your child) are contagious until no fever, aches, chills x 24 hours without medication for symptoms. Discharge Counseling Counseled pt/family regarding diagnosis, test results, medications/RX, home care, follow up needs Prescriptions Current Visit Scripts Oseltamivir Phosphate (Tamiflu 75MG Capsule) 75 MG PO BID #10 CAP at 0144
[2017-05-12 10:57] VITALS: BP 137/56
--- OUTSIDE RECORDS SUMMARY | 2017-05-12 11:00 | External Medical Summary Rpt | CCD ---
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 Name Role Phone DEECELESTINED A, Unavailable Unavailable [facility] Unavailable [facility] Unavailable Unavailable LABORATORIES, [facility] Unavailable Unavailable & INTER, [facility] CY EPSTEIN, Unavailable Unavailable CY EPSTEIN TIMOTHY W, Unavailable Unavailable TAMMY MORALES, Unavailable Unavailable CRISTIANE EDMONDS PATRICK M [facility] Unavailable Unavailable [facility], [facility] Unavailable Unavailable [facility] # [id number], Unavailable Unavailable [facility] # [id number] [facility] 2332, Unavailable Unavailable [facility] 2332 JAY JAY VALENZUELA Unavailable Unavailable LUBNA ARANA RAMON Unavailable Unavailable L, RAMON ARANA L [facility] Unavailable Unavailable [facility] VENKATESH DUMAS MD, Unavailable Unavailable VENKATESH DUMAS MD [facility], Unavailable Unavailable [facility], [facility] ALCON MRORISON, Unavailable Unavailable ALCON MORRISON [facility], Unavailable Unavailable [facility], Unavailable Unavailable [facility] Unavailable Unavailable CENTER, [facility] STEVE LANGSTON, Unavailable Unavailable STEVE LANGSTON [facility] Unavailable [facility], [facility] Unavailable Unavailable HEALTH CARE, [facility] NURSE Unavailable [facility]available PRACTITIONER [facility] PRACTITIONER BLAKE GRAYSON, Unavailable Unavailable BLAKE ADEN [facility], Unavailable Unavailable [facility], [facility] Unavailable Unavailable HOLD[facility], [facility], Unavailable Unavailable [facility] HUSSEIN JAM, HUSSEIN JAM Unavailable Unavailable [...] PHARM #[id number] [facility] Unavailable Unavailable [id number] # [id number], [facility] 90[address] # 0784 [facility]available Unavailable GROUP,, [facility], [facility] Unavailable Unavailable EMERGENCY PHYS, [facility]YS [facility] Unavailable Unavailable EMERGENCY PHYSI, [facility], Unavailable Unavailable [facility] LI ZHANG, Unavailable Unavailable LI ZHANG [facility], Unavailable Unavailable [facility], [facility] Unavailable Unavailable [facility], Unavailable Unavailable [facility] Unavailable Unavailable [facility] # Unavailable Unavailable 4892, [facility] # 4892 [facility] # Unavailable Unavailable 9631, [facility] # 9631 [facility] Unavailable Unavailable DEPT COLE, [facility] Purpose Continuity of Care Document - 08-06-2008 through 2016 Problems Code Diagnosis DOS Provider Status [id number] 02-12-2017 [facility] CONDITIONS [facility] UNS 3RD TRIMESTER O620 PRIMARY 02-12-2017 [facility] CONTRACTION INC S Z3A37 37 WEEKS 02-12-2017 [facility] OF INC O4703 FALSE LABOR 01-28-2017 [facility] BEFORE 37 PHYSICIANS CMPLETE GROUP WEEKS GEST 3RD TRI O6003 01-28-2017 [facility] LABOR [facility] WITHOUT INC DELIVERY THIRD TRIMESTER Z3A35 35 WEEKS 01-28-2017 [facility] OF INC [id number] MAT CARE 01-22-2017 [facility] KNOWN/SUSP [facility] PLACNTL INC INSUFF 3RD TRI FET 1 [id number] MAT CARE 01-22-2017 [facility]USP IMAGING ASS POOR FTL GRTH 3RD TRI UNS [id number] DECREASED 01-16-2017 [facility] MOVEMENTS INC THIRD TRIMESTER NA/UNS Z3A33 33 WEEKS 01-16-2017 [facility] OF INC [id number] DRUG USE 12-09-2016 [facility] COMPLICATIN PHYSICIANS G GROUP UNS TRIMESTER Z3480 ENC 12-09-2016 [facility] SUPERVISION PHYSICIANS OTH NORMAL GROUP PREG UNS TRIMESTER Z36 ENCOUNTER 10-16-2016 [facility] ASS SCREENING OF MOTHER Z3A20 20 WEEKS 10-16-2016 [facility]ATION [facility]ICAL OF IMAGING ASS Z113 ENCOUNTER 10-12-2016 [facility] INFECTIONS SEXL MODE TRANSMISSN V00054 UTERINE 09-03-2016 [facility] SIZE-DATE [facility] DISCREPANCY INC FIRST TRIMESTER Z3492 ENC 09-03-2016 [facility] NORMAL IMAGING ASS UNS 2 TRIMESTER Z3A14 14 WEEKS 09-03-2016 [facility] MEDICAL OF IMAGING ASS K38323 DRUG USE 08-31-2016 [facility] COMPLICATIN PHYSICIANS G GROUP SECOND TRIMESTER Z3201 ENCOUNTER 08-31-2016 [facility] FOR PHYSICIANS GROUP TEST RESULT POSITIVE N925 OTHER 07-02-2016 [facility] SPECIFIED PHYSICIANS IRREGULAR GROUP MENSTRUATIO N Z3A01 LESS THAN 8 06-23-2016 [facility] PHYSICIANS, [facility] PLLC OF Z720 TOBACCO USE 06-23-2016 [facility] INC [id number] INTERMEDIATE 06-23-2016 [facility] CURRENT USE [facility]OS[facility] OF OPIATE INC ANALGESIC I10 ESSENTIAL 04-23-2016 [facility] HYPERTENSIO INC N R635 [...] UNSPECIFIED 12-17-2015 [facility] OVARIAN PHYSICIANS CYSTS GROUP N840 POLYP OF 12-17-2015 [facility] CORPUS PHYSICIANS UTERI GROUP R102 PELVIC AND 12-17-2015 [facility] PER[facility] PAIN N736 FEMALE 12-13-2015 [facility]IC [facility] PERITONEAL INC ADHESIONS POSTINFECTI VE N761 SUBACUTE 12-13-2015 [facility] AND CHRONIC PHYSICIANS VAGINITIS GROUP N67600 ENCOUNTER 12-13-2015 [facility] FOR [facility] PREPROCEDUR INC AL LABORATORY EXAM R67782 ENCOUNTER 09-30-2015 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 EXAM ALESIA MAYS GENERAL RTN W/ABNORMAL FIND S41038 ENCOUNTER 09-30-2015 BIO TIRE TRUCKER EXAM REFERNCE GENERAL RTN LABORATORIE W/O S ABNORMAL FIND M82652 ENCOUNTER 09-30-2015 VENKATESH Wood ROUTINE ALESIA MAYS CHECKING IU CONTRACEPT DEVICE Z309 ENCOUNTER 09-30-2015 VENKATESH Wood FOR ALESIA MAYS CONTRACEPTI VE MANAGEMENT UNS B1920 UNS VIRAL 09-16-2015 [facility] HEPATITIS C PHYSICIANS WITHOUT GROUP HEPATIC COMA M545 LOW BACK 09-16-2015 [facility] PAIN PHYSICIANS GROUP 13086 INCOMPLETE 03-06-2015 [facility] BLADDER SERV EMPTYING FOUNDATION V5869 LONG-TERM 02-20-2015 [facility] (CURRENT[facility] USE OF OTHER MEDICATIONS V5883 ENCOUNTER 02-20-2015 [facility] THERAPEUTIC DRUG MONITORING V2511 ENC FOR 01-23-2015 [facility] INSERTION SERV INTRAUTERIN FOUNDATION E CONTRACEPT DEVICE V2389 SUPERVISION 12-26-2014 [facility] OF OTHER SERV HIGH-RISK FOUNDATION 40853 OTHER 12-19-2014 [facility] OB TRAUMA COND/COMPL 5119 UNSPECIFIED 12-13-2014 [facility] PLEURAL SERV EFFUSION FOUNDATION 5180 PULMONARY 12-13-2014 [facility] COLLAPSE SERV [facility]OUND[facility] 7850 UNSPECIFIED 12-13-2014 [facility] TACHYCARDIA FOUNDATION 2859 UNSPECIFIED 12-09-2014 [facility] [place]SE ANEMIA PRACTITIONE R GR 2875 UNSPECIFIED 12-09-2014 [facility]SE PRACTITIONE THROMBOCYTO R GR PENIA 4266 OTHER HEART 12-09-2014 [facility] BLOCK SERV [facility] 514 PULMONARY 12-09-2014 [facility] CONGESTION SERV AND FOUNDATION HYPOSTASIS 5739 UNSPECIFIED 12-09-2014 [facility] [place] [address] SYSTEMIC 12-09-2014 [facility] NURSE INFLAMMATOR PRACTITIONE Y RESPONSE R GR SYNDROME UNSPEC 2760 HYPEROSMOLA 12-08-2014 [facility] LITY AND/[place] [address] OTHER SPEC 12-08-2014 [facility] BLOOD&BLOOD HOSPI -FORMING ORGANS 5849 ACUTE 12-08-2014 [facility] KIDNEY SERV FAILURE FOUNDATION UNSPECIFIED 5881 NEPHROGENIC 12-08-2014 [facility] DIABETES SERV INSIPIDUS FOUNDATION 29657 CHEST PAIN 12-08-2014 [facility] UNSPECIFIED SERV FOUNDATION 2762 ACIDOSIS 12-07-2014 [facility] NURSE PRACTITIONE R GR 5601 PARALYTIC 12-07-2014 [facility] ILEUS SERV [facility] 32855 ERLY ONSET 12-07-2014 [facility] MENTION ANTPRTM COND 42359 LIVER 12-07-2014 [facility] BILIARY SERV TRACT D/O FOUNDATION PREG DEL W/WO ANTPRTM 65961 MATERNAL 12-07-2014 [facility] DRUG [facility] DEPENDENCE FOUNDATION WITH DELIVERY 55720 TWIN 12-07-2014 [facility] , SERV DELIVERED FOUNDATION 11626 OTH 12-07-2014 [facility] CONDS HOSPI AFFECT MANAGEMENT MOTH DELIV 71378 C/S DELIV 12-07-2014 [facility] W/O INDICAT [facility] DELIV W/WO HOSPI ANTPRTM COND 15543 POLYURIA 12-07-2014 [facility]URSE PRACTITIONE R GR V272 OUTCOME OF 12-07-2014 [facility] DELIVERY SERV TWINS BOTH FOUNDATION LIVEBORN V5881 FITTING AND 12-07-2014 [facility] ADJUSTMENT SERV OF [facility] VASCULAR CATHETER 14437 THREATENED 12-06-2014 [facility] PREMATURE SERV LABOR FOUNDATION ANTEPARTUM 85268 UNSPECIFIED 12-06-2014 [facility] ANTEPARTUM SERV RENAL FOUNDATION DISEASE 2535 DIABETES 12-05-2014 [facility] 2866 DEFIBRINATI 12-05-[address] [facility] [address] [facility] 5718 OTHER 12-05-2014 [facility] NONALCOHOLI C LIVER DISEASE 14636 RHESUS 12-05-2014 [facility] ISOIMMUNIZA [facility] [place] [address] SYS INFLAM 12-05-2014 [facility] SYND-NON-IN F W/O ACUTE ORGN DYSF 26074 TOB USE D/O 11-26-2014 [facility] COMP HOSPITAL /PP ANTEPARTM COND/COMP 20418 MATERNAL 11-23-2014 [facility] DRUG [facility] DEPENDENCE FOUNDATION ANTEPARTUM 88672 TWIN 11-23-2014 [facility] , SERV ANTEPARTUM FOUNDATION 18069 CERVICAL 11-21-2014 [facility] SHORTENING SERV ANTEPARTUM FOUNDATION CONDITION OR COMP V9102 TWIN GEST 11-21-2014 [facility] MONOCHORION SERV IC/DIAMNIOT FOUNDATION IC V221 SUPERVISION 10-24-2014 [facility] NORMAL V284 10-24-2014 [facility] SCR SERV GROWTH FOUNDATION RETARDATION USING US V239 UNSPECIFIED 10-17-2014 [facility] HIGH-RISK SERV FOUNDATION 84179 CERVICAL 10-10-2014 [facility] INCOMPETENC SERV E ANTPRTM FOUNDATION COND/COMPLI CATION 65224 TWIN 10-03-2014 [facility] SERV UNSPECIFIED FOUNDATION TO EPISODE OF CARE 43577 PREVIOUS 09-28-2014 [facility] C-SECT SERV DELIVERY FOUNDATION ANTPRTM COND/COMP V9103 [facility] GEST 09-12-2014 [facility] /DIAMNIOTIC V2881 ENCOUNTER 08-29-2014 [facility] FOR SERV ANATOMIC FOUNDATION SURVEY 5733 UNSPECIFIED 07-26-2014 [facility] 71714 BN&JNT D/O 07-19-2014 [facility] MAT BACK SERV PELVIS&LW FOUNDATION LIMBS ANTEPARTUM 7245 UNSPECIFIED 07-19-2014 [facility] BACKACHE SERV FOUNDATION 7935 NONSPECIFIC 07-19-2014 [facility] ABN SERV FINDING RAD FOUNDATION & OTH EXAM ORGAN V222 07-19-2014 [facility] STATE, SERV INCIDENTAL FOUNDATION 25558 MATERNAL RX 06-26-2014 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 COMPL PG S LLC CB/PP UNS EOC 23095 TRIPLET 06-25-2014 [facility] , PRIMARY ANTEPARTUM HEALTH CARE 08300 OTHER 05-24-2014 [facility] SPECIFED N EMERGENCY COMPLICATIO PHYS N ANTEPARTUM 91812 HORDEOLUM 05-11-2014 [facility] EXTERNUM N EMERGENCY PHYS 89149 NAUSEA WITH 02-19-2014 [facility] VOMITING N EMERGENCY PHYS 30256 ABDOMINAL 02-19-2014 [facility] PAIN, N EMERGENCY EPIGASTRIC PHYS 6825 CELLULITIS 02-06-2014 [facility] AND ABSCESS N EMERGENCY OF BUTTOCK PHYS 94578 UNSPECIFIED 01-23-2014 [facility] N [place] 49739 NAUSEA 01-19-2014 [facility] ALONE N EMERGENCY PHYSI 95195 ABDOMINAL 01-19-2014 [facility] PAIN, N EMERGENCY GENERALIZED PHYSI 20213 OTHER 12-24-2013 HUSSEIN LATRICE DISEASES OF SPLEEN 5738 OTHER 12-24-2013 HUSSEIN JAM SPECIFIED DISORDERS OF LIVER 89421 ABDOMINAL 12-24-2013 MELANIA FAYETTE PAIN, URBAN UNSPECIFIED COGOVT SITE 79268 DIARRHEA 11-03-2013 [facility] 55033 ABDOMINAL 11-03-2013 [facility] PAIN, LEFT SCO UPPER QUADRANT V7231 ROUTINE 11-03-2013 [facility] JR GENIE AL EXAMINATION 65860 OTHER CHEST 10-31-2013 GOYAL LUBNA PAIN 6264 IRREGULAR 10-27-2013 [employer] [facility] MENSTRUAL PARTNERS CYCLE GROUP, 4619 ACUTE 09-09-2010 [facility] SINUSITIS, HEALTHCARE UNSPECIFIED CENTER 462 ACUTE 09-09-2010 [facility] PHARYNGITIS [facility] 23041 ESOPHAGEAL 07-31-2010 [facility] 35967 OTHER 07-31-2010 [facility] [place] FATIGUE 7948 NONSPECIFIC 07-31-2010 [facility] ABNORMAL [place] INC RESULTS LIVR FUNCTION STUDY 26274 TOBACCO USE 07-17-2010 CRYSTAL JAM D/O COMP PG CHILDBIRTH/ PP DELIVERED 42434 PREV C/S 07-17-2010 [facility] DELIV DELIV W/WO MENTION ANTPRTM COND V237 INSUFFICIEN 07-17-2010 [facility] T CARE V270 OUTCOME OF 07-17-2010 [facility] DELIVERY SINGLE LIVEBORN V072 NEED FOR 06-19-2010 [facility] JAM PROPHYLACTI C IMMUNOTHERA PY V2889 OTHER 06-16-2010 [facility] SPECIFIED [place] INC SCREENING 7231 CERVICALGIA 08-04-2009 [facility] 7241 PAIN IN 08-04-2009 [facility] SPINE 7242 LUMBAGO 08-04-2009 [facility] E9270 OVEREXERTIO 08-04-2009 [facility] N FROM SERV SUDDEN [facility]AT[facility] STRENUOUS MOVEMENT 78816 ABDOMINAL 04-30-2009 [facility] PAIN, [facility] PERIUMBILIC 31669 ABDOMINAL 04-30-2009 [facility] OTHER HOSPITAL SPECIFIED SITE 460 ACUTE 04-17-2009 [facility] ITIS & INTER 97821 OTHER 04-15-2009 [facility] CHRONIC EMERGENCY PAIN PHYS PSC 8472 LUMBAR 04-06-2009 [facility] SPRAIN AND CARE STRAIN PHYSICANS [place] PSC 5781 BLOOD IN 03-22-2009 [facility] STOOL [facility]IATRICS & INTER 5693 HEMORRHAGE 03-19-2009 [facility] EMERGENCY AND ANUS SERVICES ASSOCIATES 72139 OTHER 01-12-2009 [facility], SPECIFIED KIAN, AND DISORDER OF ASSOCIATES KIDNEY AND URETER 94882 OTHER ACUTE 01-01-2009 [facility] EPSTEIN POSTOPERATI VE PAIN 34412 UNSPECIFIED 01-01-2009 [facility] EP[facility]IN CONSTIPATIO N V242 ROUTINE 01-01-2009 VERA EPSTEIN FOLLOW-UP 19469 GENLY 12-24-2008 MELANIA HARIS CONTRACTED URBAN [place] [address] PREMATURE 12-24-2008 [facility] RUPTURE SERV MEMBRANES FOUNDATIO ANTEPARTUM 11743 OTHER 12-23-2008 MELANIA FAYETTE THREATENED URBAN LABOR [place] UNSPEC EPISODE CARE 92016 OTHER 12-23-2008 [facility] THREATENED N EMERGENCY LABOR, PHYS INC ANTEPARTUM V726 LABORATORY 12-03-2008 LAB K[facility]IE EXAMINATION [employer] 4550 INTERNAL 09-28-2008 [facility] HEMORRHOIDS CARE WITHOUT PHYSICANS MENTION [place] PSC COMP 4553 EXTERNAL 09-28-2008 [facility] HEMORRHOIDS CARE WITHOUT PHYSICANS MENTION [place] PSC COMP 4556 UNSPEC 09-28-2008 [facility] HEMORRHOIDS [facility] WITHOUT MENTION COMPLICATIO N 4659 ACUTE URIS 09-28-2008 [facility] UNSPECIFIED SITE 7862 COUGH 09-28-2008 [facility] 4660 ACUTE 09-27-2008 [facility] BRONCHITIS N EMERGENCY PHYS INC V745 SCREENING 09-04-2008 PATHOLOGY & EXAMINATION CYTOLOGY FOR LAB VENEREAL DISEASE 61790 OT CURRENT 08-06-2008 [facility] ANTPR Medications Na ND Rx Da Fi Fi Am Da Di Ph RX Ph St me C No te ll ll ou ys ag ar # ys at rm s nt no ma ic us Or Da si cy ia de te s n re d HAYS 62 10 12 9. 9 00 HO Ac MA 75 -3 -0 00 00 ME ti TR 60 0- 1- 0 06 TO ve IP 52 20 20 07 WN TA 06 17 17 63 N 9 08 PH HAYS AR CC MA CY 25 OF MG CY TA NT BL HI ET AN A BU 00 10 12 60 30 00 HO Ac MS 59 -2 -0 .0 00 ME ti [...] 09 10 60 30 00 HO Ac MS 59 -2 -2 .0 00 ME ti [...] ve LO 19 20 20 07 WN MS 60 17 17 25 AM 3 74 PH AR 10 MA CY MG OF TA BL CY ET NT HI AN A BU 69 07 08 60 30 00 HO Ac MS 09 -2 -2 .0 00 ME ti [...] 05 06 30 30 00 HO Ac MS 09 -0 -0 .0 00 ME ti OP 70 8 06 TO ve IO 87 20 20 08 WN N 80 17 17 65 HC 3 87 PH L AR SR MA CY 15 0 OF MG CY TA NT BL HI ET AN A PO 62 05 06 52 30 00 HO Ac LY 17 -0 -0 7. 00 ME ti ET 50 8 9 06 TO ve HY 44 20 20 [...] .0 00 ME ti ON 80 6- - 00 06 TO ve AZ 34 20 [...] NT UL HI E AN A GA 02 03 90 30 00 HO Ac [...] 01 02 23 13 00 HO Ac MS 09 -1 -1 .0 00 ME ti EN 35 0- 0- 00 04 TO ve OR 72 20 20 02 WN PH 15 17 17 09 IN 6 66 PH -N AR AL MA OX CY ON OF 8- 2 CY MG NT HI SL AN A BU 01 02 30 30 00 HO Ac MS 00 -0 -0 .0 00 ME ti OP 10 3- 3- 00 06 TO ve IO 19 20 20 07 WN N 90 17 17 87 HC 0 33 PH L AR 75 MA CY MG OF TA BL CY ET NT HI AN A BU 00 12 01 27 15 00 HO Ac MS 09 -2 -2 .0 00 ME ti [...] 12 01 38 19 00 HO Ac MS 09 -0 -1 .0 00 ME ti EN 35 8- 3- 00 04 TO ve OR 72 20 20 02 WN PH 15 16 17 05 IN 6 67 PH -N AR AL MA OX CY ON OF 8- 2 CY MG NT HI SL AN A BU 00 12 01 6. 3 00 HO Ac MS 09 -0 -0 00 00 ME ti [...] 2 60 30 HO 60 SO Ac MS 59 -2 -2 .0 ME 16 LI ti OP 13 9 9- 00 TO 71 EN ve IO 54 20 20 WN 6 N 16 11 11 AR HC 0 PH YL L AR S SR MA K CY 15 0 MG TA BL ET SC 13 04 04 2 30 30 HO 60 SO Ac RT 10 -2 -2 .0 ME 16 LI ti AZ 70 9- 00 TO 71 EN ve AP [...] MG MA K CY TA BL ET MS 37 01 04 3 30 30 HO [...] MG MA K CY TA BL ET MS 37 01 03 3 30 30 HO [...] -2 MA CY MG SL FI LM MS 37 01 02 3 30 30 HO [...] CE 1 #9 ME TA 63 S SC 1 E NO # PH 96 EN [...] CE 1 CY ME TA # S SC E NO 02 PH 33 EN 2 [...] 0 2 MG CA PS UL E MS 68 02 02 5 30 30 CV [...] 3- 3- 00 PH 37 LL ve MS 01 20 20 AR AM 10 11 [...] 33 10 2 MG TA BL ET MS 37 01 01 3 30 30 HO [...] 02 MG 33 2 TA BL ET MS 68 01 01 5 30 30 CV [...] ST ZA 81 09 09 PH EV MS 0 AR EN IN M J E [...] VIKKI 1 CY EL A 23 32 MS 37 10 10 00 28 28 CV [...] AR NT ZA 11 09 09 MA MS 0 CY SC IN OT E 23 [...] MG 32 A CA PS UL E SC 50 08 08 00 1. 1 TH [...] 00 30 15 RI 39 CA Ac MS 76 -2 -1 .0 TE 46 MP ti AZ 23 5- 3- 00 26 BE ve OL 72 20 20 AI LL AM 00 09 09 D 1 PH BE 0. AR RR 5 M Y MG #3 A 93 TA 1 BL ET FE 00 07 07 00 30 30 CV 25 PA Ac RR 53 -1 -1 .0 S 59 RK ti OU 65 0- 6- 00 PH 11 ER ve S 89 20 20 AR HAYS 00 09 09 MA SC LF 1 CY NC AT CHAU E 23 32 32 5 MG TA BL ET MS 65 07 07 00 30 30 CV 25 PA Ac EN 16 -1 -1 .0 S 59 RK ti AT 20 0- 6- 00 PH 12 ER ve AL 66 20 20 AR [address] 0 CY NC US CHAU 23 TA 32 BL ET SE 59 03 07 03 15 30 CV 22 PA Ac RT 76 -3 -1 .0 S 24 RK ti RA 24 0- 6- 00 PH 00 ER ve LI 91 20 20 AR NE 00 09 09 MA SC 5 CY NC HC CHAU L 23 10 32 0 MG TA BL ET DE 00 07 07 00 60 28 CV 25 SH Ac SI 78 -0 -1 .0 S 51 IP ti MS 11 8- 6- 00 PH 77 P ve AM 97 20 20 AR NA IN [address] E 1 CY A 25 23 MG 32 TA BL ET CI 13 06 07 00 15 30 CV 25 FI Ac TA 66 -2 -1 .0 S 33 ND ti LO 80 9- 6- 00 PH 77 LA ve MS 01 20 20 AR Y AM 10 [...] 20 AR NE 00 09 09 MA SC 5 CY NC HC CHAU L 23 10 32 0 MG TA BL ET MS 00 05 06 00 30 5 CV 24 No Ac OM 78 -2 -0 .0 S 19 t ti ET 11 7- 4- 00 PH 62 Av ve CHAU 83 20 20 AR ai ZI 00 09 09 MA la NE 1 CY bl e 25 23 32 MG TA BL ET MS 00 03 05 01 20 5 CV 22 PA Ac OM 78 -3 -0 .0 S 24 RK ti ET 11 0- 7- 00 PH 01 ER ve CHAU 83 20 20 AR ZI 00 09 09 MA SC NE 1 CY NC CHAU 25 23 32 MG TA BL ET 00 03 05 01 15 30 CV 22 PA Ac 09 -3 -0 .0 S 24 RK ti 37 0- 7- 00 PH 00 ER ve 17 20 20 AR 75 09 09 MA SC 6 CY NC CHAU 23 32 LO [...] 20 AR ZA 11 09 09 MA SC MS 0 CY NC IN CHAU E 23 [...] G 0 32 MG TA BL ET 00 03 04 00 15 30 CV 22 PA Ac 09 -3 -0 .0 S 24 RK ti 37 0- 9- 00 PH 00 ER ve 17 20 20 AR 75 09 09 MA SC 6 CY NC CHAU 23 32 CY 00 03 04 00 20 6 CV 22 PA Ac CL 37 -3 -0 .0 S 24 RK ti OB 80 0- 9- 00 PH 02 ER ve EN 75 20 20 AR ZA 11 09 09 MA SC MS 0 CY NC IN CHAU E 23 10 32 MG TA BL ET MS 00 03 04 00 20 5 CV 22 PA Ac OM 78 -3 -0 .0 S 24 RK ti ET 11 0- 9- 00 PH 01 ER ve CHAU 83 20 20 AR ZI 00 09 09 MA SC NE 1 CY NC CHAU 25 23 32 MG TA BL ET Procedures Procedure DOS Code Location Performer Comment ARTERIAL 3891 [facility] CATHETERI 5 [place] [facility] [place] [address] [facility] 5 Y Y LACERATIO [facility] N OF BLADDER CENTRAL 3897 [facility] VENOUS 5 Y Y CATHETER [facility] HOSPITAL PLACEMENT WITH GUIDANCE LOW 741 [facility] CERVICAL 5 Y Y [facility] SECTION Encounters Encounter Start End Date Code Location Performer Type Date [facility]OSPITAL [facility] - [facility] - 7 7 [facility] - 7 7 [facility] - 7 7 [facility] - 7 7 [facility] - 7 7 [facility] - 7 7 [facility] - 6 6 [facility] - 6 6 [facility] - 6 6 [facility] - 6 6 [facility] - 5 5 [facility] - [address] [facility] UNIVERS[facility] - [address] [facility] - 5 5 Y [facility] [address] [facility] - [address] [facility] - [address] [facility] - [address] [facility] [address] [facility] [place] [id number] 9 [facility] [place] [phone] [facility] [place] [phone] [facility] [place] [phone] [address] [facility] [place] [phone] [address] [facility] [place] [phone] [address] [facility] [place] [id number] 9 [facility]
--- OUTSIDE RECORDS SUMMARY | 2017-05-12 11:00 | External Medical Summary Rpt | CCD ---
Author Author , PATRICIA MEJIAJOSE Address Unknown Phone [email or web address] Care Team Providers Care Plastic Surgery Coordinator Name Role Phone DEECELESTINED A, Unavailable Unavailable [facility] Unavailable [facility] Unavailable Unavailable LABORATORIES, [facility] Unavailable Unavailable & INTER, [facility] CY EPSTEIN, Unavailable Unavailable CY EPSTEIN TIMOTHY W, Unavailable Unavailable TAMMY MORALES, Unavailable Unavailable CRISTIANE EDMONDS PATRICK M [facility] Unavailable Unavailable [facility], [facility] Unavailable Unavailable [facility] # [id number], Unavailable Unavailable [facility] # [id number] [facility] 2332, Unavailable Unavailable [facility] 2332 JAY JAY VALENZUELA Unavailable Unavailable LUBNA ARANA RAMON Unavailable Unavailable L, RAMON ARANA L [facility] Unavailable Unavailable [facility] VENKATESH DUMAS MD, Unavailable Unavailable VENKATESH DUMAS MD [facility], Unavailable Unavailable [facility] Un[facility] Un[facility], [facility] ALCON MORRISON, Unavailable Unavailable ALCON MORRISON [facility], Unavailable Unavailable [facility], Unavailable Unavailable [facility] Unavailable Unavailable CENTER, [facility] STEVE LANGSTON, Unavailable Unavailable STEVE LANGSTON [facility] Unavailable Unavailable [facility] [place], [facility] Unavailable Unavailable HEALTH CARE, [facility] NURSE Unavailable Unavailable PRACTITIONER [facility] NURSE PRACTITIONER BLAKE GRAYSON, Unavailable Unavailable BLAKE ADEN [facility], Unavailable Unavailable [facility], [facility] Unavailable Unavailable HOLD[facility], [facility], Unavailable Unavailable [facility] HUSSEIN JAM, HUSSEIN JAM Unavailable Unavailable [...] PHARM #[id number] [facility] Unavailable Unavailable [id number] # 0784, [facility] 679[address] # 0784 [facility] Unavailable Unavailable GROUP,, [facility] Unavailable Unavailable EM[facility]ENCY [facility], [facility] Unavailable Unavailable EMERGENCY PH[facility], [facility], Unavailable Unavailable [facility] LI ZHANG, Unavailable Unavailable LI ZHANG [facility], Unavailable Unavailable [facility], [facility] Unavailable Unavailable [facility], Unavailable Unavailable [facility] Unavailable Unavailable [facility] # Unavailable Unavailable 4892, [facility] # 4892 [facility] # Unavailable Unavailable 9631, [facility] # 9631 [facility] Unavailable Unavailable DEPT COLE, [facility] Purpose Continuity of Care Document - 08-06-2008 through 2016 Problems Code Diagnosis DOS Provider Status [id number] 02-12-2017 [facility] CONDITIONS [facility] UNS 3RD TRIMESTER O620 PRIMARY 02-12-2017 [facility] CONTRACTION INC S Z3A37 37 WEEKS 02-12-2017 [facility]ATION [facility] OF INC O4703 FALSE LABOR 01-28-2017 [facility] BEFORE 37 PHYSICIANS CMPLETE GROUP WEEKS GEST 3RD TRI O6003 01-28-2017 [facility] LAB[facility] WITHOUT INC DELIVERY THIRD TRIMESTER Z3A35 35 WEEKS 01-28-2017 [facility] [id number] MAT CARE 01-22-2017 [facility] KNOWN/SUSP [facility] PLACNTL INC INSUFF 3RD TRI FET 1 [id number] MAT CARE 01-22-2017 [facility] KNWN/SUSP IMAGING ASS POOR FTL GRTH 3RD TRI UNS [id number] DECREASED 01-16-2017 [facility] MOVEMENTS INC THIRD TRIMESTER NA/UNS Z3A33 33 WEEKS 01-16-2017 [facility] OF INC [id number] DRUG USE 12-09-2016 [facility] COMPLICATIN PHYSICIANS G GROUP UNS TRIMESTER Z3480 ENC 12-09-2016 [facility] SUPERVISION PHYSICIANS OTH NORMAL GROUP PREG UNS TRIMESTER Z36 ENCOUNTER 10-16-2016 [facility] ASS SCREENING OF MOTHER Z3A20 20 WEEKS 10-16-2016 [facility]ICAL OF IMAGING ASS Z113 ENCOUNTER 10-12-2016 [facility] INFECTIONS SEXL MODE TRANSMISSN Y03865 UTERINE 09-03-2016 [facility] SIZE-DATE [facility] DISCREPANCY INC FIRST TRIMESTER Z3492 ENC 09-03-2016 [facility] MEDICAL NORMAL IMAGING ASS UNS 2 TRIMESTER Z3A14 14 WEEKS 09-03-2016 [facility] MEDICAL OF IMAGING ASS W13845 DRUG USE 08-31-2016 [facility] COMPLICATIN PHYSICIANS G GROUP SECOND TRIMESTER Z3201 ENCOUNTER 08-31-2016 [facility] FOR PHYSICIANS GROUP TEST RESULT POSITIVE N925 OTHER 07-02-2016 [facility] SPECIFIED PHYSICIANS IRREGULAR GROUP MENSTRUATIO N Z3A01 LESS THAN 8 06-23-2016 [facility] PHYSICIANS, [facility] OF Z720 TOBACCO USE 06-23-2016 [facility] X63638 PRISON 06-23-2016 [facility] CURRENT USE [facility]OS[facility] OF OPIATE INC ANALGESIC I10 ESSENTIAL 04-23-2016 [facility] HYPERTENSIO INC N R635 [...] OF UNSPECIFIED THE BLUE N8320 UNSPECIFIED 12-17-2015 [facility] OVARIAN PHYSICIANS CYSTS GROUP N840 POLYP OF 12-17-2015 [facility] CORPUS PHYSICIANS UTERI GROUP R102 PELVIC AND 12-17-2015 [facility] PER[facility] PAIN N736 FEMALE 12-13-2015 [facility] PERITONEAL INC ADHESIONS POSTINFECTI VE N761 SUBACUTE 12-13-2015 [facility] AND CHRONIC PHYSICIANS VAGINITIS GROUP B00062 ENCOUNTER 12-13-2015 [facility] FOR [facility] PREPROCEDUR INC AL LABORATORY EXAM J28133 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 ALESIA MAYS GENERAL RTN W/ABNORMAL FIND G19878 ENCOUNTER 09-30-2015 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 EXAM REFERNCE GENERAL RTN LABORATORIE W/O S ABNORMAL FIND A74055 ENCOUNTER 09-30-2015 VENKATESH Wood ROUTINE ALESIA MYAS CHECKING IU CONTRACEPT DEVICE Z309 ENCOUNTER 09-30-2015 VENKATESH Wood FOR ALESIA MAYS CONTRACEPTI VE MANAGEMENT UNS B1920 UNS VIRAL 09-16-2015 [facility] HEPATITIS C PHYSICIANS WITHOUT GROUP HEPATIC COMA M545 LOW BACK 09-16-2015 [facility] PAIN PHYSICIANS GROUP 28559 INCOMPLETE 03-06-2015 [facility] EMPTYING [facility]OUND[facility] V5869 LONG-TERM 02-20-2015 [facility] (CURRENT[facility] USE OF OTHER MEDICATIONS V5883 ENCOUNTER 02-20-2015 [facility] THERAPEUTIC DRUG MONITORING V2511 ENC FOR 01-23-2015 [facility] INSERT[facility] INTRAUTERIN FOUNDATION E CONTRACEPT DEVICE V2389 SUPERVISION 12-26-2014 [facility] OF OTHER SERV HIGH-RISK FOUNDATION 08173 OTHER 12-19-2014 [facility] OB TRAUMA COND/COMPL 5119 UNSPECIFIED 12-13-2014 [facility] PLEURAL [facility] EFFUSION [facility] 5180 PULMONARY 12-13-2014 [facility] COLLAPSE [facility] 7850 UNSPECIFIED 12-13-2014 [facility] TACHYCARDIA [facility] 2859 UNSPECIFIED 12-09-2014 [facility] NURSE ANEMIA PRACTITIONE R GR 2875 UNSPECIFIED 12-09-2014 [facility] NURSE PRACTITIONE THROMBOCYTO R GR PENIA 4266 OTHER HEART 12-09-2014 [facility] BLOCK [facility] 514 PULMONARY 12-09-2014 [facility] AND [facility] HYPOSTASIS 5739 UNSPECIFIED 12-09-2014 [facility] [place] [address] SYSTEMIC 12-09-2014 [facility] NURSE INFLAMMATOR PRACTITIONE Y RESPONSE R GR SYNDROME UNSPEC 2760 HYPEROSMOLA 12-08-2014 [facility]/[place] [address] OTHER SPEC 12-08-2014 [facility] BLOOD&BLOOD HOSPI -FORMING ORGANS 5849 ACUTE 12-08-2014 [facility] KID[facility] FAILURE [facility]OUND[facility] UNSPECIFIED 5881 NEPHROGENIC 12-08-2014 [facility] DIABETES [facility] INSIPIDUS [facility]OUND[facility] 16518 CHEST PAIN 12-08-2014 [facility] UNSPECIFIED SERV FOUNDATION 2762 ACIDOSIS 12-07-2014 [facility] NURSE PRACTITIONE R GR 5601 PARALYTIC 12-07-2014 [facility] ILEUS [facility] 98882 ERLY ONSET 12-07-2014 [facility]OS[facility] MENTION ANTPRTM COND 21418 LIVER 12-07-2014 [facility] TRACT D/O FOUNDATION PREG DEL W/WO ANTPRTM 39788 MATERNAL 12-07-2014 [facility] DR[facility] DEPENDENCE [facility]OUND[facility] WITH DELIVERY 78982 TWIN 12-07-2014 [facility] , SERV DELIVERED FOUNDATION 39777 OTH 12-07-2014 [facility] CONDS HOSPI AFFECT MANAGEMENT MOTH DELIV 95414 C/S DELIV 12-07-2014 [facility] W/O INDICAT [facility] DELIV W/WO HOSPI ANTPRTM COND 03190 POLYURIA 12-07-2014 [facility] NURSE PRACTITIONE R GR V272 OUTCOME OF 12-07-2014 [facility] DELIVERY [facility] TWINS BOTH FOUNDATION LIVEBORN V5881 FITTING AND 12-07-2014 [facility] ADJUSTMENT SERV OF [facility] VASCULAR CATHETER 58769 THREATENED 12-06-2014 [facility] PREMATURE [facility] LABOR FOUNDATION ANTEPARTUM 54258 UNSPECIFIED 12-06-2014 [facility] ANTEPARTUM SERV RENAL FOUNDATION DISEASE 2535 DIABETES 12-05-2014 [facility] 2866 DEFIBRINATI 12-05-2014 [facility] ON [facility] 5718 OTHER 12-05-2014 [facility] NONALCOHOLI C LIVER DISEASE 07492 RHESUS 12-05-2014 [facility] ISOIMMUNIZA [facility] [place] [address] SYS INFLAM 12-05-2014 [facility] SYND-NON-IN F W/O ACUTE ORGN DYSF 94122 TOB USE D/O 11-26-2014 [facility] COMP HOSPITAL /PP ANTEPARTM COND/COMP 08784 MATERNAL 11-23-2014 [facility] DEPENDENCE [facility]OUND[facility] ANTEPARTUM 61366 TWIN 11-23-2014 [facility] , SERV ANTEPARTUM FOUNDATION 38941 CERVICAL 11-21-2014 [facility] SHORTENING SERV ANTEPARTUM FOUNDATION CONDITION OR COMP V9102 TWIN GEST 11-21-2014 [facility] MONOCHORION SERV IC/DIAMNIOT FOUNDATION IC V221 SUPERVISION 10-24-2014 [facility] NORMAL V284 10-24-2014 [facility] SCR [facility] GROWTH FOUNDATION RETARDATION USING US V239 UNSPECIFIED 10-17-2014 [facility] HIGH-RISK SERV FOUNDATION 75581 CERVICAL 10-10-2014 [facility] INCOMPETENC SERV E ANTPRTM FOUNDATION COND/COMPLI CATION 42057 TWIN 10-03-2014 [facility] UNSPECIFIED FOUNDATION TO EPISODE OF CARE 97900 PREVIOUS 09-28-2014 [facility] C-SECT SERV DELIVERY FOUNDATION ANTPRTM COND/COMP V9103 TWIN GEST 09-12-2014 [facility] /DIAMNIOTIC V2881 ENCOUNTER 08-29-2014 [facility] FOR SERV ANATOMIC FOUNDATION SURVEY 5733 UNSPECIFIED 07-26-2014 [facility] 39756 BN&JNT D/O 07-19-2014 [facility] MAT BACK SERV PELVIS&LW FOUNDATION LIMBS ANTEPARTUM 7245 UNSPECIFIED 07-19-2014 [facility] BACKACHE SERV [facility]OUNDATION 7935 NONSPECIFIC 07-19-2014 [facility] ABN [facility] FINDING RAD FOUNDATION & OTH EXAM ORGAN V222 07-19-2014 [facility] STATE, SERV INCIDENTAL FOUNDATION 64696 MATERNAL RX 06-26-2014 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 COMPL PG S LLC CB/PP UNS EOC 17308 TRIPLET 06-25-2014 [facility] , PRIMARY ANTEPARTUM [facility] CARE 67534 OTHER 05-24-2014 [facility] SPECIFED N EMERGENCY COMPLICATIO PHYS N ANTEPARTUM 99325 HORDEOLUM 05-11-2014 [facility] EXTERNUM N EMERGENCY PHYS 18459 NAUSEA WITH 02-19-2014 [facility] VOMITING N EMERGENCY PHYS 86654 ABDOMINAL 02-19-2014 [facility] PAIN, N EMERGENCY EPIGASTRIC PHYS 6825 CELLULITIS 02-06-2014 [facility] AND ABSCESS N EMERGENCY OF BUTTOCK PHYS 62687 UNSPECIFIED 01-23-2014 [facility] N EMERGENCY CONJUNCTIVI PHYS TIS 30892 NAUSEA 01-19-2014 [facility] ALONE N EMERGENCY PHYSI 62641 ABDOMINAL 01-19-2014 [facility] PAIN, N EMERGENCY GENERALIZED PHYSI 46455 OTHER 12-24-2013 H[facility] LATRICE DISEASES OF SPLEEN 5738 OTHER 12-24-2013 HUSSE[facility] JAM SPECIFIED DISORDERS OF LIVER 64557 ABDOMINAL 12-24-2013 MELANIA FAYETTE PAIN, URBAN UNSPECIFIED COGOVT SITE 77935 DIARRHEA 11-03-2013 [facility] 44047 ABDOMINAL 11-03-2013 [facility] PAIN, LEFT SCO UPPER QUADRANT V7231 ROUTINE 11-03-2013 [facility] GYNECOLOGIC JR GENIE AL EXAMINATION 83201 OTHER CHEST 10-31-2013 GOYAL LUBNA PAIN 6264 IRREGULAR 10-27-2013 Luv Rink [facility] MENSTRUAL PARTNERS CYCLE GROUP, 4619 ACUTE 09-09-2010 [facility] SINUSITIS, HEALTHCARE UNSPECIFIED CENTER 462 ACUTE 09-09-2010 [facility] PHARYNGITIS [facility] 22406 ESOPHAGEAL 07-31-2010 [facility] 80931 OTHER 07-31-2010 [facility] [place] FATIGUE 7948 NONSPECIFIC 07-31-2010 [facility] ABNORMAL [place] INC RESULTS LIVR FUNCTION STUDY 28217 TOBACCO USE 07-17-2010 CRY[facility]AL JAM D/O COMP PG [facility]IL[facility]/ PP DELIVERED 69744 PREV C/S 07-17-2010 [facility] DELIV DELIV W/WO MENTION ANTPRTM COND V237 INSUFFICIEN 07-17-2010 [facility] T CARE V270 OUTCOME OF 07-17-2010 [facility] DELIVERY SINGLE LIVEBORN V072 NEED FOR 06-19-2010 [facility] PROPHYLACTI C IMMUNOTHERA PY V2889 OTHER 06-16-2010 [facility] SPECIFIED [place] INC SCREENING 7231 CERVICALGIA 08-04-2009 [facility] 7241 PAIN IN 08-04-2009 [facility] SPINE 7242 LUMBAGO 08-04-2009 [facility] E9270 OVEREXERTIO 08-04-2009 [facility] FROM SERV SUDDEN [facility]AT[facility] STRENUOUS MOVEMENT 28967 ABDOMINAL 04-30-2009 [facility] PAIN, [facility] PERIUMBILIC 87453 ABDOMINAL 04-30-2009 [facility] SPECIFIED SITE 460 ACUTE 04-17-2009 [facility] ITIS & INTER 52223 OTHER 04-15-2009 [facility]RON[facility] PAIN PHYS PSC 8472 LUMBAR 04-06-2009 [facility] SPR[facility] CARE STRAIN PHYSICANS PAYNES CREEK PSC 5781 BLOOD IN 03-22-2009 [facility] STOOL [facility] & INTER 5693 HEMORRHAGE 03-19-2009 [facility] EMERGENCY AND ANUS SERVICES ASSOCIATES 81988 OTHER 01-12-2009 [facility], SPECIFIED KIAN, AND DISORDER OF ASSOCIATES KIDNEY AND URETER 55805 OTHER ACUTE 01-01-2009 CY EPSTEIN POSTOPERATI VE PAIN 22902 UNSPECIFIED 01-01-2009 [facility] EP[facility] CONSTIPATIO N V242 ROUTINE 01-01-2009 VERA EPSTEIN FOLLOW-UP 61962 GENLY 12-24-2008 MEL[facility] HARIS CONTRACTED URBAN [place] [address] PREMATURE 12-24-2008 [facility] RUPTURE SERV MEMBRANES F[facility]AT[facility] ANTEPARTUM 21721 OTHER 12-23-2008 MELANIA FAYETTE THREATENED URBAN LABOR COGOVT UNSPEC EPISODE CARE 02466 OTHER 12-23-2008 [facility] THREATENED N EMERGENCY LABOR, PHYS INC ANTEPARTUM V726 LABORATORY 12-03-2008 LAB [facility] EXAMINATION [employer] 4550 INTERNAL 09-28-2008 [facility] WITHOUT PHYSICANS MENTION [place] PSC COMP 4553 EXTERNAL 09-28-2008 [facility] HEMORRHOIDS C[facility] WITHOUT PHYSICANS MENTION [place] PSC COMP 4556 UNSPEC 09-28-2008 [facility] WITHOUT MENTION COMPLICATIO N 4659 ACUTE URIS 09-28-2008 [facility] UNSPECIFIED SITE 7862 COUGH 09-28-2008 [facility] 4660 ACUTE 09-27-2008 [facility] BRONCHITIS N EMERGENCY PHYS INC V745 SCREENING 09-04-2008 PATHOLOGY & EXAMINATION CYTOLOGY FOR LAB VENEREAL DISEASE 40450 OT CURRENT 08-06-2008 [facility] ANTPR Medications Na ND Rx Da Fi [...] 10 12 60 30 00 HO Ac IL 59 -2 -0 .0 00 ME ti [...] 09 10 60 30 00 HO Ac IL 59 -2 -2 .0 00 ME ti [...] ve LO 19 20 20 07 WN IL 60 17 17 25 AM 3 74 [...] CY 15 0 MG TA BL ET WI 13 04 04 2 30 30 HO [...] CE 1 #9 ME TA 63 S WI 1 E NO # PH 96 EN [...] CE 1 CY ME TA # S WI E NO 02 PH 33 EN 2 [...] VIKKI 1 CY EL A 23 32 IL 37 10 10 00 28 28 [...] MG 32 A CA PS UL E WI 50 08 08 00 1. 1 TH [...] 20 AR HAYS 00 09 09 MA WI LF 1 CY NC AT CHAU E 23 32 32 5 MG TA BL ET IL 65 07 07 00 30 30 CV 25 PA Ac EN 16 -1 -1 .0 S 59 RK ti AT 20 0- 6- 00 PH 12 ER ve AL 66 20 20 AR 81 [address] 0 CY NC US CHAU 23 TA 32 BL ET SE 59 03 07 03 15 30 CV 22 PA Ac RT 76 -3 -1 .0 S 24 RK ti RA 24 0- 6- 00 PH 00 ER ve LI 91 20 20 AR NE 00 09 09 MA WI 5 CY NC HC CHAU L 23 [...] 20 AR NE 00 09 09 MA WI 5 CY NC HC CHAU L 23 [...] 20 AR ZI 00 09 09 MA WI NE 1 CY NC CHAU 25 23 32 MG TA BL ET 00 03 05 01 15 30 CV 22 PA Ac 09 -3 -0 .0 S 24 RK ti 37 0- 7- 00 PH 00 ER ve 17 20 20 AR 75 09 09 MA WI 6 CY NC CHAU 23 32 LO [...] 20 AR ZA 11 09 09 MA WI IL 0 CY NC IN CHAU E [...] 20 20 AR 75 09 09 MA WI 6 CY NC CHAU 23 32 CY 00 03 04 00 20 6 CV 22 PA Ac CL 37 -3 -0 .0 S 24 RK ti OB 80 0- 9- 00 PH 02 ER ve EN 75 20 20 AR ZA 11 09 09 MA WI IL 0 CY NC IN CHAU E 23 10 32 MG TA BL ET IL 00 03 04 00 20 5 CV 22 PA Ac OM 78 -3 -0 .0 S 24 RK ti ET 11 0- 9- 00 PH 01 ER ve CHAU 83 20 20 AR ZI 00 09 09 MA WI NE 1 CY NC CHAU 25 23 32 MG TA BL ET Procedures Procedure DOS Code Location Performer Comment ARTERIAL 3891 [facility] CATHETERI 5 Y Y [facility] [place]UTURE [place] 5781 [facility] 5 Y Y LACERATIO [facility] OF BLADDER CENTRAL 3897 [facility] VENOUS 5 Y Y CATHETER [facility] PLACEMENT WITH GUIDANCE LOW 741 [facility] CERVICAL 5 Y Y [facility] SECTION Encounters Encounter Start End Date Code Location Performer Type Date [facility] - [facility] 7 [facility] - 7 7 [facility] - 7 7 [facility] - 7 7 [facility] - 7 7 [facility] - 7 7 [facility] - 6 6 [facility] - 6 6 [facility] - 6 6 [facility] - 6 6 [facility] - 5 5 [facility] UNIVERSIT - 5 5 Y [facility] UNIVERSIT - 5 5 Y [facility] UNIVERSIT - 5 5 [facility] HOSPITAL UNIVERSIT - 5 5 Y [facility] UNIVERSIT - 5 5 Y [facility] UNIVERSIT - 5 5 Y [facility] UNIVERS[facility] - 5 5 Y [facility] UNIVERS[facility] - 5 5 Y [facility]ERS[facility] - 0 0 Y [facility] - 9 9 [facility] [place] [address] [address] [facility] [place] [address] [facility] [place] [address] [address] [facility] [place] [address] [facility] [place] [address] [facility] [place] [address] 9 [facility] [place] [address] 9 [facility]
--- OUTSIDE RECORDS SUMMARY | 2017-05-12 11:02 | External Medical Summary Rpt | CCD ---
Demographics Preferred Language Frisian Marital Status Unknown Scientologist Affiliation Unknown Race Unknown Ethnic Group Unknown Author Author , PATRICIA GOMEZ Address Unknown Phone Immunization No patient found.
--- OUTSIDE RECORDS SUMMARY | 2017-05-12 11:02 | External Medical Summary Rpt | CCD ---
Demographics Preferred Language Kinyarwanda Marital Status Unknown Advent Affiliation Unknown Race Unknown Ethnic Group Unknown Author Author , PATRICIA GOMEZ Address Unknown Phone Immunization No patient found.
--- OUTSIDE RECORDS SUMMARY | 2017-05-12 11:03 | External Medical Summary Rpt ---
Author Author JACKIEJOSE La, [employer] Address Unknown Phone Unavailable Results Hemoglobin & Hematocrit panel in Blood Observa Value Referen Units Interpr Notes Date tion ce etation Range Hematocri 37.0 - % Low No Sep 19 t [Volume 47.0 informati 2017 2:25 on in PM Fraction] source of Blood data Hemoglobi 12.2 - g/dL Low No Sep 19 n 16.2 informati 2017 2:25 [Mass/vol on in PM ume] in source Blood data Blood product special preparation [Type] Observa Value Referen Units Interpr Notes Date tion ce etation Range UNIT NUMBER [id number] A NEG UNIT NUMBER [id number] A NEG Blood product special preparation [Type] Observa Value Referen Units Interpr Notes Date tion ce etation Range Blood BLOOD No No No BLOOD Sep 19 product UNIT informa informa informa UNIT # 2017 RELEASE tion in tion in tion in : [id number] 9:03 AM special source source source 17 data data data [id number] prepara RELEASE tion D [Type] 7BBrandon canela aA NEGATIV E Hemoglobin & Hematocrit panel in Blood Observa Value Referen Units Interpr Notes Date tion ce etation Range Hematocri 37.0 - % Low alert Sep t [Volume 47.0 2016 6:41 CRITICAL AM Fraction] RESULTS of Blood RESU LTS CALLED TO: [facility] 02/23/17 0705 Ottoniel Dos Santos e Hemoglobi 12.2 - g/dL Low alert Feb 23 n 16.2 2016 6:41 [Mass/vol CRITICAL AM ume] in RESULTS Blood [facility] Ottoniel Duran Hemoglobin & Hematocrit panel in Blood Observa Value Referen Units Interpr Notes Date tion ce etation Range Hematocri 37.0 - % Low alert Feb 23 t [Volume 47.0 2016 6:41 CRITICAL AM Fraction] RESULTS of Blood [facility]: [facility] 07Ottoniel Sinclair Hemoglobi 12.2 - g/dL Low alert Feb 23 n 16.2 2016 6:41 [Mass/vol CRITICAL AM ume] in RESULTS Blood [facility]: [facility] Ottoniel Duran Hemoglobin & Hematocrit panel in Blood Observa Value Referen Units Interpr Notes Date tion ce etation Range Hematocri 37.0 - % Low alert Feb 23 t [Volume 47.0 2016 6:41 CRITICAL AM Fraction] RESULTS of Blood RESU LTS CALLED TO: [facility] 02/23/17 07Ottoniel Sinclair Hemoglobi 12.2 - g/dL Low alert Feb 23 n 16.2 2016 6:41 [Mass/vol CRITICAL AM ume] in RESULTS Blood [facility] 02/[facility]/17Ottoniel Zamora [id number] previousl y reported as: 6.5 *L g/dL CRITICAL RESULTS [facility]U [facility]17 0705 Ottoniel Dos Santos e cell screen [interpretation] in Blood Observa Value Referen Units Interpr Notes Date tion ce etation Range RHOGAM No No No RHOGAM Sep 18 cell RELEASE informa informa informa LOT# : 2017 screen tion in tion in tion in [id number] 12:52 [interp source source source 1 PM retatio data data data RELEASE n] in D Blood 7 1253 Margaret Ashford EXP:03/07/17 Blood type & Crossmatch panel in Blood Observa Value Referen Units Interpr Notes Date tion ce etation Range Hold? N Transfuse now? 2 UNITS NOW Major COMPAT No No No No Sep 18 crossma informa informa informa informa 2017 tch tion in tion in tion in tion in 10:00 [interp source source source source AM retatio data data data data n] Major COMPAT No No No No Sep 18 crossma informa informa informa informa 2017 tch tion in tion in tion in tion in 10:00 [interp source source source source AM retatio data data data data n] by Immedia te spin Blood type & Crossmatch panel in Blood Observa Value Referen Units Interpr Notes Date tion ce etation Range Hold? N Transfuse now? 2 UNITS NOW Major COMPAT No No No No Sep 18 crossma informa informa informa informa 2017 tch tion in tion in tion in tion in 10:00 [interp source source source source AM retatio data data data data n] Major COMPAT No No No No Sep 18 crossma informa informa informa informa 2017 tch tion in tion in tion in tion in 10:00 [interp source source source source AM retatio data data data data n] by Immedia te spin cell screen [interpretation] in Blood Observa Value Referen Units Interpr Notes Date tion ce etation Range Blood NEGATIV NEGATIV No No No Sep 18 group E E informa informa informa 2017 antibod tion in tion in tion in 10:00 y source source source AM screen data data data [Presen ce] in Serum or Plasma NEGATIV NEGATIV No No RHO Sep 18 cell E E informa informa LOT: 2017 screen tion in tion in [id number] 10:00 [Presen source source 1EXP: AM ce] in data data 03/07/17 Blood by Ketty test Rh NEGATIV No No No No Sep 18 [Type] E informa informa informa informa 2017 in tion in tion in tion in tion in 10:00 Blood source source source source AM data data data data ABO A No No No No Sep 18 group informa informa informa informa 2017 [Type] tion in tion in tion in tion in 10:00 in source source source source AM Blood data data data data pH of Cord blood Observa Value Referen Units Interpr Notes Date tion ce etation Range pH of 7.35 - No High No Sep 18 Cord 7.45 informati informati 2017 8:00 blood on in on in AM source source data data Buprenorphine Confirm, Urine Observa Value Referen Units Interpr Notes Date tion ce etation Range Bupreno Positiv . No Abnorma Confirm Sep 18 rphine+ e informa l ation 2017 Norbupr tion in perform 5:45 AM enorphi source ed by ne data Mass [Presen Spectro ce] in metry Urine Bupreno Positiv . No Abnorma No Sep 18 rphine e informa l informa 2016 [Presen tion in tion in 5:45 AM ce] in source source Urine data data by Confirm method Buprenorp Cutoff=10 ng/mL No No Sep 18 kira informati informati 2017 5:45 [Mass/vol on in on in AM ume] in source source Urine by data data Confirm method Norbupr Positiv . No Abnorma No Sep 18 enorphi e informa l informa 2017 ne tion in tion in 5:45 AM [Presen source source ce] in data data Urine by Confirm method Norbupren Cutoff=10 ng/mL No Performed Sep 18 orphine informati at: UI 2017 5:45 [Mass/vol on in - [facility] AM ume] in source OTS Urine by data [id number] T Confirm W method Rick Naila, [facility], [place] [id number] [employer]: Kvng Patel MD, Phone: [phone] Blood type & Indirect antibody screen panel in Blood Observa Value Referen Units Interpr Notes Date tion ce etation Range Blood NEGATIV NEGATIV No No No Sep 18 group E E informa informa informa 2017 antibod tion in tion in tion in 5:40 AM y source source source screen data data data [Presen ce] in Serum or Plasma Rh NEGATIV No No No No Sep 18 [Type] E informa informa informa informa 2017 in tion in tion in tion in tion in 5:40 AM Blood source source source source data data data data ABO A No No No No Sep 18 group informa informa informa informa 2017 [Type] tion in tion in tion in tion in 5:40 AM in source source source source Blood data data data data Comprehensive metabolic 2000 panel in Serum or Plasma Observa Value Referen Units Interpr Notes Date tion ce etation Range Albumin/G 1.1 - 1.8 No Low No Sep 18 lobulin informati informati 2017 5:40 [Mass on in on in AM ratio] in source source Serum or data data Plasma Albumin 3.4 - 5.0 gm/dL Low No Sep 18 [Mass/vol informati 2017 5:40 ume] in on in AM Serum or source Plasma data Alkaline 46 - 116 U/L High No Sep 18 phosphata informati 2017 5:40 se on in AM [Enzymati source c data activity/ volume] in Serum or Plasma Bilirubin 0.2 - 1.0 mg/dL Normal No Sep 18 .total informati 2017 5:40 [Mass/vol on in AM ume] in source Serum or data Plasma Urea 7 - 18 mg/dL Low No Sep 18 nitrogen informati 2017 5:40 [Mass/vol on in AM ume] in source Serum or data Plasma Calcium 8.5 - mg/dL Low No Sep 18 [Mass/vol 10.1 informati 2017 5:40 ume] in on in AM Serum or source Plasma data Chloride 98 - 107 mmoL/L Normal No Sep 18 [Moles/vo informati 2017 5:40 lume] in on in AM Serum or source Plasma data Carbon 21.0 - mmoL/L Normal No Sep 18 dioxide, 32.0 informati 2017 5:40 total on in AM [Moles/vo source lume] in data Serum or Plasma Creatinin 0.55 - mg/dL Normal No Sep 18 e 1.02 informati 2017 5:40 [Mass/vol on in AM ume] in source Serum or data Plasma Estimated 59- ML/MIN No REFERENCE Sep 18 informati RANGE: 2017 5:40 glomerula on in >60 AM r source ML/MIN/1. filtratio data 73 SQUARE n rate METERSIf (GF this patient is -A merican, then multiply theresult by 1.210. Globulin 1.3 - 3.2 gm/dL High No Sep 18 [Mass/vol informati 2017 5:40 ume] in on in AM Serum source data Glucose 74 - 106 mg/dL Normal No Sep 18 [Mass/vol informati 2016 5:40 ume] in on in AM Serum or source Plasma data Potassium 3.5 - 5.1 mmoL/L Low No Sep 18 informati 2016 5:40 [Moles/vo on in AM lume] in source Serum or data Plasma Sodium 136 - 145 mmoL/L Normal No Sep 18 [Moles/vo informati 2016 5:40 lume] in on in AM Serum or source Plasma data Aspartate 15 - 37 U/L Normal No Sep 18 informati 2017 5:40 aminotran on in AM sferase source [Enzymati data c activity/ volume] in Serum or Plasma Alanine 12 - 78 U/L Normal No Sep 18 aminotran informati 2016 5:40 sferase on in AM [Enzymati source c data activity/ volume] in Serum or Plasma Protein 6.4 - 8.2 gm/dL Normal No Sep 18 [Mass/vol informati 2016 5:40 ume] in on in AM Serum or source Plasma data CBC W Auto Differential panel in Blood Observa Value Referen Units Interpr Notes Date tion ce etation Range Basophils 0 - 0.2 K/MM3 Normal No Sep 18 informati 2017 5:40 [#/volume on in AM ] in source Blood by data Automated count Basophils 0.1 - 2.0 % Normal No Sep 18 /100 informati 2016 5:40 leukocyte on in AM s in source Blood by data Automated count Eosinophi 0.0 - 0.4 K/mm3 Normal No Sep 18 ls informati 2016 5:40 [#/volume on in AM ] in source Blood by data Automated count Eosinophi 0.1 - % Normal No Sep 18 ls/100 12.0 informati 2016 5:40 leukocyte on in AM s in source Blood by data Automated count Granulocy 1.8 - 7.8 K/mm3 Normal No Sep 18 jose informati 2016 5:40 [#/volume on in AM ] in source Blood by data Automated count Granulocy 37.0 - % Normal No Sep 18 jose/100 80.0 informati 2016 5:40 leukocyte on in AM s in source Blood by data Automated count Hematocri 37.0 - % Low No Sep 18 t [Volume 47.0 informati 2016 5:40 on in AM Fraction] source of Blood data Hemoglobi 12.2 - g/dL Low No Sep 18 n 16.2 informati 2016 5:40 [Mass/vol on in AM ume] in source Blood data Lymphocyt 0.7 - 4.5 K/mm3 Normal No Sep 18 es informati 2017 5:40 [#/volume on in AM ] in source Unspecifi data ed specimen by Automated count Lymphocyt 10 - 50.0 % Normal No Sep 18 es informati 2016 5:40 [#/volume on in AM ] in source Unspecifi data ed specimen by Automated count Erythrocy 27 - 31.2 pg Normal No Sep 18 te mean informati 2016 5:40 corpuscul on in AM ar source hemoglobi data n [Entitic mass] Erythrocy 31.8 - g/dl Normal No Sep 18 te mean 35.4 informati 2016 5:40 corpuscul on in AM ar source hemoglobi data n concentra tion [Mass/vol ume] by Automated count Erythrocy 82.2 - fl Normal No Sep 18 te mean 97.8 informati 2016 5:40 corpuscul on in AM ar volume source [Entitic data volume] by Automated count Monocytes 0.1 - 1.0 K/mm3 Normal No Sep 18 informati 2016 5:40 [#/volume on in AM ] in source Blood by data Automated count Monocytes 1.7 - 9.3 % Normal No Sep 18 /100 informati 2017 5:40 leukocyte on in AM s in source Blood by data Automated count Platelet 7.4 - fl Normal No Sep 18 mean 10.4 informati 2016 5:40 volume on in AM [Entitic source volume] data in Blood by Automated count Platelets 142 - 424 K/mm3 Normal No Sep 18 informati 2016 5:40 [#/volume on in AM ] in source Blood data Erythrocy 4.2 - 5.4 M/mm3 Low No Sep 18 jose informati 2017 5:40 [#/volume on in AM ] in source Amniotic data fluid Erythrocy 11.5 - % Normal No Sep 18 te 17.5 informati 2017 5:40 distribut on in AM ion width source [Entitic data volume] by Automated count Leukocyte 4.8 - K/MM3 Normal No Sep 18 s 10.8 informati 2017 5:40 [#/volume on in AM ] in source Blood data Drugs identified in Urine by Screen method Observa Value Referen Units Interpr Notes Date tion ce etation Range Collected by nurse? Y Hold specimen in OE? N Positive urine drug screen samples are stored for 7 days. Contact the Lab if confirmation of positives is needed. Ampheta NEGATIV <1000 ng/mL No No Sep 18 mine E informa informa 2017 [Presen tion in tion in 5:30 AM ce] in source source Urine data data by Screen method Barbitura <200 ng/mL No No Sep 18 jose informati informati 2017 5:30 [Mass/vol on in on in AM ume] in source source Urine by data data Screen method Benzodiaz 200 ng/mL ng/mL No No Sep 18 epines informati informati 2017 5:30 [Mass/vol on in on in AM ume] in source source Serum or data data Plasma by Screen method Cocaine <300 ng/g No No Sep 18 [Mass/vol informati informati 2017 5:30 ume] in on in on in AM Unspecifi source source ed data data specimen Methadone <300 ng/mL No No Sep 18 informati informati 2017 5:30 [Mass/vol on in on in AM ume] in source source Unspecifi data data ed specimen Opiates <300 ng/mL No No Sep 18 [Mass/vol informati informati 2017 5:30 ume] in on in on in AM Unspecifi source source ed data data specimen Phencycli <25 ng/mL No No Sep 18 dine informati informati 2017 5:30 [Mass/vol on in on in AM ume] in source source Unspecifi data data ed specimen 11-Hydr NEGATIV <50 ng/mL No No Sep 18 oxy E informa informa 2017 delta-9 tion in tion in 5:30 AM source source tetrahy data data drocann abinol [Presen ce] in Unspeci fied specime n Buprenorphine Confirm, Urine Observa Value Referen Units Interpr Notes Date tion ce etation Range Bupreno Positiv . No Abnorma Confirm Sep 8 rphine+ e informa l ation 2017 Norbupr tion in perform 3:35 AM enorphi source ed by ne data Mass [Presen Spectro ce] in metry Urine Please COMMENT No No No CONFIRM Sep 8 Note: informa informa informa ATION 2017 tion in tion in tion in PERFORM 3:35 AM source source source ED BY data data data MASS SPECTRO METRY Bupreno Positiv . No Abnorma No Sep 8 rphine e informa l informa 2017 [Presen tion in tion in 3:35 AM ce] in source source Urine data data by Confirm method Buprenorp Cutoff=10 ng/mL No No Sep 8 kira informati informati 2017 3:35 [Mass/vol on in on in AM ume] in source source Urine by data data Confirm method Norbupr Positiv . No Abnorma No Sep 8 enorphi e informa l informa 2017 ne tion in tion in 3:35 AM [Presen source source ce] in data data Urine by Confirm method Norbupren Cutoff=10 ng/mL No Performed Sep 8 orphine informati at: UI 2017 3:35 [Mass/vol on in - [facility] AM ume] in source OTS Urine by data [id number] Confirm W method [place], [place] [id number] [employer]: Kvng Patel MD, Phone: [phone] Drugs identified in Urine by Screen method Observa Value Referen Units Interpr Notes Date tion ce etation Range Collected by nurse? Y Hold specimen in OE? N Positive urine drug screen samples are stored for 7 days. Contact the Lab if confirmation of positives is needed. Ampheta NEGATIV <1000 ng/mL No No Sep 8 mine E informa informa 2017 [Presen tion in tion in 3:35 AM ce] in source source Urine data data by Screen method Barbitura <200 ng/mL No No Sep 8 jose informati informati 2017 3:35 [Mass/vol on in on in AM ume] in source source Urine by data data Screen method Benzodiaz 200 ng/mL ng/mL No No Sep 8 epines informati informati 2017 3:35 [Mass/vol on in on in AM ume] in source source Serum or data data Plasma by Screen method Cocaine <300 ng/g No No Sep 8 [Mass/vol informati informati 2017 3:35 ume] in on in on in AM Unspecifi source source ed data data specimen Methadone <300 ng/mL No No Sep 8 informati informati 2016 3:35 [Mass/vol on in on in AM ume] in source source Unspecifi data data ed specimen Opiates <300 ng/mL No No Sep 8 [Mass/vol informati informati 2017 3:35 ume] in on in on in AM Unspecifi source source ed data data specimen Phencycli <25 ng/mL No No Sep 8 dine informati informati 2017 3:35 [Mass/vol on in on in AM ume] in source source Unspecifi data data ed specimen 11-Hydr NEGATIV <50 ng/mL No No Sep 8 oxy E informa informa 2017 delta-9 tion in tion in 3:35 AM source source tetrahy data data drocann abinol [Presen ce] in Unspeci fied specime n [id number].placental [Presence] in Vaginal fluid Observa Value Referen Units Interpr Notes Date tion ce etation Range Alpha-1 NEGATIV No No No No Sep 8 -Microg E FOR informa informa informa informa 2017 lobulin RUPTURE tion in tion in tion in tion in 3:35 AM .placen source source source source debbie data data data data [Presen ce] in Vaginal fluid Drugs identified in Urine by Screen method Observa Value Referen Units Interpr Notes Date tion ce etation Range Collected by nurse? Y Hold specimen in OE? N Positive urine drug screen samples are stored for 7 days. Contact the Lab if confirmation of positives is needed. Ampheta NEGATIV <1000 ng/mL No No Jan 28 mine E informa informa 2017 [Presen tion in tion in 2:25 PM ce] in source source Urine data data by Screen method Barbitura <200 ng/mL No No Jan 28 jose informati informati 2016 2:25 [Mass/vol on in on in PM ume] in source source Urine by data data Screen method Benzodiaz 200 ng/mL ng/mL No No Jan 28 epines informati informati 2016 2:25 [Mass/vol on in on in PM ume] in source source Serum or data data Plasma by Screen method Cocaine <300 ng/g No No Jan 28 [Mass/vol informati informati 2016 2:25 ume] in on in on in PM Unspecifi source source ed data data specimen Methadone <300 ng/mL No No Jan 28 informati informati 2016 2:25 [Mass/vol on in on in PM ume] in source source Unspecifi data data ed specimen Opiates <300 ng/mL No No Jan 28 [Mass/vol informati informati 2016 2:25 ume] in on in on in PM Unspecifi source source ed data data specimen Phencycli <25 ng/mL No No Jan 28 dine informati informati 2016 2:25 [Mass/vol on in on in PM ume] in source source Unspecifi data data ed specimen 11-Hydr NEGATIV <50 ng/mL No Jan 28 oxy E informa informa 2017 delta-9 tion in tion in 2:25 PM source source tetrahy data data drocann abinol [Presen ce] in Unspeci fied specime n Urinalysis dipstick W Reflex Microscopic panel in Urine Observa Value Referen Units Interpr Notes Date tion ce etation Range Collected by nurse? Y Hold specimen in OE? N Appeara CLOUDY CLEAR No No No Jan 28 nce of informa informa informa 2017 Urine tion in tion in tion in 2:25 PM source source source data data data Bacteri 4+ O No No No Jan 28 a informa informa informa 2016 [Presen tion in tion in tion in 2:25 PM ce] in source source source Urine data data data sedimen t by Light microsc opy Bilirub 1+ NEG No Abnorma BILIRUB Jan 28 in informa l IN 2016 [Presen tion in CONFIRM 2:25 PM ce] in source ED WITH Urine data by Test ICTOTES strip T Erythro NEGATIV NEG No No No Jan 28 cytes E informa informa informa 2016 [Presen tion in tion in tion in 2:25 PM ce] in source source source Urine data data data Color DK YELLOW No No No Jan 28 of YELLOW informa informa informa 2017 Urine tion in tion in tion in 2:25 PM source source source data data data Glucose NEG No No No Jan 24 [Mass/vol informati informati informati 2017 2:25 ume] in on in on in on in PM Urine by source source source Test data data data strip Ketones NEGATIV NEG mg/dL No No Jan 28 E informa informa 2016 [Presen tion in tion in 2:25 PM ce] in source source Urine data data by Automat ed test strip Mucus 1+ NEG No Abnorma No Jan 24 [Presen informa l informa 2016 ce] in tion in tion in 2:25 PM Urine source source sedimen data data t by Light microsc opy Mucus 2+ OCC No No No Jan 24 [Presen informa informa informa 2016 ce] in tion in tion in tion in 2:25 PM Urine source source source sedimen data data data t by Light microsc opy Nitrite NEGATIV NEG No No No Jan 28 E informa informa informa 2016 [Presen tion in tion in tion in 2:25 PM ce] in source source source Urine data data data by Test strip pH of 5.0 - 8.5 No Normal No Jan 28 Urine informati informati 2017 2:25 on in on in PM source source data data Protein NEG mg/dL High No Jan 28 [Mass/vol informati 2017 2:25 ume] in on in PM Urine by source Automated data test strip Specific 1.005 - No Normal No Jan 28 gravity 1.030 informati informati 2017 2:25 of Urine on in on in PM source source data data Epithel 20-50 0 - 5 #/hpf No No Jan 28 ial informa informa 2017 cells.s tion in tion in 2:25 PM quamous source source data data [Presen ce] in Urine sedimen t by Microsc opy high power field Urobili 4.0 NEG E.U./dL No No Jan 24 nogen informa informa 2017 [Presen tion in tion in 2:25 PM ce] in source source Urine data data by Test strip Leukocy [20 O wbc/hpf No No Jan 24 jose wbc/hpf informa informa 2017 [#/volu ; 50 tion in tion in 2:25 PM me] in wbc/hpf source source Urine ] data data Urinalysis dipstick W Reflex Microscopic panel in Urine Observa Value Referen Units Interpr Notes Date tion ce etation Range Collected by nurse? Y Hold specimen in OE? N Appeara CLOUDY CLEAR No No No Jan 28 nce of informa informa informa 2016 Urine tion in tion in tion in 2:25 PM source source source data data data Bilirub 1+ NEG No Abnorma BILIRUB Jan 28 in informa l IN 2016 [Presen tion in CONFIRM 2:25 PM ce] in source ED WITH Urine data by Test ICTOTES strip T Erythro NEGATIV NEG No No No Jan 28 cytes E informa informa informa 2016 [Presen tion in tion in tion in 2:25 PM ce] in source source source Urine data data data Color DK YELLOW No No No Jan 28 of YELLOW informa informa informa 2016 Urine tion in tion in tion in 2:25 PM source source source data data data Glucose NEG No No No Jan 28 [Mass/vol informati informati informati 2017 2:25 ume] in on in on in on in PM Urine by source source source Test data data data strip Ketones NEGATIV NEG mg/dL No No Jan 28 E informa informa 2016 [Presen tion in tion in 2:25 PM ce] in source source Urine data data by Automat ed test strip Mucus 1+ NEG No Abnorma No Jan 28 [Presen informa l informa 2016 ce] in tion in tion in 2:25 PM Urine source source sedimen data data t by Light microsc opy Nitrite NEGATIV NEG No No No Jan 28 E informa informa informa 2016 [Presen tion in tion in tion in 2:25 PM ce] in source source source Urine data data data by Test strip pH of 5.0 - 8.5 No Normal No Jan 24 Urine informati informati 2017 2:25 on in on in PM source source data data Protein NEG mg/dL High No Jan 24 [Mass/vol informati 2017 2:25 ume] in on in PM Urine by source Automated data test strip Specific 1.005 - No Normal No Jan 28 gravity 1.030 informati informati 2017 2:25 of Urine on in on in PM source source data data Urobili 4.0 NEG E.U./dL No No Jan 28 nogen informa informa 2017 [Presen tion in tion in 2:25 PM ce] in source source Urine data data by Test strip Fibronectin. [Mass/volume] in Vaginal fluid Observa Value Referen Units Interpr Notes Date tion ce etation Range Fibronect NEGATIVE No No Jan 16 in. informati informati FIBRONECT 2017 4:25 [Mass/vol on in on in IN AM ume] in source source INTERPRET Vaginal data data ATION:Sym fluid ptomatic women: There is an increased risk of deliveryw ithin 14 days for positive results obtained between 24weeks and 34 weeks,6 days of gestation .Asymptom atic women: There is an increased risk of deliverya t less than 35 weeks for positive results obtained noruppk65 weeks and 30 weeks,6 days of gestation . Kxyap-8-Wmqjpspbicoaw.placental [Presence] in Vaginal fluid Observa Value Referen Units Interpr Notes Date tion ce etation Range Alpha-1 NEGATIV No No No No Jan 16 -Microg E FOR informa informa informa informa 2017 lobulin RUPTURE tion in tion in tion in tion in 4:25 AM .placen source source source source debbie data data data data [Presen ce] in Vaginal fluid Drugs identified in Urine by Screen method Observa Value Referen Units Interpr Notes Date tion ce etation Range Collected by nurse? Y Hold specimen in OE? N Positive urine drug screen samples are stored for 7 days. Contact the Lab if confirmation of positives is needed. Ampheta NEGATIV <1000 ng/mL No No Jan 16 mine E informa informa 2017 [Presen tion in tion in 4:00 AM ce] in source source Urine data data by Screen method Barbitura <200 ng/mL No No Jan 16 jose informati informati 2017 4:00 [Mass/vol on in on in AM ume] in source source Urine by data data Screen method Benzodiaz 200 ng/mL ng/mL No No Jan 16 epines informati informati 2017 4:00 [Mass/vol on in on in AM ume] in source source Serum or data data Plasma by Screen method Cocaine <300 ng/g No No Jan 16 [Mass/vol informati informati 2017 4:00 ume] in on in on in AM Unspecifi source source ed data data specimen Methadone <300 ng/mL No No Jan 16 informati informati 2017 4:00 [Mass/vol on in on in AM ume] in source source Unspecifi data data ed specimen Opiates <300 ng/mL No No Jan 16 [Mass/vol informati informati 2017 4:00 ume] in on in on in AM Unspecifi source source ed data data specimen Phencycli <25 ng/mL No No Jan 16 dine informati informati 2017 4:00 [Mass/vol on in on in AM ume] in source source Unspecifi data data ed specimen 11-Hydr NEGATIV <50 ng/mL No No Jan 16 oxy E informa informa 2017 delta-9 tion in tion in 4:00 AM source source tetrahy data data drocann abinol [Presen ce] in Unspeci fied specime n Urinalysis dipstick W Reflex Microscopic panel in Urine Observa Value Referen Units Interpr Notes Date tion ce etation Range Collected by nurse? Y Hold specimen in OE? N Appeara CLEAR CLEAR No No No Jan 16 nce of informa informa informa 2017 Urine tion in tion in tion in 4:00 AM source source source data data data Amorpho TRACE NONE No No No Jan 16 us informa informa informa 2017 sedimen tion in tion in tion in 4:00 AM t source source source [Presen data data data ce] in Urine sedimen t by Light microsc opy Bilirub NEGATIV NEG No No BILIRUB Jan 16 in E informa informa IN 2017 [Presen tion in tion in CONFIRM 4:00 AM ce] in source source ED WITH Urine data data by Test ICTOTES strip T Erythro NEGATIV NEG No No No Jan 16 cytes E informa informa informa 2017 [Presen tion in tion in tion in 4:00 AM ce] in source source source Urine data data data Color DK YELLOW No No No Jan 16 of YELLOW informa informa informa 2017 Urine tion in tion in tion in 4:00 AM source source source data data data Glucose NEG No No No Jan 16 [Mass/vol informati informati informati 2017 4:00 ume] in on in on in on in AM Urine by source source source Test data data data strip Ketones TRACE NEG mg/dL Abnorma No Jan 16 l informa 2017 [Presen tion in 4:00 AM ce] in source Urine data by Automat ed test strip Mucus NEGATIV NEG No No No Jan 16 [Presen E informa informa informa 2016 ce] in tion in tion in tion in 4:00 AM Urine source source source sedimen data data data t by Light microsc opy Mucus 4+ OCC No No No Jan 16 [Presen informa informa informa 2016 ce] in tion in tion in tion in 4:00 AM Urine source source source sedimen data data data t by Light microsc opy Nitrite NEGATIV NEG No No No Jan 16 E informa informa informa 2016 [Presen tion in tion in tion in 4:00 AM ce] in source source source Urine data data data by Test strip pH of 5.0 - 8.5 No Normal No Jan 16 Urine informati informati 2017 4:00 on in on in AM source source data data Protein NEG mg/dL High No Jan 16 [Mass/vol informati 2017 4:00 ume] in on in AM Urine by source Automated data test strip Specific 1.005 - No Normal No Jan 16 gravity 1.030 informati informati 2017 4:00 of Urine on in on in AM source source data data Epithel 5-10 0 - 5 #/hpf No No Jan 16 ial informa informa 2017 cells.s tion in tion in 4:00 AM quamous source source data data [Presen ce] in Urine sedimen t by Microsc opy high power field Urobili 2.0 NEG E.U./dL No No Jan 16 nogen informa informa 2016 [Presen tion in tion in 4:00 AM ce] in source source Urine data data by Test strip Leukocy [3 O wbc/hpf No No Jan 12 jose wbc/hpf informa informa 2016 [#/volu ; 5 tion in tion in 4:00 AM me] in wbc/hpf source source Urine ] data data Urinalysis dipstick W Reflex Microscopic panel in Urine Observa Value Referen Units Interpr Notes Date tion ce etation Range Collected by nurse? Y Hold specimen in OE? N Appeara CLEAR CLEAR No No No Jan 16 nce of informa informa informa 2016 Urine tion in tion in tion in 4:00 AM source source source data data data Bilirub NEGATIV NEG No No BILIRUB Jan 16 in E informa informa IN 2017 [Presen tion in tion in CONFIRM 4:00 AM ce] in source source ED WITH Urine data data by Test ICTOTES strip T Erythro NEGATIV NEG No No No Jan 16 cytes E informa informa informa 2016 [Presen tion in tion in tion in 4:00 AM ce] in source source source Urine data data data Color DK YELLOW No No No Jan 16 of YELLOW informa informa informa 2016 Urine tion in tion in tion in 4:00 AM source source source data data data Glucose NEG No No No Jan 16 [Mass/vol informati informati informati 2016 4:00 ume] in on in on in on in AM Urine by source source source Test data data data strip Ketones TRACE NEG mg/dL Abnorma No Jan 16 l informa 2016 [Presen tion in 4:00 AM ce] in source Urine data by Automat ed test strip Mucus NEGATIV NEG No No No Jan 16 [Presen E informa informa informa 2016 ce] in tion in tion in tion in 4:00 AM Urine source source source sedimen data data data t by Light microsc opy Nitrite NEGATIV NEG No No No Jan 16 E informa informa informa 2016 [Presen tion in tion in tion in 4:00 AM ce] in source source source Urine data data data by Test strip pH of 5.0 - 8.5 No Normal No Jan 16 Urine informati informati 2017 4:00 on in on in AM source source data data Protein NEG mg/dL High No Jan 16 [Mass/vol informati 2016 4:00 ume] in on in AM Urine by source Automated data test strip Specific 1.005 - No Normal No Jan 16 gravity 1.030 informati informati 2017 4:00 of Urine on in on in AM source source data data Urobili 2.0 NEG E.U./dL No No Jan 16 nogen informa informa 2016 [Presen tion in tion in 4:00 AM ce] in source source Urine data data by Test strip Fibronectin. [Mass/volume] in Vaginal fluid Observa Value Referen Units Interpr Notes Date tion ce etation Range Fibronect NEGATIVE No No Dec 04 in. informati informati FIBRONECT 2017 5:05 [Mass/vol on in on in IN AM ume] in source source INTERPRET Vaginal data data ATION:Sym fluid ptomatic women: There is an increased risk of deliveryw ithin 14 days for positive results obtained between 24weeks and 34 weeks,6 days of gestation .Asymptom atic women: There is an increased risk of deliverya t less than 35 weeks for positive results obtained [id number] weeks and 30 weeks,6 days of gestation . cell screen [interpretation] in Blood Observa Value Referen Units Interpr Notes Date tion ce etation Range RHOGAM No No No RHOGAM Nov 27 cell RELEASE informa informa informa LOT# : 2016 screen tion in tion in tion in [id number] 10:04 [interp source source source 1 AM retatio data data data RELEASE n] in D Blood 7 1008 [facility] [place] EXP:03/07/17 cell screen [interpretation] in Blood Observa Value Referen Units Interpr Notes Date ti ce etation Range Blood NEGATIV NEGATIV No No No Nov 27 group E E informa informa informa 2017 antibod tion in tion in tion in 8:48 AM y source source source screen data data data [Presen ce] in Serum or Plasma RHOGAM RHOGAM No No No LOT # Nov 27 LOT # INFORMA informa informa informa [id number] 2017 TION tion in tion in tion in 1 EXP 8:48 AM source source source DATE data data data 03/07/17 Rh NEGATIV No No No No Nov 27 [Type] E informa informa informa informa 2017 in tion in tion in tion in tion in 8:48 AM Blood source source source source data data data data ABO A No No No No Nov 27 group informa informa informa informa 2017 [Type] tion in tion in tion in tion in 8:48 AM in source source source source Blood data data data data Hemoglobin & Hematocrit panel in Blood Observa Value Referen Units Interpr Notes Date tion ce etation Range Hematocri 37.0 - % Normal No Nov 27 t [Volume 47.0 informati 2017 8:48 on in AM Fraction] source of Blood data Hemoglobi 12.2 - g/dL No No Nov 27 n 16.2 informati informati 2017 8:48 [Mass/vol on in on in AM ume] in source source Blood data data
--- OUTSIDE RECORDS SUMMARY | 2017-05-12 11:03 | External Medical Summary Rpt ---
[...] Date tion ce etation Range UNIT NUMBER [id number] A NEG UNIT NUMBER [id number] A NEG Blood product special preparation [Type] Observa Value Referen Units Interpr Notes Date tion ce etation Range Blood BLOOD No No No BLOOD Sep 19 product UNIT informa informa informa UNIT # 2017 RELEASE tion in tion in tion in : [id number] 9:03 AM special source source source 17 data data data [id number] prepara RELEASE tion D [Type] 7BBrandon canela aA NEGATIV E Hemoglobin & Hematocrit panel in Blood Observa Value Referen Units Interpr Notes Date tion ce etation Range Hematocri 37.0 - % Low alert Sep t [Volume 47.0 2016 6:41 CRITICAL AM Fraction] RESULTS of Blood RESU LTS CALLED TO: [facility] 02/23/17 0705 Ottoniel Dos Santos e Hemoglobi 12.2 - g/dL Low alert Feb 23 n 16.2 2016 6:41 [Mass/vol CRITICAL AM ume] in RESULTS Blood [facility] Ottoniel Duran Hemoglobin & Hematocrit panel in Blood Observa Value Referen Units Interpr Notes Date tion ce etation Range Hematocri 37.0 - % Low alert Feb 23 t [Volume 47.0 2016 6:41 CRITICAL AM Fraction] RESULTS of Blood [facility]: [facility] 07Ottoniel Sinclair Hemoglobi 12.2 - g/dL Low alert Feb 23 n 16.2 2016 6:41 [Mass/vol CRITICAL AM ume] in RESULTS Blood [facility] [place] Ottoniel Duran Hemoglobin & Hematocrit panel in Blood Observa Value Referen Units Interpr Notes Date tion ce etation Range Hematocri 37.0 - % Low alert Feb 23 t [Volume 47.0 2016 6:41 CRITICAL AM Fraction] RESULTS of Blood RESU LTS CALLED TO: [facility] 02/23/17 07Ottoniel Sinclair Hemoglobi 12.2 - g/dL Low alert Feb 23 n 16.2 2016 6:41 [Mass/vol CRITICAL AM ume] in RESULTS Blood [facility]: [facility] [place] [facility]/17Ottoniel Zamora [id number] previousl y reported as: 6.5 *L g/dL CRITICAL RESULTS [facility] [place]17 0705 Ottoniel Dos Santos e cell screen [interpretation] in Blood Observa Value Referen Units Interpr Notes Date tion ce etation Range RHOGAM No No No RHOGAM Sep 18 cell RELEASE informa informa informa LOT# : 2017 screen tion in tion in tion in [id number] 12:52 [interp source source source 1 PM [...] LOT: 2017 screen tion in tion in [id number] 10:00 [Presen source source 1EXP: AM ce] [...] ume] in source OTS Urine by data [id number] T Confirm W method Rick Naila, [facility] [place] [id number] Pediatric Dentist: Kvng Patel MD, Phone: [phone] Blood type & Indirect antibody screen [...] ume] in source OTS Urine by data [id number] T Confirm W method [place], [place] [id number] Pediatric Dentist: Kvng Patel MD, Phone: [phone] Drugs identified in Urine by Screen [...] [Presen ce] in Unspeci fied specime n Txryf-5-Fwollqyishlne.placental [Presence] in Vaginal fluid Observa Value Referen [...] than 35 weeks for positive results obtained emdexsb24 weeks and 30 weeks,6 days of gestation . Yfvrp-3-Cugglayvrfdky.placental [Presence] in Vaginal fluid Observa Value Referen [...] than 35 weeks for positive results obtained incewdr83 weeks and 30 weeks,6 days of gestation . cell screen [interpretation] in Blood Observa Value Referen Units Interpr Notes Date tion ce etation Range RHOGAM No No No RHOGAM Nov 27 cell RELEASE informa informa informa LOT# : 2016 screen tion in tion in tion in [id number] 10:04 [interp source source source 1 AM [...] 27 LOT # INFORMA informa informa informa [id number] 2017 TION tion in tion in tion [...]
== END 2017-05-12 10:58 | disposition home or self-care (01) ==
LOC: UTC 10:24
DX: J11.1 Influenza due to unidentified influenza virus with other respiratory manifestations (principal); Z20.828 Contact with and (suspected) exposure to other viral communicable diseases